=== PATIENT | male | born 1955 | race Caucasian/White ===

== ENCOUNTER 2019-10-09 07:37 | Outpatient (CLI) | payer OTHER, SELFPAY ==
--- NOTE | ~2019-10-09 | US_ITS ---
EXAMINATION: US retroperitoneal duplex ltd DATE: 10/09/2019 08:12 INDICATION: hypertension TECHNIQUE: Multiple grayscale, color Doppler, and pulsed Doppler images of the kidneys and renal анна nani were obtained. COMPARISON: None. FINDINGS: The aorta peak systolic velocity is 121 cm/s. The right renal artery peak systolic velocity is 116 cm /s in the proximal segment, 125 cm/s in the mid segment, and 150 cm/s in the distal segment. The left renal artery peak systolic velocity is 103 cm/s in the proximal segment, 94 cm/s in the mid segment, and 96 cm/s in the distal segment. Bilateral kidneys demonstrate normal contour and echogenicity wit h no hydronephrosis. IMPRESSION: 1. No Doppler evidence of renal artery stenosis. Reviewed, dictated and finalized at location B.
== END 2019-10-09 07:38 | disposition home or self-care (01) ==
PROVIDERS: PCP Nurse Practitioner Adult Health; Visit Provider Nurse Practitioner Adult Health
DX: I10 Essential (primary) hypertension (principal)
CPT/HCPCS: 93976

== ENCOUNTER 2021-09-24 16:18 | Outpatient (CLI) | payer OTHER, SELFPAY ==
--- NOTE | ~2021-09-24 | CT_ITS ---
EXAMINATION: CT abdomen pelvis wo/w con DATE: 09/24/2021 17:04 INDICATION: Gross hematuria. TECHNIQUE: Computed tomography (CT) of the abdomen and pelvis was performed without and with intraven ous contrast using a total of 130 mL Omnipaque-350 intravenous contrast with a double-bolus technique for simultaneous opacification of the renal parenchyma and renal collecting system. Automated exposu re control and iterative reconstruction technique were employed. The dose-length product was 808.61 m Gy-cm. COMPARISON: None FINDINGS: The visualized portions of the lung bases demonstrate mild atelectasis. No pleural effusion. The hear t size is normal. No pericardial effusion. The liver, gallbladder, spleen, pancreas, and adrenal glan ds are normal. There is an 11 mm hemorrhagic cyst in right kidney. There are cysts in the kidneys rosalia suring up to 7 mm on the left. There is a 2.0 cm enhancing mass in left kidney lower pole. There is a 2 mm stone in right kidney. Right ureter is well opacified and is normal. Left ureter is not well op acified distally, but is normal. The bladder is not well opacified, but is normal. There is a left in guinal hernia containing fat. There is diverticulosis of the colon without evidence of diverticulitis . The appendix is normal. There is a total left hip arthroplasty. There is severe lumbar spondylosis. There are bridging endplate osteophytes at multiple levels in the spine, consistent with diffuse idi opathic skeletal hyperostosis (DISH). IMPRESSION: 1. 2.0 cm enhancing mass in left kidney lower pole, consistent with renal cell carcinoma. 2. 2 mm nonobstructing right kidney stone. Reviewed, dictated and finalized at location A.
--- NOTE | ~2021-09-24 | XR_ITS ---
EXAMINATION: XR abdomen/kub 1V DATE: 09/24/2021 16:40 INDICATION: Gross hematuria. TECHNIQUE: A supine view of the abdomen on 2 radiographs was obtained. COMPARISON: CT abdomen and pelvis 09/24/2021 FINDINGS: There are no dilated loops of bowel. There is no visible urolithiasis. There is a total lef t hip arthroplasty. IMPRESSION: 1. No visible urolithiasis. Reviewed, dictated and finalized at location A. IMPRESSION: 1. No visible urolithiasis.
[2021-09-24 16:46] LABS: Estimated Glomerular Filt Rate > 60
== END 2021-09-24 16:19 | disposition home or self-care (01) ==
PROVIDERS: PCP Nurse Practitioner Adult Health; Visit Provider Nurse Practitioner Adult Health
DX: R31.0 Gross hematuria (principal); N28.89 Other specified disorders of kidney and ureter; N20.0 Calculus of kidney
CPT/HCPCS: 74018; 74178; Q9967

== ENCOUNTER → 2021-11-04 10:45 | Outpatient (CLI) | payer OTHER, SELFPAY ==
--- NOTE | ~2021-11-04 | US_ITS ---
US retroperitoneal comp 11/04/2021 11:06 Procedure: Realtime transabdominal ultrasound of the kidneys and bladder. Indication: Left renal mass seen on recent CT Comparison: Ultrasound dated 10/09/2019 Findings: Right renal echotexture within normal limits without mass, hydronephrosis or stone. Right k idney measures 10.3 cm. At the lower pole of the left kidney there is a solid hypoechoic mass measuri ng 2.7 x 2.4 x 2.5 cm with subtle posterior shadowing and no significant internal vascularity. Left k idney measures 10.7 cm. Bladder within normal limits. Impression: 1: Solid left renal mass anteriorly measuring 2.7 cm, compatible with renal cell carcinoma. Reviewed, dictated and finalized at location B. Impression: 1: Solid left renal mass anteriorly measuring 2.7 cm, compatible with renal olga l carcinoma.
== END ==
PROVIDERS: PCP Nurse Practitioner Adult Health; Visit Provider Urology
DX: R10.9 Unspecified abdominal pain (principal); N28.89 Other specified disorders of kidney and ureter
CPT/HCPCS: 76770

== ENCOUNTER 2021-11-05 08:21 | Outpatient (CLI) | payer OTHER, SELFPAY ==
--- NOTE | ~2021-11-05 | CT_ITS ---
EXAMINATION: CT diagnostic chest wo con DATE: 11/05/2021 08:39 INDICATION: Left kidney mass TECHNIQUE: Computed tomography (CT) of the chest was performed without intravenous contrast. The dose -length product (DLP) was 158.25 mGy-cm. Automated exposure control and iterative reconstruction tech nique were employed. COMPARISON: None FINDINGS: There is mild dependent atelectasis. The lungs are free of focal airspace opacities. No ple ural effusion or pneumothorax. No pathologically enlarged thoracic lymph nodes are identified. The he art size is normal. There are bridging osteophytes at multiple levels in the spine, consistent with d iffuse idiopathic skeletal hyperostosis (DISH). IMPRESSION: 1. No CT correlate for the patient's symptoms. No evidence of thoracic metastatic disease. Reviewed, dictated and finalized at location A. IMPRESSION: 1. No CT correlate for the patient's symptoms. No evidence of thoracic metastat ic disease.
== END 2021-11-05 08:22 | disposition home or self-care (01) ==
PROVIDERS: PCP Nurse Practitioner Adult Health; Visit Provider Urology
DX: N28.89 Other specified disorders of kidney and ureter (principal)
CPT/HCPCS: 71250

== ENCOUNTER 2022-07-15 08:12 | Outpatient (CLI) | payer OTHER, SELFPAY ==
--- NOTE | ~2022-07-15 | XR_ITS ---
EXAMINATION: XR chest 2V DATE: 07/15/2022 08:32 INDICATION: Papillary renal cell carcinoma. TECHNIQUE: Frontal and lateral views of the chest were obtained. COMPARISON: Chest single view 12/07/2004, CT abdomen 07/15/2022 FINDINGS: The chest demonstrates clear lungs without pneumonia, pleural effusion, or pneumothorax. Th e heart size is normal. There is an embolization coil in left kidney. IMPRESSION: 1. No evidence of metastatic disease. Reviewed, dictated and finalized at location A.
--- NOTE | ~2022-07-15 | CT_ITS ---
CT of the Abdomen: Indication: Papillary renal cell carcinoma Technique: 2.5 mm axial scans were obtained through the abdomen prior to and following intravenous a dministration of 100 cc of Omnipaque 350. Dose reduction technique was used on this scan by utilizing automated exposure control and iterative reconstruction technique. The dose-length product (DLP) was 461.17 mGy-cm. COMPARISON: 09/24/2021 Findings: Scans through the lung bases are unremarkable. The liver, spleen, pancreas, gallbladder, and adrenal glands are within normal limits. Is postsurgica l and/or post ablative change at the inferior aspect of the left kidney. No residual/recurrent pathol ogic mass clearly identified. Small right renal cysts are unchanged. No evidence of aortic aneurysm. No lymphadenopathy. Visualized bowel loops are unremarkable. No ascites. Impression: Postsurgical and/or postablative change at the inferior aspect of the left kidney. No residual/recurr ent pathologic mass evident. Reviewed, dictated and finalized at location . Impression: Postsurgical and/or postablative change at the inferior aspect of the left kidn ey. No residual/recurrent pathologic mass evident.
== END 2022-07-15 08:13 | disposition home or self-care (01) ==
PROVIDERS: PCP Family Medicine; Visit Provider Urology
DX: C64.9 Malignant neoplasm of unspecified kidney, except renal pelvis (principal)
CPT/HCPCS: 71046; 74170; Q9967

== ENCOUNTER → 2023-01-10 11:25 | Outpatient (CLI) | payer OTHER, SELFPAY ==
--- NOTE | ~2023-01-10 | XR_ITS ---
Left ankle Technique: AP, oblique, and lateral views were obtained. Clinical History: Pain Findings: No acute fracture or dislocation is seen. Osseous alignment is anatomic. Anatomic location intact. There is a prominent dorsal beak at the talar head, with poor delineation of the anterior sub talar facet. Soft tissues are otherwise unremarkable. 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 Consi sammy cross-sectional imaging to further evaluate, as indicated. Reviewed, dictated and finalized at location M. R GIFTS DIRECTOR Impression: Osseous findings as above which are suspicious for possible underlying talocalc aneal coalition. Consider cross-sectional imaging to further evaluate, as indic ated.
--- NOTE | ~2023-01-10 | XR_ITS ---
AP view of the pelvis and AP and lateral views of the right hip Clinical history: Pain Findings: No acute fracture or dislocation is seen. Osseous alignment is anatomic. Left hip arthropla sty is in place. No hardware complication seen. Right hip joint space is preserved. Soft tissues are unremarkable. Impression: No acute abnormality. Left hip arthroplasty in place. Reviewed, dictated and finalized at location . L SPAR OPERATOR Impression: No acute abnormality. Left hip arthroplasty in place.
== END ==
PROVIDERS: PCP Family Medicine; Visit Provider Nurse Practitioner
DX: M25.551 Pain in right hip (principal); M25.572 Pain in left ankle and joints of left foot
CPT/HCPCS: 73502; 73600

== ENCOUNTER 2023-06-08 08:35 | Outpatient (CLI) | payer MEDICARE, OTHER, SELFPAY ==
--- NOTE | ~2023-06-08 | CT_ITS ---
EXAMINATION: CT abdomen wo/w con DATE: 06/08/2023 09:27 INDICATION: Papillary renal cell carcinoma. TECHNIQUE: Computed tomography (CT) of the abdomen was performed without and with 100 mL Omnipaque 35 0 intravenous contrast. Automated exposure control and iterative reconstruction technique were employ ed. The dose-length product was 486.28 mGy-cm. COMPARISON: CT abdomen 07/15/2022 FINDINGS: The visualized portions of the lung bases demonstrate mild atelectasis. No pleural effusion . The heart size is normal. No pericardial effusion. The liver, gallbladder, spleen, pancreas, and ad renal glands are normal. There is a 9 mm hemorrhagic cyst in right kidney. There is a 2 mm stone in r ight kidney. There are cysts in the kidneys measuring up to 10 mm on the left. There are changes of p artial left nephrectomy. There are embolization coils in left kidney. There is diverticulosis of the colon without evidence of diverticulitis. There are no dilated loops of bowel. There are no pathologi frank enlarged lymph nodes. There is no free intraperitoneal fluid. There is a supraumbilical ventral hernia containing fat. There are bridging endplate osteophytes at multiple levels in the spine, cons istent with diffuse idiopathic skeletal hyperostosis (DISH). There is severe lumbar spondylosis. IMPRESSION: 1. Partial left nephrectomy. No evidence of malignancy. Reviewed, dictated and finalized at location A.
--- NOTE | ~2023-06-08 | XR_ITS ---
Clinical Indication: Renal cell carcinoma PA and lateral views of the chest: Comparison: 07/15/2022 Findings: The lungs are clear, without evidence of focal consolidation or pleural effusion. Cardiome diastinal silhouette is within normal limits. Bones and soft tissues are unremarkable. Impression: Normal chest. Reviewed, dictated and finalized at location . Impression: Normal chest.
[2023-06-08 09:21] LABS: Estimated Glomerular Filt Rate 55
== END 2023-06-08 08:36 | disposition home or self-care (01) ==
PROVIDERS: PCP Family Medicine; Visit Provider Urology
DX: C64.9 Malignant neoplasm of unspecified kidney, except renal pelvis (principal); Z90.5 Acquired absence of kidney
CPT/HCPCS: 71046; 74170; Q9967

== ENCOUNTER 2023-10-18 12:45 | Outpatient (CLI) | payer MEDICARE, OTHER, SELFPAY ==
--- NOTE | 2023-10-18 13:03 | ECG_ITS ---
Test Date: 2023-10-18 13:25:35 Measurements Intervals Parks Rate: 58 P: 50 WV: 160 QRS: 1 QRSD: 113 T: 51 QT: 427 QTc: 421 Interpretive Statements SINUS BRADYCARDIA INTRAVENTRICULAR CONDUCTION DELAY DELAYED PRECORDIAL R/S TRANSITION BASELINE ARTIFACT- I, II, III, AVR, AVL, AVF, V1-V6 BORDERLINE ECG No previous ECG available for comparison Electronically Signed On 10-18-2023 13:34:50 CDT by Nick Tom D.O.
[2023-10-18 14:01] LABS: Anion Gap 10 mmol/L (4-12); Blood Urea Nitrogen 17 mg/dL (9-20); Calcium 9.7 mg/dL (8.4-10.2); Carbon Dioxide 27 mmol/L (22-30); Chloride 101 mmol/L (98-107); Estimated Glomerular Filt Rate 60; Glucose 125 mg/dL (65-110); Potassium 4.4 mmol/L (3.4-5.0); Sodium 138 mmol/L (137-145)
== END 2023-10-18 12:46 | disposition home or self-care (01) ==
PROVIDERS: Anesthesiology; PCP Family Medicine; Visit Provider Orthopaedic Surgery
DX: Z01.818 Encounter for other preprocedural examination (principal); I10 Essential (primary) hypertension; R00.1 Bradycardia, unspecified; I45.89 Other specified conduction disorders
CPT/HCPCS: 36415; 80048; 93005

== ENCOUNTER 2023-10-24 00:48 | Day surgery (SDC) | payer MEDICARE, OTHER, SELFPAY ==
--- NOTE | 2023-10-17 13:10 | PC.NURSE ---
Report to the Outpatient Waiting Room, entrance under the green pavilion located off [facility], at time _12;30 PM on date 10/24/23 . Planned Procedure Time: _2:30 PM .? Time changes happen often and if your time is changed the preop area will call you the afternoon before. - You and your visitor will be asked to self-screen and do not enter if you have any COVID symptoms. Please call surgeon if you need to reschedule. - A mask is optional within the hospital at this time. Patients may have clear liquids (water, carbonated beverages, clear teas, apple juice) until 3 hours prior to surgery( 11:30 AM) with a maximum of 20 ounces. - No food from midnight until time of surgery and no smoking - Infants may have breast milk until 4 hours before surgery, infant formula 6 hours prior to surgery. - Children will be allowed to drink immediately following surgery.? If applicable, please bring a bottle or sippy cup to assist with drinking. Juice, water, soda, and popsicles are readily available.? For infants on formula, please bring formula the day of surgery.? Pacifiers are allowed. Take only the following medications with a SIP of water on the morning of surgery:DILTIAZEM ,FLECAINIDE DO NOT STOP ANY OF YOUR OTHER PRESCRIPTION MEDICATIONS PRIOR TO SURGERY EXCEPT THE FOLLOWING Medications to discontinue per physician _PT STATES HOLD XARELTO 3 DAYS PRE OP PER DR RAMIREZ.LAST DOSE 10/20/23 HOLD ALL VITAMINS AND SUPPLEMENTS 3 DAYS PRE OP .LAST DOSE 10/20/23 Please no make-up, nail syriac, hairspray, perfume, deodorant, or body powder the day of surgery.? No jewelry (including any body piercings) or valuables the day of surgery, leave them at home.? Please take a shower or bath the night before, or the morning of, surgery with an antibacterial soap.? Wear comfortable, loose fitting clothing.? Children are encouraged to wear pajamas. - Jewelry must be removed prior to entering the operating room.? Rings and piercings that are not removed may be cut off. - The hospital will not accept responsibility for valuables.? - Please leave all valuables, including medications, at home the day of surgery. If you are going home after surgery, a licensed route delivery driver must drive you home.? - NO public transportation without another adult if you receive anesthesia. - We recommend that an adult stay with you for 24 hours following discharge. - We also recommend that you do not drive, make important decision, drink alcoholic beverages, or take any drugs that were not prescribed by your health care provider for at least 24 hours after your discharge time. For Pediatric surgeries, we recommend two adults accompany the child home. Follow any additional instructions given to you from your surgeon. Telephone instructions given to _PATIENT and asked if any additional questions and then verbalized understanding. Patient advised to call surgeon office or pre surgery nurse liaison [phone] if any additional questions.
[2023-10-17 13:20] VITALS: BMI 26.6
[2023-10-24] VITALS (10 sets, daily range): BP systolic 113–142; BP diastolic 46–74; PULSE 55–82; RESP 15–18; TEMP 36.7–36.9; O2SAT 97–100
[2023-10-24] MEDS: ACETAMINOPHEN 500 MG TABLET 1000 MG PO (13:11)
[2023-10-24] MEDS: LACTATED RINGERS 1,000 ML 30 ML IV CONT ×2 (13:17→15:47)
--- NOTE | 2023-10-24 13:17 | WPDANESEPPF ---
Anes - Initial Pre Proc Eval Procedure: Operation Date: 10/24/23 14:30 Proposed Procedures p Left Elbow Olecranon Spur Excision with Bursectomy - Franko Mejia MD Date/Time: 10/24/23 13:17 Surgeon: Franko Mejia MD Pre Op Diagnosis: olecranon bursitis left elbow Patient Data Age: 68 Gender: M Height: 1.7 m Weight: 77.15 kg Allergies Allergy/AdvReac Type Severity Reaction Status Date / Time No Known Allergies Allergy Verified 10/24/23 12:55 Home Medications Medication Instructions Recorded Confirmed Type cholecalciferol (vitamin D3) 250 250 mcg PO DAILY 02/23/22 10/17/23 History mcg (10,000 unit) capsule diltiazem HCl 60 mg 60 mg PO BID 02/23/22 10/17/23 History capsule,extended release 12 hr lutein 20 mg capsule 20 mg PO DAILY 02/23/22 10/17/23 History magnesium oxide 400 mg PO DAILY 02/23/22 10/17/23 History rivaroxaban 20 mg tablet (Xarelto) 20 mg PO DAILY 02/23/22 10/17/23 History lisinopril 20 1 tablet PO DAILY #90 tabs 03/07/23 10/17/23 Rx mg-hydrochlorothiazide 12.5 mg tablet flecainide 50 mg tablet 50 mg PO Q12H 10/05/23 10/17/23 History omega-3 fatty acids 1,000 mg PO DAILY 10/17/23 10/17/23 History Patient hx anesthesia problems: none Family hx anesthesia problems: none Results Review: All pre-operative results and documents have been reviewed as part of the pre-operative evaluation. [facility] Past Medical History Medical History Afib HTN (hypertension) Renal cancer Surgical History Surgical History History of partial nephrectomy History of total left hip arthroplasty (~05/24/17) Family History Family History Mother Family history of congenital heart disease Family history of lung cancer Cerebrovascular accident Hypertension Father Family history of malignant neoplasm Family history of chronic obstructive pulmonary disease Malignant neoplasm of prostate Hypertension Social History Social History Smoking status: Never smoker Second hand tobacco smoke exposure: Yes Alcohol intake: current Drinks per week: 2 Alcohol use details: rarely Substance use: never Substance use type: does not use Do You Feel Safe in your Home?: Yes Lack of Transportation: No Lack of Food: Never True Current Housing: I Have Housing Concerned About Future Housing: No Difficulty Paying Gas/Electric Bills: No Difficulty Paying for Meds: No Currently Unemployed: No Education: Associate Degree Difficulty w/ Childcare or Family Care: No Living arrangements: alone Occupation/Education: occupation Gender identity (if verbalized by the patient): Male Spiritual care concerns: No Agree to blood products: Yes Anes - Eval Final PreProcedure Day of Procedure 10/24/23 13:17 Patient weight: overweight Heart: regular rate and rhythm Lungs: clear to auscultation Airway: Mallampati scale class II Neurological: alert and oriented Last oral intake: >/= 8 hours ASA classification: III Emergent: no Anesthetic plan: proceed Anesthesia type and monitoring: general LMA and standard monitoring Results Review: All pre-operative results and documents have been reviewed as part of the pre-operative evaluation. Informed Consent: The patient's anesthetic plan and its attendant risks and benefits were discussed with the patient/family/POA. Questions were solicited and answers provided to the satisfaction of the patient/family/POA.
[2023-10-24] MEDS: KETOROLAC 15 MG/ML VIAL (*BKC) IV PUSH (14:03)
--- NOTE | 2023-10-24 14:38 | WPDHPUPDATE1 ---
History and Physical Update Update Date/Time: 10/24/23 14:38 History and Physical has been reviewed, including an updated exam of the patient. There are NO changes in the patient's condition. Risks, benefits, and alternatives have been discussed and questions answered. Patient agrees to proceed with procedure.
[2023-10-24] MEDS: ceFAZolin 2 GM/D5W 50 ML 2 GM/50 ML BAG IVPB (14:53)
[2023-10-24] MEDS: BUPivacaine HCL 0.5% 10 ML AMP 20 ML INFILTRATE (15:04)
--- NOTE | 2023-10-24 17:01 | W.PM.PROC2 ---
Procedure Note - Detailed Date of Procedure 10/24/23 Pre-op Diagnosis Olecranon bursitis left elbow with olecranon spur. Post-op Diagnosis Other (Insertional triceps tendinitis with olecranon spur and bursitis.) Procedure Performed Olecranon spur excision with insertional triceps tendon debridement, and olecranon bursectomy, left elbow. Surgeon Franko Mejia MD Anesthesia General Indications Persistent severe focal pain with activity, and tenderness at the tip of the olecranon triceps insertion. Findings Significant degenerative tendon changes noted at the insertion of the triceps at the at the spur. This area was debrided and the spur excised. Description of Procedure Preop antibiotics were given. A general anesthetic was administered. The left arm was prepped and draped in usual sterile fashion with a well-padded tourniquet on the arm. The limb was exsanguinated and tourniquet inflated to 225 mmHg. A longitudinal incision was created just radial to the tip of the olecranon. The overlying bursa was excised. The triceps spur was exposed sharply. A modest split in the central tendon was required. The triceps tendon in this area was degenerative and debrided. The remaining tendon was very healthy. The bone spur was excised with the rongeur, and smoothed with a rasp. The triceps tendon was then sewn back together over the defect with#1 Vicryl. The wound was carefully irrigated during the procedure. The subcutaneous tissues were closed with interrupted 3-0 Monocryl followed by running 4-0 Monocryl and Steri-Strips. A bulky sterile padded dressing was applied. The patient was placed in a sling, extubated, and brought to the recovery room in stable condition. There were no complications. Estimated Blood Loss 1 Drains No Packing No Pathology None sent Complications No immediate complications Condition Stable Disposition PACU [facility] Billing Surgery - Charge Forward: Surgery Billing
== END 2023-10-24 17:58 | disposition home or self-care (01) ==
PROVIDERS: PCP Family Medicine; Visit Provider Orthopaedic Surgery
PROC: (CPT 24110; principal; 2023-10-24 14:30)
DX: M70.22 Olecranon bursitis, left elbow (principal); M25.722 Osteophyte, left elbow; I10 Essential (primary) hypertension; Z79.01 Long term (current) use of anticoagulants; Z98.890 Other specified postprocedural states; Z85.528 Personal history of other malignant neoplasm of kidney; Z86.79 Personal history of other diseases of the circulatory system; Z80.1 Family history of malignant neoplasm of trachea, bronchus and lung; Z80.42 Family history of malignant neoplasm of prostate; Z82.49 Family history of ischemic heart disease and other diseases of the circulatory system
CPT/HCPCS: 24147; A9270; J0690; J1100; J1885; J2250; J2405; J2704; J3010; J7120

== ENCOUNTER 2023-12-05 08:39 | Outpatient (CLI) | payer MEDICARE, OTHER, SELFPAY ==
--- NOTE | ~2023-12-05 | MR_ITS ---
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 Sequences included coronal T2-weighted SS-FSE, coronal and axial FS 2D-F IESTA, axial STIR FSE, axial T2-weighted SS-FSE, axial T2-weighted FS SS-FSE, axial diffusion-weighte d SE, axial dual-echo T1-weighted FSPGR, and axial and coronal T1-weighted LAVA. Postcontrast axial T 1-weighted LAVA images were obtained in a time course. Postcontrast coronal T1-weighted LAVA images w ere obtained. COMPARISON: CT dated 06/08/2023 FINDINGS: Heart size is normal. No pericardial or pleural effusion. Liver, gallbladder, spleen, pancreas and bi lateral adrenal glands are normal. Postoperative changes of prior partial nephrectomy at the lower po le of the left kidney with magnetic field artifact associated with what appear to be embolization coi ls on the prior CT. There are bilateral T2 hyperintense nonenhancing renal cysts, 2 on the right john uring up to 4 mm and 4 on the left measuring up to 11 mm. There is also a 10 mm exophytic T1 hyperint ense, T2 hypointense cyst at the lower pole of the right kidney. No enhancing renal lesions to sugges t residual or recurrent malignancy. There are few diverticula along the descending and sigmoid colon without adjacent from trace stranding to suggest diverticulitis. Visualized bowels including the appe ndix are otherwise normal. Visualized bladder is normal. No pathologically enlarged abdominal or uppe r pelvic lymphadenopathy. Moderate lumbar spondylosis. No abnormally enhancing bone lesions. IMPRESSION: 1. Status post partial left nephrectomy with no evident residual, locally recurrent or metastatic dis ease. Reviewed, dictated and finalized at location A. IMPRESSION: 1. Status post partial left nephrectomy with no evident residual, locally recur rent or metastatic disease.
== END 2023-12-05 08:40 | disposition home or self-care (01) ==
LOC: ANHIMG 08:42
PROVIDERS: PCP Family Medicine; Visit Provider Urology
DX: C64.9 Malignant neoplasm of unspecified kidney, except renal pelvis (principal); Z90.5 Acquired absence of kidney
CPT/HCPCS: 74183; A9577

== ENCOUNTER 2024-03-22 07:30 | Outpatient (CLI) | payer MEDICARE, OTHER, SELFPAY ==
--- NOTE | ~2024-03-22 | CT_ITS ---
EXAMINATION: CT abdomen pelvis wo/w con DATE: 03/22/2024 08:11 INDICATION: Hematuria TECHNIQUE: Computed tomography (CT) of the abdomen and pelvis was performed without and with 130 cc O mnipaque 350 intravenous contrast. The dose-length product was 980.77 mGy-cm. Automated exposure cont rol and iterative reconstruction technique were employed. COMPARISON: MRI dated 12/05/[address] dated 06/08/2023. FINDINGS: Lung bases are unremarkable. Heart size normal. No pleural or pericardial effusion. There i s a small hyperdense cyst of the right kidney posteriorly and laterally. There are changes of partial left nephrectomy. There is nonobstructing 3 mm right renal stone. No hydronephrosis. Enlarged prosta te gland with central coarse calcifications. The liver, spleen, pancreas, adrenal glands are unremarkable. There are small low-density lesions in both kidneys, compatible with cysts. Nonobstructive bowel gas pattern. No significant vascular abnorm ality. No lymphadenopathy. No free air or free fluid. IMPRESSION: 1. Nonobstructing right nephrolithiasis. 2: Status post partial left nephrectomy. Reviewed, dictated and finalized at location B. DATION ANALYST
--- OUTSIDE RECORDS SUMMARY | 2024-03-22 07:35 | XMS_ITS | Clinical Summary ---
Author Organization [facility] Address [address] [place] [address] Care Team Providers Care Bioassayist Name Role Phone Milagros Mills Primary Care Provider [phone] Medications lisinopril-hydr oCHLOROthiazide (ZESTORETIC) 20-12.5 MG tablet Take 1 tablet by mouth daily. 05/10/2023 Active XARELTO 20 MG Tab tablet Take 1 tablet (20 mg total) by mouth daily. 05/10/2023 Active Cholecalciferol 10 MCG (400 UNIT) Cap Take 400 Units by mouth daily. Active alfuzosin ER (UROXATRAL) 10 MG 24 hr tablet Take 1 tablet (10 mg total) by mouth daily. 07/06/2023 Active dilTIAZem (CARDIZEM) 60 MG tablet Take 2 tablets (120 mg total) by mouth 2 (two) times a day. Active Magnesium 400 MG Cap Take 400 mg by mouth 2 (two) times a day. Active multiple vitamins-minera ls (OCUVITE-LUTEIN ) Cap Take 1 capsule by mouth 2 (two) times a day. Active fish oil (OMEGA-3 FATTY ACID) 1000 MG Cap capsule Take 1 capsule (1,000 mg total) by mouth 2 (two) times daily. 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/2014 Mass of breast 04/17/2013 Resolved Problems Problem Noted Date Diagnosed Date Resolved Date Afebrile 02/26/2023 07/25/2023 Immunizations Name Administration Dates Next Due Shingrix 11/27/2019,09/07/2019 Tdap (Generic) 06/25/2022 Family History Medical History Relation Comments Bone cancer Father Diabetes Father Hypertension Father Lung Cancer Mother Relation Status Comments Father Mother Social History Tobacco Use Types Packs/Day Years Used Date Smoking Tobacco: Never Smokeless Tobacco: Never Tobacco Cessation:Counseling Given: No Alcohol Use Standard Drinks/Week Comments Yes 0 (1 standard drink = 0.6 oz pur e alcohol) 1 beer a week [facility] [employer] Answer Date Recorded In the past 12 months has e [employer], [employer], oil, or water [employer] threatened to shut off services in your home? No 07/21/2023 Humiliation, Afraid, Rape, and Kick questionnair e Answer Date Recorded Within the last year, have y ou been afraid of your partner or ex-partner? No 07/21/2023 Within the last year, have y ou been humiliated or emotionally abused in other ways by your partner or ex-partner? No Within the last year, have y ou been kicked, hit, slapped, or otherwise physically hurt by your partner or ex-partner? No 07/21/2023 Within the last year, have y ou been raped or forced to have any kind of sexual activity by your partner or ex-partner? No 07/21/2023 Overall Financial Resource Strain (CARDIA) Answe r Date Recorded How hard is it for you to pa y for the very basics like food, housing, medical care, and heating? Not hard at all 07/21/2023 PHQ-2 Answer Date Recorded Patient Health Questionnaire-2 Score 0 07/21/2023 Hunger Vital Sign Answer Date Recorded Within the past 12 months, y ou worried that your food would run out before you got the money to buy more. Never true 07/21/19 24 Within the past 12 months, t he food you bought just didn't last and you didn't have money to get more. Never true 07/21/2023 PRAPARE - Transportation Answer Date Re corded In the past 12 months, has l ack of transportation kept you from medical appointments or from getting medications? No 07/08 In the past 12 months, has l ack of transportation kept you from meetings, work, or from getting things needed for daily living? No 07/21/2023 Housing Stability Vital Sign Answer Costa e Recorded In the last 12 months, was t here a time when you were not able to pay the mortgage or rent on time? No 07/21/2023 In the past 12 months, how m any times have you moved where you were living? 1 07/21/2023 At any time in the past 12 m [facility], were you homeless or living in a retirement (including now)? No 07/21/2023 Sex and Gender Information Value Date Recorded Sex Assigned at Not on file Legal Sex Male 7:51 PM CDT Gender Identity Not on file Sexual Orientation Not on file Last Filed Vital Signs Vital Sign Reading Time Taken Comments Blood Pressure 135/70 07/26/2023 11:06 AM CDT Pulse 61 07/26/2023 11:06 AM CDT Temperature 36.3 C (97.4 F) 07/26/2023 11:06 AM CDT Respiratory Rate 16 07/26/2023 11:06 AM CDT Oxygen Saturation 97% 07/26/2023 11:06 AM CDT Inhaled Oxygen Concentration - - Weight 79 kg (174 lb 2.6 oz) 07/26/2023 4:59 AM CDT Height 172.7 cm (5' 8 ) 07/21/2023 5:29 PM CDT Body Mass Index 26.48 07/21/2023 5:29 PM CDT Plan of Treatment Health Maintenance Due Date Last Done Comments Colorectal Cancer Screening Colonoscopy (10 Years) 1955 Pneumococcal Vaccine: 65+ Years (1 of 2 - PCV) 1962 RSV Immunization or 60+ Years (1 - Risk 60-74 years 1-dose series) 2016 Annual Medicare Wellness Visit 2021 COVID-19 Vaccine (1 - 2023-2 5 season) 2023 Influenza Adult (#1) 2023 PHQ-2 (Physician [place]) 02/08/2024 07/21/2023 PHQ-2 (Physician [place]) 07/20/2024 07/21/2023 DTaP, Tdap and Td Vaccines ( 2 - Td or Tdap) 06/25/2032 06/25/2022 Zoster Vaccines Completed 11/27/2019, 09/07/2019 Hepatitis C Completed 07/25/2023, 07/24/2023 Meningococcal B Vaccine Aged Out No l onger eligible based on patient's age to complete this topic Meningococcal Vaccine Aged Out No sharmila petra eligible based on patient's age to complete this topic RSV Immunizations Under 20 Months Aged Out No longer eligible b ased on patient's age to complete this topic Procedures Procedure Name Priority Date/Time Associated Diagnosis Comments HEPATITIS C RNA W/ REFLX GENOTYPE Routine 07/25/2023 5:53 AM CDT from Last 3 Months or Most Recently Relevant to Health Maintenance Results * HEPATITIS C RNA W/ REFLX GENOTYPE (07/25/2023 5:53 AM CDT) HEPATITIS C RNA PCR QNT <15 IU/mL 07/28/2023 8:37 AM CDT [facility] NAIDA CALHOUN Comment: HCV RNA Not Detected HEP C RNA PCR QNT LOG <1.18 log IU/mL 07/28/2023 8:37 AM CDT [facility] NAIDA CALHOUN Comment: HCV RNA Not Detected Reference Range: Not Detected IU/mL Not Detected Log IU/mL For additional information please refer to http://education.[place]/faq/TUX00v3 (This link is being provided for informational/ educational purposes only.) Test Performed by Ebenezer Bor[facility] [email or web address] [facility], [address] [place] [address] Benedict Richardson M.D., Ph.D., Director of Laboratories , [place] [id number] 07/25/2023 5:53 AM CDT us Julian Agarwal MD LABORATORY Final Result [facility] [address] [place] [address], [place] [phone] from Last 3 Months or Most Recently Relevant to Health Maintenance Insurance MEDICARE [employer] Advance Directives * Full Code (Latest Code Status on File) Date Activated Date Inactivated Comments 07/21/2023 5:19 PM 07/26/2023 2:51 PM Care Teams Bioassayist Relationship Specialty Start Date End Date Milagros Mills DO [address] [place] [address] PCP - General FAMILY PRACTICE 07/21/23
[2024-03-22 07:57] LABS: Estimated Glomerular Filt Rate 51
== END 2024-03-22 07:31 | disposition home or self-care (01) ==
PROVIDERS: PCP Family Medicine; Visit Provider Urology
DX: R31.9 Hematuria, unspecified (principal)
CPT/HCPCS: 74178; Q9967

== ENCOUNTER 2024-08-09 08:16 | Outpatient (CLI) | payer MEDICARE, OTHER, SELFPAY ==
--- NOTE | ~2024-08-09 | XR_ITS ---
XR elbow RT min 3V Ordering provider: Casandra Goins, FAMILY CENTERED SPECIALIST-C History: . M25.521 - Pain in right elbow . Comparison: None. FINDINGS: BONES: No acute fracture or dislocation. JOINT SPACES: Normal. SOFT TISSUES: Unremarkable. No definite joint effusion. IMPRESSION: No acute osseous abnormality of the right elbow. Reviewed, dictated and finalized at location A.
== END 2024-08-09 08:17 | disposition home or self-care (01) ==
LOC: GOSHIMG 08:17
PROVIDERS: PCP Orthopaedic Surgery; Visit Provider Nurse Practitioner
DX: M25.521 Pain in right elbow (principal)
CPT/HCPCS: 73080

== ENCOUNTER 2024-08-09 09:06 | Outpatient (CLI) | payer MEDICARE, OTHER, SELFPAY ==
--- OUTSIDE RECORDS SUMMARY | 2024-08-09 09:11 | XMS_ITS | Clinical Summary ---
Author Organization [facility] [place] [address] Address [address] [place] [address] Care Team Providers Care Medical Device Assembler Name Role Phone Reilly Waters MD Unavailable [phone] Milagros Mills DO Primary Care Provider [phone] Jorge Alberto Silva MD Unavailable [phone] Yolanda Walker MD Unavailable [phone] Allergies Active Allergy Reactions Criticality Noted Date Comments Adhesive Itching,Rash Medium 06/22/2024 Medications magnesium oxide (MAG-OX) 400 mg (241.3 mg elemental magnesium) tablet Take 1 tablet (400 mg total) by mouth 2 (two) times a day 1 Active lutein 20 mg tablet Take 20 mg by mouth every morning 9 Active cholecalciferol (VITAMIN D-3) 25 mcg (1,000 unit) tablet Take 1 tablet (1,000 Units total) by mouth 2 (two) times a day Active acetaminophen 500 mg capsuleIndicati ons:Fever,Pain, Over the counter Take 2 capsules (1,000 mg total) by mouth every 6 (six) hours as needed for pain 5 Active psyllium, aspartame, SF (METAMUCIL SF) 3.4 gram packet Take 2 packets by mouth daily 5 07/15/19 26 Active dilTIAZem (CARDIZEM) 30 mg tablet Take 1 tablet (30 mg total) by mouth 2 (two) times a day 60 tablet 1 5 07/15/19 26 Active amiodarone (PACERONE) 400 mg tablet Take 1 tablet (400 mg total) by mouth 3 (three) times a day 90 tablet 5 07/15/19 26 Active dilTIAZem (CARDIZEM) 60 mg tablet Take 1 tablet (60 mg total) by mouth 3 (three) times a day 2 07/15/19 25 Discontinu ed(Stop Taking at Discharge) lisinopril-hydr oCHLOROthiazide (ZESTORETIC) 20-12.5 mg per tablet Take 1 tablet by mouth every morning 2 07/15/19 25 Discontinu ed(Stop Taking at Discharge) rivaroxaban (XARELTO) 20 mg tablet Take 1 tablet (20 mg total) by mouth daily with breakfast 07/15/19 25 Discontinu ed(Stop Taking at Discharge) ibuprofen (ADVIL,MOTRIN) 600 mg tablet Take 1 tablet (600 mg total) by mouth 3 (three) times a day for 5 days 15 tablet 5 07/15/19 25 Discontinu ed(Stop Taking at Discharge) Active Problems Problem Noted Date Diagnosed Date 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 Pericardial effusion 07/06/2024 Atrial fibrillation 06/25/2024 Persistent atrial fibrillation 06/19/2024 Fatigue 04/11/2024 Beta thalassemia minor 08/22/2023 Microcytic anemia 08/22/2023 Atrial fibrillation by electrocardiogram 024 Sepsis 07/21/2023 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 Hematuria 02/16/2022 Renal mass 01/27/2022 Renal mass, right 01/27/2022 Left renal mass 12/03/2021 Overview (12/03/2021): Added automatically from request for surgery [id number] Ventricular tachycardia 04/06/2020 Raynauds disease 03/07/2020 Cardiomyopathy 04/06/2019 Hypertension 02/23/2019 Osteoarthritis 02/23/2019 Palpitations 11/17/2018 Hemochromatosis 08/01/2014 Mass of breast 04/17/2013 Encounters Date Type Department Care Team Description 07/19/2024 [facility] Post Discharge Follow up phone call [address] [id number] Jeimy Winn 07/09/2024 Orders Only [facility] Cardiac Catheterization Lab [address] [place] [id number] Sharon Salinas MD Pericardial effusion (Primary Dx) 07/06/2024 4:00 PM CDT - 07/06/2024 5:30 PM CDT Surgery [facility] Cardiac Catheterization Lab [address] [place] [id number] Sharon Salinas MD LEFT HEART CATHETERIZATION WITH CORONARY ANGIOGRAPHY AND WITH OR WITHOUT LEFT VENTRICULOGRAM [id number] 07/06/2024 3:11 PM CDT - 07/14/2024 2:00 PM CDT Hospital Encounter [address] [address] Rosa Welch MD Boland, Matthew E., MD Ogunremi, Olumide Omolulu, MD Chang, Ping, MD Qayyum, Usman, MD Pericardial tamponade (Primary Dx); Syncope, unspecified syncope type; Acute blood loss anemia; Hemoperitoneum; Pericardial effusion; Pleural effusion; Atrial fibrillation with rapid ventricular response (HCC) Discharge Disposition: Discharge to home or self care 07/04/2024 Orders Only [facility] Cardiac Catheterization Lab [address] [place] [id number] Yolanda Walker MD Atrial fibrillation (HCC) (Primary Dx) 06/25/2024 2:30 PM CDT - 06/25/2024 7:00 PM CDT Surgery [facility] Operating Room [address] [place] [address] Gurvinder Burciaga MD ENDOSCOPY SURGICAL ABLATION 06/25/2024 2:03 PM CDT Anesthesia Event [facility] Operating Room [address] [place] [phone] Marion Grayson DO Marcinczyk, Mario Joseph, MD 06/25/2024 1:50 PM CDT Ancillary Procedure [facility] Operating Room [address] [place] [address] [phone] 06/25/2024 9:45 AM CDT - 06/27/2024 5:28 PM CDT Hospital Encounter [address] [address] Gurvinder Burciaga MD Persistent atrial fibrillation (HCC) (Primary Dx) Discharge Disposition: Discharge to home or self care 06/22/2024 8:45 AM CDT Pre-Admission Testing [facility] Pre Anesthesia Testing [address] [place] [phone] Persistent atrial fibrillation (HCC) 06/22/2024 8:40 AM CDT - 06/22/2024 11:59 PM CDT Hospital Encounter [facility] Diagnostic Imaging [address] [place] [address] Discharge Disposition: Discharge to home or self care 06/19/2024 10:00 AM CDT Office Visit [facility] Surgery [address] [place] [phone] Gurvinder Burciaga MD Longstanding persistent atrial fibrillation (HCC) (Primary Dx) 06/19/2024 7:15 AM CDT - 06/19/2024 11:59 PM CDT Hospital Encounter [facility] Imaging and Radiology [address] [place] [address] Ventricular tachycardia (HCC) Discharge Disposition: Discharge to home or self care 06/07/2024 9:45 AM CDT - 06/07/2024 11:59 PM CDT Hospital Encounter [facility] Cardiac Catheterization Lab [address] [place] [phone] Discharge Disposition: Discharge to home or self care 06/07/2024 Documentation Cardiology Yolanda Walker MD 06/06/2024 12:25 PM CDT Lab [address] [phone] 06/06/2024 Telephone [facility] Pre Anesthesia Testing [address] [place] [phone] Mara Toussaint, RN 06/06/2024 Telephone [facility] Pre Anesthesia Testing [address] [place] [phone] Mara Toussaint, RN 06/06/2024 Orders Only [facility] Cardiac Catheterization Lab [address] [place] [address] Yolanda Walker MD A-fib (HCC) (Primary Dx) from Last 3 Months Surgical History Surgery Date Site/Laterality Comments HIP ARTHROPLASTY Left PARTIAL NEPHRECTOMY 01/26/2022 Left COLONOSCOPY OTHER SURGICAL HISTORY 11/21/2023 Biomonitor director orange OTHER SURGICAL HISTORY 06/06/2024 GIL THORACENTESIS W IMAGING LEFT 07/09/2024 Left CARDIAC CATHETERIZATION 07/06/2024 N/A Procedure: LEFT HEART CATHETERIZATION WITH CORONARY ANGIOGRAPHY AND WITH OR WITHOUT LEFT VENTRICULOGRAM [id number]; Surgeon: Sharon Salinas MD; Location: [facility]; Service: Cardiovascular; Laterality: N/A; Medical History Medical History Date Comments HTN (hypertension) Atrial fibrillation (HCC) Left renal mass Ventricular tachycardia (HCC) Delayed emergence from general anesthesia Family History Medical History Relation Name Comments Leukemia Father Family history of leukemia - (Added by TW Conv) Leukemia Mother Family history of leukemia - (Added by TW Conv) Lung cancer Mother Family history of lung cancer - (Added by TW Conv) Relation Name Status Comments Father Mother Social History Tobacco Use Types Packs/Day Years Used Date Smoking Tobacco: Never Smokeless Tobacco: Former Chew Tobacco Cessation:Counseling Given: Not Answered Comments:Quit chewing at age 36 [facility] Utilities Answer Date Recorded In the past 12 months has e St[employer], gas, oil, or water Xention threatened to shut off services in your home? No 07/09/2024 Social Connection and Isolation Panel [NHANES] A nswer Date Recorded In a typical week, how many times do you talk on the phone with family, friends, or neighbors? Once a week 07/10/19 How often do you get togethe r with friends or relatives? Three times a week 07/09/2024 How often do you attend chur or taoism services? 1 to 4 times per year 07/09/2024 Do you belong to any clubs o r organizations such as confucianism groups, unions, fraternal or athletic groups, or school groups? No 07/09/2024 How often do you attend meet ings of the clubs or organizations you belong to? Never 07/09/2024 Are you , , di vorced, , never , or living with a partner? 07/09/2024 AUDIT-C Answer Date Recorded Q1: How often do you have a drink containing alc ohol? Monthly or less 06/26/2024 Q2: How many drinks containi ng alcohol do you have on a typical day when you are drinking? 1 or 2 06/26/2024 Q3: How often do you have si x or more drinks on one occasion? Never 06/26/2024 Overall Financial Resource Strain (CARDIA) Answe r Date Recorded How hard is it for you to pa y for the very basics like food, housing, medical care, and heating? Not hard at all 07/09/2024 Hunger Vital Sign Answer Date Recorded Within the past 12 months, y ou worried that your food would run out before you got the money to buy more. Never true 07/10/19 25 Within the past 12 months, t he food you bought just didn't last and you didn't have money to get more. Never true 07/09/2024 PRAPARE - Transportation Answer Date Re corded In the past 12 months, has l ack of transportation kept you from medical appointments or from getting medications? No 03/2024 In the past 12 months, has l ack of transportation kept you from meetings, work, or from getting things needed for daily living? No 07/09/2024 Housing Stability Vital Sign Answer Costa e Recorded In the last 12 months, was t here a time when you were not able to pay the mortgage or rent on time? No 01/27/2022 In the last 12 months, how many places have you lived? 1 01/27/2022 In the last 12 months, was t here a time when you did not have a steady place to sleep or slept in a intermediate (including now)? No 01/27/2022 Housing Stability Vital Sign Answer Costa e Recorded In the last 12 months, was t here a time when you were not able to pay the mortgage or rent on time? No 07/09/2024 In the past 12 months, how m any times have you moved where you were living? 0 07/09/2024 At any time in the past 12 m [facility], were you homeless or living in a intermediate (including now)? No 07/09/2024 Personal Safety Answer Date Recorded Have you ever been in or are you currently in a harmful physical or emotional relationship or is someone making you feel afraid or unsafe? 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 Gender Identity Not on file Sexual Orientation Not on file Obstetrics History Last Filed Vital Signs Vital Sign Reading Time Taken Comments Blood Pressure 124/60 07/14/2024 11:58 AM CDT Pulse 66 07/14/2024 11:58 AM CDT Temperature 36.9 C (98.4 F) 07/14/2024 11:58 AM CDT Respiratory Rate 18 07/14/2024 11:58 AM CDT Oxygen Saturation 99% 07/14/2024 11:58 AM CDT Inhaled Oxygen Concentration - - Weight 72.2 kg (159 lb 2.8 oz) 07/11/2024 6:20 A M CDT Height 172.7 cm (5' 7.99) 07/13/2024 2:28 PM CD T Body Mass Index 24.21 07/11/2024 6:20 AM CDT Plan of Treatment Upcoming Encounters Date Type Department Care Team (Latest Contact Info) Description 10/09/2024 12:30 PM CDT Hospital Encounter [facility] Electrophysiology Lab [address] [place] [id number] Yolanda Walker MD [address] [place] [address] Atrial fibrillation (HCC) 10/09/2024 12:30 PM CDT - 10/09/2024 4:40 PM CDT Surgery [facility] Electrophysiology Lab [address] [place] [phone] Yolanda Walker MD [address] [place] [address] ABLATION ATRIAL FIBRILLATION (A-FIB) VIA PULMONARY VEIN ISOLATION [address] Health Maintenance Due Date Last Done Comments Colon Cancer Screening-Colonoscopy 1955 Depression Screening 1956 Hepatitis C Screening 1956 Prostate Cancer Screening-PSA 1956 Meningococcal B Vaccine (1 o f 5 - Increased Risk) 1966 Hepatitis B Screening 1974 Pneumococcal vaccine 65+ (1 of 2 - PCV) 09/27/1975 Well Visit 65+ 2021 Influenza Vaccine (Season Ended) 2024 Fall Risk Assessment 07/14/2025 07/14/2024 DTaP/Tdap/Td Vaccine (2 - Td or Tdap) 06/25/2032 Zoster Vaccine Completed 11/27/2019, 09/07/2019 Medical Devices Implanted Type Area Multicultural Services Librarian Device Identifier Shelf Expiration Date Model / Serial / Lot Other - See Comments Other - see comments Left: Chest [employer] Description:excelsior picker [employer] Device 6fr Closure Celt Acd Vascular Sterile Latex Free Disposable Quynh Kclt-06 - [id number] Implanted:Qty: 1 on 02/17/2022 at [facility] [employer] 08/16/2024 KCLT-06 / [id number] [employer] Coil Emolization Coated Detachable Embold 8xzh1ob [place] Tungsten [id number] - [id number] Implanted:Qty: 1 on 02/17/2022 at [facility] [employer] [id number] 08/11/2024 [id number] / / [id number] [employer] Coil Emolization Coated Detachable Embold 5vyp4ry [place] Tungsten [id number] 80 - [id number] Implanted:Qty: 1 on 02/17/2022 at [facility] [employer] [id number] 08/11/2024 [id number] / / [id number] [employer] Coil Emolization Coated Detachable Embold [id number] [place] Tungsten [id number] 60 - [id number] Implanted:Qty: 1 on 02/17/2022 at [facility] [employer] [id number] 10/19/2024 [id number] / / [id number] [employer] Coil Emolization Coated Detachable [place] Tungsten Embold [id number] 40 - [id number] Implanted:Qty: 1 on 02/17/2022 at [facility] [employer] [id number] 11/08/2024 [id number] / / [id number] [employer] Coil Emolization Coated Detachable [place] [employer]ung[employer] Embold [id number] 40 - [id number] Implanted:Qty: 1 on 02/17/2022 at [facility] [employer] [id number] 11/08/2024 [id number] / / [id number] Explanted Type Area Multicultural Services Librarian Device Identifier Shelf Expiration Date Model / Serial / Lot [employer] Coil Emolization Coated Detachable Embold [id number] [place] Tungsten [id number] - [id number] Explanted:Qty: 1 on 02/17/2022 at [facility] [employer] [id number] 04/01/2024 [id number] / / [id number] Procedures Procedure Name Priority Date/Time Associated Diagnosis Comments EGFR Routine 07/14/2024 4:34 AM CDT BASIC METABOLIC PANEL Routine 07/14/2024 4:34 AM CDT CBC WITHOUT DIFFERENTIAL Routine 07/14/2024 4:34 AM CDT TRANSTHORACIC ECHO (TTE) LIMITED/FOLLOW UP WO DOPPLER/CF WO CONTRAST Routine 07/13/2024 12:45 PM CDT ECG 12-LEAD Routine 07/13/2024 6:51 AM CDT HEPATIC FUNCTION PANEL Add-On 3:41 AM CDT EGFR Routine 07/13/2024 3:41 AM CDT BASIC METABOLIC PANEL Routine 07/13/2024 3:41 AM CDT CBC WITHOUT DIFFERENTIAL Routine 07/13/2024 3:41 AM CDT CRITICAL CARE Routine 07/12/2024 10:13 AM CDT Pericardial tamponade Acute blood loss anemia Hemoperitoneum Pericardial effusion Pleural effusion Atrial fibrillation with rapid ventricular response (HCC) EGFR Routine 07/12/2024 5:21 AM CDT HEPATIC FUNCTION PANEL Routine 5:21 AM CDT MAGNESIUM Routine 07/12/2024 5:21 AM CDT BASIC METABOLIC PANEL Routine 07/12/2024 5:21 AM CDT CBC WITHOUT DIFFERENTIAL Routine 07/12/2024 5:21 AM CDT CRITICAL CARE Routine 07/11/2024 8:17 PM CDT Pericardial tamponade CRITICAL CARE Routine 07/11/2024 12:14 PM CDT Pericardial tamponade Acute blood loss anemia Hemoperitoneum Pericardial effusion Pleural effusion Atrial fibrillation with rapid ventricular response (HCC) ECG 12-LEAD STAT 07/11/2024 8:15 AM CDT EGFR Routine 07/11/2024 5:47 AM CDT BASIC METABOLIC PANEL Routine 07/11/2024 5:47 AM CDT CBC WITHOUT DIFFERENTIAL Routine 07/11/2024 5:47 AM CDT CRITICAL CARE Routine 07/10/2024 7:52 PM CDT Pericardial tamponade CBC WITHOUT DIFFERENTIAL Timed 07/10/2024 1:45 PM CDT CRITICAL CARE Routine 07/10/2024 1:31 PM CDT Pericardial tamponade Acute blood loss anemia Hemoperitoneum Pericardial effusion Pleural effusion TRANSFUSE RED BLOOD CELLS Timed 07/10/2024 10:19 AM CDT PROTIME-INR Routine 07/10/2024 10:01 AM CDT APTT Routine 07/10/2024 10:01 AM CDT PREPARE RBC STAT 07/10/2024 8:18 AM CDT EGFR Routine 07/10/2024 5:59 AM CDT BASIC METABOLIC PANEL Routine 07/10/2024 5:59 AM CDT CBC WITHOUT DIFFERENTIAL Routine 07/10/2024 5:58 AM CDT ECG 12-LEAD Routine 07/09/2024 11:07 PM CDT XR CHEST 1 VIEW ED Urgent/IP Urgent 07/09/2024 9:34 PM CDT CRITICAL CARE Routine 07/09/2024 7:09 PM CDT Pericardial tamponade ECG 12-LEAD STAT 07/09/2024 4:14 PM CDT XR CHEST 1 VIEW ED Urgent/IP Urgent 07/09/2024 4:06 PM CDT TRANSTHORACIC ECHO (TTE) LIMITED/FOLLOW UP W LTD DOPPLER/CF WO CONTRAST Routine 07/09/2024 2:29 PM CDT THORACENTESIS W IMAGING LEFT ED Urgent/IP Urgent 07/09/2024 1:35 PM CDT CRITICAL CARE Routine 07/09/2024 1:23 PM CDT Pericardial tamponade Acute blood loss anemia Hemoperitoneum Pericardial effusion Pleural effusion EGFR Routine 07/09/2024 6:44 AM CDT BASIC METABOLIC PANEL Routine 07/09/2024 6:44 AM CDT CBC WITHOUT DIFFERENTIAL Routine 07/09/2024 6:44 AM CDT XR CHEST 1 VIEW IP Routine 07/09/2024 3:56 AM CDT CBC WITHOUT DIFFERENTIAL Timed 07/09/2024 2:13 AM CDT CBC WITHOUT DIFFERENTIAL Timed 07/08/2024 9:38 PM CDT CRITICAL CARE Routine 07/08/2024 10:43 AM CDT Pericardial tamponade Syncope, unspecified syncope type Acute blood loss anemia Hemoperitoneum TRANSFUSE RED BLOOD CELLS Timed 07/08/2024 8:00 AM CDT XR CHEST 1 VIEW IP Routine 07/08/2024 6:16 AM CDT EGFR Routine 07/08/2024 5:31 AM CDT CBC WITHOUT DIFFERENTIAL Timed 07/08/2024 5:31 AM CDT APTT Routine 07/08/2024 5:31 AM CDT PROTIME-INR Routine 07/08/2024 5:31 AM CDT BASIC METABOLIC PANEL Routine 07/08/2024 5:31 AM CDT CBC WITHOUT DIFFERENTIAL Routine 07/08/2024 5:31 AM CDT CBC WITHOUT DIFFERENTIAL Timed 07/07/2024 11:57 PM CDT LACTATE STAT 07/07/2024 8:59 PM CDT TYPE AND SCREEN Timed 07/07/2024 6:01 PM CDT CBC WITHOUT DIFFERENTIAL Timed 07/07/2024 6:01 PM CDT PREPARE RBC STAT 07/07/2024 5:14 PM CDT PREPARE RBC STAT 07/07/2024 4:54 PM CDT CBC WITHOUT DIFFERENTIAL STAT 07/07/2024 4:45 PM CDT POC BLOOD GAS AND CHEMISTRIES, VENOUS Routine 07/07/2024 4:[address] CHEST ABDOMEN PELVIS W CONTRAST ED Urgent/IP Urgent 07/07/2024 3:30 PM CDT CRITICAL CARE Routine 07/07/2024 2:23 PM CDT Pericardial tamponade Syncope, unspecified syncope type XR ABDOMEN AP 1 VIEW IP Routine 07/07/2024 10:53 AM CDT TRANSTHORACIC ECHO (TTE) LIMITED/FOLLOW UP W LTD DOPPLER/CF WO CONTRAST Routine 07/07/2024 9:35 AM CDT XR CHEST 1 VIEW IP Routine 07/07/2024 8:01 AM CDT LIPASE Routine 07/07/2024 4:40 AM CDT HEPATIC FUNCTION PANEL Add-On 4:40 AM CDT EGFR Routine 07/07/2024 4:40 AM CDT BASIC METABOLIC PANEL Routine 07/07/2024 4:40 AM CDT CBC WITHOUT DIFFERENTIAL Routine 07/07/2024 4:40 AM CDT TROPONIN T HIGH-SENSITIVITY 6-HOUR Timed 07/06/2024 9:14 PM CDT POCT GLUCOSE DEVICE Routine 07/06/2024 9:11 PM CDT CRITICAL CARE Routine 07/06/2024 8:46 PM CDT Pericardial tamponade TROPONIN T HIGH-SENSITIVITY 4-HR Timed 07/06/2024 6:55 PM CDT XR CHEST 1 VIEW IP Routine 07/06/2024 6:19 PM CDT LEFT HEART CATHETERIZATION WITH CORONARY ANGIOGRAPHY AND WITH AND WITHOUT LEFT VENTRICULOGRAM Routine 07/06/2024 5:12 PM CDT Procedure Note - Wayne Huang MD - 07/06/2024 5:12 PM CDTThis note is in progress. PROCEDURE Pericardiocentesis INDICATION Large pericardial effusion and tamponade physiology OPERATORS Wayne Huang, Sharon Drew, PROCEDURE DETAILS Confirming consent was obtained Time-out was done identifying the right patient and access site Moderate sedation was done using versed and fentanyl. Sedation start time30 min. Sedation was administered under my supervision and RN in the roomwith continuous monitoring of patient's vital signs, airway andhemodynamic. Sedation was tolerated very well by the patient and at theend of the procedure patient was conscious. Access site was subxiphoid space draped and prepped in a sterile fashion.Pericardial access was obtained using a micro puncture needle underfluoroscopy. Location was confirmed with TTE bubble study. Access wasserially dilated and the pigtail catheter was inserted into thepericardium. 600 ml of hemorrhagic was drained from pericardium TTE was done and confirmed successful drainage Blood pressure at the beginning of the procedure was 110/70 and end ofprocedure was 161/[address] CONCLUSION Successful drainage of pericardial effusion and drainage left in place RECOMMENDATION Send samples for lab including cell counts, glucose level, pH, Culture andgrain stain Record output from drain TTE when drain < 50 ml per day CRITICAL CARE Routine 07/06/2024 4:33 PM CDT CELL DIFFERENTIAL, BODY FLUID Routine 07/06/2024 4:30 PM CDT PROTEIN, BODY FLUID Routine 07/06/2024 4:30 PM CDT GLUCOSE, BODY FLUID Routine 07/06/2024 4:30 PM CDT HEMATOCRIT, BODY FLUID Routine 4:30 PM CDT CELL COUNT W/REFLEX DIFFERENTIAL, BODY FLUID Routine 07/06/2024 4:30 PM CDT MYCOBACTERIOLOGY AFB CULTURE AND ACID-FAST STAIN Routine 07/06/2024 4:30 PM CDT MYCOLOGY (FUNGAL) CULTURE AND STAIN Routine 07/06/2024 4:30 PM CDT AEROBIC AND ANAEROBIC CULTURE AND GRAM STAIN Routine 07/06/2024 4:30 PM CDT XR CHEST 1 VIEW ED 07/06/2024 3:16 PM CDT EGFR STAT 07/06/2024 3:02 PM CDT DIFFERENTIAL AUTO STAT 07/06/2024 3:02 PM CDT APTT STAT 07/06/2024 3:02 PM CDT PROTIME-INR STAT 07/06/2024 3:02 PM CDT PRO B-TYPE NATRIURETIC PEPTIDE STAT 07/06/2024 3:02 PM CDT CBC WITH AUTO DIFFERENTIAL STAT 07/06/2024 3:02 PM CDT COMPREHENSIVE METABOLIC PANEL STAT 07/06/2024 3:02 PM CDT TROPONIN T HIGH-SENSITIVITY SERIES (BASELINE, 2HR, 4HR, 6HR) STAT 07/06/2024 3:02 PM CDT GA CRITICAL CARE ILL/INJURED PATIENT INIT 30-74 MIN Routine 07/06/2024 3:01 PM CDT ECG 12-LEAD STAT 07/06/2024 2:46 PM CDT CYTOLOGY Routine 07/06/2024 12:00 AM CDT XR CHEST 1 VIEW IP Routine 06/27/2024 8:39 AM CDT BLOOD SMEAR REVIEW Routine 06/27/2024 7:24 AM CDT EGFR Routine 06/27/2024 7:24 AM CDT BASIC METABOLIC PANEL Routine 06/27/2024 7:24 AM CDT CBC WITHOUT DIFFERENTIAL Routine 06/27/2024 7:24 AM CDT ECG 12-LEAD Routine 06/27/2024 7:17 AM CDT ECG 12-LEAD Routine 06/27/2024 6:05 AM CDT TYPE AND SCREEN STAT 06/26/2024 3:47 PM CDT XR CHEST 1 VIEW ED Urgent/IP Urgent 06/26/2024 8:13 AM CDT CRITICAL CARE Routine 06/26/2024 7:22 AM CDT Persistent atrial fibrillation (HCC) ECG 12-LEAD STAT 06/26/2024 12:46 AM CDT PHOSPHORUS Add-On 06/25/2024 9:30 PM CDT MAGNESIUM Add-On 06/25/2024 9:30 PM CDT EGFR Timed 06/25/2024 9:30 PM CDT BASIC METABOLIC PANEL Timed 06/25/2024 9:30 PM CDT CBC WITHOUT DIFFERENTIAL Timed 06/25/2024 9:30 PM CDT CRITICAL CARE Routine 06/25/2024 7:13 PM CDT XR CHEST 1 VIEW ED Urgent/IP Urgent 06/25/2024 4:46 PM CDT ANESTHESIA GIL Routine 06/25/2024 3:53 PM CDT XR CHEST 1 VIEW IP Routine 06/25/2024 2:45 PM CDT PERIPHERAL LINE Routine 06/25/2024 2:23 PM CDT GA AN ELECTIVE ENDOTRACHEAL AIRWAY Routine 06/25/2024 2:22 PM CDT ANESTHESIA ARTERIAL LINE PLACEMENT Routine 06/25/2024 2:12 PM CDT MAZE PROCEDURE OPEN HEART 06/25/2024 2:05 PM CDT Persistent atrial fibrillation (HCC) GIL ADD-ON FOR OR Routine 06/25/2024 1:48 PM CDT B CHECK SAMPLE STAT 06/25/2024 11:25 AM CDT PREPARE RBC STAT 06/25/2024 10:47 AM CDT EGFR Routine 06/22/2024 9:39 AM CDT Persistent atrial fibrillation (HCC) BASIC METABOLIC PANEL Routine 06/22/2024 9:39 AM CDT Persistent atrial fibrillation (HCC) PROTIME-INR Routine 06/22/2024 9:39 AM CDT Persistent atrial fibrillation (HCC) APTT Routine 06/22/2024 9:39 AM CDT Persistent atrial fibrillation (HCC) CBC WITHOUT DIFFERENTIAL Routine 06/22/2024 9:39 AM CDT Persistent atrial fibrillation (HCC) ECG 12-LEAD Routine 06/22/2024 9:15 AM CDT Persistent atrial fibrillation (HCC) XR CHEST PA LATERAL 2 VIEWS Schedule Routine, Read Routine (OP Routine) 06/22/2024 8:59 AM CDT Persistent atrial fibrillation (HCC) TYPE AND SCREEN Routine 06/22/2024 8:41 AM CDT Persistent atrial fibrillation (HCC) URINALYSIS AND REFLEX TO MICROSCOPIC AND CULTURE Routine 06/22/2024 8:41 AM CDT Persistent atrial fibrillation (HCC) CT CHEST W CONTRAST Schedule Routine, Read Routine (OP Routine) 06/19/2024 7:30 AM CDT Ventricular tachycardia (HCC) TRANSESOPHAGEAL ECHO (GIL) W DOPPLER/CF WO CONTRAST Routine 06/07/2024 10:21 AM CDT A-fib (HCC) EGFR Routine 06/06/2024 12:44 PM CDT MAGNESIUM Routine 06/06/2024 12:44 PM CDT BASIC METABOLIC PANEL Routine 06/06/2024 12:44 PM CDT from Last 3 Months Results * eGFR (07/14/2024 4:34 AM CDT) eGFR 72 >=60 mL/min/1. 73 m2 Comment: Interpretive Data Reference Interval Normal >/= 90 mL/min/1.73m2 Mildly decreased* 60 - 89 mL/min/1.73m2 Mildly to moderately decreased 45 - 59 mL/min/1.73m2 Moderately to severely decreased 30 - 44 mL/min/1.73m2 Severely decreased 15 - 29 mL/min/1.73m2 Kidney Failure < 15 mL/min/1.73m2 *Relative to young adult level Estimated glomerular filtration rate is determined by the 2020 CKD-EPI equation recommended by the National Kidney Foundation (A Unifying Approach to GFR Estimation: Recommendations of the NKF-ASK Task Force on Reassessing the Inclusion of Race in Diagnosing Kidney Disease, JASN 2020). The CKD-EPI equation should not be used for patients with unstable renal function and has not been validated in children and those over 70. Current interpretive data was last reviewed 2020. Blood 07/14/2024 4:34 AM CDT 07/14/2024 5:28 AM CDT Eduin Lincoln MD LAB BLOOD ORDERABLES Fin al Result Performing Organization Address [facility] Co de Phone Number JASON SAEED [address] Department [employer] [place], [place] [id number] * (ABNORMAL) CBC without differential (07/14/2024 4:34 AM CDT) WBC 8.70 3.80 - 9.90 K/cumm Hgb 9.4(L) 13.0 - 17.5 g/dL [facility] Hct 30.6(L) 38.9 - 50.3 % [facility] Plt 606(H) 150 - 400 K/cumm [facility] MPV 9.9 9.1 - 12.3 fL [facility] RBC 4.50 4.30 - 5.80 M/cumm [facility] MCV 68.0(L) 81.3 - 96.4 fL [facility] MCH 20.9(L) 27.1 - 33.3 pg [facility] MCHC 30.7(L) 32.3 - 35.7 g/dL [facility] RDW CV 21.7(H) 11.1 - 14.9 % [facility] RDW SD 49.8(H) 35.7 - 48.1 fL [facility] NRBC abs 0.00 0.00 - 0.01 K/cumm [facility] Blood 07/14/2024 4:34 AM CDT 07/14/2024 5:30 AM CDT Eduin Lincoln MD LAB BLOOD ORDERABLES Fin al Result Performing Organization Address [facility]/ZIP Co de Phone Number JASON SAEED [phone] [place] [place] [address] * Basic metabolic panel (07/14/2024 4:34 AM CDT) Sodium 141 135 - 145 mmol/L Potassium, pl 4.2 3.3 - 4.9 mmol/L [facility] Chloride 105 97 - 110 mmol/L [facility] CO2 22 22 - 32 mmol/L [facility] Anion gap 14 2 - 15 mmol/L [facility] BUN 17 6 - 25 mg/dL [facility] Creatinine 1.12 0.80 - 1.30 mg/dL [facility] Glucose 86 70 - 199 mg/dL [facility] Comment: Interpretive Data Fasting glucose >/= 126 mg/dl is diagnostic for diabetes. Fasting is defined as no caloric intake for at least 8 hours. Fasting glucose between 100 mg/dl to 125 mg/dl is diagnostic of prediabetes. In a patient with classic symptoms of hyperglycemia or hyperglycemic crisis, a random glucose >/= 200 mg/dl is diagnostic for diabetes. In the absence of unequivocal hyperglycemia, results should be confirmed by repeat testing. The classification and Diagnosis of Diabetes Diabetes Care 2021; 46: S19-S40. Current interpretive data was last revised 2022. Calcium 9.0 8.5 - 10.3 mg/dL [facility] Blood 07/14/2024 4:34 AM CDT 07/14/2024 5:28 AM CDT Eduin Lincoln MD LAB BLOOD ORDERABLES Fin al Result Performing Organization Address City/State/[facility] Co de Phone Number JASON [address] Department [place] [address] * TRANSTHORACIC ECHO (TTE) LIMITED/FOLLOW UP WO DOPPLER/CF WO CONTRAST (07/13/2024 12:45 PM CDT) EF Mod BP 81 % CONS SCIMAGE Anatomical Region Laterality Modality Ultrasound 07/13/2024 12:1 8 PM CDT Narrative 07/13/2024 1:24 [place] [address] Limited Echocardiogram Report Patient Name: CAMILA DONOHUE W : 1955 Study Date: 07/13/2024 12:18:33 PM Gender: M Tech: BE Location: [place] [address] Ref Provider: ESSIE YOUNG Height(Cm): 172 BSA: 1.85 Weight(Kg): 72 Heart Rate: 66 BP: 121 / 66 Quality: Good Order Provider: ESSIE YOUNG PROCEDURES: Echocardiographic Report: Limited transthoracic echocardiogram with 2D imaging. INDICATIONS: MEASUREMENTS: 2D/MM Value Range EF Mod BP 81 % [ 52 - 72 ] 2D/MM Value Range - FINDINGS: Left Ventricle: The left ventricle is normal in size and systolic function. Right Ventricle: Normal right ventricular size. Normal right ventricular systolic function. Aortic Valve: Normal structure of the aortic valve. Mitral Valve: Normal structure of the mitral valve. Pulmonic Valve: Normal structure of the pulmonic valve. Tricuspid Valve: Normal structure of the tricuspid valve. Pericardium: There is left-sided pleural effusion. CONCLUSIONS: The left ventricle is normal in size and systolic function. Electronically Signed By: Dr. Elvin Palacios 07/13/2024 1:24:25 PM CDT Procedure Note Elvin Palacios MD - 07/13/2024 [place] [address] Limited Echocardiogram Report Patient Name: CAMILA DONOHUE W : 1955 Study Date: 07/13/2024 12:18:33 PM Gender: M Tech: BE Location: [place] [address] Ref Provider: ESSIE YOUNG Height(Cm): 172 BSA: 1.85 Weight(Kg): 72 Heart Rate: 66 BP: 121 / 66 Quality: Good Order Provider: ESSIE YOUNG PROCEDURES: Echocardiographic Report: Limited transthoracic echocardiogram with 2D imaging. INDICATIONS: MEASUREMENTS: 2D/MM Value Range EF Mod BP 81 % [ 52 - 72 ] 2D/MM Value Range - FINDINGS: Left Ventricle: The left ventricle is normal in size and systolic function. Right Ventricle: Normal right ventricular size. Normal right ventricular systolicfunction. Aortic Valve: Normal structure of the aortic valve. Mitral Valve: Normal structure of the mitral valve. Pulmonic Valve: Normal structure of the pulmonic valve. Tricuspid Valve: Normal structure of the tricuspid valve. Pericardium: There is left-sided pleural effusion. CONCLUSIONS: The left ventricle is normal in size and systolic function. Electronically Signed By: Dr. Elvin Palacios 07/13/2024 1:24:25 PM CDT us Essie Young MD CV ECHO PROCEDURES Final Result * ECG 12 lead (07/13/2024 6:51 AM CDT) 07/13/2024 6:51 AM CDT Narrative [facility] - 07/14/2024 8:26 AM CDT Vent Rate: 84 bpm RR Interval: 708 msec GA Interval: 155 msec QRS Duration: 105 msec QT Interval: 396 msec QTC Interval: 437 msec P-R-T [place]: 47 - -20 - 81 degrees IMPRESSION: SINUS RHYTHM LEFT ATRIAL ENLARGEMENT NONSPECIFIC T-WAVE ABNORMALITY Electronically Signed By: Sam Pope MD, [facility] us Ragini Ramirez [employer] EXTENSION EDUCATOR ECG ORDERABLES Sotero elza Result - Final [facility] * eGFR (07/13/2024 3:41 AM CDT) eGFR 72 >=60 mL/min/1. 73 m2 Comment: Interpretive Data Reference Interval Normal >/= 90 mL/min/1.73m2 Mildly decreased* 60 - 89 mL/min/1.73m2 Mildly to moderately decreased 45 - 59 mL/min/1.73m2 Moderately to severely decreased 30 - 44 mL/min/1.73m2 Severely decreased 15 - 29 mL/min/1.73m2 Kidney Failure < 15 mL/min/1.73m2 *Relative to young adult level Estimated glomerular filtration rate is determined by the 2020 CKD-EPI equation recommended by the National Kidney Foundation (A Unifying Approach to GFR Estimation: Recommendations of the NKF-ASK Task Force on Reassessing the Inclusion of Race in Diagnosing Kidney Disease, JASN 2020). The CKD-EPI equation should not be used for patients with unstable renal function and has not been validated in children and those over 70. Current interpretive data was last reviewed 2020. Blood 07/13/2024 3:41 AM CDT 07/13/2024 5:15 AM CDT us Eduin Lincoln MD LAB BLOOD ORDERABLES Fin al Result JASON [id number] [place] [address] * (ABNORMAL) CBC without differential (07/13/2024 3:41 AM CDT) Pathologist [facility] WBC 9.53 3.80 - 9.90 K/cumm Hgb 9.2(L) 13.0 - 17.5 g/dL [facility] Hct 28.9(L) 38.9 - 50.3 % [facility] Plt 575(H) 150 - 400 K/cumm [facility] MPV 10.1 9.1 - 12.3 fL [facility] RBC 4.33 4.30 - 5.80 M/cumm [facility] MCV 66.7(L) 81.3 - 96.4 fL [facility] MCH 21.2(L) 27.1 - 33.3 pg [facility] MCHC 31.8(L) 32.3 - 35.7 g/dL [facility] RDW CV 21.6(H) 11.1 - 14.9 % [facility] RDW SD 48.5(H) 35.7 - 48.1 fL [facility] NRBC abs 0.00 0.00 - 0.01 K/cumm [facility] Blood 07/13/2024 3:41 AM CDT 07/13/2024 5:11 AM CDT Eduin Lincoln MD LAB BLOOD ORDERABLES Fin al Result JASON SAEED [phone] [place] [address] * (ABNORMAL) Hepatic function panel (07/13/2024 3:41 AM CDT) Bilirubin, total 0.4 0.1 - 1.2 mg/dL Bilirubin, direct 0.2 0.1 - 0.3 mg/dL [facility] Protein, pl 6.1(L) 6.5 - 8.5 g/dL [facility] Albumin 3.0(L) 3.5 - 5.0 g/dL [facility] Alk phos 198(H) 40 - 130 Units/L [facility] ALT 52 7 - 55 Units/L [facility] AST 37 10 - 50 Units/L [facility] Blood 07/13/2024 3:41 AM CDT 07/13/2024 1:27 PM CDT Geno Good MD LAB BLOOD ORDERABLES Final Resul t JASON SAEED [id number] [facility] [place] [address] * (ABNORMAL) Basic metabolic panel (07/13/2024 3:41 AM CDT) Sodium 140 135 - 145 mmol/L Potassium, pl 4.2 3.3 - 4.9 mmol/L [facility] Chloride 104 97 - 110 mmol/L [facility] CO2 21(L) 22 - 32 mmol/L [facility] Anion gap 15 2 - 15 mmol/L [facility] BUN 18 6 - 25 mg/dL [facility] Creatinine 1.12 0.80 - 1.30 mg/dL [facility] Glucose 85 70 - 199 mg/dL [facility] Comment: Interpretive Data Fasting glucose >/= 126 mg/dl is diagnostic for diabetes. Fasting is defined as no caloric intake for at least 8 hours. Fasting glucose between 100 mg/dl to 125 mg/dl is diagnostic of prediabetes. In a patient with classic symptoms of hyperglycemia or hyperglycemic crisis, a random glucose >/= 200 mg/dl is diagnostic for diabetes. In the absence of unequivocal hyperglycemia, results should be confirmed by repeat testing. The classification and Diagnosis of Diabetes Diabetes Care 2021; 46: S19-S40. Current interpretive data was last revised 2022. Calcium 9.2 8.5 - 10.3 mg/dL [facility] Blood 07/13/2024 3:41 AM CDT 07/13/2024 5:15 AM CDT us Eduin Lincoln MD LAB BLOOD ORDERABLES Fin al Result [facility] [id number] [facility] [place] [address] * Critical Care (07/12/2024 10:13 AM CDT) Narrative Eduin Lincoln MD - 07/12/2024 10:13 AM CDT Eduin Lincoln MD 07/12/2024 10:15 AM Critical Care Performed by: Eduin Lincoln MD Authorized by: Eduin Lincoln MD CRITICAL CARE: Team: BLOSSOM Shift: AM Level of Billing: Critical Care My time spent with this patient was 30 minutes: Critical Provider Statement: I have seen and examined the patient on this day of service. I have reviewed and confirmed the history, physical exam, laboratory and radiologic data as documented in the signed ICU note. I have reviewed and discussed my treatment plan with the ICU team and other medical/library sales consultant staff, making frequent assessments and decisions regarding this patient's complex medical care. Critical Care time was exclusive of time spent performing separately billed procedures, treating other patients, and teaching. This time was in addition to and separate from critical care provided by other practitioners in my group on this day of service. Critical Care was necessary to treat or prevent imminent or life-threatening deterioration of the following conditions: Atrial fibrillation with rapid ventricular rate and Cardiac tamponade Pleural effusion Severe undifferentiated anemia Acute solid organ injury This time was spent by me doing the following: Serial bedside patient exams Initiation/active titration of anti-arrhythmic or rate controlling agent Active and frequent reassessment of respiratory status and oxygen requirements Active and frequent monitoring of intake/output and volumen status Review of prior or current culture/gram stain results I spent time reviewing and interpreting data from bedside monitors, laboratory results, and imaging, I spent time discussing the management of this critically ill patient with consultants and the medical staff and I spent time documenting in the medical record Eduin Lincoln MD IN CLINIC/BEDSIDE ORDERA BLES Final Result * eGFR (07/12/2024 5:21 AM CDT) eGFR 79 >=60 mL/min/1. 73 m2 Comment: Interpretive Data Reference Interval Normal >/= 90 mL/min/1.73m2 Mildly decreased* 60 - 89 mL/min/1.73m2 Mildly to moderately decreased 45 - 59 mL/min/1.73m2 Moderately to severely decreased 30 - 44 mL/min/1.73m2 Severely decreased 15 - 29 mL/min/1.73m2 Kidney Failure < 15 mL/min/1.73m2 *Relative to young adult level Estimated glomerular filtration rate is determined by the 2020 CKD-EPI equation recommended by the National Kidney Foundation (A Unifying Approach to GFR Estimation: Recommendations of the NKF-ASK Task Force on Reassessing the Inclusion of Race in Diagnosing Kidney Disease, JASN 202). The CKD-EPI equation should not be used for patients with unstable renal function and has not been validated in children and those over 70. Current interpretive data was last reviewed 2020. Blood 07/12/2024 5:21 AM CDT 07/12/2024 5:29 AM CDT Eduin Lincoln MD LAB BLOOD ORDERABLES Fin al Result Performing Organization Address City/State/[facility] de Phone Number JASON [id number] [place] [place] [address] * (ABNORMAL) CBC without differential (07/12/2024 5:21 AM CDT) WBC 11.20(H) 3.80 - 9.90 K/cumm Hgb 8.6(L) 13.0 - 17.5 g/dL [facility] Hct 26.7(L) 38.9 - 50.3 % [facility] Plt 498(H) 150 - 400 K/cumm [facility] MPV 10.2 9.1 - 12.3 fL [facility] RBC 4.07(L) 4.30 - 5.80 M/cumm [facility] MCV 65.6(L) 81.3 - 96.4 fL [facility] MCH 21.1(L) 27.1 - 33.3 pg [facility] MCHC 32.2(L) 32.3 - 35.7 g/dL [facility] RDW CV 21.6(H) 11.1 - 14.9 % [facility] RDW SD 48.9(H) 35.7 - 48.1 fL [facility] NRBC abs 0.00 0.00 - 0.01 K/cumm [facility] Blood 07/12/2024 5:21 AM CDT 07/12/2024 5:30 AM CDT Eduin Lincoln MD LAB BLOOD ORDERABLES Fin al Result Performing Organization Address [facility] Co de Phone Number JASON SAEED [address] [place] [place] [address] * Magnesium (07/12/2024 5:21 AM CDT) Magnesium 2.1 1.4 - 2.5 mg/dL Blood 07/12/2024 5:21 AM CDT 07/12/2024 5:29 AM CDT Yolanda Walker MD LAB BLOOD ORDERABLES Final Result Performing Organization Address [facility] de Phone Number JASON SAEED [address] [place] [address] * (ABNORMAL) Hepatic function panel (07/12/2024 5:21 AM CDT) Bilirubin, total 0.4 0.1 - 1.2 mg/dL Bilirubin, direct 0.1 0.1 - 0.3 mg/dL [facility] Protein, pl 6.1(L) 6.5 - 8.5 g/dL [facility] Albumin 3.0(L) 3.5 - 5.0 g/dL [facility] Alk phos 196(H) 40 - 130 Units/L [facility] ALT 51 7 - 55 Units/L [facility] AST 32 10 - 50 Units/L [facility] Blood 07/12/2024 5:21 AM CDT 07/12/2024 5:29 AM CDT Yolanda Walker MD LAB BLOOD ORDERABLES Final Result Performing Organization Address [facility] de Phone Number JASON SAEED [phone] [place] [address] * Basic metabolic panel (07/12/2024 5:21 AM CDT) Pathologist [facility] Sodium 138 135 - 145 mmol/L Potassium, pl 4.0 3.3 - 4.9 mmol/L [facility] Chloride 104 97 - 110 mmol/L [facility] CO2 23 22 - 32 mmol/L [facility] Anion gap 11 2 - 15 mmol/L [facility] BUN 15 6 - 25 mg/dL [facility] Creatinine 1.04 0.80 - 1.30 mg/dL [facility] Glucose 95 70 - 199 mg/dL [facility] Comment: Interpretive Data Fasting glucose >/= 126 mg/dl is diagnostic for diabetes. Fasting is defined as no caloric intake for at least 8 hours. Fasting glucose between 100 mg/dl to 125 mg/dl is diagnostic of prediabetes. In a patient with classic symptoms of hyperglycemia or hyperglycemic crisis, a random glucose >/= 200 mg/dl is diagnostic for diabetes. In the absence of unequivocal hyperglycemia, results should be confirmed by repeat testing. The classification and Diagnosis of Diabetes Diabetes Care 2021; 46: S19-S40. Current interpretive data was last revised 2022. Calcium 8.9 8.5 - 10.3 mg/dL JASON SAEED Blood 07/12/2024 5:21 AM CDT 07/12/2024 5:29 AM CDT us Eduin Lincoln MD LAB BLOOD ORDERABLES Fin al Result JASON SAEED [address] [place] [address] * Critical Care (07/11/2024 8:17 PM CDT) Narrative Oniel Hendrickson MD - 07/11/2024 8:17 PM CDT Oniel Hendrickson MD 07/12/2024 1:59 AM Critical Care Performed by: Oniel Hendrickson MD Authorized by: Oniel Hendrickson MD CRITICAL CARE: Team: BLOSSOM Shift: PM Level of Billing: Critical Care My time spent with this patient was 75 minutes: Critical Provider Statement: I have seen and examined the patient on this day of service. I have reviewed and confirmed the history, physical exam, laboratory and radiologic data as documented in the signed ICU note. I have reviewed and discussed my treatment plan with the ICU team and other medical/library sales consultant staff, making frequent assessments and decisions regarding this patient's complex medical care. Critical Care time was exclusive of time spent performing separately billed procedures, treating other patients, and teaching. This time was in addition to and separate from critical care provided by other practitioners in my group on this day of service. Critical Care was necessary to treat or prevent imminent or life-threatening deterioration of the following conditions: Acute pain/acute postoperative pain Atrial fibrillation with rapid ventricular rate and Tachy/mell arrhythmic event Atelectasis and Pleural effusion Leukocytosis This time was spent by me doing the following: Serial bedside patient exams Acute pain control Initiation/active titration of anti-arrhythmic or rate controlling agent Active and frequent reassessment of respiratory status and oxygen requirements and Incentive spirometry, pulmonary toilet Active and frequent monitoring of intake/output and volumen status I spent time documenting in the medical record, I spent time discussing the management of this critically ill patient with consultants and the medical staff and I spent time reviewing and interpreting data from bedside monitors, laboratory results, and imaging us Oniel Hendrickson MD IN CLINIC/BEDSIDE ORDERAB LES Final Result * Critical Care (07/11/2024 12:14 PM CDT) Narrative Eduin Lincoln MD - 07/11/2024 12:14 PM CDT Eduin Lincoln MD 07/11/2024 12:17 PM Critical Care Performed by: Eduin Lincoln MD Authorized by: Eduin Lincoln MD CRITICAL CARE: Team: GREER Shift: AM Level of Billing: Critical Care My time spent with this patient was 45 minutes: Critical Provider Statement: I have seen and examined the patient on this day of service. I have reviewed and confirmed the history, physical exam, laboratory and radiologic data as documented in the signed ICU note. I have reviewed and discussed my treatment plan with the ICU team and other medical/library sales consultant staff, making frequent assessments and decisions regarding this patient's complex medical care. Critical Care time was exclusive of time spent performing separately billed procedures, treating other patients, and teaching. This time was in addition to and separate from critical care provided by other practitioners in my group on this day of service. Critical Care was necessary to treat or prevent imminent or life-threatening deterioration of the following conditions: Atrial fibrillation with rapid ventricular rate and Cardiac tamponade Acute respiratory insufficiency Severe undifferentiated anemia Acute solid organ injury This time was spent by me doing the following: Serial bedside patient exams Acute pain control Initiation/active titration of anti-arrhythmic or rate controlling agent Active and frequent reassessment of respiratory status and oxygen requirements Active and frequent monitoring of intake/output and volumen status and Serial abdominal exams Review of prior or current culture/gram stain results I spent time reviewing and interpreting data from bedside monitors, laboratory results, and imaging, I spent time discussing the management of this critically ill patient with consultants and the medical staff and I spent time documenting in the medical record us Eduin Lincoln MD IN CLINIC/BEDSIDE ORDERA BLES Final Result * ECG 12 lead (07/11/2024 8:15 AM CDT) 07/11/2024 8:15 AM CDT Narrative [facility] - 07/12/2024 7:57 AM CDT Vent Rate: 119 bpm RR Interval: 501 msec GA Interval: 0 msec QRS Duration: 103 msec QT Interval: 326 msec QTC Interval: 397 msec P-R-T [place]: 0 - -24 - 129 degrees IMPRESSION: ATRIAL FIBRILLATION WITH RAPID VENTRICULAR RESPONSE BORDERLINE LEFT AXIS DEVIATION [QRS AXIS < -20] ST DEVIATION AND MODERATE T-WAVE ABNORMALITY, CONSIDER LATERAL ISCHEMIA [-0.1+ mV T-WAVE IN I/aVL/V5/V6] ABNORMAL ECG Electronically Signed By: Dr. Blanca Mcdonald [facility] us Eduin Lincoln MD ECG ORDERABLES Final Re sult Performing Organization Address City/[facility] Co de Phone Number [facility] * eGFR (07/11/2024 5:47 AM CDT) eGFR 74 >=60 mL/min/1. 73 m2 Comment: Interpretive Data Reference Interval Normal >/= 90 mL/min/1.73m2 Mildly decreased* 60 - 89 mL/min/1.73m2 Mildly to moderately decreased 45 - 59 mL/min/1.73m2 Moderately to severely decreased 30 - 44 mL/min/1.73m2 Severely decreased 15 - 29 mL/min/1.73m2 Kidney Failure < 15 mL/min/1.73m2 *Relative to young adult level Estimated glomerular filtration rate is determined by the 2020 CKD-EPI equation recommended by the National Kidney Foundation (A Unifying Approach to GFR Estimation: Recommendations of the NKF-ASK Task Force on Reassessing the Inclusion of Race in Diagnosing Kidney Disease, JASN 2020). The CKD-EPI equation should not be used for patients with unstable renal function and has not been validated in children and those over 70. Current interpretive data was last reviewed 2020. Blood 07/11/2024 5:47 AM CDT 07/11/2024 5:47 AM CDT us Eduin Lincoln MD LAB BLOOD ORDERABLES Fin al Result JASON SAEED [address] [place] [address] * (ABNORMAL) CBC without differential (07/11/2024 5:47 AM CDT) WBC 13.30(H) 3.80 - 9.90 K/cumm Hgb 8.0(L) 13.0 - 17.5 g/dL [facility] Hct 24.6(L) 38.9 - 50.3 % [facility] Plt 405(H) 150 - 400 K/cumm [facility] MPV 10.0 9.1 - 12.3 fL [facility] RBC 3.73(L) 4.30 - 5.80 M/cumm [facility] MCV 66.0(L) 81.3 - 96.4 fL [facility] MCH 21.4(L) 27.1 - 33.3 pg [facility] MCHC 32.5 32.3 - 35.7 g/dL [facility] RDW CV 21.2(H) 11.1 - 14.9 % [facility] RDW SD 47.8 35.7 - 48.1 fL [facility] NRBC abs 0.02(H) 0.00 - 0.01 K/cumm [facility] Blood 07/11/2024 5:47 AM CDT 07/11/2024 5:47 AM CDT Eduin Lincoln MD LAB BLOOD ORDERABLES Fin al Result Performing Organization Address City/[facility] Co de Phone Number JASON SAEED [phone] [place] [address] * (ABNORMAL) Basic metabolic panel (07/11/2024 5:47 AM CDT) Pathologist [facility] Sodium 135 135 - 145 mmol/L Potassium, pl 4.2 3.3 - 4.9 mmol/L [facility] Chloride 103 97 - 110 mmol/L [facility] CO2 20(L) 22 - 32 mmol/L [facility] Anion gap 12 2 - 15 mmol/L [facility] BUN 19 6 - 25 mg/dL [facility] Creatinine 1.10 0.80 - 1.30 mg/dL [facility] Glucose 95 70 - 199 mg/dL [facility] [facility] Comment: Interpretive Data Fasting glucose >/= 126 mg/dl is diagnostic for diabetes. Fasting is defined as no caloric intake for at least 8 hours. Fasting glucose between 100 mg/dl to 125 mg/dl is diagnostic of prediabetes. In a patient with classic symptoms of hyperglycemia or hyperglycemic crisis, a random glucose >/= 200 mg/dl is diagnostic for diabetes. In the absence of unequivocal hyperglycemia, results should be confirmed by repeat testing. The classification and Diagnosis of Diabetes Diabetes Care 2021; 46: S19-S40. Current interpretive data was last revised 2022. Calcium 8.4(L) 8.5 - 10.3 mg/dL [facility] Blood 07/11/2024 5:47 AM CDT 07/11/2024 5:47 AM CDT Eduin Lincoln MD LAB BLOOD ORDERABLES Fin al Result [facility] [id number] [facility] [place] [address] * Critical Care (07/10/2024 7:52 PM CDT) Narrative Oniel Hendrickson MD - 07/10/2024 7:52 PM CDT Oniel Hendrickson MD 07/11/2024 3:43 AM Critical Care Performed by: Oniel Hendrickson MD Authorized by: Oniel Hendrickson MD CRITICAL CARE: Team: [facility] Shift: PM Level of Billing: Critical Care My time spent with this patient was 31 minutes: Critical Provider Statement: I have seen and examined the patient on this day of service. I have reviewed and confirmed the history, physical exam, laboratory and radiologic data as documented in the signed ICU note. I have reviewed and discussed my treatment plan with the ICU team and other medical/library sales consultant staff, making frequent assessments and decisions regarding this patient's complex medical care. Critical Care time was exclusive of time spent performing separately billed procedures, treating other patients, and teaching. This time was in addition to and separate from critical care provided by other practitioners in my group on this day of service. Critical Care was necessary to treat or prevent imminent or life-threatening deterioration of the following conditions: Acute pain/acute postoperative pain Atalectasis and Pleural effusion Acute blood loss anemia Acute solid organ injury This time was spent by me doing the following: Serial bedside patient exams Acute pain control Active and frequent reassessment of respiratory status and oxygen requirements Active and frequent monitoring of intake/output and volumen status, Glycemic control Review of prior cultures I spent time discussing the management of this critically ill patient with consultants and the medical staff, I spent time documenting in the medical record and I spent time reviewing and interpreting data from bedside monitors, laboratory results, and imaging us Oniel Hendrickson MD IN CLINIC/BEDSIDE ORDERAB LES Final Result * (ABNORMAL) CBC without differential (07/10/2024 1:45 PM CDT) WBC 16.26(H) 3.80 - 9.90 K/cumm Hgb 7.5(L) 13.0 - 17.5 g/dL [facility] Hct 23.5(L) 38.9 - 50.3 % [facility] Plt 359 150 - 400 K/cumm [facility] MPV 10.1 9.1 - 12.3 fL [facility] RBC 3.50(L) 4.30 - 5.80 M/cumm [facility] MCV 67.1(L) 81.3 - 96.4 fL [facility] MCH 21.4(L) 27.1 - 33.3 pg [facility] MCHC 31.9(L) 32.3 - 35.7 g/dL [facility] RDW CV 21.5(H) 11.1 - 14.9 % [facility] RDW SD 50.2(H) 35.7 - 48.1 fL [facility] NRBC abs 0.02(H) 0.00 - 0.01 K/cumm [facility] Blood 07/10/2024 1:45 PM CDT 07/10/2024 1:47 PM CDT us Eduin Lincoln MD LAB BLOOD ORDERABLES Fin al Result [facility] [address] [place] [address] * Critical Care (07/10/2024 1:31 PM CDT) Narrative Eduin Lincoln MD - 07/10/2024 1:31 PM CDT Eduin Lincoln MD 07/10/2024 1:32 PM Critical Care Performed by: Eduin Lincoln MD Authorized by: Eduin Lincoln MD CRITICAL CARE: Team: [facility] Shift: AM Level of Billing: Critical Care My time spent with this patient was 60 minutes: Critical Provider Statement: I have seen and examined the patient on this day of service. I have reviewed and confirmed the history, physical exam, laboratory and radiologic data as documented in the signed ICU note. I have reviewed and discussed my treatment plan with the ICU team and other medical/library sales consultant staff, making frequent assessments and decisions regarding this patient's complex medical care. Critical Care time was exclusive of time spent performing separately billed procedures, treating other patients, and teaching. This time was in addition to and separate from critical care provided by other practitioners in my group on this day of service. Critical Care was necessary to treat or prevent imminent or life-threatening deterioration of the following conditions: Acute pain/acute postoperative pain Cardiac tamponade Acute respiratory insufficiency and Pleural effusion Acute blood loss anemia Acute solid organ injury This time was spent by me doing the following: Serial bedside patient exams Acute pain control Active and frequent reassessment of respiratory status and oxygen requirements Active and frequent monitoring of intake/output and volumen status, Glycemic control and Serial abdominal exams Transfusion of blood products Review of prior or current culture/gram stain results I spent time reviewing and interpreting data from bedside monitors, laboratory results, and imaging, I spent time discussing the management of this critically ill patient with consultants and the medical staff and I spent time documenting in the medical record us Eduin Lincoln MD IN CLINIC/BEDSIDE ORDERA BLES Final Result * Transfuse RBC (07/10/2024 12:07 PM CDT) Blood Eduin Lincoln MD BLOOD TRANSFUSION [place] [address] [address] [place] [address] * aPTT (07/10/2024 10:01 AM CDT) Pathologist [facility] aPTT 31 28 - 38 sec Comment: Interpretive Data Heparin therapeutic range: 66.0 - 100.0 seconds. Range based on correlation with therapeutic heparin activity range of 0.3 - 0.7 Units/mL. Current interpretive data was last revised on 2022. Blood 07/10/2024 10:0 1 AM CDT 07/10/2024 10:04 AM CDT Eduin Lincoln MD LAB BLOOD ORDERABLES Fin al Result Performing Organization Address [facility] Co de Phone Number [place] [id number] [address] [facility] [place] [address] * (ABNORMAL) Protime-INR (07/10/2024 10:01 AM CDT) Pathologist [facility] PT 14.9(H) 9.7 - 13.0 sec INR 1.37(H) 0.90 - 1.20 [facility] Comment: Interpretive data Oral anticoagulant therapeutic ranges: Venous thromboembolism prophylaxis or treatment: 2.0-3.0 CARDIOLOGY Standard range: 2.0-3.0 High-intensity range: 2.5-3.5 Refer to indication-specific guidelines for appropriate target ranges for prosthetic heart valve replacement. Current interpretive data was last revised on 2019. Blood 07/10/2024 10:0 1 AM CDT 07/10/2024 10:04 AM CDT Eduin Lincoln MD LAB BLOOD ORDERABLES Fin al Result [place] [address] [address] [facility] [place] [address] * Prepare RBC: 1 Units (07/10/2024 8:18 AM CDT) Pathologist [facility] Product code [id number] Unit Number [id number] 8-S [facility] Product Blood Type [facility] Dispense Status [facility] Blood 07/10/2024 8:18 AM CDT Narrative [facility] - 07/11/2024 12:14 AM CDT Are special requirements needed? (All products are leukoreduced and CMV- safe)- >No Date required:-[id number] LRRBC # of [id number] Reasons:-Cardiovascular disease, Hgb <8 g/dL} Eduin Lincoln MD BLOOD BANK PRODUCT ORDER PADMINI Final Result Performing Organization Address City/[facility] Co de Phone Number [place] [address] [place] [address] * eGFR (07/10/2024 5:59 AM CDT) eGFR 69 >=60 mL/min/1. 73 m2 Comment: Interpretive Data Reference Interval Normal >/= 90 mL/min/1.73m2 Mildly decreased* 60 - 89 mL/min/1.73m2 Mildly to moderately decreased 45 - 59 mL/min/1.73m2 Moderately to severely decreased 30 - 44 mL/min/1.73m2 Severely decreased 15 - 29 mL/min/1.73m2 Kidney Failure < 15 mL/min/1.73m2 *Relative to young adult level Estimated glomerular filtration rate is determined by the 2020 CKD-EPI equation recommended by the National Kidney Foundation (A Unifying Approach to GFR Estimation: Recommendations of the NKF-ASK Task Force on Reassessing the Inclusion of Race in Diagnosing Kidney Disease, JASN 2020). The CKD-EPI equation should not be used for patients with unstable renal function and has not been validated in children and those over 70. Current interpretive data was last reviewed 2020. Blood 07/10/2024 5:59 AM CDT 07/10/2024 5:59 AM CDT Eduin Lincoln MD LAB BLOOD ORDERABLES Fin al Result Performing Organization Address City/[facility]/ZIP Co de Phone Number [place] [address] [place] [place] [address] * (ABNORMAL) Basic metabolic panel (07/10/2024 5:59 AM CDT) Sodium 134(L) 135 - 145 mmol/L Potassium, pl 4.2 3.3 - 4.9 mmol/L [facility] Chloride 101 97 - 110 mmol/L [facility] CO2 21(L) 22 - 32 mmol/L [facility] Anion gap 12 2 - 15 mmol/L [facility] BUN 19 6 - 25 mg/dL [facility] Creatinine 1.16 0.80 - 1.30 mg/dL [facility] Glucose 102 70 - 199 mg/dL [facility] Comment: Interpretive Data Fasting glucose >/= 126 mg/dl is diagnostic for diabetes. Fasting is defined as no caloric intake for at least 8 hours. Fasting glucose between 100 mg/dl to 125 mg/dl is diagnostic of prediabetes. In a patient with classic symptoms of hyperglycemia or hyperglycemic crisis, a random glucose >/= 200 mg/dl is diagnostic for diabetes. In the absence of unequivocal hyperglycemia, results should be confirmed by repeat testing. The classification and Diagnosis of Diabetes Diabetes Care 2021; 46: S19-S40. Current interpretive data was last revised 2022. Calcium 8.3(L) 8.5 - 10.3 mg/dL [facility] Blood 07/10/2024 5:59 AM CDT 07/10/2024 5:59 AM CDT us Eduin Lincoln MD LAB BLOOD ORDERABLES [facility] al Result [facility] [address] [address] [place] [address] * (ABNORMAL) CBC without differential (07/10/2024 5:58 AM CDT) WBC 21.22(H) 3.80 - 9.90 K/cumm Hgb 7.0(L) 13.0 - 17.5 g/dL [facility] Hct 22.4(L) 38.9 - 50.3 % [facility] Plt 397 150 - 400 K/cumm [facility] MPV 10.5 9.1 - 12.3 fL [facility] RBC 3.41(L) 4.30 - 5.80 M/cumm [facility] MCV 65.7(L) 81.3 - 96.4 fL [facility] MCH 20.5(L) 27.1 - 33.3 pg [facility] MCHC 31.3(L) 32.3 - 35.7 g/dL [facility] RDW CV 19.5(H) 11.1 - 14.9 % [facility] RDW SD 42.9 35.7 - 48.1 fL [facility] NRBC abs 0.00 0.00 - 0.01 K/cumm [facility] Blood 07/10/2024 5:58 AM CDT 07/10/2024 5:58 AM CDT us Eduin Lincoln MD LAB BLOOD ORDERABLES Fin al Result Performing Organization Address City/[facility]/ZIP Co de Phone Number [facility] [address] [address] Department of Laboratories [place] [phone] * ECG 12 lead (07/09/2024 11:07 PM CDT) 07/09/2024 11:0 7 PM CDT Narrative [facility] - 07/10/2024 9:43 AM CDT Vent Rate: 96 bpm RR Interval: 624 msec GA Interval: 149 msec QRS Duration: 101 msec QT Interval: 363 msec QTC Interval: 416 msec P-R-T [place]: 40 - -13 - 88 degrees IMPRESSION: SINUS RHYTHM POSSIBLE LEFT ATRIAL ENLARGEMENT [-0.1mV P-WAVE IN V1/V2] NONSPECIFIC ST \T\ T-WAVE ABNORMALITY BORDERLINE ECG NO CHANGE FROM PREVIOUS TRACING NOTED Electronically Signed By: Polo Davenport MD Oniel Hendrickson MD ECG ORDERABLES Final Res ult Performing Organization Address City/[facility]/ZIP Co de Phone Number [facility] * XR Chest 1 View (07/09/2024 9:34 PM CDT) Anatomical Region Laterality Modality Body, Chest N/A Computed Radiogr aphy 07/10/2024 7:53 AM CDT Impressions 07/10/2024 7:53 AM CDT No failure. Electronically signed by: Ady Silva M.D. Narrative 07/10/2024 7:53 AM CDT EXAMINATION: XR CHEST 1 VIEW HISTORY: The patient is a 68-year-old male who presents with chest pain. Comparison made with the previous study dated 07/09/2024. TECHNIQUE: AP portable view of the chest. FINDINGS: Pericardial drain in place. Cardiomegaly with aortic atherosclerosis. No failure. Left lower lobe infiltrate with the remainder of the lungs being clear. Procedure Note Ady Silva MD - 07/10/2024 EXAMINATION: XR CHEST 1 VIEW HISTORY: The patient is a 68-year-old male who presents with chest pain. Comparison made with the previous study dated 07/09/2024. TECHNIQUE: AP portable view of the chest. FINDINGS: Pericardial drain in place. Cardiomegaly with aortic atherosclerosis. No failure. Left lower lobe infiltrate with the remainder of the lungs being clear. IMPRESSION: No failure. Electronically signed by: Ady Silva M.D. us Oniel Hendrickson MD IMG XR PROCEDURES Final R esult * Critical Care (07/09/2024 7:09 PM CDT) Narrative Oniel Hendrickson MD - 07/09/2024 7:09 PM CDT Oniel Hendrickson MD 07/10/2024 6:18 AM Critical Care Performed by: Oniel Hendrickson MD Authorized by: Onile Hendrickson MD CRITICAL CARE: Team: [facility] Shift: PM Level of Billing: Critical Care My time spent with this patient was 45 minutes: Critical Provider Statement: I have seen and examined the patient on this day of service. I have reviewed and confirmed the history, physical exam, laboratory and radiologic data as documented in the signed ICU note. I have reviewed and discussed my treatment plan with the ICU team and other medical/library sales consultant staff, making frequent assessments and decisions regarding this patient's complex medical care. Critical Care time was exclusive of time spent performing separately billed procedures, treating other patients, and teaching. This time was in addition to and separate from critical care provided by other practitioners in my group on this day of service. Critical Care was necessary to treat or prevent imminent or life-threatening deterioration of the following conditions: Acute pain/acute postoperative pain Cardiac tamponade Acute respiratory insufficiency and Pleural effusion Acute blood loss anemia Acute solid organ injury This time was spent by me doing the following: Serial bedside patient exams Acute pain control Serial evaluation and management of pericardial effusion Active and frequent reassessment of respiratory status and oxygen requirements Active and frequent monitoring of intake/output and volumen status, Glycemic control and Serial abdominal exams Obtaining appropriate cultures and Review of prior or current culture/gram stain results I spent time documenting in the medical record, I spent time discussing the management of this critically ill patient with consultants and the medical staff and I spent time reviewing and interpreting data from bedside monitors, laboratory results, and imaging us Oniel Hendrickson MD IN CLINIC/BEDSIDE ORDERAB LES Final Result * ECG 12 lead (07/09/2024 4:14 PM CDT) 07/09/2024 4:14 PM CDT Narrative [facility] - 07/09/2024 11:45 PM CDT Vent Rate: 90 bpm RR Interval: 666 msec GA Interval: 150 msec QRS Duration: 103 msec QT Interval: 391 msec QTC Interval: 438 msec P-R-T [place]: 44 - -11 - 91 degrees IMPRESSION: SINUS RHYTHM POSSIBLE LEFT ATRIAL ENLARGEMENT [-0.1mV P-WAVE IN V1/V2] ST ELEVATION, non specific NO CHANGE FROM PREVIOUS TRACING NOTED Electronically Signed By: Polo Davenport MD us Eduin Lincoln MD ECG ORDERABLES Final Re sult [facility] * XR Chest 1 View (07/09/2024 4:06 PM CDT) Anatomical Region Laterality Modality Body, Chest N/A Computed Radiogr aphy 07/09/2024 4:47 PM CDT Impressions 07/09/2024 4:47 PM CDT Pericardial drain unchanged in position. There is a small left pleural effusion. Mild cardiomegaly. Leadless pacer device noted. No acute osseous abnormality. Electronically signed by: Jeremias Block II, D.O. Narrative 07/09/2024 4:47 PM CDT EXAMINATION: XR CHEST 1 VIEW DATE: 07/09/2024 4:00 PM INDICATION: Left shoulder pain. COMPARISON: 07/09/2024. Procedure Note Jeremias Block II, DO - 07/09/2024 EXAMINATION: XR CHEST 1 VIEW DATE: 07/09/2024 4:00 PM INDICATION: Left shoulder pain. COMPARISON: 07/09/2024. IMPRESSION: Pericardial drain unchanged in position. There is a small left pleural effusion. Mild cardiomegaly. Leadless pacer device noted. No acute osseous abnormality. Electronically signed by: Jeremias Block II, D.O. us Eduin Lincoln MD IMG XR PROCEDURES Final Result * TRANSTHORACIC ECHO (TTE) LIMITED/FOLLOW UP W LTD DOPPLER/CF WO CONTRAST (07/09/2024 2:29 PM CDT) Anatomical Region Laterality Modality Ultrasound 07/09/2024 1:53 PM CDT Narrative 07/09/2024 2:43 [place] [address] Limited Echocardiogram Report ADDENDUM Patient Name: CAMILA DONOHUE W : 1955 Study Date: 07/09/2024 1:53:48 PM Gender: M Tech: Location: [id number] Ref Provider: EDUIN LINCOLN Height(Cm): 172 BSA: 1.89 Weight(Kg): 75 Heart Rate: 90 BP: 110 / 56 Quality: Good Order Provider: EDUIN LINCOLN PROCEDURES: Echocardiographic Report: Limited transthoracic echocardiogram with 2D and contrast. Limited transthoracic echocardiogram with 2D and color Doppler. INDICATIONS: f/u Pericardial effusion. MEASUREMENTS: 2D/MM Value Range LVIDd 2D 4.43 cm [ 4.20 - 5.80 ] LVIDs 2D 3.05 cm [ 2.50 - 4.00 ] IVSd 2D 1.08 cm [ 0.60 - 1.00 ] 2D/MM Value Range - FINDINGS: Left Ventricle: Normal left ventricular systolic function with no focal wall motion abnormalities. Normal left ventricular size. Mild concentric left ventricular hypertrophy. Aortic Valve: Aortic cusps appear mildly sclerotic. Trileaflet aortic valve. Mitral Valve: Mitral valve leaflets appear mildly thickened. Pericardium: Normal pericardium with no significant pericardial effusion. Thickened pericardium. There is an anterior echo free space consistent with epicardial fat pad. CONCLUSIONS: Normal left ventricular systolic function with no focal wall motion abnormalities. Normal left ventricular size. Mild concentric left ventricular hypertrophy. Ejection fraction is visually estimated between 60-70%. Normal pericardium with no significant pericardial effusion. Thickened pericardium. There is an anterior echo free space consistent with epicardial fat pad. Electronically Signed By: Tali Crane MD 2024-07-09 14:42:42 CDT Electronically Amended By: Tali Crane MD 07/09/2024 2:44:19 PM CDT [ADDENDUM] Procedure Note Tali Crane MD - 07/09/2024 [place] [address] Limited Echocardiogram Report ADDENDUM Patient Name: CAMILA DONOHUE W : 1955 Study Date: 07/09/2024 1:53:48 PM Gender: M Tech: Location: [id number] Ref Provider: EDUIN LINCOLN Height(Cm): 172 BSA: 1.89 Weight(Kg): 75 Heart Rate: 90 BP: 110 / 56 Quality: Good Order Provider: EDUIN LINCOLN PROCEDURES: Echocardiographic Report: Limited transthoracic echocardiogram with 2D and contrast. Limitedtransthoracic echocardiogram with 2D and color Doppler. INDICATIONS: f/u Pericardial effusion. MEASUREMENTS: 2D/MM Value Range LVIDd 2D 4.43 cm [ 4.20 - 5.80 ] LVIDs 2D 3.05 cm [ 2.50 - 4.00 ] IVSd 2D 1.08 cm [ 0.60 - 1.00 ] 2D/MM Value Range - FINDINGS: Left Ventricle: Normal left ventricular systolic function with no focal wall motionabnormalities. Normal left ventricular size. Mild concentric left ventricular hypertrophy. Aortic Valve: Aortic cusps appear mildly sclerotic. Trileaflet aortic valve. Mitral Valve: Mitral valve leaflets appear mildly thickened. Pericardium: Normal pericardium with no significant pericardial effusion. Thickenedpericardium. There is an anterior echo free space consistent with epicardial fat pad. CONCLUSIONS: Normal left ventricular systolic function with no focal wall motionabnormalities. Normal left ventricular size. Mild concentric left ventricular hypertrophy.Ejection fraction is visually estimated between 60-70%. Normal pericardium with no significant pericardial effusion. Thickenedpericardium. There is an anterior echo free space consistent with epicardial fat pad. Electronically Signed By: Tali Crane MD 2024-07-09 14:42:42 CDT Electronically Amended By: Tali Crane MD 07/09/2024 2:44:19 PM CDT [ADDENDUM] us Eduin Lincoln MD CV ECHO PROCEDURES Edite d Result - Final * IR Thoracentesis With Imaging Left (07/09/2024 1:35 PM CDT) Anatomical Region Laterality Modality Chest Left X-Ray Angiograph y 07/09/2024 2:25 PM CDT Impressions 07/09/2024 2:25 PM CDT Ultrasound-guided left thoracentesis. Electronically signed by: Gisela Rausch 07/09/2024 2:25 PM CDT EXAMINATION: IR THORACENTESIS W IMAGING LEFT DATE: 07/09/2024 1:05 PM HISTORY: Pleural effusion TECHNIQUE: The risks, benefits, and alternatives were discussed and informed consent was obtained. Prior to beginning the procedure, universal protocol was performed to confirm the patient's identity and the planned procedure. Maximum sterile barriers including cap, mask, hand hygiene, sterile gloves, sterile drape, and 2% chlorhexidine for cutaneous antisepsis were used. Limited ultrasound images demonstrate a pleural effusion. The skin overlying the effusion was marked. The patient's left posterior chest wall was prepped and draped. Lidocaine was used to anesthetize the skin and subcutaneous tissues. Under ultrasound guidance, a one-step needle was advanced into the pleural effusion. 900 ml of bloody fluid was aspirated. At the end of the procedure, the catheter was removed, manual pressure was held to achieve hemostasis, and a sterile dressing was applied. The patient tolerated the procedure well and without complications. Procedure Note Dillon Thompson MD - 07/09/2024 EXAMINATION: IR THORACENTESIS W IMAGING LEFT DATE: 07/09/2024 1:05 PM HISTORY: Pleural effusion TECHNIQUE: The risks, benefits, and alternatives were discussed and informed consent was obtained. Prior to beginning the procedure, universal protocol was performed to confirm the patient's identity and the planned procedure. Maximum sterile barriers including cap, mask, hand hygiene, sterile gloves, sterile drape, and 2% chlorhexidine for cutaneous antisepsis were used. Limited ultrasound images demonstrate a pleural effusion. The skin overlying the effusion was marked. The patient's left posterior chest wall was prepped and draped. Lidocaine was used to anesthetize the skin and subcutaneous tissues. Under ultrasound guidance, a one-step needle was advanced into the pleural effusion. 900 ml of bloody fluid was aspirated. At the end of the procedure, the catheter was removed, manual pressure was held to achieve hemostasis, and a sterile dressing was applied. The patient tolerated the procedure well and without complications. IMPRESSION: Ultrasound-guided left thoracentesis. Electronically signed by: Dillon Thompson M.D. us Eduin Lincoln MD IMG IR PROCEDURES Final Result * Critical Care (07/09/2024 1:23 PM CDT) Narrative Eduin Lincoln MD - 07/09/2024 1:23 PM CDT Eduin Lincoln MD 07/09/2024 1:25 PM Critical Care Performed by: Eduin Lincoln MD Authorized by: Eduin Lincoln MD CRITICAL CARE: Team: [facility] Shift: AM Level of Billing: Critical Care My time spent with this patient was 60 minutes: Critical Provider Statement: I have seen and examined the patient on this day of service. I have reviewed and confirmed the history, physical exam, laboratory and radiologic data as documented in the signed ICU note. I have reviewed and discussed my treatment plan with the ICU team and other medical/library sales consultant staff, making frequent assessments and decisions regarding this patient's complex medical care. Critical Care time was exclusive of time spent performing separately billed procedures, treating other patients, and teaching. This time was in addition to and separate from critical care provided by other practitioners in my group on this day of service. Critical Care was necessary to treat or prevent imminent or life-threatening deterioration of the following conditions: Acute pain/acute postoperative pain Cardiac tamponade Acute respiratory insufficiency and Pleural effusion Acute blood loss anemia Acute solid organ injury This time was spent by me doing the following: Serial bedside patient exams Acute pain control Serial evaluation and management of pericardial effusion Active and frequent reassessment of respiratory status and oxygen requirements Active and frequent monitoring of intake/output and volumen status, Glycemic control and Serial abdominal exams Obtaining appropriate cultures and Review of prior or current culture/gram stain results I spent time reviewing and interpreting data from bedside monitors, laboratory results, and imaging, I spent time discussing the management of this critically ill patient with consultants and the medical staff and I spent time documenting in the medical record us Eduin Lincoln MD IN CLINIC/BEDSIDE ORDERA BLES Final Result * eGFR (07/09/2024 6:44 AM CDT) eGFR 66 >=60 mL/min/1. 73 m2 Comment: Interpretive Data Reference Interval Normal >/= 90 mL/min/1.73m2 Mildly decreased* 60 - 89 mL/min/1.73m2 Mildly to moderately decreased 45 - 59 mL/min/1.73m2 Moderately to severely decreased 30 - 44 mL/min/1.73m2 Severely decreased 15 - 29 mL/min/1.73m2 Kidney Failure < 15 mL/min/1.73m2 *Relative to young adult level Estimated glomerular filtration rate is determined by the 2020 CKD-EPI equation recommended by the National Kidney Foundation (A Unifying Approach to GFR Estimation: Recommendations of the NKF-ASK Task Force on Reassessing the Inclusion of Race in Diagnosing Kidney Disease, JASN 2020). The CKD-EPI equation should not be used for patients with unstable renal function and has not been validated in children and those over 70. Current interpretive data was last reviewed 2020. Blood 07/09/2024 6:44 AM CDT 07/09/2024 6:46 AM CDT us Eduin Lincoln MD LAB BLOOD ORDERABLES Fin al Result JASON [address] [place] [address] * (ABNORMAL) CBC without differential (07/09/2024 6:44 AM CDT) WBC 22.68(H) 3.80 - 9.90 K/cumm Hgb 7.5(L) 13.0 - 17.5 g/dL [facility] Hct 23.8(L) 38.9 - 50.3 % [facility] Plt 351 150 - 400 K/cumm [facility] MPV 9.9 9.1 - 12.3 fL [facility] RBC 3.63(L) 4.30 - 5.80 M/cumm [facility] MCV 65.6(L) 81.3 - 96.4 fL [facility] MCH 20.7(L) 27.1 - 33.3 pg [facility] MCHC 31.5(L) 32.3 - 35.7 g/dL [facility] RDW CV 19.6(H) 11.1 - 14.9 % [facility] RDW SD 43.8 35.7 - 48.1 fL [facility] NRBC abs 0.02(H) 0.00 - 0.01 K/cumm [facility] Blood 07/09/2024 6:44 AM CDT 07/09/2024 6:45 AM CDT Eduin Lincoln MD LAB BLOOD ORDERABLES Fin al Result [facility] [address] [place] [address] * (ABNORMAL) Basic metabolic panel (07/09/2024 6:44 AM CDT) Sodium 138 135 - 145 mmol/L Potassium, pl 4.1 3.3 - 4.9 mmol/L [facility] Chloride 102 97 - 110 mmol/L [facility] CO2 22 22 - 32 mmol/L [facility] Anion gap 14 2 - 15 mmol/L [facility] BUN 16 6 - 25 mg/dL [facility] Creatinine 1.20 0.80 - 1.30 mg/dL [facility] Glucose 97 70 - 199 mg/dL [facility] Comment: Interpretive Data Fasting glucose >/= 126 mg/dl is diagnostic for diabetes. Fasting is defined as no caloric intake for at least 8 hours. Fasting glucose between 100 mg/dl to 125 mg/dl is diagnostic of prediabetes. In a patient with classic symptoms of hyperglycemia or hyperglycemic crisis, a random glucose >/= 200 mg/dl is diagnostic for diabetes. In the absence of unequivocal hyperglycemia, results should be confirmed by repeat testing. The classification and Diagnosis of Diabetes Diabetes Care 202; 46: S19-S40. Current interpretive data was last revised 2022. Calcium 8.3(L) 8.5 - 10.3 mg/dL [facility] Blood 07/09/2024 6:44 AM CDT 07/09/2024 6:46 AM CDT us Eduin Lincoln MD LAB BLOOD ORDERABLES Fin al Result J[facility]ON [address] [place] [address] * XR Chest 1 Vw Portable (07/09/2024 3:56 AM CDT) Anatomical Region Laterality Modality Body, Chest N/A Computed Radiogr aphy 07/09/2024 9:47 AM CDT Impressions 07/09/2024 9:47 AM CDT Findings as described above. Electronically signed by: Ady Silva M.D. Narrative 07/09/2024 9:47 AM CDT EXAMINATION: XR CHEST 1 VIEW HISTORY: The patient is a 68-year-old male who has had pericardiocentesis. Comparison made with the previous study dated 07/08/2024. TECHNIQUE: AP portable view of the chest. FINDINGS: Pericardial drain in place. Cardiomegaly with aortic atherosclerosis. Haziness of the left lung raising the possibility of a left effusion layering out in the dependent portion of the right pleural space. The right lung is clear. Procedure Note Ady Silva MD - 07/09/2024 EXAMINATION: XR CHEST 1 VIEW HISTORY: The patient is a 68-year-old male who has had pericardiocentesis. Comparison made with the previous study dated 07/08/2024. TECHNIQUE: AP portable view of the chest. FINDINGS: Pericardial drain in place. Cardiomegaly with aortic atherosclerosis. Haziness of the left lung raising the possibility of a left effusion layering out in the dependent portion of the right pleural space. The right lung is clear. IMPRESSION: Findings as described above. Electronically signed by: Ady Silva M.D. us Gurvinder Burciaga MD IMG XR PROCEDURES Final Resu lt * (ABNORMAL) CBC without differential (07/09/2024 2:13 AM CDT) WBC 20.68(H) 3.80 - 9.90 K/cumm Hgb 7.7(L) 13.0 - 17.5 g/dL [facility] Hct 24.1(L) 38.9 - 50.3 % [facility] Plt 353 150 - 400 K/cumm [facility] MPV 10.2 9.1 - 12.3 fL [facility] RBC 3.66(L) 4.30 - 5.80 M/cumm [facility] MCV 65.8(L) 81.3 - 96.4 fL [facility] MCH 21.0(L) 27.1 - 33.3 pg [facility] MCHC 32.0(L) 32.3 - 35.7 g/dL [facility] RDW CV 19.5(H) 11.1 - 14.9 % [facility] RDW SD 43.8 35.7 - 48.1 fL [facility] NRBC abs 0.02(H) 0.00 - 0.01 K/cumm [facility] Blood 07/09/2024 2:13 AM CDT 07/09/2024 2:17 AM CDT us Eduin Lincoln MD LAB BLOOD ORDERABLES Fin al Result J[facility]ON [address] [place] [address] * (ABNORMAL) CBC without differential (07/08/2024 9:38 PM CDT) WBC 21.32(H) 3.80 - 9.90 K/cumm Hgb 7.6(L) 13.0 - 17.5 g/dL [facility] Hct 24.4(L) 38.9 - 50.3 % [facility] Plt 381 150 - 400 K/cumm [facility] MPV 10.2 9.1 - 12.3 fL [facility] RBC 3.70(L) 4.30 - 5.80 M/cumm [facility] MCV 65.9(L) 81.3 - 96.4 fL [facility] MCH 20.5(L) 27.1 - 33.3 pg [facility] MCHC 31.1(L) 32.3 - 35.7 g/dL [facility] RDW CV 19.6(H) 11.1 - 14.9 % [facility] RDW SD 43.6 35.7 - 48.1 fL [facility] NRBC abs 0.03(H) 0.00 - 0.01 K/cumm [facility] Blood 07/08/2024 9:38 PM CDT 07/08/2024 9:47 PM CDT us Eduin Lincoln MD LAB BLOOD ORDERABLES Fin al Result J[facility]ON [address] [place] [address] * Critical Care (07/08/2024 10:43 AM CDT) Narrative Eduin Lincoln MD - 07/08/2024 10:43 AM CDT Eduin Lincoln MD 07/08/2024 10:44 AM Critical Care Performed by: Eduin Lincoln MD Authorized by: Eduin Lincoln MD CRITICAL CARE: Team: BLOSSOM Shift: AM Level of Billing: Critical Care My time spent with this patient was 75 minutes: Critical Provider Statement: I have seen and examined the patient on this day of service. I have reviewed and confirmed the history, physical exam, laboratory and radiologic data as documented in the signed ICU note. I have reviewed and discussed my treatment plan with the ICU team and other medical/library sales consultant staff, making frequent assessments and decisions regarding this patient's complex medical care. Critical Care time was exclusive of time spent performing separately billed procedures, treating other patients, and teaching. This time was in addition to and separate from critical care provided by other practitioners in my group on this day of service. Critical Care was necessary to treat or prevent imminent or life-threatening deterioration of the following conditions: Acute pain/acute postoperative pain Cardiac tamponade Acute respiratory insufficiency Acute blood loss anemia Acute solid organ injury This time was spent by me doing the following: Serial bedside patient exams Acute pain control Active and frequent reassessment of respiratory status and oxygen requirements Active and frequent monitoring of intake/output and volumen status and Serial abdominal exams Transfusion of blood products Review of prior or current culture/gram stain results I spent time reviewing and interpreting data from bedside monitors, laboratory results, and imaging, I spent time discussing the management of this critically ill patient with consultants and the medical staff and I spent time documenting in the medical record us Eduin Lincoln MD IN CLINIC/BEDSIDE ORDERA BLES Final Result * Transfuse RBC (07/08/2024 9:37 AM CDT) Blood Anika PARISI BLOOD TRANSFUSION [place] [address] [place] [address] * XR Chest 1 Vw Portable (07/08/2024 6:16 AM CDT) Anatomical Region Laterality Modality Body, Chest N/A Computed Radiogr aphy 07/08/2024 8:43 AM CDT Impressions 07/08/2024 8:43 AM CDT Persistent left effusion and lower lobe atelectasis. Electronically signed by: Vida Puri M.D. Narrative 07/08/2024 8:43 AM CDT Examination: XR CHEST 1 VIEW Date: 07/08/2024 5:40 AM History: s/p pericardiocentesis Comparison: 07/07/2024. Findings: Cardiomegaly with overlying pericardial drain and loop recorder is seen. Small to moderate left effusion and lower lobe atelectasis is again seen. The right hemithorax is essentially clear. No pneumothorax is noted. Procedure Note Vida Puri MD - 07/08/2024 Examination: XR CHEST 1 VIEW Date: 07/08/2024 5:40 AM History: s/p pericardiocentesis Comparison: 07/07/2024. Findings: Cardiomegaly with overlying pericardial drain and loop recorder is seen. Small to moderate left effusion and lower lobe atelectasis is again seen. The right hemithorax is essentially clear. No pneumothorax is noted. IMPRESSION: Persistent left effusion and lower lobe atelectasis. Electronically signed by: Vida Khushi, M.D. us Gurvinder Burciaga MD IMG XR PROCEDURES Final Resu lt * eGFR (07/08/2024 5:31 AM CDT) eGFR 60 >=60 mL/min/1. 73 m2 Comment: Interpretive Data Reference Interval Normal >/= 90 mL/min/1.73m2 Mildly decreased* 60 - 89 mL/min/1.73m2 Mildly to moderately decreased 45 - 59 mL/min/1.73m2 Moderately to severely decreased 30 - 44 mL/min/1.73m2 Severely decreased 15 - 29 mL/min/1.73m2 Kidney Failure < 15 mL/min/1.73m2 *Relative to young adult level Estimated glomerular filtration rate is determined by the 2020 CKD-EPI equation recommended by the National Kidney Foundation (A Unifying Approach to GFR Estimation: Recommendations of the NKF-ASK Task Force on Reassessing the Inclusion of Race in Diagnosing Kidney Disease, JASN 2020). The CKD-EPI equation should not be used for patients with unstable renal function and has not been validated in children and those over 70. Current interpretive data was last reviewed 2020. Blood 07/08/2024 5:31 AM CDT 07/08/2024 5:35 AM CDT Eduin Lincoln MD LAB BLOOD ORDERABLES Fin al Result [facility] [address] [facility] [place] [address] * aPTT (07/08/2024 5:31 AM CDT) aPTT 30 28 - 38 sec Comment: Interpretive Data Heparin therapeutic range: 66.0 - 100.0 seconds. Range based on correlation with therapeutic heparin activity range of 0.3 - 0.7 Units/mL. Current interpretive data was last revised on 2022. Blood 07/08/2024 5:31 AM CDT 07/08/2024 5:35 AM CDT Eduin Lincoln MD LAB BLOOD ORDERABLES Fin al Result Performing Organization Address [facility] de Phone Number JASON SAEED [address] Department of Laboratories [place], [place] [id number] * (ABNORMAL) Protime-INR (07/08/2024 5:31 AM CDT) PT 13.5(H) 9.7 - 13.0 sec INR 1.24(H) 0.90 - 1.20 [facility] Comment: Interpretive data Oral anticoagulant therapeutic ranges: Venous thromboembolism prophylaxis or treatment: 2.0-3.0 CARDIOLOGY Standard range: 2.0-3.0 High-intensity range: 2.5-3.5 Refer to indication-specific guidelines for appropriate target ranges for prosthetic heart valve replacement. Current interpretive data was last revised on 2019. Blood 07/08/2024 5:31 AM CDT 07/08/2024 5:35 AM CDT Eduin Lincoln MD LAB BLOOD ORDERABLES Fin al Result Performing Organization Address [facility] de Phone Number JASON SAEED [address] [place] [address] * (ABNORMAL) CBC without differential (07/08/2024 5:31 AM CDT) Pathologist [facility] WBC 18.93(H) 3.80 - 9.90 K/cumm Hgb 8.0(L) 13.0 - 17.5 g/dL [facility] Hct 25.4(L) 38.9 - 50.3 % [facility] Plt 343 150 - 400 K/cumm [facility] MPV 10.0 9.1 - 12.3 fL [facility] RBC 3.84(L) 4.30 - 5.80 M/cumm [facility] MCV 66.1(L) 81.3 - 96.4 fL [facility] MCH 20.8(L) 27.1 - 33.3 pg [facility] MCHC 31.5(L) 32.3 - 35.7 g/dL [facility] RDW CV 19.8(H) 11.1 - 14.9 % [facility] RDW SD 43.7 35.7 - 48.1 fL [facility] NRBC abs 0.00 0.00 - 0.01 K/cumm [facility] Blood 07/08/2024 5:31 AM CDT 07/08/2024 1:58 PM CDT Eduin Lincoln MD LAB BLOOD ORDERABLES Fin al Result Performing Organization Address City/[facility]/ZIP Co de Phone Number JASON SAEED [address] [place] [address] * (ABNORMAL) CBC without differential (07/08/2024 5:31 AM CDT) WBC 17.63(H) 3.80 - 9.90 K/cumm Hgb 6.7(L) 13.0 - 17.5 g/dL [facility] Hct 21.7(L) 38.9 - 50.3 % [facility] Plt 333 150 - 400 K/cumm [facility] MPV 10.4 9.1 - 12.3 fL [facility] RBC 3.41(L) 4.30 - 5.80 M/cumm [facility] MCV 63.6(L) 81.3 - 96.4 fL [facility] MCH 19.6(L) 27.1 - 33.3 pg [facility] MCHC 30.9(L) 32.3 - 35.7 g/dL [facility] RDW CV 17.2(H) 11.1 - 14.9 % [facility] RDW SD 38.4 35.7 - 48.1 fL [facility] NRBC abs 0.00 0.00 - 0.01 K/cumm [facility] Morphologic Screen Results confirmed by manual morphology review. [facility] Blood 07/08/2024 5:31 AM CDT 07/08/2024 5:35 AM CDT Eduin Lincoln MD LAB BLOOD ORDERABLES Fin al Result Performing Organization Address City/[facility]/ZIP Co de Phone Number JASON SAEED [address] [facility] [place] [address] * (ABNORMAL) Basic metabolic panel (07/08/2024 5:31 AM CDT) Sodium 136 135 - 145 mmol/L Potassium, pl 4.1 3.3 - 4.9 mmol/L [facility] Chloride 105 97 - 110 mmol/L [facility] CO2 22 22 - 32 mmol/L [facility] Anion gap 9 2 - 15 mmol/L [facility] BUN 22 6 - 25 mg/dL [facility] Creatinine 1.30 0.80 - 1.30 mg/dL [facility] Glucose 94 70 - 199 mg/dL [facility] Comment: Interpretive Data Fasting glucose >/= 126 mg/dl is diagnostic for diabetes. Fasting is defined as no caloric intake for at least 8 hours. Fasting glucose between 100 mg/dl to 125 mg/dl is diagnostic of prediabetes. In a patient with classic symptoms of hyperglycemia or hyperglycemic crisis, a random glucose >/= 200 mg/dl is diagnostic for diabetes. In the absence of unequivocal hyperglycemia, results should be confirmed by repeat testing. The classification and Diagnosis of Diabetes Diabetes Care 2021; 46: S19-S40. Current interpretive data was last revised 2022. Calcium 8.2(L) 8.5 - 10.3 mg/dL [facility] Blood 07/08/2024 5:31 AM CDT 07/08/2024 5:35 AM CDT Eduin Lincoln MD LAB BLOOD ORDERABLES Fin al Result [facility] [address] [place] [address] * (ABNORMAL) CBC without differential (07/07/2024 11:57 PM CDT) WBC 19.71(H) 3.80 - 9.90 K/cumm Hgb 7.2(L) 13.0 - 17.5 g/dL [facility] Hct 22.8(L) 38.9 - 50.3 % [facility] Plt 338 150 - 400 K/cumm [facility] MPV 10.5 9.1 - 12.3 fL [facility] RBC 3.58(L) 4.30 - 5.80 M/cumm [facility] MCV 63.7(L) 81.3 - 96.4 fL [facility] MCH 20.1(L) 27.1 - 33.3 pg [facility] MCHC 31.6(L) 32.3 - 35.7 g/dL [facility] RDW CV 16.9(H) 11.1 - 14.9 % [facility] RDW SD 38.1 35.7 - 48.1 fL [facility] NRBC abs 0.00 0.00 - 0.01 K/cumm [facility] Morphologic Screen Results confirmed by manual morphology review. [facility] Blood 07/07/2024 11:5 7 PM CDT 07/08/2024 12:06 AM CDT Eduin Lincoln MD LAB BLOOD ORDERABLES Fin al Result Performing Organization Address [facility] Co de Phone Number [facility] [address] [place], [place] [id number] * Lactate (07/07/2024 8:59 PM CDT) Lactate 1.0 0.7 - 2.0 mmol/L Blood 07/07/2024 8:59 PM CDT 07/07/2024 9:01 PM CDT Anika PARISI LAB BLOOD ORDERABLES Fin al Result Performing Organization Address [facility] Co de Phone Number [facility] [address] [place] [address] * (ABNORMAL) CBC without differential (07/07/2024 6:01 PM CDT) WBC 22.30(H) 3.80 - 9.90 K/cumm Hgb 7.7(L) 13.0 - 17.5 g/dL [facility] Hct 24.6(L) 38.9 - 50.3 % [facility] Plt 381 150 - 400 K/cumm [facility] MPV 10.2 9.1 - 12.3 fL [facility] RBC 3.87(L) 4.30 - 5.80 M/cumm [facility] MCV 63.6(L) 81.3 - 96.4 fL [facility] MCH 19.9(L) 27.1 - 33.3 pg [facility] MCHC 31.3(L) 32.3 - 35.7 g/dL [facility] RDW CV 17.2(H) 11.1 - 14.9 % [facility] RDW SD 38.3 35.7 - 48.1 fL [facility] NRBC abs 0.00 0.00 - 0.01 K/cumm [facility] Morphologic Screen Results confirmed by manual morphology review. [facility] Blood 07/07/2024 6:01 PM CDT 07/07/2024 6:09 PM CDT Eduin Lincoln MD LAB BLOOD ORDERABLES Fin al Result Performing Organization Address City/[facility] Co de Phone Number [facility] [address] [place] [address] * Type and screen (07/07/2024 6:01 PM CDT) Yuliya, indirect Negative ABO Rh O Negative [facility] Blood 07/07/2024 6:01 PM CDT 07/07/2024 6:22 PM CDT Narrative [facility] - 07/07/2024 7:00 PM CDT Has the patient had Daratumumab or Isatuximab in the past 6 months?->Unknown Eduin Lincoln MD LAB BLOOD BANK TEST ORDE RABLES Final Result Performing Organization Address City/[facility]/ZIP Co de Phone Number JASON [address] [facility] [place] [address] * Prepare RBC: 2 Units (07/07/2024 5:14 PM CDT) Product code [id number] Unit Number [id number] [facility] Product Blood Type ONEG [facility] Dispense Status PRESUMED TRANSFUSED [facility] Blood 07/07/2024 5:14 PM CDT Narrative [facility] - 07/09/2024 10:15 AM CDT Are special requirements needed? (All products are leukoreduced and CMV- safe)- >No Donor Source->[employer] Date required:-[id number] LRRBC # of [id number] Reasons:-Hemorrhagic shock/Life-threatening bleeding} Eduin Lincoln MD BLOOD BANK PRODUCT ORDER PADMINI Final Result Performing Organization Address [facility] de Phone Number JASON SAEED [address] [place] [place] [address] * Prepare RBC: 1 Units (07/07/2024 4:54 PM CDT) [facility] Product code [id number] Unit Number [id number] [facility] Product Blood Type ONEG [facility] Dispense Status PRESUMED TRANSFUSED [facility] Blood 07/07/2024 4:54 PM CDT Narrative [facility] - 07/10/2024 10:15 PM CDT Are special requirements needed? (All products are leukoreduced and CMV- safe)- >No Donor Source->[employer] Date required:-[id number] LRRBC # of [id number] Reasons:-Hemorrhagic shock/Life-threatening bleeding} Eduin Lincoln MD BLOOD BANK PRODUCT ORDER PADMINI Final Result Performing Organization Address [facility] de Phone Number JASON SAEED [address] [employer] [place], [place] [id number] * (ABNORMAL) CBC without differential (07/07/2024 4:45 PM CDT) Pathologist [facility] WBC 23.12(H) 3.80 - 9.90 K/cumm Hgb 7.7(L) 13.0 - 17.5 g/dL [facility] Hct 24.6(L) 38.9 - 50.3 % [facility] Plt 321 150 - 400 K/cumm [facility] MPV 10.6 9.1 - 12.3 fL [facility] RBC 3.87(L) 4.30 - 5.80 M/cumm [facility] MCV 63.6(L) 81.3 - 96.4 fL [facility] MCH 19.9(L) 27.1 - 33.3 pg [facility] MCHC 31.3(L) 32.3 - 35.7 g/dL [facility] RDW CV 17.2(H) 11.1 - 14.9 % [facility] RDW SD 38.5 35.7 - 48.1 fL [facility] NRBC abs 0.00 0.00 - 0.01 K/cumm [facility] Morphologic Screen Results confirmed by manual morphology review. [facility] Blood 07/07/2024 4:45 PM CDT 07/07/2024 4:48 PM CDT us Eduin Lincoln MD LAB BLOOD ORDERABLES Fin al Result [facility] [address] [place] [address] * (ABNORMAL) POC Blood Gas and Chemistries, Venous - (07/07/2024 4:44 PM CDT) pH, Rio POC 7.45(H) 7.32 - 7.43 pCO2, rio POC 39(L) 40 - 50 mmHg [facility] pO2, rio POC 20(C) mmHg [facility] Na, POC 132(L) 135 - 145 mmol/L [facility] K POC 5.0(H) 3.3 - 4.9 mmol/L [facility] Comment: Interpretive Data This method is not able to assess for hemolysis, which may falsely increase potassium concentrations. If further testing is needed to evaluate this result, consider in-laboratory plasma potassium. Current Interpretive Data was last revised on 2021. Ionized Ca, POC 4.61 4.50 - 5.10 mg/dL [facility] Glucose, POC 95 70 - 199 mg/dL [facility] Lactate POC 0.9 0.7 - 2.0 mmol/L [facility] O2Hb, Rio POC 28.5(L) 90.0 - 95.0 % [facility] O2 Sat, Rio POC (Kendra) 28 % [facility] Total CO2, rio POC 28 21 - 30 mmol/L [facility] Base excess, rio POC 3 mmol/L [facility] HCO3, Rio POC 26 20 - 30 mmol/L [facility] Hct, POC 25.0(L) 38.9 - 50.3 % [facility] Total Hb, POC 8.2(L) 13.0 - 17.5 g/dL [facility] Blood 07/07/2024 4:44 PM CDT 07/07/2024 4:44 PM CDT us Rudi Lovett MD LAB POCT ORDERABLES - DEVIC E Final Result JASON SAEED [address] [place] [address] * CT Chest Abdomen Pelvis W Contrast (07/07/2024 3:30 PM CDT) Anatomical Region Laterality Modality Body N/A Computed Tomogra phy 07/07/2024 3:23 PM CDT Impressions 07/08/2024 2:12 PM CDT 1. New moderate volume hemoperitoneum throughout the abdomen and pelvis of unclear etiology though hematoma in the region of the eileen hepatis and high density along the liver surface is noted. New hypoattenuating regions in the anterior left hemiliver could represent laceration if there is history of recent trauma. 2. Interval placement of a pericardial drain with persistent small volume pericardial fluid and pericardial thickening/enhancement compatible with pericarditis. 3. New moderate left small right pleural effusions. 4. Gallbladder wall edema likely reactive, no gallbladder distention or stones/sludge. Initial results provided by on-call teleradiologist. Electronically signed by: Ben Rubio M.D. Narrative 07/08/2024 2:12 PM CDT EXAMINATION: Computed tomography of the chest abdomen and pelvis with intravenous contrast HISTORY: Recent pericardial drain placement, pain TECHNIQUE: Transaxial computed tomographic images of the chest abdomen and pelvis were obtained with intravenous contrast according to the standard protocol after the uneventful administration of 68 mL Opti-Ray 350 intravenous contrast. COMPARISON: CT 06/19/2024 FINDINGS: Normal thyroid. No axillary supraclavicular or cervical lymphadenopathy. Normal heart size. There is small volume pericardial effusion with pericardial thickening and enhancement. Subxiphoid approach pericardial drain is in place terminating along the inferior border of the heart. Thoracic aorta main pulmonary artery normal caliber New moderate left and small right pleural effusions with associated atelectasis. No consolidation or pulmonary edema. There are several hypoattenuating lesions within segment 2 which are new from prior, for example a 1.6 cm lesion on series 2 image 82. The gallbladder is nondistended but there is gallbladder wall edema. No stones or sludge. No biliary dilatation. Spleen, adrenal glands and pancreas are normal. Hyperdense partially exophytic nodule along the right inferior pole measures 8 mm, decreased in size from 2022 though increased density likely hemorrhagic or proteinaceous cyst. There are several cysts in the left kidney along with postsurgical changes along the anterior inferior pole. No hydronephrosis. A few punctate nonobstructing stones are seen in the right superior pole. Abdominal aorta is normal caliber with mild atherosclerotic change. There is no suspicious abdominal or pelvic lymphadenopathy. New moderate volume ascites, which is higher attenuation than simple fluid, for example along the liver margin near segment 3. Additional likely hematoma seen in the region of the eileen hepatis/gallbladder fossa measuring at least 6 x 3.1 cm. The rectum and colon are normal with scattered diverticulosis. Small bowel is nondilated with no evidence of obstruction. There is some fluid tracking along the greater curvature of the stomach, otherwise the stomach and duodenum are normal. Urinary bladder is thin walled. Prostate is present with calcifications. Left total hip arthroplasty is noted. Bone window show no suspicious lytic or blastic osseous lesions. Multilevel [id number] degenerative disc disease throughout the thoracic and lumbar spine. Procedure Note Ben Rubio MD - 07/08/2024 EXAMINATION: Computed tomography of the chest abdomen and pelvis with intravenous contrast HISTORY: Recent pericardial drain placement, pain TECHNIQUE: Transaxial computed tomographic images of the chest abdomen and pelvis were obtained with intravenous contrast according to the standard protocol after the uneventful administration of 68 mL Opti-Ray 350 intravenous contrast. COMPARISON: CT 06/19/2024 FINDINGS: Normal thyroid. No axillary supraclavicular or cervical lymphadenopathy. Normal heart size. There is small volume pericardial effusion with pericardial thickening and enhancement. Subxiphoid approach pericardial drain is in place terminating along the inferior border of the heart. Thoracic aorta main pulmonary artery normal caliber New moderate left and small right pleural effusions with associated atelectasis. No consolidation or pulmonary edema. There are several hypoattenuating lesions within segment 2 which are new from prior, for example a 1.6 cm lesion on series 2 image 82. The gallbladder is nondistended but there is gallbladder wall edema. No stones or sludge. No biliary dilatation. Spleen, adrenal glands and pancreas are normal. Hyperdense partially exophytic nodule along the right inferior pole measures 8 mm, decreased in size from 2022 though increased density likely hemorrhagic or proteinaceous cyst. There are several cysts in the left kidney along with postsurgical changes along the anterior inferior pole. No hydronephrosis. A few punctate nonobstructing stones are seen in the right superior pole. Abdominal aorta is normal caliber with mild atherosclerotic change. There is no suspicious abdominal or pelvic lymphadenopathy. New moderate volume ascites, which is higher attenuation than simple fluid, for example along the liver margin near segment 3. Additional likely hematoma seen in the region of the eileen hepatis/gallbladder fossa measuring at least 6 x 3.1 cm. The rectum and colon are normal with scattered diverticulosis. Small bowel is nondilated with no evidence of obstruction. There is some fluid tracking along the greater curvature of the stomach, otherwise the stomach and duodenum are normal. Urinary bladder is thin walled. Prostate is present with calcifications. Left total hip arthroplasty is noted. Bone window show no suspicious lytic or blastic osseous lesions. Multilevel [id number] degenerative disc disease throughout the thoracic and lumbar spine. IMPRESSION: 1. New moderate volume hemoperitoneum throughout the abdomen and pelvis of unclear etiology though hematoma in the region of the eileen hepatis and high density along the liver surface is noted. New hypoattenuating regions in the anterior left hemiliver could represent laceration if there is history of recent trauma. 2. Interval placement of a pericardial drain with persistent small volume pericardial fluid and pericardial thickening/enhancement compatible with pericarditis. 3. New moderate left small right pleural effusions. 4. Gallbladder wall edema likely reactive, no gallbladder distention or stones/sludge. Initial results provided by on-call teleradiologist. Electronically signed by: Ben Rubio M.D. us Eduin Lincoln MD IMG CT PROCEDURES Final Result * Critical Care (07/07/2024 2:23 PM CDT) Narrative Eduin Lincoln MD - 07/07/2024 2:23 PM CDT Eduin Lincoln MD 07/07/2024 5:19 PM Critical Care Performed by: Eduin Lincoln MD Authorized by: Eduin Lincoln MD CRITICAL CARE: Team: BLOSSOM Shift: AM Level of Billing: Critical Care My time spent with this patient was 105 minutes: Critical Provider Statement: I have seen and examined the patient on this day of service. I have reviewed and confirmed the history, physical exam, laboratory and radiologic data as documented in the signed ICU note. I have reviewed and discussed my treatment plan with the ICU team and other medical/library sales consultant staff, making frequent assessments and decisions regarding this patient's complex medical care. Critical Care time was exclusive of time spent performing separately billed procedures, treating other patients, and teaching. This time was in addition to and separate from critical care provided by other practitioners in my group on this day of service. Critical Care was necessary to treat or prevent imminent or life-threatening deterioration of the following conditions: Acute pain/acute postoperative pain Cardiac tamponade Acute respiratory insufficiency This time was spent by me doing the following: Serial bedside patient exams Active and frequent reassessment of respiratory status and oxygen requirements Active and frequent monitoring of intake/output and volumen status Review of prior or current culture/gram stain results I spent time reviewing and interpreting data from bedside monitors, laboratory results, and imaging, I spent time discussing the management of this critically ill patient with consultants and the medical staff, I spent time documenting in the medical record and I spent time talking to this patient's relatives to obtain additional medical history due to patient's inabililty to provide history us Eduin Lincoln MD IN CLINIC/BEDSIDE ORDERA BLES Edited Result - Final * XR Abdomen 1 View AP (07/07/2024 10:53 AM CDT) Anatomical Region Laterality Modality Body, Abdomen N/A Computed Radiogr aphy 07/07/2024 1:27 PM CDT Impressions 07/07/2024 1:27 PM CDT Gas-filled mildly distended stomach and transverse colon suggesting ileus. Electronically signed by: Vida Puri M.D. Narrative 07/07/2024 1:27 PM CDT Examination: XR ABDOMEN AP 1 VIEW History: abd distention and pain Comparison: None Findings: Gas in nondistended stomach and gas-filled transverse colon is seen with scattered small bowel gas. Coils are seen in the left upper quadrant. A pericardial drain catheter overlies the left upper quadrant. Partial imaged left hip arthroplasty is noted. A loop recorder is partially seen. Procedure Note Vida Puri MD - 07/07/2024 Examination: XR ABDOMEN AP 1 VIEW History: abd distention and pain Comparison: None Findings: Gas in nondistended stomach and gas-filled transverse colon is seen with scattered small bowel gas. Coils are seen in the left upper quadrant. A pericardial drain catheter overlies the left upper quadrant. Partial imaged left hip arthroplasty is noted. A loop recorder is partially seen. IMPRESSION: Gas-filled mildly distended stomach and transverse colon suggesting ileus. Electronically signed by: Vida Puri M.D. us Gurvinder Burciaga MD IMG XR PROCEDURES Final Resu lt * TRANSTHORACIC ECHO (TTE) LIMITED/FOLLOW UP W LTD DOPPLER/CF WO CONTRAST (07/07/2024 9:35 AM CDT) EF Mod BP 55 % CONS SCIMAGE Anatomical Region Laterality Modality Ultrasound 07/07/2024 8:03 AM CDT Narrative 07/07/2024 11:30 AM CDT [address], [place] [address] Limited Echocardiogram Report Patient Name: CAMILA DONOHUE W : 1955 Study Date: 07/07/2024 8:03:40 AM Gender: M Tech: AK Location: [id number] Ref Provider: SHARON SALINAS Height(Cm): 173 BSA: 1.91 Weight(Kg): 76 Heart Rate: 88 BP: 139 / 62 Quality: Good Order Provider: SHARON SALINAS PROCEDURES: Echocardiographic Report: Limited transthoracic echocardiogram with 2D and M-Mode. INDICATIONS: Pericardial Effusion. MEASUREMENTS: 2D/MM Value Range EF Mod BP 55 % [ 52 - 72 ] 2D/MM Value Range - FINDINGS: Atrial Septum: Normal atrial septum. Aorta: Sinus of Valsalva is normal. Left Ventricle: Normal left ventricular systolic function with no focal wall motion abnormalities. Normal left ventricular size. Mild concentric left ventricular hypertrophy. Ejection fraction is measured at 55 %. Left Atrium: The left atrium is normal in size. Right Ventricle: Normal right ventricular size. Normal right ventricular systolic function. Right Atrium: The right atrium is normal in size. Aortic Valve: Aortic valve not well visualized. Mitral Valve: Normal structure of the mitral valve. Pulmonic Valve: Pulmonic valve not well visualized. Tricuspid Valve: Normal structure of the tricuspid valve. Pericardium: Small pericardial effusion. CONCLUSIONS: Normal left ventricular systolic function with no focal wall motion abnormalities. Normal left ventricular size. Mild concentric left ventricular hypertrophy. Ejection fraction is measured at 55 %. Small pericardial effusion. Pleural effusion. Electronically Signed By: Dr. Blanca Mcdonald [facility] 07/07/2024 11:30:08 AM CDT Procedure Note Blanca Mcdonald MD - 07/07/2024 [place] [address] Limited Echocardiogram Report Patient Name: CAMILA DONOHUE W : 1955 Study Date: 07/07/2024 8:03:40 AM Gender: M Tech: [place] Location: [id number] Ref Provider: US ZENYMAN Height(Cm): 173 BSA: 1.91 Weight(Kg): 76 Heart Rate: 88 BP: 139 / 62 Quality: Good Order Provider: SHARON SALINAS PROCEDURES: Echocardiographic Report: Limited transthoracic echocardiogram with 2D and M-Mode. INDICATIONS: Pericardial Effusion. MEASUREMENTS: 2D/MM Value Range EF Mod BP 55 % [ 52 - 72 ] 2D/MM Value Range - FINDINGS: Atrial Septum: Normal atrial septum. Aorta: Sinus of Valsalva is normal. Left Ventricle: Normal left ventricular systolic function with no focal wall motionabnormalities. Normal left ventricular size. Mild concentric left ventricular hypertrophy.Ejection fraction is measured at 55 %. Left Atrium: The left atrium is normal in size. Right Ventricle: Normal right ventricular size. Normal right ventricular systolicfunction. Right Atrium: The right atrium is normal in size. Aortic Valve: Aortic valve not well visualized. Mitral Valve: Normal structure of the mitral valve. Pulmonic Valve: Pulmonic valve not well visualized. Tricuspid Valve: Normal structure of the tricuspid valve. Pericardium: Small pericardial effusion. CONCLUSIONS: Normal left ventricular systolic function with no focal wall motionabnormalities. Normal left ventricular size. Mild concentric left ventricular hypertrophy.Ejection fraction is measured at 55 %. Small pericardial effusion. Pleural effusion. Electronically Signed By: Dr. Blanca Mcdonald [facility] 07/07/2024 11:30:08 AM CDT us Chauhan Zeny CAT CV ECHO PROCEDURES Final Result * XR Chest 1 Vw Portable (07/07/2024 8:01 AM CDT) Anatomical Region Laterality Modality Body, Chest N/A Computed Radiogr aphy 07/07/2024 8:24 AM CDT Impressions 07/07/2024 8:24 AM CDT No change since the last study. Electronically signed by: Ady Silva M.D. Narrative 07/07/2024 8:24 AM CDT EXAMINATION: XR CHEST 1 VIEW HISTORY: The patient is a 68-year-old male who has had pericardiocentesis. Comparison is made with the previous study dated 07/06/2024. TECHNIQUE: AP portable view of the chest. FINDINGS: Pericardial drain visualized. Cardiomegaly with aortic atherosclerosis. No failure. Left lower lobe volume loss with the remainder of the lungs being clear. Procedure Note Ady Silva MD - 07/07/2024 EXAMINATION: XR CHEST 1 VIEW HISTORY: The patient is a 68-year-old male who has had pericardiocentesis. Comparison is made with the previous study dated 07/06/2024. TECHNIQUE: AP portable view of the chest. FINDINGS: Pericardial drain visualized. Cardiomegaly with aortic atherosclerosis. No failure. Left lower lobe volume loss with the remainder of the lungs being clear. IMPRESSION: No change since the last study. Electronically signed by: Ady Silva M.D. Gurvinder Burciaga MD IMG XR PROCEDURES Final Resu lt * eGFR (07/07/2024 4:40 AM CDT) eGFR 66 >=60 mL/min/1. 73 m2 Comment: Interpretive Data Reference Interval Normal >/= 90 mL/min/1.73m2 Mildly decreased* 60 - 89 mL/min/1.73m2 Mildly to moderately decreased 45 - 59 mL/min/1.73m2 Moderately to severely decreased 30 - 44 mL/min/1.73m2 Severely decreased 15 - 29 mL/min/1.73m2 Kidney Failure < 15 mL/min/1.73m2 *Relative to young adult level Estimated glomerular filtration rate is determined by the 2020 CKD-EPI equation recommended by the National Kid[employer] (A Unifying Approach to GFR Estimation: Recommendations of the NKF-ASK Task Force on Reassessing the Inclusion of Race in Diagnosing Kidney Disease, JASN 202). The CKD-EPI equation should not be used for patients with unstable renal function and has not been validated in children and those over 70. Current interpretive data was last reviewed 2020. Blood 07/07/2024 4:40 AM CDT 07/07/2024 4:49 AM CDT us Rudi Lovett MD LAB BLOOD ORDERABLES Final Result Performing Organization Address City/[facility]/ZIP Co de Phone Number [facility] [phone] [place] [address] * (ABNORMAL) CBC without differential (07/07/2024 4:40 AM CDT) WBC 16.99(H) 3.80 - 9.90 K/cumm Hgb 8.8(L) 13.0 - 17.5 g/dL [facility] Hct 27.9(L) 38.9 - 50.3 % [facility] Plt 350 150 - 400 K/cumm [facility] MPV 10.1 9.1 - 12.3 fL [facility] RBC 4.44 4.30 - 5.80 M/cumm [facility] MCV 62.8(L) 81.3 - 96.4 fL [facility] MCH 19.8(L) 27.1 - 33.3 pg [facility] MCHC 31.5(L) 32.3 - 35.7 g/dL [facility] RDW CV 17.0(H) 11.1 - 14.9 % [facility] RDW SD 37.2 35.7 - 48.1 fL [facility] NRBC abs 0.00 0.00 - 0.01 K/cumm [facility] Morphologic Screen Results confirmed by manual morphology review. [facility] Blood 07/07/2024 4:40 AM CDT 07/07/2024 4:49 AM CDT us Rudi Lovett MD LAB BLOOD ORDERABLES Final Result [facility] [phone] [place] [address] * Lipase (07/07/2024 4:40 AM CDT) Lipase 22 10 - 99 Units/L Blood 07/07/2024 4:40 AM CDT 07/07/2024 12:28 PM CDT Eduin Lincoln MD LAB BLOOD ORDERABLES Fin al Result Performing Organization Address [facility]/ZIP Co de Phone Number [place] [phone] [place] [address] * (ABNORMAL) Hepatic function panel (07/07/2024 4:40 AM CDT) Bilirubin, total 0.6 0.1 - 1.2 mg/dL Bilirubin, direct 0.2 0.1 - 0.3 mg/dL [facility] Protein, pl 5.2(L) 6.5 - 8.5 g/dL [facility] Albumin 2.9(L) 3.5 - 5.0 g/dL [facility] Alk phos 127 40 - 130 Units/L [facility] ALT 111(H) 7 - 55 Units/L [facility] AST 44 10 - 50 Units/L [facility] Blood 07/07/2024 4:40 AM CDT 07/07/2024 12:28 PM CDT Gurvinder Burciaga MD LAB BLOOD ORDERABLES Final R esult [place] [address] [place] [address] * (ABNORMAL) Basic metabolic panel (07/07/2024 4:40 AM CDT) Sodium 136 135 - 145 mmol/L Potassium, pl 4.4 3.3 - 4.9 mmol/L [facility] Chloride 106 97 - 110 mmol/L [facility] CO2 20(L) 22 - 32 mmol/L [facility] Anion gap 10 2 - 15 mmol/L [facility] BUN 21 6 - 25 mg/dL [facility] Creatinine 1.21 0.80 - 1.30 mg/dL [facility] Glucose 94 70 - 199 mg/dL [facility] Comment: Interpretive Data Fasting glucose >/= 126 mg/dl is diagnostic for diabetes. Fasting is defined as no caloric intake for at least 8 hours. Fasting glucose between 100 mg/dl to 125 mg/dl is diagnostic of prediabetes. In a patient with classic symptoms of hyperglycemia or hyperglycemic crisis, a random glucose >/= 200 mg/dl is diagnostic for diabetes. In the absence of unequivocal hyperglycemia, results should be confirmed by repeat testing. The classification and Diagnosis of Diabetes Diabetes Care 2021; 46: S19-S40. Current interpretive data was last revised 2022. Calcium 7.8(L) 8.5 - 10.3 mg/dL [facility] Blood 07/07/2024 4:40 AM CDT 07/07/2024 4:49 AM CDT Rudi Lovett MD LAB BLOOD ORDERABLES Final Result [facility] [address] [place] [address] * (ABNORMAL) Troponin T high-sensitivity 6-hour (07/06/2024 9:14 PM CDT) Trop T hs 52(H) <=22 ng/L Comment: Interpretive Data For further hscTnT resources including the diagnostic algorithm and an aid in interpretation, copy and paste this link: https://nrl.testcatalog.org/show/hsTrop Current Interpretive Data last revised 2019. Trop T hs delta 12(C) ng/L JASON Comment:Critical Result call ed to and read back by ayden murillo, DATE: 2024-07-06 21:53:26 BY: sinan smith Trop T hs interp Significa nt(C) JASON Comment:Critical Result call ed to and read back by ayden murillo, DATE: 2024-07-06 21:53:26 BY: sinan smith Blood 07/06/2024 9:14 PM CDT 07/06/2024 9:17 PM CDT us Danny PARISI LAB BLOOD ORDERABLES Final Result Performing Organization Address [facility] Co de Phone Number JASON SAEED [phone] [place] [address] * POCT glucose (07/06/2024 9:11 PM CDT) Glucose, POC 105 70 - 199 mg/dL POC Performer [id number] [facility] Blood 07/06/2024 9:11 PM CDT 07/06/2024 9:11 PM CDT Rudi Lovett MD LAB POCT ORDERABLES - DEVIC E Final Result Performing Organization Address City/[facility] Co de Phone Number JASON SAEED [address] [place] [address] * Critical Care (07/06/2024 8:46 PM CDT) Narrative Oniel Hendrickson MD - 07/06/2024 8:46 PM CDT Oniel Hendrickson MD 07/07/2024 3:19 AM Critical Care Performed by: Oniel Hendrickson MD Authorized by: Oniel Hendrickson MD CRITICAL CARE: Team: [facility] Shift: PM Level of Billing: Subsequent Hospital Visit Level 3 My time spent with this patient was 35 minutes: Critical Provider Statement: I have seen and examined the patient on this day of service. I have reviewed and confirmed the history, physical exam, laboratory, and radiographic data as documented in the ICU note. I have reviewed and discussed my treatment plan with the patient's team and other medical/library sales consultant staff. This time was in addition to and separate from care provided by other practitioners on this day of service. Cardiac tamponade Hyperkalemia and Acute electrolyte derangement Leukocytosis This time was spent by me doing the following: Management of pericardial drain Active and frequent reassessment of respiratory status and oxygen requirements Active and frequent monitoring of intake/output and volumen status I spent time reviewing and interpreting data from bedside monitors, laboratory results, and imaging, I spent time documenting in the medical record and I spent time discussing the management of this critically ill patient with consultants and the medical staff us Oniel Hendrickson MD IN CLINIC/BEDSIDE ORDERAB LES Final Result * (ABNORMAL) Troponin T high-sensitivity 4-hour (07/06/2024 6:55 PM CDT) Trop T hs 35(H) <=22 ng/L Comment: Interpretive Data For further hscTnT resources including the diagnostic algorithm and an aid in interpretation, copy and paste this link: https://nrl.testcatalog.org/show/hsTrop Current Interpretive Data last revised 2019. Trop T hs delta -5 ng/L [facility] Trop T hs interp Equivocal [facility] Blood 07/06/2024 6:55 PM CDT 07/06/2024 6:59 PM CDT us Danny PARISI LAB BLOOD ORDERABLES Final Result [facility] [address] [place] [address] * XR Chest 1 View (07/06/2024 6:19 PM CDT) Anatomical Region Laterality Modality Body, Chest N/A Computed Radiogr aphy 07/06/2024 6:26 PM CDT Impressions 07/06/2024 6:26 PM CDT Cardiomegaly with congestion. No pneumothorax. Electronically signed by: Dillon Thompson M.D. Narrative 07/06/2024 6:26 PM CDT EXAMINATION: XR CHEST 1 VIEW DATE: 07/06/2024 6:05 PM HISTORY: pericardial effusion to rule out a pneumothorax FINDINGS: Cardiac loop recorder is present. A pericardial drain is present. Heart is enlarged. There is pulmonary vascular congestion. Left pleural effusion is suspected. There is no pneumothorax. Procedure Note Dillon Thompson MD - 07/06/2024 EXAMINATION: XR CHEST 1 VIEW DATE: 07/06/2024 6:05 PM HISTORY: pericardial effusion to rule out a pneumothorax FINDINGS: Cardiac loop recorder is present. A pericardial drain is present. Heart is enlarged. There is pulmonary vascular congestion. Left pleural effusion is suspected. There is no pneumothorax. IMPRESSION: Cardiomegaly with congestion. No pneumothorax. Electronically signed by: Dillon Thompson M.D. Sharon Salinas MD IMG XR PROCEDURES Final Result * Critical Care (07/06/2024 4:33 PM CDT) Narrative Rudi Lovett MD - 07/06/2024 4:33 PM CDT Rudi Lovett MD 07/06/2024 6:09 PM Critical Care Performed by: Rudi Lovett MD Authorized by: Rudi Lovett MD CRITICAL CARE: Team: [facility] Shift: AM Level of Billing: Initial Hospital Visit Level 3 My time spent with this patient was 50 minutes: Critical Provider Statement: I have seen and examined the patient on this day of service. I have reviewed and confirmed the history, physical exam, laboratory, and radiographic data as documented in the ICU note. I have reviewed and discussed my treatment plan with the patient's team and other medical/library sales consultant staff. This time was in addition to and separate from care provided by other practitioners on this day of service. Rudi Lovett MD IN CLINIC/BEDSIDE ORDERABLE S Final Result * Hematocrit, Body Fluid (07/06/2024 4:30 PM CDT) Specimen type, fld Pericardial Comment:Testing performed by : [facility], [address] [facility] [place] [address] Hct, fld 27 % OTISNER Comment: Interpretive Data Unless otherwise specified, the reference range and other method performance specifications have not been established for CSF/Body Fluid tests. The test results should be integrated into the clinical context for interpretation. Current interpretive data was last revised on 2018. Testing performed by: [facility], [address] [place]., [address] Fluid 07/06/2024 4:30 PM CDT 07/06/2024 7:55 PM CDT Sharon Salinas MD LAB BODY FLUIDS AND STOOLS ORDER PADMINI Final Result Performing Organization Address [facility] de Phone Number JASON [id number] [facility] [place] [address] * Cell Differential, Body Fluid (07/06/2024 4:30 PM CDT) Total cells diffed 100 % Comment: Interpretive Data Unless otherwise specified, the reference range and other method performance specifications have not been established for CSF/Body Fluid tests. The test results should be integrated into the clinical context for interpretation. Current interpretive data was last revised on 2018. Neutrophils, fld 77 % [facility] Lymphs, fld 17 % [facility] Monocyte, fld 4 % [facility] Eosinophils, fld 2 % [facility] Fluid 07/06/2024 4:30 PM CDT 07/06/2024 5:35 PM CDT Sharon Salinas MD LAB BODY FLUIDS AND STOOLS ORDER PADMINI Final Result Performing Organization Address [facility] de Phone Number OTISFAUSTO SAEED [address] [place] [address] * Cell count w/rflx diff, body fluid (07/06/2024 4:30 PM CDT) Specimen type, fld Pericardial Color, fld Red CERNER CH Clarity, fld Turbid CERNER CH Nucleated cells, fld 9,419 /cumm CERNER CH Comment: Interpretive Data Unless otherwise specified, the reference range and other method performance specifications have not been established for CSF/Body Fluid tests. The test results should be integrated into the clinical context for interpretation. Current interpretive data was last revised on 2018. RBC, fld 3,583,000 /cumm CERNER CH Fluid 07/06/2024 4:30 PM CDT 07/06/2024 5:35 PM CDT Sharon Salinas MD LAB BODY FLUIDS AND STOOLS ORDER PADMINI Final Result Performing Organization Address [facility] Co de Phone Number JASON SAEED [address] [place] [address] * Mycology (fungal) culture and stain Pericardial fluid Pericardium (07/06/2024 4:30 PM CDT) Direct Specimen Exam Stain: No Fungal elements seen. Comment:Testing performed by : [facility], [address] [place] [address]., [id number] Report Final Report: No growth of fungus JASON SAEED Comment:Testing performed by : [facility], [address] [place] [address]., [id number] Pericardial fluid (Pericardium) 07/06/2024 4:30 PM CDT 07/06/2024 8:21 PM CDT Narrative JASON - 08/03/2024 7:32 AM CDT Fluid specimen received. Testing performed by [facility] Microbiology Laboratory ([phone]). Sharon Salinas MD LAB MICROBIOLOGY - GENERAL ORDER PADMINI Final Result Performing Organization Address City/[facility] Co de Phone Number JASON SAEED [address] [place] [address] * Aerobic and anaerobic culture and gram stain Pericardial fluid Pericardium (07/06/2024 4:30 PM CDT) Direct Specimen Exam Stain: Cytospin Gram stain shows: Abundant polymorphonuclear leukocytes seen. Red blood cells present. No organisms seen. Comment:Testing performed by : [facility], [address] [place]., [address] Report Final Report: No growth JASON SAEED Comment:Testing performed by : [facility], [address] [place]., [address] Pericardial fluid (Pericardium) 07/06/2024 4:30 PM CDT 07/06/2024 8:21 PM CDT Jennifer GOMEZ CH - 07/10/2024 11:16 AM CDT Fluid specimen received. Testing performed by [facility] Laboratory ([phone]) Specimens submitted from normally sterile body sites will have all bacterial morphotypes identified. Specimens that contain grossly mixed orion and/or are from body sites that are not normally sterile will be examined for Staphylococcus aureus, Pseudomonas aeruginosa, beta-hemolytic strep, vancomycin-resistant Enterococcus, Bacteroides, Parabacteroides, Clostridium perfringens and fungus. If any of these are isolated, the organism will be reported. Current interpretive data was last revised on 2019. Sharon Salinas MD LAB MICROBIOLOGY - GENERAL ORDER PADMINI Final Result JASON [address] [place] [address] * Protein, body fluid (07/06/2024 4:30 PM CDT) Specimen type, fld Pericardial Comment:Testing performed by : [facility], [address] [place] [address]., [id number] Protein, fld 5.6 g/dL JASON Comment: The above specimen type is not cleared for use in this method by the FDA. Analytical characteristics have been validated by the performing laboratory. No reference range established - see interpretive comments. Interpretive Data Pleural and Pericardial Fluids - Ratio of fluid to serum protein > or = 0.5 is indicative of exudate and < 0.5 of transudate. Peritoneal - Protein > or = 3.0 g/dL is indicative of exudates and < 3.0 g/dL of transudates. Reference: Horace Textbook of Clinical Chemistry and Molecular Diagnostics, Sixth Edition. Elsevier Press. 2018. Chapter 43, Body Fluids, p. 700 Current Interpretive Data was last revised 2018. Testing performed by: [facility], [address] [place] [address]., [id number] Fluid 07/06/2024 4:30 PM CDT 07/06/2024 7:55 PM CDT Sharon Salinas MD LAB BODY FLUIDS AND STOOLS ORDER PADMINI Final Result [facility] [address] [facility] [place] [address] * Glucose, body fluid (07/06/2024 4:30 PM CDT) Specimen type, fld Pericardial Comment:Testing performed by : [facility], [address] [place]., [address] Glucose, fld 37 mg/dL JASON SAEED Comment: The above specimen type is not cleared for use in this method by the FDA. Analytical characteristics have been validated by the performing laboratory. No reference range established - see interpretive comments. Interpretive Data Pleural - Glucose < 60 mg/dL is indicative of complicated parapneumonic effusions. Peritoneal - normally equivalent to plasma glucose. Will be less than concurrent plasma value in peritoneal bacterial infections. Pericardial - Fluid to serum glucose ratio < 0.3 is indicative of bacterial infection. Pancreatic cyst fluid - glucose concentrations have been shown to be a useful aid for distinguishing mucinous from non-mucinous cysts. Low glucose concentrations in a pancreatic cyst fluid (< 40-50 mg/dL) is suggestive of a mucinous cyst. However, body fluid glucose concentrations may be decreased due to increased cellular metabolism and should be interpreted in the context of blood glucose concentrations and in conjunction with other laboratory and clinical findings. References: Horace Textbook of Clinical Chemistry and Molecular Diagnostics, Sixth Edition. Elsevier Press. 2018. Chapter 43, Body Fluids, p. 925 Pleural effusions: Evaluation and Management. Tevin Clin J Med 2005;72:854-72. [employer] Test directory, Body Fluid Reference Intervals and/or Interpretative Information. [email or web address] Anusha ALTMAN et al. Pancreatic cyst fluid glucose: rapid, inexpensive, and accurate diagnosis of mucinous pancreatic cysts. Surgery 2018;163:600-5. Marsha AGUILAR et al. Differential diagnosis of pancreatic cysts: A prospective study on the role of intra-cystic glucose concentration. Digestive Liver Dis 2020;52:1026-32. Current Interpretive Data was last revised 2021. Testing performed by: [facility], [address] [place]., [address] Fluid 07/06/2024 4:30 PM CDT 07/06/2024 7:55 PM CDT Narrative JASON SAEED - 07/06/2024 8:17 PM CDT Body Fluid Type->Pericardial Sharon Salinas MD LAB BODY FLUIDS AND STOOLS ORDER PADMINI Final Result JASON [address] [place] [address] * XR Chest 1 Vw Portable (07/06/2024 3:16 PM CDT) Anatomical Region Laterality Modality Body, Chest N/A Computed Radiogr aphy 07/06/2024 3:21 PM CDT Impressions 07/06/2024 3:21 PM CDT Cardiomegaly. Electronically signed by: Ady Silva M.D. Narrative 07/06/2024 3:21 PM CDT EXAMINATION: XR CHEST 1 VIEW HISTORY: The patient is a 68-year-old male who presents with chest pain. Comparison made with the previous study dated 06/27/2024. TECHNIQUE: AP portable view of the chest. FINDINGS: Cardiomegaly with aortic atherosclerosis. No failure. No active infiltrate. Procedure Note Ady Silva MD - 07/06/2024 EXAMINATION: XR CHEST 1 VIEW HISTORY: The patient is a 68-year-old male who presents with chest pain. Comparison made with the previous study dated 06/27/2024. TECHNIQUE: AP portable view of the chest. FINDINGS: Cardiomegaly with aortic atherosclerosis. No failure. No active infiltrate. IMPRESSION: Cardiomegaly. Electronically signed by: Ady Silva M.D. Danny PARISI IMG XR PROCEDURES Fin al Result * (ABNORMAL) Troponin T high-sensitivity series (baseline, 2hr, 4hr, 6hr) (07/06/2024 3:02 PM CDT) Trop T hs 40(H) <=22 ng/L Comment: Interpretive Data For further hscTnT resources including the diagnostic algorithm and an aid in interpretation, copy and paste this link: [email or web address].testcatalog.org/show/hsTrop Current Interpretive Data last revised 2019. Blood 07/06/2024 3:02 PM CDT 07/06/2024 3:08 PM CDT Danny PARISI LAB BLOOD ORDERABLES Final Result [facility] [address] [place] [address] * (ABNORMAL) eGFR (07/06/2024 3:02 PM CDT) eGFR 58(L) >=60 mL/min/1. 73 m2 Comment: Interpretive Data Reference Interval Normal >/= 90 mL/min/1.73m2 Mildly decreased* 60 - 89 mL/min/1.73m2 Mildly to moderately decreased 45 - 59 mL/min/1.73m2 Moderately to severely decreased 30 - 44 mL/min/1.73m2 Severely decreased 15 - 29 mL/min/1.73m2 Kidney Failure < 15 mL/min/1.73m2 *Relative to young adult level Estimated glomerular filtration rate is determined by the 2020 CKD-EPI equation recommended by the National Kidney Foundation (A Unifying Approach to GFR Estimation: Recommendations of the NKF-ASK Task Force on Reassessing the Inclusion of Race in Diagnosing Kidney Disease, JASN 202). The CKD-EPI equation should not be used for patients with unstable renal function and has not been validated in children and those over 70. Current interpretive data was last reviewed 2020. Blood 07/06/2024 3:02 PM CDT 07/06/2024 3:08 PM CDT us Danny PARISI LAB BLOOD ORDERABLES Final Result [facility] [address] [place] [address] * (ABNORMAL) Differential, auto (07/06/2024 3:02 PM CDT) Neutrophil abs 11.91(H) 1.50 - 6.50 K/cumm Imm gran abs 0.25(H) 0.00 - 0.10 K/cumm [facility] Lymphocyte abs 1.62 0.80 - 3.30 K/cumm [facility] Monocyte abs 1.07(H) 0.20 - 0.80 K/cumm [facility] Eosinophil abs 0.01 0.00 - 0.50 K/cumm [facility] Basophil abs 0.04 0.00 - 0.10 K/cumm [facility] Neutrophil pct 79.8 % [facility] Comment: Interpretive Data Percent cell count reference ranges are not reported, since discordance with absolute values may lead to misinterpretation of CBC data. Current Interpretive Data was last revised on 2017. Imm gran pct 1.7 % [facility] Comment: Interpretive Data Percent cell count reference ranges are not reported, since discordance with absolute values may lead to misinterpretation of CBC data. Current Interpretive Data was last revised on 2017. Lymphocyte pct 10.9 % [facility] Comment: Interpretive Data Percent cell count reference ranges are not reported, since discordance with absolute values may lead to misinterpretation of CBC data. Current Interpretive Data was last revised on 2017. Monocyte pct 7.2 % [facility] Comment: Interpretive Data Percent cell count reference ranges are not reported, since discordance with absolute values may lead to misinterpretation of CBC data. Current Interpretive Data was last revised on 2017. Eosinophil pct 0.1 % [facility] Comment: Interpretive Data Percent cell count reference ranges are not reported, since discordance with absolute values may lead to misinterpretation of CBC data. Current Interpretive Data was last revised on 2017. Basophil pct 0.3 % [facility] Comment: Interpretive Data Percent cell count reference ranges are not reported, since discordance with absolute values may lead to misinterpretation of CBC data. Current Interpretive Data was last revised on 2017. Blood 07/06/2024 3:02 PM CDT 07/06/2024 3:08 PM CDT Danny PARISI LAB BLOOD ORDERABLES Final Result Performing Organization Address City/State/ZIP Co nd Phone Number JASON [id number] [place] [address] * Pro B-type natriuretic peptide (07/06/2024 3:02 PM CDT) NT-proBNP 257 <=300 pg/mL Comment: Interpretive Comments: A. Dyspnea in Acute Care Setting All Ages: < 300 pg/ml, acute heart failure unlikely. < 50 yrs: 300 - 450 pg/ml, further investigation warranted. > 450 pg/ml, acute heart failure likely. 50 - 74 yrs: 300 - 900 pg/ml, further investigation warranted. > 900 pg/ml, acute heart failure likely . > or = 75 yrs: 450 - 1800 pg/ml, further investigation warranted. > 1800 pg/ml, acute heart failure likely. B. Non-acute Setting < 75 yrs < 125 pg/ml, rules out heart failure. > or = 125 pg/ml, further investigation warranted. > or = 75 yrs < 450 pg/ml, rules out heart failure. > or = 450 pg/ml, further investigation warranted. - Knowledge of each individual patient's NT-proBNP range may be more useful than using similar cut-points for every patient. Please note that marked elevations in NT-proBNP levels may be observed in state other than Left Ventricular Congestive Failure, including: acute coronary syndromes, right heart strain/failure (including pulmonary embolism and cor pulmonale), critical illness, renal failure, as well as advanced age. - References: 1. Yady PINTO et.al. Eur Heart J. 2006:27:330-337. 2. Alex RW, Pura REES. J. AM Summer Cardiol: Cardiovasc Imag. 2009;2: 216- 225. Interpretive Data Last Revised Date: 2017. Blood 07/06/2024 3:02 PM CDT 07/06/2024 3:08 PM CDT Danny PARISI LAB BLOOD ORDERABLES Final Result Performing Organization Address [facility] Co de Phone Number JASON [address] [facility] [place] [address] * (ABNORMAL) CBC with auto differential (07/06/2024 3:02 PM CDT) WBC 14.90(H) 3.80 - 9.90 K/cumm Hgb 10.0(L) 13.0 - 17.5 g/dL [facility] Hct 31.4(L) 38.9 - 50.3 % [facility] Plt 395 150 - 400 K/cumm [facility] MPV 10.1 9.1 - 12.3 fL [facility] RBC 4.96 4.30 - 5.80 M/cumm [facility] MCV 63.3(L) 81.3 - 96.4 fL [facility] MCH 20.2(L) 27.1 - 33.3 pg [facility] MCHC 31.8(L) 32.3 - 35.7 g/dL [facility] CH RDW CV 17.4(H) 11.1 - 14.9 % [facility] RDW SD 37.9 35.7 - 48.1 fL [facility] NRBC abs 0.02(H) 0.00 - 0.01 K/cumm [facility] Morphologic Screen Results confirmed by manual morphology review. [facility] Blood 07/06/2024 3:02 PM CDT 07/06/2024 3:08 PM CDT Danny PARISI LAB BLOOD ORDERABLES Final Result Performing Organization Address [facility]/ZIP Co de Phone Number JASON SAEED [phone] [address] [facility] [employer] [place], [place] [id number] * (ABNORMAL) aPTT (07/06/2024 3:02 PM CDT) aPTT 45(H) 28 - 38 sec Comment: Interpretive Data Heparin therapeutic range: 66.0 - 100.0 seconds. Range based on correlation with therapeutic heparin activity range of 0.3 - 0.7 Units/mL. Current interpretive data was last revised on 2022. Blood 07/06/2024 3:02 PM CDT 07/06/2024 3:08 PM CDT Rosa Welch MD LAB BLOOD ORDERABLES Final Resu lt JASON SAEED [address] [place] [address] * (ABNORMAL) Protime-INR (07/06/2024 3:02 PM CDT) PT 32.3(H) 9.7 - 13.0 sec INR 2.93(H) 0.90 - 1.20 JASON SAEED Comment: Interpretive data Oral anticoagulant therapeutic ranges: Venous thromboembolism prophylaxis or treatment: 2.0-3.0 CARDIOLOGY Standard range: 2.0-3.0 High-intensity range: 2.5-3.5 Refer to indication-specific guidelines for appropriate target ranges for prosthetic heart valve replacement. Current interpretive data was last revised on 2019. Blood 07/06/2024 3:02 PM CDT 07/06/2024 3:08 PM CDT Rosa Welch MD LAB BLOOD ORDERABLES Final Resu lt JASON SAEED [address] of [employer] [place], [place] [id number] * (ABNORMAL) Comprehensive metabolic panel (07/06/2024 3:02 PM CDT) Sodium 128(L) 135 - 145 mmol/L Potassium, pl 5.5(H) 3.3 - 4.9 mmol/L CERNER Chloride 94(L) 97 - 110 mmol/L CERNER CO2 23 22 - 32 mmol/L [facility] Anion gap 11 2 - 15 mmol/L CERNER CH BUN 29(H) 6 - 25 mg/dL CERNER CH Creatinine 1.35(H) 0.80 - 1.30 mg/dL CERNER CH Glucose 118 70 - 199 mg/dL CERNER CH Comment: Interpretive Data Fasting glucose >/= 126 mg/dl is diagnostic for diabetes. Fasting is defined as no caloric intake for at least 8 hours. Fasting glucose between 100 mg/dl to 125 mg/dl is diagnostic of prediabetes. In a patient with classic symptoms of hyperglycemia or hyperglycemic crisis, a random glucose >/= 200 mg/dl is diagnostic for diabetes. In the absence of unequivocal hyperglycemia, results should be confirmed by repeat testing. The classification and Diagnosis of Diabetes Diabetes Care 2021; 46: S19-S40. Current interpretive data was last revised 2022. Calcium 9.3 8.5 - 10.3 mg/dL CERNER CH Bilirubin, total 1.0 0.1 - 1.2 mg/dL CERNER CH Protein, pl 6.6 6.5 - 8.5 g/dL CERNER CH Albumin 3.8 3.5 - 5.0 g/dL CERNER CH Alk phos 178(H) 40 - 130 Units/L CERNER CH ALT 155(H) 7 - 55 Units/L CERNER CH AST 72(H) 10 - 50 Units/L CERNER CH Blood 07/06/2024 3:02 PM CDT 07/06/2024 3:08 PM CDT us Danny PARISI LAB BLOOD ORDERABLES Final Result Performing Organization Address City/State/[facility] Co de Phone Number JASON [address] [place] [address] * [place] CRITICAL CARE ILL/INJURED PATIENT INIT 30-74 MIN (07/06/2024 3:01 PM CDT) Narrative Rosa Welch MD - 07/06/2024 3:01 PM CDT Rosa Welch MD 07/06/2024 5:30 PM Critical Care Performed by: Rosa Welch MD Authorized by: Rosa Welch MD Critical care provider statement: As reflected in the history, physical exam, orders, notes, and/or MDM, I was personally present while the patient was critically ill and provided critical care services for 35 minutes, excluding time involved in separately billable procedures. Critical care was necessary to treat or prevent imminent or life-threatening deterioration of the following condition(s): cardiac tamponade Critical care was time spent by me providing the following: continuous telemetry, continuous pulse oximetry and resuscitation with fluids I provided emergent necessary critical care medicine services to this patient. I ordered and reviewed test results and/or imaging studies. I spent time discussing the management of this critically ill patient with consultants and the medical staff. I spent time discussing the management and therapeutic options for this critically ill patient with the patient themselves or with the appropriate designated surrogate decision-maker. I spent time documenting in the medical record. I admitted this patient to an Intensive Care unit (ICU) and discussed management with the admitting team. Rosa Welch MD IN CLINIC/BEDSIDE ORDERABLES Fi nal Result * ECG 12 lead (07/06/2024 2:46 PM CDT) 07/06/2024 2:46 PM CDT Narrative [facility] - 07/06/2024 2:57 PM CDT Vent Rate: 75 bpm RR Interval: 795 msec GA Interval: 166 msec QRS Duration: 109 msec QT Interval: 414 msec QTC Interval: 443 msec P-R-T [place]: 58 - -31 - 83 degrees IMPRESSION: SINUS RHYTHM LEFT AXIS DEVIATION [QRS AXIS < -30] POSSIBLE ANTERIOR MYOCARDIAL INFARCTION , OF INDETERMINATE AGE [30 ms Q WAVE IN V3/V4, OR R < 0.2 mV IN V4] ABNORMAL ECG Compared to prior EKG, heart rate has decreased Sinus rhythm replaced atrial fibrillation Electronically Signed By: Polo Davenport MD Rosa Welch MD ECG ORDERABLES Final Result [facility] * Cytology (07/06/2024 12:00 AM CDT) Fluid (Pericardial) 07/06/2024 07/06/2024 9:14 AM CDT Narrative PATHOLOGY CH - 07/11/2024 6:24 PM CDT EPIC results best viewed via link to PDF [facility] Department of Pathology [address] [place] [id number] Note to Patients: This report may contain a detailed description of human tissue sent by a health care provider to the laboratory for pathologic evaluation. The content of this report is essential for diagnosis and may provide important critical findings. This information may be unfamiliar to patients to review without a medical professional present. It is advised that the patient review this report in the presence of a health care provider who can answer questions and explain the details. Final Report Patient Name: CAMILA DONOHUE Address: [address] [place] [address] Gender: M : 1955 (Age: 68) Service: Cardiology Location: [facility] # [id number] Patient Type: [facility] Taken: 07/06/2024 Received: 07/06/2024 Accessioned: 07/09/2024 Reported: 07/11/2024 Physician(s): Gisela Waters DO Diagnosis: Pericardial fluid, cytology: - Negative for malignancy (mostly blood). Jess Quijano M.D. Report Electronically Reviewed and Signed Out By Jess Quijano M.D. 07/11/2024 18:24:30Specimen(s) Received: A: Pericardial Fluid Clinical History: The patient is a 68 year old male with STEMI. Gross Description: 1 container received with 500 cc unfixed bloody fluid. 1 ThinPrep, 1 air-dried cytospin for [place] stain and 1 cell block made. Microscopic Description: Microscopic examination of the pericardial fluid (one ThinPrep slide, one air dried [place] stained cytospin and cell block sections) reveals a specimen that is adequate for evaluation. The specimen consists of blood and fibrin. Immunohistochemical stains are performed (with appropriate controls). No malignant epithelial cells are seen. This is confirmed on review of the negative MOC-31 epithelial marker. A calretinin mesothelial marker is also negative. The performance characteristics of some immunohistochemical stains, fluorescence in-situ hybridization tests and immunophenotyping by flow cytometry cited in this report (if any) were determined by the Surgical Pathology Department at [facility] as part of an ongoing quality controller program and in compliance with federally mandated regulations drawn from the Clinical Laboratory Improvement Act of 1988 (CLIA '88). Some of these tests rely on the use of analyte specific reagents and are subject to specific labeling requirements by the US Food and Drug Administration. Such diagnostic tests may only be performed in a facility that is certified by the Department of Health and Human Services as a high complexity laboratory under CLIA '88. The FDA has determined that such clearance or approval is not necessary. This test is used for clinical purposes. It should not be regarded as investigational or for research. Nevertheless, federal rules concerning the medical use of analyte specific reagents require that the following disclaimer be attached to the report: This test was developed and its performance characteristics determined by the Surgical Pathology Department [facility]. It has not been cleared or approved by the U. S. Food and Drug Administration. Unless otherwise noted all cytology processing, staining and screening is performed at [facility] ([address] [place] [address]). REPORT IMAGES AND SCANNED DOCUMENTS, IF INCLUDED, ONLY VIEWABLE IN PDF VERSION OF REPORT Sharon Salinas MD LAB CYTOLOGY ORDERABLES [place] [address] * XR Chest 1 Vw Portable (06/27/2024 8:39 AM CDT) Anatomical Region Laterality Modality Body, Chest N/A Computed Radiogr aphy 06/27/2024 8:42 AM CDT Impressions 06/27/2024 8:42 AM CDT Stable appearance without acute findings. Mild cardiomegaly. Electronically signed by: Curry Vallejo M.D. Narrative 06/27/2024 8:42 AM CDT EXAMINATION: XR CHEST 1 VIEW DATE: 06/27/2024 8:30 AM HISTORY: Cardiac ablation FINDINGS:Compared with study of the previous day, cardiomegaly is seen without failure fluid infiltrates or pneumothorax. Loop recorder in place. Procedure Note Curry Vallejo MD - 06/27/2024 EXAMINATION: XR CHEST 1 VIEW DATE: 06/27/2024 8:30 AM HISTORY: Cardiac ablation FINDINGS:Compared with study of the previous day, cardiomegaly is seen without failure fluid infiltrates or pneumothorax. Loop recorder in place. IMPRESSION: Stable appearance without acute findings. Mild cardiomegaly. Electronically signed by: Curry Vallejo M.D. Asher Melendez [employer]URAL RESOURCES EXTENSION EDUCATOR IMG XR PROCEDURES Final Res ult * (ABNORMAL) Blood smear review (06/27/2024 7:24 AM CDT) RBC morphology Present(A) Anisocytosis Moderate(A) [facility] CH Elliptocytes 3-7/HPF(A) [facility] Platelet estimate Adequate [facility] Blood 06/27/2024 7:24 AM CDT 06/27/2024 7:39 AM CDT Guadalupe Lewis NATURAL RESOURCES EXTENSION EDUCATOR LAB BLOOD ORDERABLES Fin al Result [facility] [address] [place] [address] * eGFR (06/27/2024 7:24 AM CDT) eGFR 63 >=60 mL/min/1. 73 m2 Comment: Interpretive Data Reference Interval Normal >/= 90 mL/min/1.73m2 Mildly decreased* 60 - 89 mL/min/1.73m2 Mildly to moderately decreased 45 - 59 mL/min/1.73m2 Moderately to severely decreased 30 - 44 mL/min/1.73m2 Severely decreased 15 - 29 mL/min/1.73m2 Kidney Failure < 15 mL/min/1.73m2 *Relative to young adult level Estimated glomerular filtration rate is determined by the 2020 CKD-EPI equation recommended by the National Kidney Foundation (A Unifying Approach to GFR Estimation: Recommendations of the NKF-ASK Task Force on Reassessing the Inclusion of Race in Diagnosing Kidney Disease, JASN 2020). The CKD-EPI equation should not be used for patients with unstable renal function and has not been validated in children and those over 70. Current interpretive data was last reviewed 2020. Blood 06/27/2024 7:24 AM CDT 06/27/2024 7:38 AM CDT Guadalupe Lewis NATURAL RESOURCES EXTENSION EDUCATOR LAB BLOOD ORDERABLES Fin al Result Performing Organization Address City/[facility]/ZIP Co de Phone Number JASON SAEED [id number] [place] [address] * (ABNORMAL) CBC without differential (06/27/2024 7:24 AM CDT) WBC 16.81(H) 3.80 - 9.90 K/cumm Hgb 11.1(L) 13.0 - 17.5 g/dL [facility] Hct 36.1(L) 38.9 - 50.3 % [facility] Plt 239 150 - 400 K/cumm [facility] MPV 10.7 9.1 - 12.3 fL [facility] RBC 5.66 4.30 - 5.80 M/cumm [facility] MCV 63.8(L) 81.3 - 96.4 fL [facility] MCH 19.6(L) 27.1 - 33.3 pg [facility] MCHC 30.7(L) 32.3 - 35.7 g/dL [facility] RDW CV 18.2(H) 11.1 - 14.9 % [facility] RDW SD 38.6 35.7 - 48.1 fL [facility] NRBC abs 0.00 0.00 - 0.01 K/cumm [facility] Blood 06/27/2024 7:24 AM CDT 06/27/2024 7:39 AM CDT Guadalupe Lewis NATURAL RESOURCES EXTENSION EDUCATOR LAB BLOOD ORDERABLES Sotero elza Result - Final Performing Organization Address City/[facility]/ZIP Co de Phone Number JASON SAEED [address] [place] [address] * Basic metabolic panel (06/27/2024 7:24 AM CDT) Sodium 136 135 - 145 mmol/L Potassium, pl 3.8 3.3 - 4.9 mmol/L C[facility] Chloride 102 97 - 110 mmol/L [facility] CO2 23 22 - 32 mmol/L [facility] Anion gap 11 2 - 15 mmol/L [facility] BUN 24 6 - 25 mg/dL [facility] Creatinine 1.26 0.80 - 1.30 mg/dL [facility] Glucose 123 70 - 199 mg/dL [facility] Comment: Interpretive Data Fasting glucose >/= 126 mg/dl is diagnostic for diabetes. Fasting is defined as no caloric intake for at least 8 hours. Fasting glucose between 100 mg/dl to 125 mg/dl is diagnostic of prediabetes. In a patient with classic symptoms of hyperglycemia or hyperglycemic crisis, a random glucose >/= 200 mg/dl is diagnostic for diabetes. In the absence of unequivocal hyperglycemia, results should be confirmed by repeat testing. The classification and Diagnosis of Diabetes Diabetes Care 2021; 46: S19-S40. Current interpretive data was last revised 2022. Calcium 8.8 8.5 - 10.3 mg/dL [facility] Blood 06/27/2024 7:24 AM CDT 06/27/2024 7:38 AM CDT us Guadalupe Lewis NP LAB BLOOD ORDERABLES Fin al Result [facility] [id number] [place] [address] * ECG 12 lead (06/27/2024 7:17 AM CDT) 06/27/2024 7:17 AM CDT Narrative [facility] - 06/27/2024 9:58 AM CDT Vent Rate: 116 bpm RR Interval: 514 msec GA Interval: 0 msec QRS Duration: 102 msec QT Interval: 337 msec QTC Interval: 406 msec P-R-T Ren[place]: 0 - -15 - 58 degrees IMPRESSION: ATRIAL FIBRILLATION WITH RAPID VENTRICULAR RESPONSE ST ELEVATION CONSISTENT WITH INJURY, PERICARDITIS, OR EARLY REPOLARIZATION [ST ELEVATION W/O NORMALLY INFLECTED T-WAVE] NONSPECIFIC ST \T\ T-WAVE ABNORMALITY ABNORMAL ECG Electronically Signed By: Dr. Blanca Mcdonald [facility] Jesus Goldman MD ECG ORDERABLES Final Result Performing Organization Address [facility] de Phone Number [facility] * ECG 12 lead (06/27/2024 6:05 AM CDT) 06/27/2024 6:05 AM CDT Narrative [facility] - 06/27/2024 9:58 AM CDT Vent Rate: 105 bpm RR Interval: 569 msec GA Interval: 0 msec QRS Duration: 99 msec QT Interval: 345 msec QTC Interval: 406 msec P-R-T Ren[place]: 0 - -8 - 35 degrees IMPRESSION: ATRIAL FIBRILLATION WITH RAPID VENTRICULAR RESPONSE ST ELEVATION, CONSIDER lateral injury ACUTE HI Electronically Signed By: Dr. Blanca Mcdonald [facility] Gurvinder Burciaga MD ECG ORDERABLES Final Result Performing Organization Address [facility] Phone Number [facility] * Type and screen (06/26/2024 3:47 PM CDT) Yuliya, indirect Negative ABO Rh O Negative JASON SAEED Blood 06/26/2024 3:47 PM CDT 06/26/2024 4:08 PM CDT Narrative JASON - 06/26/2024 4:50 PM CDT Has the patient had Daratumumab or Isatuximab in the past 6 months?->Unknown Diana Olmos NATURAL RESOURCES EXTENSION EDUCATOR LAB BLOOD BANK TEST ORDERA BLES Final Result Performing Organization Address [facility] de Phone Number JASON [id number] [place] [address] * XR Chest 1 Vw Portable (06/26/2024 8:13 AM CDT) Anatomical Region Laterality Modality Body, Chest N/A Computed Radiogr aphy 06/26/2024 8:18 AM CDT Impressions 06/26/2024 8:18 AM CDT No active disease. Electronically signed by: Ady Silva M.D. Narrative 06/26/2024 8:18 AM CDT EXAMINATION: XR CHEST 1 VIEW HISTORY: The patient is a 68-year-old male who presents with shortness of breath. Comparison is made with the previous study dated 06/25/2024. TECHNIQUE: AP portable view of the chest. FINDINGS: Lungs clear. Borderline cardiomegaly with aortic atherosclerosis. No failure. No active infiltrate. Procedure Note Ady Silva MD - 06/26/2024 EXAMINATION: XR CHEST 1 VIEW HISTORY: The patient is a 68-year-old male who presents with shortness of breath. Comparison is made with the previous study dated 06/25/2024. TECHNIQUE: AP portable view of the chest. FINDINGS: Lungs clear. Borderline cardiomegaly with aortic atherosclerosis. No failure. No active infiltrate. IMPRESSION: No active disease. Electronically signed by: Ady Silva M.D. Rajani Morales NATURAL RESOURCES EXTENSION EDUCATOR IMG XR PROCEDURES Final R esult * Critical Care (06/26/2024 7:22 AM CDT) Narrative Martha Vasquez MD - 06/26/2024 7:22 AM CDT Martha Vasquez MD 06/26/2024 3:37 PM Critical Care Performed by: Rajani Morales NP Authorized by: Rajani Morales NP CRITICAL CARE: Team: BLOSSOM Shift: AM Level of Billing: Subsequent Hospital Visit Level 3 My time spent with this patient was 65 minutes: Critical Provider Statement: I have seen and examined the patient on this day of service. I have reviewed and confirmed the history, physical exam, laboratory, and radiographic data as documented in the ICU note. I have reviewed and discussed my treatment plan with the patient's team and other medical/library sales consultant staff. This time was in addition to and separate from care provided by other practitioners on this day of service. us Rajani Morales NATURAL RESOURCES EXTENSION EDUCATOR IN CLINIC/BEDSIDE ORDERAB LES Final Result * ECG 12 lead (06/26/2024 12:46 AM CDT) 06/26/2024 12:4 6 AM CDT Narrative [facility] - 06/26/2024 7:40 AM CDT Vent Rate: 99 bpm RR Interval: 606 msec GA Interval: 179 msec QRS Duration: 106 msec QT Interval: 382 msec QTC Interval: 438 msec P-R-T Ren[place]: 29 - -57 - 54 degrees IMPRESSION: SINUS RHYTHM POSSIBLE LEFT ATRIAL ENLARGEMENT [-0.1mV P-WAVE IN V1/V2] LEFT AXIS DEVIATION [QRS AXIS < -30] Compared to prior EKG heart rate increased Electronically Signed By: Wayne Huang MD [facility] Gurvinder Burciaga MD ECG ORDERABLES Final Result [facility] * eGFR (06/25/2024 9:30 PM CDT) eGFR 70 >=60 mL/min/1. 73 m2 Comment: Interpretive Data Reference Interval Normal >/= 90 mL/min/1.73m2 Mildly decreased* 60 - 89 mL/min/1.73m2 Mildly to moderately decreased 45 - 59 mL/min/1.73m2 Moderately to severely decreased 30 - 44 mL/min/1.73m2 Severely decreased 15 - 29 mL/min/1.73m2 Kidney Failure < 15 mL/min/1.73m2 *Relative to young adult level Estimated glomerular filtration rate is determined by the 2020 CKD-EPI equation recommended by the National Kidney Foundation (A Unifying Approach to GFR Estimation: Recommendations of the NKF-ASK Task Force on Reassessing the Inclusion of Race in Diagnosing Kidney Disease, JASN 202). The CKD-EPI equation should not be used for patients with unstable renal function and has not been validated in children and those over 70. Current interpretive data was last reviewed 2020. Blood 06/25/2024 9:30 PM CDT 06/25/2024 9:54 PM CDT us Gurvinder Burciaga MD LAB BLOOD ORDERABLES Final R esult Performing Organization Address City/[facility] Co de Phone Number JASON [address] [place] [address] * (ABNORMAL) CBC without differential (06/25/2024 9:30 PM CDT) WBC 16.52(H) 3.80 - 9.90 K/cumm Hgb 12.2(L) 13.0 - 17.5 g/dL [facility] Hct 39.3 38.9 - 50.3 % [facility] Plt 251 150 - 400 K/cumm [facility] MPV 10.2 9.1 - 12.3 fL [facility] RBC 6.20(H) 4.30 - 5.80 M/cumm [facility] CH MCV 63.4(L) 81.3 - 96.4 fL [facility] MCH 19.7(L) 27.1 - 33.3 pg [facility] MCHC 31.0(L) 32.3 - 35.7 g/dL [facility] CH RDW CV 18.7(H) 11.1 - 14.9 % [facility] CH RDW SD 38.5 35.7 - 48.1 fL [facility] NRBC abs 0.00 0.00 - 0.01 K/cumm [facility] CH Morphologic Screen Results confirmed by manual morphology review. [facility] Blood 06/25/2024 9:30 PM CDT 06/25/2024 9:54 PM CDT Gurvinder Burciaga MD LAB BLOOD ORDERABLES Final R esult JASON SAEED [address] [facility] [place] [address] * Phosphorus (06/25/2024 9:30 PM CDT) Phosphorus, pl 2.7 2.3 - 4.5 mg/dL Blood 06/25/2024 9:30 PM CDT 06/26/2024 8:17 AM CDT Guadalupe Lewis NATURAL RESOURCES EXTENSION EDUCATOR LAB BLOOD ORDERABLES Fin al Result Performing Organization Address City/[facility]/ZIP Co de Phone Number JASON SAEED [address] [facility] [place] [address] * Magnesium (06/25/2024 9:30 PM CDT) Magnesium 2.0 1.4 - 2.5 mg/dL Blood 06/25/2024 9:30 PM CDT 06/26/2024 8:17 AM CDT Guadalupe Lewis NATURAL RESOURCES EXTENSION EDUCATOR LAB BLOOD ORDERABLES Fin al Result Performing Organization Address [facility] de Phone Number JASON SAEED [address] [facility] [place] [address] * Basic metabolic panel (06/25/2024 9:30 PM CDT) Pathologist [facility] Sodium 137 135 - 145 mmol/L Potassium, pl 4.1 3.3 - 4.9 mmol/L [facility] Chloride 103 97 - 110 mmol/L [facility] CO2 23 22 - 32 mmol/L [facility] Anion gap 11 2 - 15 mmol/L [facility] BUN 18 6 - 25 mg/dL [facility] Creatinine 1.14 0.80 - 1.30 mg/dL [facility] Glucose 101 70 - 199 mg/dL [facility] Comment: Interpretive Data Fasting glucose >/= 126 mg/dl is diagnostic for diabetes. Fasting is defined as no caloric intake for at least 8 hours. Fasting glucose between 100 mg/dl to 125 mg/dl is diagnostic of prediabetes. In a patient with classic symptoms of hyperglycemia or hyperglycemic crisis, a random glucose >/= 200 mg/dl is diagnostic for diabetes. In the absence of unequivocal hyperglycemia, results should be confirmed by repeat testing. The classification and Diagnosis of Diabetes Diabetes Care 2021; 46: S19-S40. Current interpretive data was last revised 2022. Calcium 8.7 8.5 - 10.3 mg/dL [facility] Blood 06/25/2024 9:30 PM CDT 06/25/2024 9:54 PM CDT us Gurvinder Burciaga MD LAB BLOOD ORDERABLES Final R esult JASON SAEED [address] [place] [address] * Critical Care (06/25/2024 7:13 PM CDT) Narrative Rudi Lovett MD - 06/25/2024 7:13 PM CDT Rudi Lovett MD 06/26/2024 7:19 PM Critical Care Performed by: Jaz De La Torre NP Authorized by: Jaz De La Torre NP CRITICAL CARE: Team: BLOSSOM Shift: PM Level of Billing: Critical Care My time spent with this patient was 110 minutes: Critical Provider Statement: I have seen and examined the patient on this day of service. I have reviewed and confirmed the history, physical exam, laboratory and radiologic data as documented in the signed ICU note. I have reviewed and discussed my treatment plan with the ICU team and other medical/library sales consultant staff, making frequent assessments and decisions regarding this patient's complex medical care. Critical Care time was exclusive of time spent performing separately billed procedures, treating other patients, and teaching. This time was in addition to and separate from critical care provided by other practitioners in my group on this day of service. Critical Care was necessary to treat or prevent imminent or life-threatening deterioration of the following conditions: I spent time reviewing and interpreting data from bedside monitors, laboratory results, and imaging, I spent time discussing the management of this critically ill patient with consultants and the medical staff and I spent time documenting in the medical record us Jaz De La Torre NATURAL RESOURCES EXTENSION EDUCATOR IN CLINIC/BEDSIDE O RDERABLES Final Result * XR Chest 1 View - in ICU (06/25/2024 4:46 PM CDT) Anatomical Region Laterality Modality Body, Chest N/A Computed Radiogr aphy 06/25/2024 5:02 PM CDT Impressions 06/25/2024 5:02 PM CDT FINDINGS/IMPRESSION: Heart size upper limits. Recording device overlying left upper quadrant. Mediastinum unremarkable. Bilateral hypoventilation without active infiltrate. Electronically signed by: Yolanda Cain M.D. Narrative 06/25/2024 5:02 PM CDT CHEST 1 VIEW DATE: 06/25/2024 4:30 PM INDICATION: postop TECHNIQUE: AP portable COMPARISON: None Procedure Note Yolanda Cain MD - 06/25/2024 CHEST 1 VIEW DATE: 06/25/2024 4:30 PM INDICATION: postop TECHNIQUE: AP portable COMPARISON: None IMPRESSION: FINDINGS/IMPRESSION: Heart size upper limits. Recording device overlying left upper quadrant. Mediastinum unremarkable. Bilateral hypoventilation without active infiltrate. Electronically signed by: Yolanda Cain M.D. us Gurvinder Burciaga MD IMG XR PROCEDURES Final Resu lt * GIL (06/25/2024 3:53 PM CDT) Anatomical Region Laterality Modality Other Narrative 06/25/2024 3:53 PM CDT Marion Grayson DO 06/25/2024 3:54 PM GIL Date/time: Staff: Performed by: Anesthesiologist: Marion Grayson DO Preprocedure checklist: patient identified, procedure consent, risks, benefits and alternatives discussed and GIL probe inserted into esophagus using lubricating jelly General procedure Information: Reason for procedure/indications: assessment of surgical repair and hemodynamic monitoring Performed: personally Procedure performed at surgeon's request: yes Results discussed with surgeon: yes Images submitted to archive: yes Patient location: OR Intubated: yes Bite blocked placed: yes Probe Insertion: easy Complications: no Probe type: adult Modalities: 2D imaging Echocardiographic and doppler measurements: Ventricles: Left ventricle: Cavity size: normal Hypertrophy: No Thrombus: No LVEF%: 50-60 Right ventricle: Cavity size: normal Hypertrophy: no Thrombus: No Interventricular septum: normal Regional function: 1- Basal anteroseptal: normal 2- Basal anterior: normal 3- Basal anterolateral: normal 4- Basal inferolateral: normal 5- Basal inferior: normal 6- Basal inferoseptal: normal 7- Mid anteroseptal: normal 8- Mid anterior: normal 9- Mid anterolateral: normal 10- Mid inferolateral: normal 11- Mid inferior: normal 12- Mid inferoseptal: normal 13- Apical anterior: normal 14- Apical lateral: normal 15- Apical inferior: normal 16- Apical septal: normal 17- [place]: normal Atria: Left atrium: Spontaneous echo contrast: No Thrombus: no Mass: No Left atrial appendage: normal Diastolic function and other findings: Pre-procedure GIL exam summary: Brief study: no thrombus MER. Normal LV, RV function. Postprocedure (follow-up) GIL exam: LV: unchanged RV: unchanged Interventricular septum: unchanged Aortic valve: unchanged Mitral valve: unchanged Pulmonic valve: unchanged Tricuspid valve: unchanged Atria: unchanged Aorta: unchanged Pericardium: unchanged Left pleural: unchanged Right pleural: unchanged Attestation Statement: By signing this report the attending anesthesiologist certifies that he or she has personally reviewed and interpreted the echocardiogram and has reviewed and or edited and agrees with the written comments contained within the report. us Marion James Renuka DO ANESTHESIA ORDERABLES Final Result * XR Chest 1 View (06/25/2024 2:45 PM CDT) Anatomical Region Laterality Modality Body, Chest N/A Computed Radiogr aphy 06/25/2024 3:49 PM CDT Impressions 06/25/2024 3:49 PM CDT As above. Electronically signed by: Ady Silva M.D. Narrative 06/25/2024 3:49 PM CDT EXAMINATION: XR CHEST 1 VIEW HISTORY: The patient is a 68-year-old male who has had endoscopic surgical ablation. TECHNIQUE: Single portable film was obtained in the OR. No radiologist supervision was performed. Total fluoroscopy time is 10.4 seconds. FINDINGS: An endoscope is noted in the upper esophagus. Procedure Note Ady Silva MD - 06/25/2024 EXAMINATION: XR CHEST 1 VIEW HISTORY: The patient is a 68-year-old male who has had endoscopic surgical ablation. TECHNIQUE: Single portable film was obtained in the OR. No radiologist supervision was performed. Total fluoroscopy time is 10.4 seconds. FINDINGS: An endoscope is noted in the upper esophagus. IMPRESSION: As above. Electronically signed by: Ady Silva M.D. Gurvinder Burciaga MD IMG XR PROCEDURES Final Resu lt * Peripheral IV Catheter (06/25/2024 2:23 PM CDT) Narrative Mauro Martino AA - 06/25/2024 2:23 PM CDT Mauro Martino AA 06/25/2024 2:23 PM Peripheral IV Catheter Patient location: OR Staff: Placed by: AA: Mauro Martino AA Preprocedure prep: Prep solution: alcohol PPE: gloves PIV line: Laterality: right Site: hand Catheter size: 18 g Technique: anatomical landmarks Procedure details: good blood return Number of attempts: 1 Assessment: Events: patient tolerated procedure well with no complications Marion Grayson DO ANESTHESIA ORDERABLES Final Result * GA AN ELECTIVE ENDOTRACHEAL AIRWAY (06/25/2024 2:22 PM CDT) Narrative Mauro Martino AA - 06/25/2024 2:22 PM CDT Mauro Martino AA 06/25/2024 2:23 PM Airway Patient location: OR Urgency: elective Indications for airway management: anesthesia Difficult airway: no Staff: Supervising provider: Marion Grayson DO Placed by: AA: Mauro Martino AA Emergent airway documentation: Risks and benefits discussed: yes Consent obtained: yes Consent given by: patient Airway prep: Preoxygenated: yes Patient position: sniffing Mask difficulty assessment: 1 - vent by mask Spontaneous ventilation during airway: absent Sedation level during airway: GA Final airway details: Final airway type: endotracheal airway Tube type: ETT ETT size: 7.5 mm Cuffed: yes Technique used for successful ETT placement: direct laryngoscopy Insertion site: oral Blade type: Douglas Blade size: 2 Cormack-Lehane (direct): grade I - full view of glottis Cuff inflated with: air Placement verified by: auscultation and CO2 detection Airway secured with: silk tape Number of attempts: 1 Planned trial extubation: yes Marion Grayson DO ANESTHESIA ORDERABLES Final Result * Arterial Line (06/25/2024 2:12 PM CDT) Narrative de Mauro Spann, AA - 06/25/2024 2:12 PM CDT de Mauro Spanns, AA 06/25/2024 2:12 PM Arterial Line Patient location: OR Indication: continuous blood pressure monitoring and blood sampling needed Staff: Supervising provider: Marion Grayson, Procedure prep: Prep solution: chlorhexadine/alcohol Prep: provider hat/mask Skin infiltrated with lidocaine 1%: yes Arterial line: Catheter size: 20 gauge Catheter length: 1 inch Catheter type: wire-guided catheter Seldinger technique: yes Laterality: right Site: radial artery Line secured: Tegaderm and tape Results: good waveform Number of attempts: 1 Assessment: Events: patient tolerated procedure well with no complications us Marion Grayson DO ANESTHESIA ORDERABLES Final Result * GIL Add-On For OR (06/25/2024 1:48 PM CDT) BSA 1.89 m2 CONS SCIMAGE Narrative CONS SCIMAGE - 06/25/2024 1:48 PM CDT Procedure Auto Finalized by Rule: BW CV GIL DURING CASE OR Please see the Anesthesiologist's Procedure Note for the results. us Marion Grayson DO CV ECHO PROCEDURES Final Re sult CONS SCIMAGE * Check Sample (06/25/2024 11:25 AM CDT) ABO Rh O Negative [facility] OTHER 06/25/2024 11:2 5 AM CDT 06/25/2024 11:36 AM CDT us Gurvinder Burciaga MD LAB BLOOD ORDERABLES Final R esult JASON SAEED [address] [place] [address] CH * Prepare RBC: 1 Units (06/25/2024 10:47 AM CDT) Product code [id number] Unit Number [id number] 3-O JASON SAEED Product Blood Type ONEG JASON SAEED Dispense Status RETURNED JASON SAEED Blood 06/25/2024 10:4 7 AM CDT Narrative JASON - 06/26/2024 12:56 AM CDT Specify Procedure:->endoscopic surgical ablation Are special requirements needed? (All products are leukoreduced and CMV- safe)- >No Date required:-[id number] LRRBC # of [id number] Reasons:-Hold for procedure (specify procedure)} us Diana Olmos NP BLOOD BANK PRODUCT ORDERAB LES Final Result JASON [address] Department [place] [address] * eGFR (06/22/2024 9:39 AM CDT) eGFR 65 >=60 mL/min/1. 73 m2 Comment: Interpretive Data Reference Interval Normal >/= 90 mL/min/1.73m2 Mildly decreased* 60 - 89 mL/min/1.73m2 Mildly to moderately decreased 45 - 59 mL/min/1.73m2 Moderately to severely decreased 30 - 44 mL/min/1.73m2 Severely decreased 15 - 29 mL/min/1.73m2 Kidney Failure < 15 mL/min/1.73m2 *Relative to young adult level Estimated glomerular filtration rate is determined by the 2020 CKD-EPI equation recommended by the National Kidney Foundation (A Unifying Approach to GFR Estimation: Recommendations of the NKF-ASK Task Force on Reassessing the Inclusion of Race in Diagnosing Kidney Disease, JASN 2020). The CKD-EPI equation should not be used for patients with unstable renal function and has not been validated in children and those over 70. Current interpretive data was last reviewed 2020. Blood 06/22/2024 9:39 AM CDT 06/22/2024 9:39 AM CDT us Gurvinder Burciaga MD LAB BLOOD ORDERABLES Final R esult Performing Organization Address [facility] Co de Phone Number JASON SAEED [address] [facility] [place] [place] [address] * aPTT (06/22/2024 9:39 AM CDT) aPTT 35 28 - 38 sec Comment: Interpretive Data Heparin therapeutic range: 66.0 - 100.0 seconds. Range based on correlation with therapeutic heparin activity range of 0.3 - 0.7 Units/mL. Current interpretive data was last revised on 2022. Blood 06/22/2024 9:39 AM CDT 06/22/2024 9:39 AM CDT Gurvinder Burciaga MD LAB BLOOD ORDERABLES Final R [facility] Performing Organization Address [facility] Co de Phone Number JASON SAEED [address] [facility] [place] [address] * Protime-INR (06/22/2024 9:39 AM CDT) PT 10.8 9.7 - 13.0 sec INR 1.00 0.90 - 1.20 JASON Comment: Interpretive data Oral anticoagulant therapeutic ranges: Venous thromboembolism prophylaxis or treatment: 2.0-3.0 CARDIOLOGY Standard range: 2.0-3.0 High-intensity range: 2.5-3.5 Refer to indication-specific guidelines for appropriate target ranges for prosthetic heart valve replacement. Current interpretive data was last revised on 2019. Blood 06/22/2024 9:39 AM CDT 06/22/2024 9:39 AM CDT Gurvinder Burciaga MD LAB BLOOD ORDERABLES Final R esult Performing Organization Address [facility] Co de Phone Number JASON SAEED [address] [facility] [place] [address] * (ABNORMAL) CBC without differential (06/22/2024 9:39 AM CDT) WBC 6.58 3.80 - 9.90 K/cumm Hgb 12.7(L) 13.0 - 17.5 g/dL [facility] Hct 41.8 38.9 - 50.3 % [facility] Plt 273 150 - 400 K/cumm [facility] MPV 10.1 9.1 - 12.3 fL [facility] RBC 6.44(H) 4.30 - 5.80 M/cumm [facility] MCV 64.9(L) 81.3 - 96.4 fL [facility] MCH 19.7(L) 27.1 - 33.3 pg [facility] MCHC 30.4(L) 32.3 - 35.7 g/dL [facility] RDW CV 18.7(H) 11.1 - 14.9 % [facility] RDW SD 39.3 35.7 - 48.1 fL [facility] NRBC abs 0.00 0.00 - 0.01 K/cumm [facility] Morphologic Screen Results confirmed by manual morphology review. [facility] Blood 06/22/2024 9:39 AM CDT 06/22/2024 9:39 AM CDT Gurvinder Burciaga MD LAB BLOOD ORDERABLES Final R esult [facility] [address] Department of Laboratories [place] [phone] * Basic metabolic panel (06/22/2024 9:39 AM CDT) Pathologist [facility] Sodium 142 135 - 145 mmol/L Potassium, pl 4.0 3.3 - 4.9 mmol/L [facility] Chloride 105 97 - 110 mmol/L [facility] CO2 28 22 - 32 mmol/L [facility] Anion gap 9 2 - 15 mmol/L [facility] BUN 22 6 - 25 mg/dL [facility] Creatinine 1.22 0.80 - 1.30 mg/dL [facility] Glucose 106 70 - 199 mg/dL [facility] Comment: Interpretive Data Fasting glucose >/= 126 mg/dl is diagnostic for diabetes. Fasting is defined as no caloric intake for at least 8 hours. Fasting glucose between 100 mg/dl to 125 mg/dl is diagnostic of prediabetes. In a patient with classic symptoms of hyperglycemia or hyperglycemic crisis, a random glucose >/= 200 mg/dl is diagnostic for diabetes. In the absence of unequivocal hyperglycemia, results should be confirmed by repeat testing. The classification and Diagnosis of Diabetes Diabetes Care 2021; 46: S19-S40. Current interpretive data was last revised 2022. Calcium 9.6 8.5 - 10.3 mg/dL JASON Blood 06/22/2024 9:39 AM CDT 06/22/2024 9:39 AM CDT Gurvinder Burciaga MD LAB BLOOD ORDERABLES Final R esult Performing Organization Address [facility] Co de Phone Number JASON [address] [facility] Department [place] [address] * ECG 12 lead (06/22/2024 9:15 AM CDT) 06/22/2024 9:15 AM CDT Narrative [facility] - 06/22/2024 11:45 AM CDT Vent Rate: 53 bpm RR Interval: 1120 msec GA Interval: 179 msec QRS Duration: 117 msec QT Interval: 450 msec QTC Interval: 433 msec P-R-T [place]: 49 - 33 - 74 degrees IMPRESSION: SINUS BRADYCARDIA MODERATE INTRAVENTRICULAR CONDUCTION DELAY BORDERLINE ECG Electronically Signed By: Polo Davenport MD Gurvinder Burciaga MD ECG ORDERABLES Final Result Performing Organization Address [facility] Co de Phone Number [facility] * XR Chest PA Lateral 2 View (06/22/2024 8:59 AM CDT) Anatomical Region Laterality Modality Body, Chest N/A Computed Radiogr aphy 06/22/2024 9:22 AM CDT Impressions 06/22/2024 9:22 AM CDT No active disease. Electronically signed by: Ady Silva M.D. Narrative 06/22/2024 9:22 AM CDT EXAMINATION: XR CHEST PA LATERAL 2 VIEWS HISTORY: The patient is a 68-year-old male who presents with atrial fibrillation. TECHNIQUE: PA and lateral view of the chest. FINDINGS: Lungs clear. Cardiovascular structures unremarkable. Procedure Note Ady Silva MD - 06/22/2024 EXAMINATION: XR CHEST PA LATERAL 2 VIEWS HISTORY: The patient is a 68-year-old male who presents with atrial fibrillation. TECHNIQUE: PA and lateral view of the chest. FINDINGS: Lungs clear. Cardiovascular structures unremarkable. IMPRESSION: No active disease. Electronically signed by: Ady Sliva M.D. us Gurvinder Burciaga MD IMG XR PROCEDURES Final Resu lt * Urinalysis reflex to microscopic and culture Urine, clean voided (06/22/2024 8:41 AM CDT) Color, ur Yellow Yellow Clarity, ur Clear Clear [facility] Specific gravity, ur 1.014 1.003 - 1.030 [facility] pH, urine 6.5 [facility] Comment: Interpretive Data U rine pH is affected by diet, medications, systemic acid-base disturbances, and renal tubular function. pH may affect urinary stone formation. For example, urine pH below 6.0 may help reduce the tendency for calcium phosphate stones and pH greater than 6.0 may reduce the tendency for uric acid stone formation. Source: [facility] Current Interpretive Data was last revised on 2017 Protein, ur ql Negative Negative [facility] Glucose, ur ql Negative Negative [facility] Ketones, ur Negative Negative [facility] Bilirubin, ur Negative Negative [facility] Blood, ur Negative Negative [facility] Urobilinogen, ur <2.0 <2.0 mg/dL [facility] Nitrite, ur Negative Negative [facility] Leukocyte esterase, ur Negative Negative [facility] UA reflex comment Reflex conditions for microscopic UA and culture not met. [facility] Urine, clean voided 06/22/2024 8:41 AM CDT 06/22/2024 9:52 AM CDT us Gurvinder Burciaga MD LAB MICROBIOLOGY - GENERAL O RDERABLES Final Result Performing Organization Address [facility] Co de Phone Number [facility] [address] [place] [address] * Type and screen (06/22/2024 8:41 AM CDT) Yuliya, indirect Negative ABO Rh O Negative [facility] Blood 06/22/2024 8:41 AM CDT 06/22/2024 9:51 AM CDT Narrative [facility] - 06/22/2024 10:40 AM CDT Has the patient had Daratumumab or Isatuximab in the past 6 months?->Unknown us Gurvinder Burciaga MD LAB BLOOD BANK TEST ORDERABL ES Final Result Performing Organization Address [facility] Co de Phone Number [facility] [address] [place] [address] * CT Chest W Contrast (06/19/2024 7:30 AM CDT) Anatomical Region Laterality Modality Body N/A Computed Tomogra phy 06/19/2024 9:22 AM CDT Impressions 06/19/2024 9:22 AM CDT Examination mildly limited for cardiac findings due to non-gated technique. Pulmonary vein morphology described above. No acute findings in the chest. Electronically signed by: Delroy Mendosa MD, PHD Narrative 06/19/2024 9:22 AM CDT EXAMINATION: Computed tomography of the chest with intravenous contrast HISTORY: 68-year-old with ventricular tachycardia undergoing evaluation prior to ablation TECHNIQUE: Transaxial computed tomographic images of the chest were obtained with intravenous contrast according to the standard protocol after the uneventful administration of 66 mL Opti-Ray 350 intravenous contrast. COMPARISON: 11/05/2021 FINDINGS: The atria are at the upper limits of normal. No pericardial effusion. The thoracic aorta is mildly atherosclerotic but normal in caliber. The main pulmonary artery is normal in caliber. There are 2 left and 2 right pulmonary veins. The right middle lobe vein branches at approximately 10 mm from the insertion of the right inferior pulmonary vein. No anomalous pulmonary venous return. No filling defect identified within the left atrial appendage on non gated exam. The esophagus is nondistended and courses at midline, coming closest in proximity to the right lower pulmonary vein. No supraclavicular or axillary lymphadenopathy. There is a left anterior chest wall cardiac monitoring device in place. No mediastinal or hilar lymphadenopathy. There is no pleural effusion or pneumothorax. Minimal atelectasis in the lung bases. The lungs are otherwise clear. Limited images of the upper abdomen demonstrate no acute abnormality. No suspicious lytic or blastic lesion. Procedure Note Delroy Mendosa MD PhD - 06/19/2024 EXAMINATION: Computed tomography of the chest with intravenous contrast HISTORY: 68-year-old with ventricular tachycardia undergoing evaluation prior to ablation TECHNIQUE: Transaxial computed tomographic images of the chest were obtained with intravenous contrast according to the standard protocol after the uneventful administration of 66 mL Opti-Ray 350 intravenous contrast. COMPARISON: 11/05/2021 FINDINGS: The atria are at the upper limits of normal. No pericardial effusion. The thoracic aorta is mildly atherosclerotic but normal in caliber. The main pulmonary artery is normal in caliber. There are 2 left and 2 right pulmonary veins. The right middle lobe vein branches at approximately 10 mm from the insertion of the right inferior pulmonary vein. No anomalous pulmonary venous return. No filling defect identified within the left atrial appendage on non gated exam. The esophagus is nondistended and courses at midline, coming closest in proximity to the right lower pulmonary vein. No supraclavicular or axillary lymphadenopathy. There is a left anterior chest wall cardiac monitoring device in place. No mediastinal or hilar lymphadenopathy. There is no pleural effusion or pneumothorax. Minimal atelectasis in the lung bases. The lungs are otherwise clear. Limited images of the upper abdomen demonstrate no acute abnormality. No suspicious lytic or blastic lesion. IMPRESSION: Examination mildly limited for cardiac findings due to non-gated technique. Pulmonary vein morphology described above. No acute findings in the chest. Electronically signed by: Delroy Mendosa MD, PHD Yolanda Walker MD IM CT PROCEDURES Final Res ult * TRANSESOPHAGEAL ECHO (GIL) W DOPPLER/CF WO CONTRAST (06/07/2024 10:21 AM CDT) BSA 1.88 m2 CONS SCIMAGE Anatomical Region Laterality Modality Ultrasound Narrative 06/07/2024 3:48 PM CDT TRANSESOPHAGEAL ECHO NOTE Surgical Team: Cardiac labor contractor staff CV Documenter: Sharri Glass RN Break Up Worker: Yolanda Walker MD DATE OF SURGERY : 06/07/2024 Preoperative Diagnosis: ATRIAL FIBRILLATION PERSISTENT SYMPTOMATIC ATYPICAL ATRIAL FLUTTER PALPITATIONS DUE TO ATRIAL ARRHYTHMIA Postoperative Diagnosis: ATRIAL FIBRILLATION PERSISTENT SYMPTOMATIC ATYPICAL ATRIAL FLUTTER PALPITATIONS DUE TO ATRIAL ARRHYTHMIA Procedure(s): TRANSESOPHAGEAL ECHO WITH 2D SPECTRAL DOPPLER COLOR-FLOW DOPPLER BUBBLE STUDY AND THREE-DIMENSIONAL RENDERING CONSCIOUS SEDATION ADMINISTERED BY NURSING STAFF UNDER DIRECTION OF DR. WALKER No synchronized cardioversion was done during this procedure because patient was in sinus PERTINENT HISTORY 68-year-old male with persistent atrial fibrillation failed treatment with antiarrhythmic medications. When in atrial fibrillation patient has inability to perform activities of daily living as he would expect. Any time he is in sinus is feels back to normal Yesterday when in office I discussed the options of treatment Transesophageal ECHO and synchronized cardioversion was scheduled because patient was not atrial fibrillation yesterday and ended office had significant symptoms. I discussed short term transesophageal echo with possible synchronized cardioversion when referring to cardiothoracic surgeon Dr. Burciaga for posterior wall ablation using AtriCure device. After that patient can undergo and because of ablation of pulmonary veins and atrial flutter as needed. Patient agreed to proceed with planned procedure and gave him consent signed informed consent DETAILS OF PROCEDURE Patient underwent transesophageal ECHO under conscious sedation Dr. Walker guidance using total 4 mg of Versed and 50 fentanyl administered by nursing staff started at 10 0 2 and 10:11 a.m. - TOTAL 9 MINUTES After informed consent was obtained transesophageal probe was placed into esophagus then sequentially to the stomach 2D spectral 3D rendering Doppler color-flow Doppler images were obtained and recorded DETAIL FINDINGS Heart chambers Normal left ventricular size and function ejection fraction 65%. No segmental wall motion abnormalities was seen. Normal diastolic function is documented of the left ventricular by mitral inflow pattern Mildly to moderately enlarged left atrium. Normal right ventricular size and function. Right atrium upper limit of normal. Valves and major vessels Pulmonic valve structure normal but there is mild pulmonic regurgitation. Proximal part of pulmonary arteries normal size. Tricuspid valve appears structurally unremarkable there is trace tricuspid regurgitation. Aortic valve trileaflet no significant aortic stenosis or insufficiency. Aortic root is normal size at the coronary sinuses and about 5 cm up Mitral valve structurally unremarkable with no more than trace mitral regurgitation when patient is sinus rhythm. Left atrial appendage is free from thrombus in normal size on 2D imaging and three-dimensional rendering When in sinus left atrial appendage contractility appears to be well preserved on spectral Doppler. Pericardial appears to be unremarkable Atrial atrial septum intact by color-flow Doppler bubble study Summary finding No left atrial appendage or left atrial clot was seen LVEF is normal ejection fraction of 65% Left atrium mildly to moderately enlarged Right atrium upper limit of normal There is trace mitral regurgitation Mild pulmonary Trace tricuspid insufficiency. No aortic stenosis or insufficiency No pericardial effusion Bubble study is negative for interatrial septum No synchronized cardioversion was done because patient has sinus rhythm Plan discharge patient home after complete recovery Operative Findings: Total 4 mg of Versed and 50 mg of fentanyl was administered. Estimated Blood Loss: No blood loss documented. Intraoperative Fluids: See anesthesia Specimens: No specimen collected in procedure Implants: Nothing was implanted during the procedure Blood/Blood Products Transfused: none Complications: None Condition on Discharge from the operating room was stable Yolanda Walker MD Date: 06/07/2024 Time: 10:13 AM No Resident involved on case Patient underwent transesophageal ECHO under conscious sedation Dr. Walker guidance using total 4 mg of Versed and 50 fentanyl administered by nursing staff started at 10 0 2 and 10:11 a.m. After informed consent was obtained transesophageal probe was placed into esophagus then sequentially to the stomach 2D spectral 3D rendering Doppler color-flow Doppler images were obtained and recorded Summary finding No left atrial appendage or left atrial clot was seen LVEF is normal ejection fraction of 65% Left atrium mildly to moderately enlarged Right atrium upper limit of normal There is trace mitral regurgitation Mild pulmonary Trace tricuspid insufficiency. No aortic stenosis or insufficiency No pericardial effusion Bubble study is negative for interatrial septum Plan discharge patient home after complete recovery us Yolanda Walker MD CV ECHO PROCEDURES Final Re sult * eGFR (06/06/2024 12:44 PM CDT) eGFR 68 >=60 mL/min/1. 73 m2 Comment: Interpretive Data Reference Interval Normal >/= 90 mL/min/1.73m2 Mildly decreased* 60 - 89 mL/min/1.73m2 Mildly to moderately decreased 45 - 59 mL/min/1.73m2 Moderately to severely decreased 30 - 44 mL/min/1.73m2 Severely decreased 15 - 29 mL/min/1.73m2 Kidney Failure < 15 mL/min/1.73m2 *Relative to young adult level Estimated glomerular filtration rate is determined by the 2020 CKD-EPI equation recommended by the National Kidney Foundation (A Unifying Approach to GFR Estimation: Recommendations of the NKF-ASK Task Force on Reassessing the Inclusion of Race in Diagnosing Kidney Disease, JASN 2020). The CKD-EPI equation should not be used for patients with unstable renal function and has not been validated in children and those over 70. Current interpretive data was last reviewed 2020. Blood 06/06/2024 12:4 4 PM CDT 06/06/2024 5:53 PM CDT Yolanda Walker MD LAB BLOOD ORDERABLES Final Result Performing Organization Address [facility] Co de Phone Number JASON [address] [place], [place] [phone] * Magnesium (06/06/2024 12:44 PM CDT) Magnesium 2.4 1.4 - 2.5 mg/dL Blood 06/06/2024 12:4 4 PM CDT 06/06/2024 12:44 PM CDT Yolanda Walker MD LAB BLOOD ORDERABLES Final Result Performing Organization Address [facility] Co de Phone Number JASON [address] [place] [address] * Basic metabolic panel (06/06/2024 12:44 PM CDT) Sodium 142 135 - 145 mmol/L Potassium, pl 4.7 3.3 - 4.9 mmol/L [facility] Chloride 102 97 - 110 mmol/L [facility] CO2 30 22 - 32 mmol/L [facility] Anion gap 10 2 - 15 mmol/L [facility] 20 6 - 25 mg/dL [facility] Creatinine 1.17 0.80 - 1.30 mg/dL [facility] Glucose 87 70 - 199 mg/dL [facility] Comment: Interpretive Data Fasting glucose >/= 126 mg/dl is diagnostic for diabetes. Fasting is defined as no caloric intake for at least 8 hours. Fasting glucose between 100 mg/dl to 125 mg/dl is diagnostic of prediabetes. In a patient with classic symptoms of hyperglycemia or hyperglycemic crisis, a random glucose >/= 200 mg/dl is diagnostic for diabetes. In the absence of unequivocal hyperglycemia, results should be confirmed by repeat testing. The classification and Diagnosis of Diabetes Diabetes Care 202; 46: S19-S40. Current interpretive data was last revised 2022. Calcium 10.0 8.5 - 10.3 mg/dL [facility] Blood 06/06/2024 12:4 4 PM CDT 06/06/2024 12:44 PM CDT us Yolanda Walker MD LAB BLOOD ORDERABLES Final Result [facility] [address] [place] [address] from Last 3 Months Insurance [facility] CHOICE PLUS MEDICARE [employer] MEDICARE [employer] Advance Directives For more information, please contact: [phone] * Full Code (Latest Code Status on File) Date Activated Date Inactivated Comments 07/06/2024 6:06 PM 07/14/2024 6:12 PM * Full Code Date Activated Date Inactivated Comments 06/25/2024 5:31 PM 06/27/2024 9:28 PM * Full Code Date Activated Date Inactivated Comments 02/16/2022 9:52 PM 02/18/2022 4:21 PM * Full Code Date Activated Date Inactivated Comments 02/16/2022 9:33 PM 02/16/2022 9:52 PM * Full Code Date Activated Date Inactivated Comments 01/26/2022 9:04 PM 01/28/2022 1:54 PM Care Teams Medical Device Assembler Relationship Specialty Start Date End Date Milagros Mills DO PCP - General Family Medicine 06/17/22 Reilly Waters MD Consulting Physician Urology 01/28/22 Jorge Alberto Silva MD [address] [facility], [address] [address] Medical Oncologist/Hydraulic Operator Hematology and Oncology 08/31/23 Yolanda Walker MD [address] [place] [address] Consulting Physician Cardiology 06/27/24
--- OUTSIDE RECORDS SUMMARY | 2024-08-09 09:11 | XMS_ITS | Continuity of Care Document ---
Author Organization [facility] Address [address] [place] [phone] Phone Care Team Providers Care [place]mer Bottom Maker Name Role Phone Denise CAT, Yolanda Unavailable Unavailabl e Medications Medication Instructions Dosage Effective Dates (start - stop) Status Comments amiodarone 200 mg tablet take 1 tablet by oral route 2 times every day 200 MG - Active diltiazem 60 mg tablet take 1 tablet by oral route 2 times every day 60 MG - Active lisinopril 20 mg-hydrochlorothiaz mercy 12.5 mg tablet take 1 tablet by oral route every day 1.00 tablet - Active magnesium 400 mg (as magnesium oxide) tablet take 1 tablet by oral route 2 times every day for 1 day 1 tablet - Active colchicine 0.6 mg tablet take 1 tablet by oral route every day 0.6 MG - Active flecainide 100 mg tablet take 1 tablet by oral route every 12 hours 100 MG - Active Procedures Procedure Date Complex e/m visit add on OFFICE/OUTPATIENT VISIT, EST ELECTROCARDIOGRAM, COMPLETE Advance Directives Directive Yes / No Effective Date File Name No Information Encounters Encounter Description Practice Location Reason(s) For Visit Diagnoses Date Provider Providers Copied on Encounter OFFICE/OUTPA TIENT VISIT, EST [facility], [address] [place] [address], [id number] , [place] tel:[phone] [facility] follow up (chief complaint) Paroxysmal atrial fibrillationHyperli pidemia, unspecifiedCardiomy opathyHTNCardiac tamponadeVentricula r tachycardia, unspecified Denise Guerrero. [address], [place], [place], [id number], . tel:[phone] Referring Provider: Yolanda Walker, [address], [place], [address] . tel:[phone] Family History Family Member Type Diagnosis Age At Onset No Information Payers Payer name Insurance type Covered republican ID Authordavid malin(s) [place] MEDICARE PART B CI [id number] [employer] CI [id number] Social History Type Description Quantity Date Captured Comments Alcohol Use Details Unknown Caffeine Use Details Unknown Tobacco Use Status Ex-user of moist powdered tobacco Smoking Status Unknown if ever smoked Non-Smoking Tobacco Use Details Chewing: Age Stopped: 36 Chewing: No Details Available Sex Male Vital Signs Date / Time: Height Weight BMI Pulse Rate Blood Pressure Temperature Respiratory Rate Body Surface Area Head Circumference Head Circ. Percentile Wt./Remi. Percentile BMI percentile Pulse Ox Inhaled Ox 10:28 AM 68.00 in 73.482 kg (162.00 lbs) 24.6 3 kg/m eter (2) 58 /min 153/75 mm[Hg] 1.88 meter(2) 99 % Chief Complaint And Reason For Visit From encounter dated '08/01/2024 10:15'. follow up (chief complaint) Reason For Referral Reason For Referral No Information Plan Of Treatment Date Type Action Status Appointment Keagan Toure History Of Present Illness Encounter Date Complaint History Of Prese nt Illness follow up Functional Status Date Functional Assessmen t No Information Instructions Date Instruction Additional Infor mation No Information Assessments Type Assessment Date assessment Paroxysmal atrial fibrillation J assessment Hyperlipidemia, unspecified assessment Cardiomyopathy assessment HTN assessment Cardiac tamponade assessment Ventricular tachycardia, unspeci fied Patient Care Teams Name Effective Dates (start - stop) Status Members No Information
--- OUTSIDE RECORDS SUMMARY | 2024-08-09 09:12 | XMS_ITS | Referral Summary ---
Author Organization [facility] [address] Address [address] [place] [address] Care Team Providers Care Breaker Layer Name Role Phone Reilly Waters MD Unavailable [phone] Milagros Mills DO Primary Care Provider [phone] Jorge Alberto Silva MD Unavailable [phone] Yolanda Walker MD Unavailable Encounters Date Type Department Care Team Description 07/19/2024 [facility] Post Discharge Follow up phone call [address] [address] Tatum Jeimy Nascimento 07/06/2024 3:11 PM CDT - 07/14/2024 2:00 PM CDT Hospital Encounter [address] [id number] Rosa Welch MD Boland, Matthew E., MD Ogunremi, Olumide Omolulu, MD Chang, Ping, MD Qayyum, Usman, MD Pericardial tamponade (Primary Dx); Syncope, unspecified syncope type; Acute blood loss anemia; Hemoperitoneum; Pericardial effusion; Pleural effusion; Atrial fibrillation with rapid ventricular response (HCC) Discharge Disposition: Discharge to home or self care 07/09/2024 Orders Only [facility] [address] [place] [address] Sharon Salinas MD Pericardial effusion (Primary Dx) 07/06/2024 4:00 PM CDT - 07/06/2024 5:30 PM CDT Surgery [facility] [address] [place] [address] Sharon Salinas MD LEFT HEART CATHETERIZATION WITH CORONARY ANGIOGRAPHY AND WITH OR WITHOUT LEFT VENTRICULOGRAM [id number] 07/04/2024 Orders Only [facility] [address] [place] [address] Yolanda Walker MD Atrial fibrillation (HCC) (Primary Dx) 06/25/2024 9:45 AM CDT - 06/27/2024 5:28 PM CDT Hospital Encounter [address] [address] Gurvinder Burciaga MD Persistent atrial fibrillation (HCC) (Primary Dx) Discharge Disposition: Discharge to home or self care 06/25/2024 1:50 PM CDT Ancillary Procedure [facility] [address] [place] [address] 06/25/2024 2:30 PM CDT - 06/25/2024 7:00 PM CDT Surgery [facility] [address] [place] [address] Gurvinder Bruciaga MD ENDOSCOPY SURGICAL ABLATION 06/25/2024 2:03 PM CDT Anesthesia Event [facility] [address] [place] [address] Marion Grayson DO Marcinczyk, Mario Joseph, MD 06/22/2024 8:40 AM CDT - 06/22/2024 11:59 PM CDT Hospital Encounter [facility] [address] [place] [address] Discharge Disposition: Discharge to home or self care 06/22/2024 8:45 AM CDT Pre-Admission Testing [facility] [address] [place] [address] Persistent atrial fibrillation (HCC) 06/19/2024 10:00 AM CDT Office Visit [facility] Surgery [address] [place] [address] [place] [phone] Gurvinder Burciaga MD Longstanding persistent atrial fibrillation (HCC) (Primary Dx) 06/19/2024 7:15 AM CDT - 06/19/2024 11:59 PM CDT Hospital Encounter [facility] [address] [place] [address] Ventricular tachycardia (HCC) Discharge Disposition: Discharge to home or self care 06/07/2024 Documentation Cardiology Yolanda Walker MD 06/07/2024 9:45 AM CDT - 06/07/2024 11:59 PM CDT Hospital Encounter [facility] [address] [place] [address] Discharge Disposition: Discharge to home or self care 06/06/2024 Telephone [facility] [address] [place] [address] Mara Toussaint, RN 06/06/2024 Telephone [facility] [address] [place] [address] Mara Toussaint, AUSTYN 06/06/2024 12:25 PM CDT Lab [address] [phone] 06/06/2024 Orders Only [facility] [address] [place] [address] Yolanda Walker MD A-fib (HCC) (Primary Dx) from Last 3 Months Allergies Active Allergy Reactions Criticality Noted Date [...] (12/03/2021): Added automatically from request for surgery [id number] Ventricular tachycardia 04/06/2020 Raynauds disease 03/07/2020 Cardiomyopathy 04/06/2019 Hypertension 02/23/2019 Osteoarthritis 02/23/2019 Palpitations 11/17/2018 Hemochromatosis 08/01/2014 Mass of breast 04/17/2013 Social History Tobacco Use Types Packs/Day Years Used Date Smoking Tobacco: Never Smokeless Tobacco: Former Chew Tobacco Cessation:Counseling Given: Not Answered Comments:Quit chewing at age 36 [facility] Utilities Answer Date Recorded In the past 12 months has th [employer], gas, oil, or water Hive guard [employer] threatened to shut off services in your [...] 07/09/2024 How often do you attend chur ch or episcopalian services? 1 to 4 times per year 07/09/2024 Do you belong to any clubs o r organizations such as alevism groups, unions, fraternal or athletic groups, or [...] place to sleep or slept in a mcc (including now)? No 01/27/2022 Housing Stability Vital Sign Answer Costa e Recorded In the last 12 months, was t here a time when you were not able to pay the mortgage or rent on time? No 07/09/2024 In the past 12 months, how m any times have you moved where you were living? 0 07/09/2024 At any time in the past [facility], were you homeless or living in a mcc (including now)? No 07/09/2024 Personal Safety Answer Date Recorded Have you ever been in or are you currently in a harmful physical or emotional relationship or is someone making you feel afraid or unsafe? 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 Gender Identity Not on file Sexual Orientation [...] Description 10/09/2024 12:30 PM CDT Hospital Encounter [facility] [address] [place] [address] Yolanda Walker MD [address] [place] [address] Atrial fibrillation (HCC) 10/09/2024 12:30 PM CDT - 10/09/2024 4:40 PM CDT Surgery [facility] [address] [place] [address] Yolanda Walker MD [address] [place] [address] ABLATION ATRIAL FIBRILLATION (A-FIB) VIA PULMONARY VEIN ISOLATION [id number] Medical Devices Implanted Type Area Good Humor Vendor Device Identifier Shelf Expiration Date Model / Serial / Lot Other - See Comments Other - see comments Left: Chest [employer] Description:hospital monitor [employer] Device 6fr Closure Celt Acd Vascular Sterile Latex Free Disposable Quynh Kclt-06 - [id number] Implanted:Qty: 1 on 02/17/2022 at [facility] [employer] 08/16/2024 KCLT-06 / / [id number] [employer] Denita Coil Emolization Coated Detachable Embold [id number] [place] [employer] [id number] - [id number] Implanted:Qty: 1 on 02/17/2022 at [facility] [employer] [id number] 08/11/2024 [id number] / / [id number] [employer] Coil Emolization Coated Detachable Embold [id number] [place] [employer] [id number] 80 - [id number] Implanted:Qty: 1 on 02/17/2022 at [facility] [employer] [id number] 08/11/2024 [id number] / / [id number] [employer] Coil Emolization Coated Detachable Embold [id number] [place] [employer] [id number] 60 - [id number] Implanted:Qty: 1 on 02/17/2022 at [facility] [employer] [id number] 10/19/2024 [id number] / / [id number] [employer] Coil Emolization Coated Detachable [place] [employer] Embold [id number] 40 - [id number] Implanted:Qty: 1 on 02/17/2022 at [facility] [employer] [id number] 11/08/2024 [id number] / / [id number] [employer] Coil Emolization Coated Detachable [place] [employer] Embold [id number] 40 - [id number] Implanted:Qty: 1 on 02/17/2022 at [facility] [employer] [id number] 11/08/2024 [id number] / / [id number] Explanted Type Area Good Humor Vendor Device Identifier Shelf Expiration Date Model / Serial / Lot [employer] Denita Coil Emolization Coated Detachable Embold [id number] [place] [employer] [id number] - [id number] Explanted:Qty: 1 on 02/17/2022 at [facility] [employer] [id number] 04/01/2024 [id number] / / [id number] Procedures Procedure Name Priority Date/Time Associated Diagnosis [...] 4HR, 6HR) STAT 07/06/2024 3:02 PM CDT WI CRITICAL CARE ILL/INJURED PATIENT INIT 30-74 MIN [...] PERIPHERAL LINE Routine 06/25/2024 2:23 PM CDT WI AN ELECTIVE ENDOTRACHEAL AIRWAY Routine 06/25/2024 2:22 [...] 4:34 AM CDT 07/14/2024 5:28 AM CDT us Eduin Lincoln MD LAB BLOOD ORDERABLES Fin al Result [facility] [address] Department [place] [address] * (ABNORMAL) CBC without differential (07/14/2024 4:34 AM CDT) WBC 8.70 3.80 - 9.90 K/cumm Hgb 9.4(L) 13.0 - 17.5 g/dL [facility] Hct 30.6(L) 38.9 - 50.3 % C[facility]ER Plt 606(H) 150 - 400 K/cumm [facility] MPV 9.9 9.1 - 12.3 fL CERNER RBC 4.50 4.30 - 5.80 M/cumm [facility] CH MCV 68.0(L) 81.3 - 96.4 fL [facility] MCH 20.9(L) 27.1 - 33.3 pg CERNER MCHC 30.7(L) 32.3 - 35.7 g/dL [facility] CH RDW CV 21.7(H) 11.1 - 14.9 % [facility] CH RDW SD 49.8(H) 35.7 - 48.1 fL [facility] NRBC abs 0.00 0.00 - 0.01 K/cumm [facility] CH Blood 07/14/2024 4:3 4 AM CDT 07/14/2024 5:30 AM CDT Eduin Lincoln MD LAB BLOOD ORDERABLES Fin al Result Performing Organization Address [facility] Co de Phone Number [facility] [address] [address] Department [place] [address] * Basic metabolic panel (07/14/2024 4:34 AM CDT) Sodium 141 135 - 145 mmol/L Potassium, pl 4.2 3.3 - 4.9 mmol/L [facility] Chloride 105 97 - 110 mmol/L [facility] CO2 22 22 - 32 mmol/L [facility] Anion gap 14 2 - 15 mmol/L [facility] BUN 17 6 - 25 mg/dL [facility] Creatinine 1.12 0.80 - 1.30 mg/dL [facility] Glucose 86 70 - 199 mg/dL [facility] Comment: Interpretive Data Fasting glucose >/= 126 [...] 2022. Calcium 9.0 8.5 - 10.3 mg/dL [facility] Blood 07/14/2024 4:34 AM CDT 07/14/2024 5:28 AM CDT Eduin Lincoln MD LAB BLOOD ORDERABLES Fin al Result Performing Organization Address City/[facility]/ZIP Co de Phone Number JASON SAEED [address] [address] Department [place] [address] * TRANSTHORACIC ECHO (TTE) LIMITED/FOLLOW UP WO DOPPLER/CF WO CONTRAST (07/13/2024 12:45 PM CDT) EF Mod BP 81 % CONS SCIMAGE Anatomical Region Laterality Modality Ultrasound 07/13/2024 12:1 8 PM CDT Narrative 07/13/2024 1:24 [place] [address] Limited Echocardiogram Report Patient Name: CAMILA DONOHUE W : 1955 Study Date: 07/13/2024 12:18:33 PM Gender: M Tech: BE Location: [id number] Ref Provider: ESSIE YOUNG Height(Cm): 172 BSA: [...] CDT Procedure Note Elvin Palacios MD - 06/06/2025 [place] [address] Limited Echocardiogram Report Patient Name: CAMILA DONOHUE W : 1955 Study Date: 07/13/2024 12:18:33 PM Gender: M Tech: Location: [place] [address] Ref Provider: ESSIE YOUNG Height(Cm): 172 BSA: [...] AM CDT) 07/13/2024 6:51 AM CDT Narrative [facility] - 07/14/2024 8:26 AM CDT Vent Rate: 84 bpm RR Interval: 708 msec WI Interval: 155 msec QRS Duration: 105 msec QT Interval: 396 msec QTC Interval: 437 msec P-R-T [place]: 47 - -20 - 81 degrees IMPRESSION: SINUS RHYTHM LEFT ATRIAL ENLARGEMENT NONSPECIFIC T-WAVE ABNORMALITY Electronically Signed By: Sam Pope MD, [facility] us Ragini Ramirez CAR [facility] ECG ORDERABLES Sotero elza Result - Final [facility] * eGFR (07/13/2024 3:41 AM CDT) [...] LAB BLOOD ORDERABLES Fin al Result JASON [address] [address] Department [place] [address] * (ABNORMAL) CBC without differential (07/13/2024 3:41 AM CDT) WBC 9.53 3.80 - 9.90 K/cumm Hgb 9.2(L) 13.0 - 17.5 g/dL [facility] CH Hct 28.9(L) 38.9 - 50.3 % [facility] CH Plt 575(H) 150 - 400 K/cumm [facility] CH MPV 10.1 9.1 - 12.3 fL [facility] CH RBC 4.33 4.30 - 5.80 M/cumm [facility] CH MCV 66.7(L) 81.3 - 96.4 fL [facility] CH MCH 21.2(L) 27.1 - 33.3 pg [facility] CH MCHC 31.8(L) 32.3 - 35.7 g/dL [facility] CH RDW CV 21.6(H) 11.1 - 14.9 % [facility] CH RDW SD 48.5(H) 35.7 - 48.1 fL [facility] CH NRBC abs 0.00 0.00 - 0.01 K/cumm [facility] CH Blood 07/13/2024 3:41 AM CDT 07/13/2024 5:11 AM CDT us Eduin Lincoln MD LAB BLOOD ORDERABLES Fin al Result [facility] [address] [address] [place] [address] * (ABNORMAL) Hepatic function panel [...] 3:41 AM CDT 07/13/2024 1:27 PM CDT us Geno Good MD LAB BLOOD ORDERABLES Final Resul t J[facility]ON SAEED [address] [address] Department [place] [address] * (ABNORMAL) Basic metabolic panel (07/13/2024 3:41 AM CDT) Sodium 140 135 - 145 mmol/L Potassium, pl 4.2 3.3 - 4.9 mmol/L [facility] Chloride 104 97 - 110 mmol/L [facility] CO2 21(L) 22 - 32 mmol/L [facility] Anion gap 15 2 - 15 mmol/L [facility] BUN 18 6 - 25 mg/dL [facility] Creatinine 1.12 0.80 - 1.30 mg/dL [facility] Glucose 85 70 - 199 mg/dL [facility] Comment: Interpretive Data Fasting glucose >/= 126 [...] 2022. Calcium 9.2 8.5 - 10.3 mg/dL [facility] Blood 07/13/2024 3:41 AM CDT 07/13/2024 5:15 AM CDT us Eduin Lincoln MD LAB BLOOD ORDERABLES Fin al Result [facility] [address] [address] Department [place] [address] * Critical Care (07/12/2024 10:13 AM CDT) [...] plan with the ICU team and other medical/retail consultant staff, making frequent assessments and decisions [...] ORDERABLES Fin al Result Performing Organization Address City/[facility]/ZIP Co de Phone Number [facility] [address] [address] Department [place] [address] * (ABNORMAL) CBC without differential (07/12/2024 5:21 AM CDT) WBC 11.20(H) 3.80 - 9.90 K/cumm Hgb 8.6(L) 13.0 - 17.5 g/dL [facility] Hct 26.7(L) 38.9 - 50.3 % [facility] Plt 498(H) 150 - 400 K/cumm [facility] MPV 10.2 9.1 - 12.3 fL [facility] RBC 4.07(L) 4.30 - 5.80 M/cumm [facility] CH MCV 65.6(L) 81.3 - 96.4 fL C[facility] MCH 21.1(L) 27.1 - 33.3 pg [facility] MCHC 32.2(L) 32.3 - 35.7 g/dL [facility] CH RDW CV 21.6(H) 11.1 - 14.9 % [facility] CH RDW SD 48.9(H) 35.7 - 48.1 fL [facility] NRBC abs 0.00 0.00 - 0.01 K/cumm [facility] CH Blood 07/12/2024 5:21 AM CDT 07/12/2024 5:30 AM CDT Eduin Lincoln MD LAB BLOOD ORDERABLES Fin al Result [facility] [address] [address] [place] [address] * Magnesium (07/12/2024 5:21 AM CDT) Magnesium 2.1 1.4 - 2.5 mg/dL Blood 07/12/2024 5:21 AM CDT 07/12/2024 5:29 AM CDT Yolanda Walker MD LAB BLOOD ORDERABLES Final Result [facility] [address] [address] [place] [address] * (ABNORMAL) Hepatic function panel (07/12/2024 5:21 AM CDT) Bilirubin, total 0.4 0.1 - 1.2 mg/dL Bilirubin, direct 0.1 0.1 - 0.3 mg/dL [facility] CH Protein, pl 6.1(L) 6.5 - 8.5 g/dL [facility] CH Albumin 3.0(L) 3.5 - 5.0 g/dL [facility] CH Alk phos 196(H) 40 - 130 Units/L [facility] CH ALT 51 7 - 55 Units/L [facility] CH AST 32 10 - 50 Units/L [facility] CH Blood 07/12/2024 5:21 AM CDT 07/12/2024 5:29 AM CDT Yolanda Walker MD LAB BLOOD ORDERABLES Final Result [facility] SAEED [address] [address] Department [place] [employer] [address] * Basic metabolic panel (07/12/2024 5:21 AM CDT) Sodium 138 135 - 145 mmol/L Potassium, pl 4.0 3.3 - 4.9 mmol/L [facility] CH Chloride 104 97 - 110 mmol/L [facility] CH CO2 23 22 - 32 mmol/L [facility] CH Anion gap 11 2 - 15 mmol/L [facility] CH BUN 15 6 - 25 mg/dL [facility] Creatinine 1.04 0.80 - 1.30 mg/dL [facility] Glucose 95 70 - 199 mg/dL [facility] Comment: Interpretive Data Fasting glucose >/= 126 [...] 2022. Calcium 8.9 8.5 - 10.3 mg/dL [facility] Blood 07/12/2024 5:21 AM CDT 07/12/2024 5:29 AM CDT Eduin Lincoln MD LAB BLOOD ORDERABLES [facility] al Result [facility] [address] Department [place] [address] * Critical Care (07/11/2024 8:17 PM CDT) [...] plan with the ICU team and other medical/retail consultant staff, making frequent assessments and decisions [...] by: Eduin Lincoln MD CRITICAL CARE: Team: [employer] Shift: AM Level of Billing: Critical Care [...] plan with the ICU team and other medical/retail consultant staff, making frequent assessments and decisions [...] AM CDT) 07/11/2024 8:15 AM CDT Narrative [facility] - 07/12/2024 7:57 AM CDT Vent Rate: 119 bpm RR Interval: 501 msec WI Interval: 0 msec QRS Duration: 103 msec QT Interval: 326 msec QTC Interval: 397 msec P-R-T [place]: 0 - -24 - 129 degrees IMPRESSION: ATRIAL FIBRILLATION WITH RAPID VENTRICULAR RESPONSE BORDERLINE LEFT AXIS DEVIATION [QRS AXIS < -20] ST DEVIATION AND MODERATE T-WAVE ABNORMALITY, CONSIDER LATERAL ISCHEMIA [-0.1+ mV T-WAVE IN I/aVL/V5/V6] ABNORMAL ECG Electronically Signed By: Dr. Blanca Mcdonald [facility] us Eduin Lincoln MD ECG ORDERABLES Final Re sult [facility] * eGFR (07/11/2024 5:47 AM CDT) eGFR [...] MD LAB BLOOD ORDERABLES Fin al Result JASNO SAEED [address] [address] [place] [address] * (ABNORMAL) CBC without differential (07/11/2024 5:47 AM CDT) WBC 13.30(H) 3.80 - 9.90 K/cumm Hgb 8.0(L) 13.0 - 17.5 g/dL [facility] CH Hct 24.6(L) 38.9 - 50.3 % [facility] CH Plt 405(H) 150 - 400 K/cumm [facility] MPV 10.0 9.1 - 12.3 fL [facility] CH RBC 3.73(L) 4.30 - 5.80 M/cumm [facility] CH MCV 66.0(L) 81.3 - 96.4 fL [facility] CH MCH 21.4(L) 27.1 - 33.3 pg [facility] MCHC 32.5 32.3 - 35.7 g/dL [facility] CH RDW CV 21.2(H) 11.1 - 14.9 % [facility] CH RDW SD 47.8 35.7 - 48.1 fL [facility] NRBC abs 0.02(H) 0.00 - 0.01 K/cumm [facility] CH Blood 07/11/2024 5:47 AM CDT 07/11/2024 5:47 AM CDT Eduin Lincoln MD LAB BLOOD ORDERABLES Fin al Result Performing Organization Address City/[facility]/ZIP Co de Phone Number JASON SAEED [address] [address] Department [place] [address] * (ABNORMAL) Basic metabolic panel (07/11/2024 5:47 AM CDT) Sodium 135 135 - 145 mmol/L Potassium, pl 4.2 3.3 - 4.9 mmol/L [facility] Chloride 103 97 - 110 mmol/L [facility] CO2 20(L) 22 - 32 mmol/L [facility] CH Anion gap 12 2 - 15 mmol/L [facility] CH BUN 19 6 - 25 mg/dL [facility] CH Creatinine 1.10 0.80 - 1.30 mg/dL [facility] CH Glucose 95 70 - 199 mg/dL [facility] Comment: Interpretive Data Fasting glucose >/= 126 [...] 2022. Calcium 8.4(L) 8.5 - 10.3 mg/dL [facility] Blood 07/11/2024 5:47 AM CDT 07/11/2024 5:47 AM CDT Eduin Lincoln MD LAB BLOOD ORDERABLES [facility] al Result [facility] [address] [address] Department [place] [address] * Critical Care (07/10/2024 7:52 PM CDT) Narrative Oniel Hendrickson MD - 07/10/2024 7:52 PM CDT Oniel Hendrickson MD 07/11/2024 3:43 AM Critical Care Performed by: Oniel Hendrickson MD Authorized by: Oniel Hendrickson MD CRITICAL CARE: Team: CHRISTOPHENE Shift: PM Level of Billing: Critical Care [...] plan with the ICU team and other medical/retail consultant staff, making frequent assessments and decisions [...] K/cumm Hgb 7.5(L) 13.0 - 17.5 g/dL [facility] CH Hct 23.5(L) 38.9 - 50.3 % [facility] CH Plt 359 150 - 400 K/cumm [facility] CH MPV 10.1 9.1 - 12.3 fL [facility] CH RBC 3.50(L) 4.30 - 5.80 M/cumm [facility] CH MCV 67.1(L) 81.3 - 96.4 fL [facility] CH MCH 21.4(L) 27.1 - 33.3 pg [facility] MCHC 31.9(L) 32.3 - 35.7 g/dL [facility] RDW CV 21.5(H) 11.1 - 14.9 % [facility] CH RDW SD 50.2(H) 35.7 - 48.1 fL [facility] NRBC abs 0.02(H) 0.00 - 0.01 K/cumm [facility] Blood 07/10/2024 1:45 PM CDT 07/10/2024 1:47 PM CDT Eduin Lincoln MD LAB BLOOD ORDERABLES Fin al Result [facility] [address] [address] Department [place] [address] * Critical Care (07/10/2024 1:31 PM CDT) [...] plan with the ICU team and other medical/retail consultant staff, making frequent assessments and decisions [...] MD BLOOD TRANSFUSION ORDERA BLES Final Result Performing Organization Address [facility] Co de Phone Number [facility] [address] [address] [facility] [place] [address] * aPTT (07/10/2024 10:01 AM CDT) aPTT 31 28 - 38 sec Comment: Interpretive Data Heparin therapeutic range: 66.0 - 100.0 seconds. Range based on correlation with therapeutic heparin activity range of 0.3 - 0.7 Units/mL. Current interpretive data was last revised on 2022. Blood 07/10/2024 10:0 1 AM CDT 07/10/2024 10:04 AM CDT Eduin Lincoln MD LAB BLOOD ORDERABLES Fin al Result Performing Organization Address [facility] Co de Phone Number [facility] [address] [address] [facility] [place] [address] * (ABNORMAL) Protime-INR (07/10/2024 10:01 AM CDT) PT 14.9(H) 9.7 - 13.0 sec INR 1.37(H) 0.90 - 1.20 [facility] Comment: Interpretive data Oral anticoagulant therapeutic ranges: Venous thromboembolism prophylaxis or treatment: 2.0-3.0 CARDIOLOGY Standard range: 2.0-3.0 High-intensity range: 2.5-3.5 Refer to indication-specific guidelines for appropriate target ranges for prosthetic heart valve replacement. Current interpretive data was last revised on 2019. Blood 07/10/2024 10:0 1 AM CDT 07/10/2024 10:04 AM CDT Eduin Lincoln MD LAB BLOOD ORDERABLES Fin al Result Performing Organization Address City/[facility]/ZIP Co de Phone Number JASON SAEED [address] [address] [facility] [place] [address] * Prepare RBC: 1 Units (07/10/2024 8:18 AM CDT) Pathologist [facility] Product code [id number] Unit Number [id number] 8-S C[facility] Product Blood Type ONEG [facility] Dispense Status RETURNED [facility] Blood 07/10/2024 8:18 AM CDT Narrative [facility] - 07/11/2024 12:14 AM CDT Are special requirements needed? (All products are leukoreduced and CMV- safe)- >No Date required:-[id number] LRRBC # of [id number] Reasons:-Cardiovascular disease, Hgb <8 g/dL} Eduin Lincoln MD BLOOD BANK PRODUCT ORDER PADMINI Final Result Performing Organization Address [facility] de Phone Number JASON SAEED [address] [address] [place] [address] * eGFR (07/10/2024 5:59 AM CDT) [facility] eGFR 69 >=60 mL/min/1. 73 m2 Comment: [...] MD LAB BLOOD ORDERABLES Fin al Result [facility] [address] [address] [place] [address] * (ABNORMAL) Basic metabolic panel (07/10/2024 5:59 AM CDT) Sodium 134(L) 135 - 145 mmol/L Potassium, pl 4.2 3.3 - 4.9 mmol/L [facility] Chloride 101 97 - 110 mmol/L [facility] CO2 21(L) 22 - 32 mmol/L [facility] Anion gap 12 2 - 15 mmol/L [facility] BUN 19 6 - 25 mg/dL [facility] Creatinine 1.16 0.80 - 1.30 mg/dL [facility] Glucose 102 70 - 199 mg/dL [facility] Comment: Interpretive Data Fasting glucose >/= 126 [...] 2022. Calcium 8.3(L) 8.5 - 10.3 mg/dL [facility] Blood 07/10/2024 5:59 AM CDT 07/10/2024 5:59 AM CDT Eduin Lincoln MD LAB BLOOD ORDERABLES Fin al Result [place] [address] [address] Department [place] [address] * (ABNORMAL) CBC without differential (07/10/2024 5:58 AM CDT) WBC 21.22(H) 3.80 - 9.90 K/cumm Hgb 7.0(L) 13.0 - 17.5 g/dL [facility] Hct 22.4(L) 38.9 - 50.3 % [facility] Plt 397 150 - 400 K/cumm [facility] MPV 10.5 9.1 - 12.3 fL [facility] RBC 3.41(L) 4.30 - 5.80 M/cumm [facility] CH MCV 65.7(L) 81.3 - 96.4 fL [facility] CH MCH 20.5(L) 27.1 - 33.3 pg [facility] CH MCHC 31.3(L) 32.3 - 35.7 g/dL [facility] CH RDW CV 19.5(H) 11.1 - 14.9 % [facility] RDW SD 42.9 35.7 - 48.1 fL [facility] NRBC abs 0.00 0.00 - 0.01 K/cumm [facility] Blood 07/10/2024 5:58 AM CDT 07/10/2024 5:58 AM CDT us Eduin Lincoln MD LAB BLOOD ORDERABLES Fin al Result [facility] [address] [facility] [place] [address] * ECG 12 lead (07/09/2024 11:07 PM CDT) 07/09/2024 11:0 7 PM CDT Narrative [facility] - 07/10/2024 9:43 AM CDT Vent Rate: 96 bpm RR Interval: 624 msec WI Interval: 149 msec QRS Duration: 101 msec QT Interval: 363 msec QTC Interval: 416 msec P-R-T [place]: 40 - -13 - 88 degrees IMPRESSION: SINUS RHYTHM POSSIBLE LEFT ATRIAL ENLARGEMENT [-0.1mV P-WAVE IN V1/V2] NONSPECIFIC ST \T\ T-WAVE ABNORMALITY BORDERLINE ECG NO CHANGE FROM PREVIOUS TRACING NOTED Electronically Signed By: Polo Davenport MD us Oniel Hendrickson MD ECG ORDERABLES Final Res ult [facility] * XR Chest 1 View (07/09/2024 9:34 [...] plan with the ICU team and other medical/retail consultant staff, making frequent assessments and decisions [...] PM CDT) 07/09/2024 4:14 PM CDT Narrative [facility] - 07/09/2024 11:45 PM CDT Vent Rate: 90 bpm RR Interval: 666 msec WI Interval: 150 msec QRS Duration: 103 msec QT Interval: 391 msec QTC Interval: 438 msec P-R-T [place]: 44 - -11 - 91 degrees IMPRESSION: SINUS RHYTHM POSSIBLE LEFT ATRIAL ENLARGEMENT [-0.1mV P-WAVE IN V1/V2] ST ELEVATION, non specific NO CHANGE FROM PREVIOUS TRACING NOTED Electronically Signed By: Polo Davenport MD Eduin Lincoln MD ECG ORDERABLES Final Re sult [facility] * XR Chest 1 View (07/09/2024 [...] No acute osseous abnormality. Electronically signed by: Lucia Lopez IIOMal us Eduin Lincoln MD IMG XR PROCEDURES Final Result * TRANSTHORACIC ECHO (TTE) LIMITED/FOLLOW UP W LTD DOPPLER/CF WO CONTRAST (07/09/2024 2:29 PM CDT) Anatomical Region Laterality Modality Ultrasound 07/09/2024 1:53 PM CDT Narrative 07/09/2024 2:43 [place] [address] Limited Echocardiogram Report ADDENDUM Patient Name: CAMILA DONOHUE W : 1955 Study Date: 07/09/2024 1:53:48 PM Gender: M Tech: Location: [id number] Ref Provider: EDUIN LINCOLN Height(Cm): 172 BSA: [...] Procedure Note Tali Crane MD - 07/09/2024 [place] [address] Limited Echocardiogram Report ADDENDUM Patient Name: CAMILA DONOHUE W : 1955 Study Date: 07/09/2024 1:53:48 PM Gender: M Tech: Location: [id number] Ref Provider: EDUIN LINCOLN Height(Cm): 172 BSA: [...] CDT Ultrasound-guided left thoracentesis. Electronically signed by: Dillon Thompson M.D. Narrative 07/09/2024 2:25 PM CDT EXAMINATION: IR THORACENTESIS [...] thoracentesis. Electronically signed by: Dillon Thompson M.D. Eduin Lincoln MD IMG IR PROCEDURES Final [...] plan with the ICU team and other medical/retail consultant staff, making frequent assessments and decisions [...] LAB BLOOD ORDERABLES Fin al Result JASON [address] [address] Department [place] [address] * (ABNORMAL) CBC without differential (07/09/2024 6:44 AM CDT) WBC 22.68(H) 3.80 - 9.90 K/cumm Hgb 7.5(L) 13.0 - 17.5 g/dL [facility] CH Hct 23.8(L) 38.9 - 50.3 % [facility] CH Plt 351 150 - 400 K/cumm [facility] CH MPV 9.9 9.1 - 12.3 fL [facility] RBC 3.63(L) 4.30 - 5.80 M/cumm [facility] CH MCV 65.6(L) 81.3 - 96.4 fL [facility] CH MCH 20.7(L) 27.1 - 33.3 pg [facility] CH MCHC 31.5(L) 32.3 - 35.7 g/dL [facility] CH RDW CV 19.6(H) 11.1 - 14.9 % [facility] CH RDW SD 43.8 35.7 - 48.1 fL [facility] NRBC abs 0.02(H) 0.00 - 0.01 K/cumm [facility] Blood 07/09/2024 6:44 AM CDT 07/09/2024 6:45 AM CDT us Eduin Lincoln MD LAB BLOOD ORDERABLES Fin al Result [facility] [address] [address] Department [place] [address] * (ABNORMAL) Basic metabolic panel (07/09/2024 6:44 AM CDT) Sodium 138 135 - 145 mmol/L Potassium, pl 4.1 3.3 - 4.9 mmol/L [facility] Chloride 102 97 - 110 mmol/L [facility] CO2 22 22 - 32 mmol/L [facility] Anion gap 14 2 - 15 mmol/L [facility] BUN 16 6 - 25 mg/dL [facility] Creatinine 1.20 0.80 - 1.30 mg/dL [facility] Glucose 97 70 - 199 mg/dL [facility] Comment: Interpretive Data Fasting glucose >/= 126 [...] 2022. Calcium 8.3(L) 8.5 - 10.3 mg/dL [facility] Blood 07/09/2024 6:44 AM CDT 07/09/2024 6:46 AM CDT us Eduin Lincoln MD LAB BLOOD ORDERABLES Fin al Result [facility] [address] [address] [place] [address] * XR Chest 1 Vw Portable (07/09/2024 [...] MD LAB BLOOD ORDERABLES Fin al Result [facility] [address] [address] [place] [address] * (ABNORMAL) CBC without differential (07/08/2024 9:38 PM CDT) WBC 21.32(H) 3.80 - 9.90 K/cumm Hgb 7.6(L) 13.0 - 17.5 g/dL [facility] CH Hct 24.4(L) 38.9 - 50.3 % [facility] Plt 381 150 - 400 K/cumm [facility] MPV 10.2 9.1 - 12.3 fL [facility] RBC 3.70(L) 4.30 - 5.80 M/cumm [facility] MCV 65.9(L) 81.3 - 96.4 fL [facility] MCH 20.5(L) 27.1 - 33.3 pg [facility] MCHC 31.1(L) 32.3 - 35.7 g/dL [facility] RDW CV 19.6(H) 11.1 - 14.9 % [facility] RDW SD 43.6 35.7 - 48.1 fL [facility] NRBC abs 0.03(H) 0.00 - 0.01 K/cumm [facility] Blood 07/08/2024 9:38 PM CDT 07/08/2024 9:47 PM CDT Eduin Lincoln MD LAB BLOOD ORDERABLES [facility] al Result [facility] [address] Department [place] [address] * Critical Care (07/08/2024 10:43 AM CDT) Narrative Eduin Lincoln MD - 07/08/2024 10:43 AM CDT Eduin Lincoln MD 07/08/2024 10:44 AM Critical Care Performed by: Eduin Lincoln MD Authorized by: Eduin Lincoln MD CRITICAL CARE: Team: [employer] Shift: AM Level of Billing: Critical Care [...] plan with the ICU team and other medical/retail consultant staff, making frequent assessments and decisions [...] PARISI BLOOD TRANSFUSION ORDERA BLES Final Result Performing Organization Address City/State/[facility] Co de Phone Number JASON [address] [address] [place] [address] * XR Chest 1 Vw Portable (07/08/2024 [...] atelectasis. Electronically signed by: Vida Puri M.D. us [...] 5:31 AM CDT 07/08/2024 5:35 AM CDT us Eduin Lincoln MD LAB BLOOD ORDERABLES Fin al Result J[facility]ON [address] [address] [place] [address] * aPTT (07/08/2024 5:31 AM CDT) aPTT [...] ORDERABLES Fin al Result Performing Organization Address [facility] de Phone Number [facility] [address] [place] [address] * (ABNORMAL) Protime-INR (07/08/2024 5:31 AM CDT) PT 13.5(H) 9.7 - 13.0 sec INR 1.24(H) 0.90 - 1.20 [facility] Comment: Interpretive data Oral anticoagulant therapeutic ranges: Venous thromboembolism prophylaxis or treatment: 2.0-3.0 CARDIOLOGY Standard range: 2.0-3.0 High-intensity range: 2.5-3.5 Refer to indication-specific guidelines for appropriate target ranges for prosthetic heart valve replacement. Current interpretive data was last revised on 2019. Blood 07/08/2024 5:31 AM CDT 07/08/2024 5:35 AM CDT Eduin Lincoln MD LAB BLOOD ORDERABLES Fin al Result Performing Organization Address [facility] Co de Phone Number [facility] [address] [place] [address] * (ABNORMAL) CBC without differential (07/08/2024 5:31 AM CDT) WBC 18.93(H) 3.80 - 9.90 K/cumm Hgb 8.0(L) 13.0 - 17.5 g/dL [facility] Hct 25.4(L) 38.9 - 50.3 % [facility] CH Plt 343 150 - 400 K/cumm [facility] CH MPV 10.0 9.1 - 12.3 fL [facility] CH RBC 3.84(L) 4.30 - 5.80 M/cumm [facility] CH MCV 66.1(L) 81.3 - 96.4 fL [facility] CH MCH 20.8(L) 27.1 - 33.3 pg [facility] CH MCHC 31.5(L) 32.3 - 35.7 g/dL [facility] CH RDW CV 19.8(H) 11.1 - 14.9 % [facility] CH RDW SD 43.7 35.7 - 48.1 fL [facility] CH NRBC abs 0.00 0.00 - 0.01 K/cumm [facility] CH Blood 07/08/2024 5:31 AM CDT 07/08/2024 1:58 PM CDT us Eduin Lincoln MD LAB BLOOD ORDERABLES Fin al Result [facility] [address] [address] Department [place] [address] * (ABNORMAL) CBC without differential (07/08/2024 5:31 [...] abs 0.00 0.00 - 0.01 K/cumm [facility] Morphologic Screen Results confirmed by manual morphology review. [facility] Blood 07/08/2024 5:31 AM CDT 07/08/2024 5:35 AM CDT Eduin Lincoln MD LAB BLOOD ORDERABLES Fin al Result Performing Organization Address City/[facility] Co de Phone Number [facility] [address] [address] Department [place] [address] * (ABNORMAL) Basic metabolic panel (07/08/2024 5:31 AM CDT) Sodium 136 135 - 145 mmol/L Potassium, pl 4.1 3.3 - 4.9 mmol/L [facility] Chloride 105 97 - 110 mmol/L [facility] CO2 22 22 - 32 mmol/L [facility] Anion gap 9 2 - 15 mmol/L [facility] BUN 22 6 - 25 mg/dL [facility] Creatinine 1.30 0.80 - 1.30 mg/dL [facility] Glucose 94 70 - 199 mg/dL [facility] Comment: Interpretive Data Fasting glucose >/= 126 [...] 2022. Calcium 8.2(L) 8.5 - 10.3 mg/dL [facility] Blood 07/08/2024 5:31 AM CDT 07/08/2024 5:35 AM CDT Eduin Lincoln MD LAB BLOOD ORDERABLES Fin al Result Performing Organization Address City/[facility]/ZIP Co de Phone Number [facility] [address] [address] Department [place] [address] * (ABNORMAL) CBC without differential (07/07/2024 11:57 PM CDT) WBC 19.71(H) 3.80 - 9.90 K/cumm Hgb 7.2(L) 13.0 - 17.5 g/dL [facility] CH Hct 22.8(L) 38.9 - 50.3 % [facility] CH Plt 338 150 - 400 K/cumm [facility] CH MPV 10.5 9.1 - 12.3 fL [facility] CH RBC 3.58(L) 4.30 - 5.80 M/cumm [facility] CH MCV 63.7(L) 81.3 - 96.4 fL [facility] CH MCH 20.1(L) 27.1 - 33.3 pg [facility] CH MCHC 31.6(L) 32.3 - 35.7 g/dL [facility] CH RDW CV 16.9(H) 11.1 - 14.9 % [facility] CH RDW SD 38.1 35.7 - 48.1 fL [facility] NRBC abs 0.00 0.00 - 0.01 K/cumm [facility] CH Morphologic Screen Results confirmed by manual morphology review. [facility] Blood 07/07/2024 11:5 7 PM CDT 07/08/2024 12:06 AM CDT Eduin Lincoln MD LAB BLOOD ORDERABLES Fin al Result [facility] [place] [address] [address] [place] [address] * Lactate (07/07/2024 8:59 PM CDT) Lactate 1.0 0.7 - 2.0 mmol/L Blood 07/07/2024 8:59 PM CDT 07/07/2024 9:01 PM CDT Anika PARISI LAB BLOOD ORDERABLES Fin al Result [facility]ON SAEED [address] [address] [place] [address] * (ABNORMAL) CBC without differential (07/07/2024 6:01 PM CDT) WBC 22.30(H) 3.80 - 9.90 K/cumm Hgb 7.7(L) 13.0 - 17.5 g/dL [facility] Hct 24.6(L) 38.9 - 50.3 % [facility] Plt 381 150 - 400 K/cumm [facility] MPV 10.2 9.1 - 12.3 fL [facility] RBC 3.87(L) 4.30 - 5.80 M/cumm [facility] CH MCV 63.6(L) 81.3 - 96.[address] [facility] CH MCH 19.9(L) 27.1 - 33.3 pg [facility] MCHC 31.3(L) 32.3 - 35.7 g/dL [facility] CH RDW CV 17.2(H) 11.1 - 14.9 % [facility] RDW SD 38.3 35.7 - 48.1 fL [facility] NRBC abs 0.00 0.00 - 0.01 K/cumm [facility] Morphologic Screen Results confirmed by manual morphology review. [facility] Blood 07/07/2024 6:01 PM CDT 07/07/2024 6:09 PM CDT Eduin Lincoln MD LAB BLOOD ORDERABLES Fin al Result [facility] [address] Department [place] [address] * Type and screen (07/07/2024 6:01 PM CDT) Yuliya, indirect Negative ABO Rh O Negative [facility] Blood 07/07/2024 6:01 PM CDT 07/07/2024 6:[address] [facility] - 07/07/2024 7:00 PM CDT Has the patient had Daratumumab or Isatuximab in the past 6 months?->Unknown Eduin Lincoln MD LAB BLOOD BANK TEST ORDE XIAO Final Result Performing Organization Address [facility] Co de Phone Number JASON SAEED [address] [address] [facility] [employer] [address] * Prepare RBC: 2 Units (07/07/2024 5:14 PM CDT) Product code [id number] Unit Number [id number] [facility] Product Blood Type ONEG [facility] Dispense Status PRESUMED TRANSFUSED [facility] Blood 07/07/2024 5:14 PM CDT Narrative [facility] - 07/09/2024 10:15 AM CDT Are special requirements needed? (All products are leukoreduced and CMV- safe)- >No Donor Source->[employer] Date required:-[id number] LRRBC # of [id number] Reasons:-Hemorrhagic shock/Life-threatening bleeding} Eduin Lincoln MD BLOOD BANK PRODUCT ORDER PADMINI Final Result Performing Organization Address [facility] de Phone Number JASON SAEED [address] [address] [facility] [place] [place] [address] * Prepare RBC: 1 Units (07/07/2024 4:54 PM CDT) Product code [id number] Unit Number [id number] [facility] Product Blood Type ONEG [facility] CH Dispense Status PRESUMED TRANSFUSED [facility] Blood 07/07/2024 4:54 PM CDT Narrative [facility] - 07/10/2024 10:15 PM CDT Are special requirements needed? (All products are leukoreduced and CMV- safe)- >No Donor Source->[employer] Date required:-[id number] LRRBC # of Aiyxb-7-[id number] Reasons:-Hemorrhagic shock/Life-threatening bleeding} Eduin Lincoln MD BLOOD BANK PRODUCT ORDER PADMINI Final Result Performing Organization Address [facility] de Phone Number JASON SAEED [address] [address] [facility] [place] [address] * (ABNORMAL) CBC without differential (07/07/2024 4:45 PM CDT) WBC 23.12(H) 3.80 - 9.90 K/cumm Hgb 7.7(L) 13.0 - 17.5 g/dL [facility] Hct 24.6(L) 38.9 - 50.3 % [facility] CH Plt 321 150 - 400 K/cumm [facility] CH MPV 10.6 9.1 - 12.3 fL [facility] [...] by manual morphology review. [facility] Blood 07/07/2024 4:45 PM CDT 07/07/2024 4:48 PM CDT us Eduin Lincoln MD LAB BLOOD ORDERABLES Fin al Result [facility] [address] [address] [place] [address] * (ABNORMAL) POC Blood Gas and Chemistries, [...] - DEVIC E Final Result JASON SAEED [address] [address] [place] [address] * CT Chest Abdomen Pelvis W Contrast [...] suspicious lytic or blastic osseous lesions. Multilevel ftoh-fm-enhnddoa degenerative disc disease throughout the thoracic and [...] measures 8 mm, decreased in size from 202 though increased density likely hemorrhagic or proteinaceous [...] suspicious lytic or blastic osseous lesions. Multilevel sohu-dd-irxhffco degenerative disc disease throughout the thoracic and [...] plan with the ICU team and other medical/retail consultant staff, making frequent assessments and decisions [...] us Eduin Lincoln MD IN CLINIC/BEDSIDE ORDERA CINDY Edited Result - Final * XR Abdomen [...] AM CDT Narrative 07/07/2024 11:30 [place] [address] Limited Echocardiogram Report Patient Name: CAMILA DONOHUE W : 1955 Study Date: 07/07/2024 8:03:40 AM Gender: M Tech: SC Location: [id number] Ref Provider: SHARON SALINAS Height(Cm): 173 BSA: [...] effusion. Electronically Signed By: Dr. Blanca Mcdonald [facility] 07/07/2024 11:30:08 AM CDT Procedure Note Blanca Mcdonald MD - 07/07/2024 [place] [address] Limited Echocardiogram Report Patient Name: CAMILA DONOHUE W : 1955 Study Date: 07/07/2024 8:03:40 AM Gender: M Tech: SC Location: [id number] Ref Provider: SHARON SALINAS Height(Cm): 173 BSA: [...] effusion. Electronically Signed By: Dr. Blanca Mcdonald [facility] 07/07/2024 11:30:08 AM CDT Sharon Salinas MD CV ECHO PROCEDURES Final Result * XR [...] study. Electronically signed by: Ady Silva M.D. Gurvidner Burciaga MD IMG XR PROCEDURES Final Resu [...] Lovett MD LAB BLOOD ORDERABLES Final Result [facility] [address] [address] [place] [address] * (ABNORMAL) CBC without differential (07/07/2024 4:40 AM CDT) WBC 16.99(H) 3.80 - 9.90 K/cumm Hgb 8.8(L) 13.0 - 17.5 g/dL [facility] Hct 27.9(L) 38.9 - 50.3 % [facility] Plt 350 150 - 400 K/cumm [facility] MPV 10.1 9.1 - 12.3 fL [facility] RBC 4.44 4.30 - 5.80 M/cumm [facility] MCV 62.8(L) 81.3 - 96.4 fL [facility] MCH 19.8(L) 27.1 - 33.3 pg [facility] MCHC 31.5(L) 32.3 - 35.7 g/dL [facility] RDW CV 17.0(H) 11.1 - 14.9 % [facility] RDW SD 37.2 35.7 - 48.1 fL [facility] NRBC abs 0.00 0.00 - 0.01 K/cumm [facility] Morphologic Screen Results confirmed by manual morphology review. [facility] Blood 07/07/2024 4:40 AM CDT 07/07/2024 4:49 AM CDT Rudi Lovett MD LAB BLOOD ORDERABLES Final Result Performing Organization Address [facility] Co de Phone Number JASON SAEED [address] [address] [facility] [place] [address] * Lipase (07/07/2024 4:40 AM CDT) Lipase 22 10 - 99 Units/L Blood 07/07/2024 4:40 AM CDT 07/07/2024 12:28 PM CDT Eduin Lincoln MD LAB BLOOD ORDERABLES Fin al Result Performing Organization Address [facility] de Phone Number JASON [address] [address] [facility] [place] [address] * (ABNORMAL) Hepatic function panel (07/07/2024 4:40 [...] ORDERABLES Final R esult Performing Organization Address [facility]/ZIP Co de Phone Number JASON SAEED [address] [place] [address] * (ABNORMAL) Basic metabolic panel (07/07/2024 4:40 AM CDT) Sodium 136 135 - 145 mmol/L Potassium, pl 4.4 3.3 - 4.9 mmol/L [facility] Chloride 106 97 - 110 mmol/L [facility] CO2 20(L) 22 - 32 mmol/L [facility] Anion gap 10 2 - 15 mmol/L [facility] BUN 21 6 - 25 mg/dL [facility] Creatinine 1.21 0.80 - 1.30 mg/dL [facility] Glucose 94 70 - 199 mg/dL [facility] Comment: Interpretive Data Fasting glucose >/= 126 [...] 2022. Calcium 7.8(L) 8.5 - 10.3 mg/dL [facility] Blood 07/07/2024 4:40 AM CDT 07/07/2024 4:49 AM CDT us Rudi Lovett MD LAB BLOOD ORDERABLES Final Result Performing Organization Address [facility] Co de Phone Number JASON SAEED [address] [place] [address] * (ABNORMAL) Troponin T high-sensitivity 6-hour (07/06/2024 9:14 PM CDT) Trop T hs 52(H) <=22 ng/L Comment: Interpretive Data For further hscTnT resources including the diagnostic algorithm and an aid in interpretation, copy and paste this link: https://nrl.testcatalog.org/show/hsTrop Current Interpretive Data last revised 2019. Trop T hs delta 12(C) ng/L J[facility]ON SAEED Comment:Critical Result call ed to and read back by ayden barraganmarywilliams, DATE: 2024-07-06 21:53:26 BY: sinan smith Trop T hs interp Significa nt(C) JASON SAEED Comment:Critical Result call ed to and read back by ayden barraganar, DATE: 2024-07-06 21:53:26 BY: sinan smith Blood 07/06/2024 9:14 PM CDT 07/06/2024 9:17 PM CDT us Danny PARISI LAB BLOOD ORDERABLES Final Result Performing Organization Address [facility]/ZIP Co de Phone Number [facility] CHRISTOPHE [address] [address] Department [place] [employer] [place] [address] * POCT glucose (07/06/2024 9:11 PM CDT) Glucose, POC 105 70 - 199 mg/dL POC Performer [phone] JASON Blood 07/06/2024 9:11 PM CDT 07/06/2024 9:11 PM CDT Rudi Lovett MD LAB POCT ORDERABLES - DEVIC E Final Result Performing Organization Address City/[facility]/ZIP Co de Phone Number [place] SAEED [address] Department [place] [employer] [place] [address] * Critical Care (07/06/2024 8:46 PM CDT) Narrative Oniel Hendrickson MD - 07/06/2024 8:46 PM CDT Oniel Hendrickson MD 07/07/2024 3:19 AM Critical Care Performed by: Oniel Hendrickson MD Authorized by: Oniel Hendrickson MD CRITICAL CARE: Team: BLOSSOM Shift: PM Level of Billing: Subsequent Hospital [...] plan with the patient's team and other medical/retail consultant staff. This time was in addition [...] 2019. Trop T hs delta -5 ng/L JASON Trop T hs interp Equivocal JASON Blood 07/06/2024 6:55 PM CDT 07/06/2024 6:59 PM CDT us Danny PARISI LAB BLOOD ORDERABLES Final Result JASON [address] [address] [place] [address] * XR Chest 1 View [...] by: Rudi Lovett MD CRITICAL CARE: Team: [employer] Shift: AM Level of Billing: Initial Hospital [...] plan with the patient's team and other medical/retail consultant staff. This time was in addition to and separate from care provided by other practitioners on this day of service. Rudi Lovett MD IN CLINIC/BEDSIDE ORDERABLE S Final Result * Hematocrit, Body Fluid (07/06/2024 4:30 PM CDT) Specimen type, fld Pericardial Comment:Testing performed by : [facility], [address] [place] [address] Hct, fld 27 % [facility] Comment: Interpretive Data Unless otherwise specified, the reference range and other method performance specifications have not been established for CSF/Body Fluid tests. The test results should be integrated into the clinical context for interpretation. Current interpretive data was last revised on 2018. Testing performed by: [facility], [address] [place]., [address] Fluid 07/06/2024 4:30 PM CDT 07/06/2024 7:55 PM CDT Sharon Salinas MD LAB BODY FLUIDS AND STOOLS ORDER PADMINI Final Result Performing Organization Address [facility] de Phone Number JASON [address] [address] [facility] [place] [employer] [address] * Cell Differential, Body Fluid (07/06/2024 4:30 [...] 4:30 PM CDT 07/06/2024 5:35 PM CDT us Sharon Salinas MD LAB BODY FLUIDS AND STOOLS ORDER PADMINI Final Result Performing Organization Address [facility] Co de Phone Number JASON [address] [address] [facility] [employer] [place], [place] [id number] * Cell count w/rflx diff, body fluid (07/06/2024 4:30 PM CDT) Specimen type, fld Pericardial Color, fld Red CERNER Clarity, fld Turbid [facility]ER CH Nucleated cells, fld 9,419 /cumm [facility]ER CH Comment: Interpretive Data Unless otherwise specified, the reference range and other method performance specifications have not been established for CSF/Body Fluid tests. The test results should be integrated into the clinical context for interpretation. Current interpretive data was last revised on 2018. RBC, fld 3,583,000 /cumm CERNER Fluid 07/06/2024 4:30 PM CDT 07/06/2024 5:35 PM CDT Sharon Salinas MD LAB BODY FLUIDS AND STOOLS ORDER PADMINI Final Result Performing Organization Address [facility] Co de Phone Number JASON [address] [address] [facility] [place] [address] * Mycology (fungal) culture and stain Pericardial fluid Pericardium (07/06/2024 4:30 PM CDT) Direct Specimen Exam Stain: No Fungal elements seen. Comment:Testing performed by : [facility], [address] [place] [address] Report Final Report: No growth of fungus [facility] Comment:Testing performed by : [facility], [address] [place]., [address] Pericardial fluid (Pericardium) 07/06/2024 4:30 PM CDT 07/06/2024 8:21 PM CDT Narrative JASON - 08/03/2024 7:32 AM CDT Fluid specimen received. Testing performed by [facility] Microbiology Laboratory ([phone]). us Sharon Salinas MD LAB MICROBIOLOGY - GENERAL ORDER PADMINI Final Result Performing Organization Address City/[facility] Co de Phone Number JASON [address] [address] Department [employer] [place] [address] * Aerobic and anaerobic culture and gram stain Pericardial fluid Pericardium (07/06/2024 4:30 PM CDT) Direct Specimen Exam Stain: Cytospin Gram stain shows: Abundant polymorphonuclear leukocytes seen. Red blood cells present. No organisms seen. Comment:Testing performed by : [facility], [address] [place] [address] Report Final Report: No growth JASON SAEED Comment:Testing performed by : [facility], [address] [place] [address] Pericardial fluid (Pericardium) 07/06/2024 4:30 PM CDT 07/06/2024 8:21 PM CDT Narrative JASON SAEED - 07/10/2024 11:16 AM CDT Fluid specimen received. Testing performed by [facility] Microbiology Laboratory ([phone]) Specimens submitted from normally sterile body sites [...] interpretive data was last revised on 2019. us Sharon Salinas MD LAB MICROBIOLOGY - GENERAL ORDER PADMINI Final Result JASON [address] [place] [address] * Protein, body fluid (07/06/2024 4:30 PM CDT) Specimen type, fld Pericardial Comment:Testing performed by : [facility], [address] [place] [address]., [address] Protein, fld 5.6 g/dL JASON SAEED Comment: The above specimen type [...] 2018. Chapter 43, Body Fluids, p. 925 Current Interpretive Data was last revised 2018. Testing performed by: [facility], [address] [place] [address]., [address] Fluid 07/06/2024 4:30 PM CDT 07/06/2024 7:55 PM CDT Sharon Salinas MD LAB BODY FLUIDS AND STOOLS ORDER PADMINI Final Result JASON [address] [place] [address] * Glucose, body fluid (07/06/2024 4:30 PM CDT) Specimen type, fld Pericardial Comment:Testing performed by : [facility], [address] [place] [address] Glucose, fld 37 mg/dL JASON SAEED Comment: [...] and Management. Tevin Clin J Med 2005;72:854-72. [employer] Test directory, Body Fluid Reference Intervals and/or Interpretative Information. [email or web address] Anusha ALTMAN et al. Pancreatic cyst fluid glucose: rapid, inexpensive, and accurate diagnosis of mucinous pancreatic cysts. Surgery 2018;163:600-5. Marsha DG et al. Differential diagnosis of pancreatic cysts: A prospective study on the role of intra-cystic glucose concentration. Digestive Liver Dis 2020;52:1026-32. Current Interpretive Data was last revised 2021. Testing performed by: [facility], [address] [place] [address] Fluid 07/06/2024 4:30 PM CDT 07/06/2024 7:55 PM CDT Narrative JASON SAEED - 07/06/2024 8:17 PM CDT Body Fluid Type->Pericardial Sharon Salinas MD LAB BODY FLUIDS AND STOOLS ORDER PADMINI Final Result JASON [address] [place] [address] * XR Chest 1 Vw Portable (07/06/2024 [...] Danny PARISI LAB BLOOD ORDERABLES Final Result [facility] [address] [address] [place] [address] * (ABNORMAL) eGFR (07/06/2024 3:02 PM CDT) [...] Danny PARISI LAB BLOOD ORDERABLES Final Result JASON [address] [address] [place] [address] * (ABNORMAL) Differential, auto (07/06/2024 3:02 PM CDT) Neutrophil abs 11.91(H) 1.50 - 6.50 K/cumm Imm gran abs 0.25(H) 0.00 - 0.10 K/cumm [facility] Lymphocyte abs 1.62 0.80 - 3.30 K/cumm [facility] Monocyte abs 1.07(H) 0.20 - 0.80 K/cumm [facility] Eosinophil abs 0.01 0.00 - 0.50 K/cumm [facility] Basophil abs 0.04 0.00 - 0.10 K/cumm [facility] Neutrophil pct 79.8 % JASON Comment: Interpretive Data Percent cell count reference ranges are not reported, since discordance with absolute values may lead to misinterpretation of CBC data. Current Interpretive Data was last revised on 2017. Imm gran pct 1.7 % JASON Comment: Interpretive Data Percent cell count reference ranges are not reported, since discordance with absolute values may lead to misinterpretation of CBC data. Current Interpretive Data was last revised on 2017. Lymphocyte pct 10.9 % JASON Comment: Interpretive Data Percent cell count reference ranges are not reported, since discordance with absolute values may lead to misinterpretation of CBC data. Current Interpretive Data was last revised on 2017. Monocyte pct 7.2 % JASON Comment: Interpretive Data Percent cell count reference ranges are not reported, since discordance with absolute values may lead to misinterpretation of CBC data. Current Interpretive Data was last revised on 2017. Eosinophil pct 0.1 % JASON Comment: Interpretive Data Percent cell count reference ranges are not reported, since discordance with absolute values may lead to misinterpretation of CBC data. Current Interpretive Data was last revised on 2017. Basophil pct 0.3 % JASON Comment: Interpretive Data Percent cell count reference ranges are not reported, since discordance with absolute values may lead to misinterpretation of CBC data. Current Interpretive Data was last revised on 2017. Blood 07/06/2024 3:02 PM CDT 07/06/2024 3:08 PM CDT us Danny PARISI LAB BLOOD ORDERABLES Final Result JASON [address] [address] [place] [address] * Pro B-type natriuretic peptide (07/06/2024 3:02 [...] Heart J. 2006:27:330-337. 2. Alex RW, Pura AM. J. AM Summer Cardiol: Cardiovasc Imag. 2009;2: 216- 225. Interpretive Data Last Revised Date: 2017. Blood 07/06/2024 3:02 PM CDT 07/06/2024 3:08 PM CDT Danny PARISI LAB BLOOD ORDERABLES Final Result [facility] [address] [address] [place] [address] * (ABNORMAL) CBC with auto differential (07/06/2024 3:02 PM CDT) WBC 14.90(H) 3.80 - 9.90 K/cumm Hgb 10.0(L) 13.0 - 17.5 g/dL [facility] Hct 31.4(L) 38.9 - 50.3 % [facility] Plt 395 150 - 400 K/cumm [facility] MPV 10.1 9.1 - 12.3 fL [facility] RBC 4.96 4.30 - 5.80 M/cumm [facility] MCV 63.3(L) 81.3 - 96.4 fL [facility] MCH 20.2(L) 27.1 - 33.3 pg [facility] MCHC 31.8(L) 32.3 - 35.7 g/dL [facility] RDW CV 17.4(H) 11.1 - 14.9 % [facility] RDW SD 37.9 35.7 - 48.1 fL [facility] NRBC abs 0.02(H) 0.00 - 0.01 K/cumm [facility] Morphologic Screen Results confirmed by manual morphology review. [facility] Blood 07/06/2024 3:02 PM CDT 07/06/2024 3:08 PM CDT Danny PARISI LAB BLOOD ORDERABLES Final Result Performing Organization Address [facility] Co de Phone Number JASON SAEED [address] [address] [facility] [employer] [place] [address] * (ABNORMAL) aPTT (07/06/2024 3:02 PM CDT) aPTT 45(H) 28 - 38 sec Comment: Interpretive Data Heparin therapeutic range: 66.0 - 100.0 seconds. Range based on correlation with therapeutic heparin activity range of 0.3 - 0.7 Units/mL. Current interpretive data was last revised on 2022. Blood 07/06/2024 3:02 PM CDT 07/06/2024 3:08 PM CDT Rosa Welch MD LAB BLOOD ORDERABLES Final Resu lt Performing Organization Address [facility] de Phone Number JASON SAEED [address] [address] [employer] [place] [address] * (ABNORMAL) Protime-INR (07/06/2024 3:02 PM CDT) [...] MD LAB BLOOD ORDERABLES Final Resu lt Performing Organization Address [facility]/State/ZIP Co de Phone Number JASON SAEED [address] [address] [place] [address] * (ABNORMAL) Comprehensive metabolic panel (07/06/2024 3:02 PM CDT) Sodium 128(L) 135 - 145 mmol/L Potassium, pl 5.5(H) 3.3 - 4.9 mmol/L [facility] CH Chloride 94(L) 97 - 110 mmol/L [facility]ER CH CO2 [...] Danny PARISI LAB BLOOD ORDERABLES Final Result JASON SAEED [address] Department [place] [address] * WI CRITICAL CARE ILL/INJURED PATIENT INIT 30-74 MIN [...] and discussed management with the admitting team. us Rosa Welch MD IN CLINIC/BEDSIDE ORDERABLES Fi nal Result * ECG 12 lead (07/06/2024 2:46 PM CDT) 07/06/2024 2:46 PM CDT Narrative [facility] - 07/06/2024 2:57 PM CDT Vent Rate: 75 bpm RR Interval: 795 msec WI Interval: 166 msec QRS Duration: 109 msec QT Interval: 414 msec QTC Interval: 443 msec P-R-T [place]: 58 - -31 - 83 degrees IMPRESSION: [...] Rosa Welch MD ECG ORDERABLES Final Result [facility] * Cytology (07/06/2024 12:00 AM CDT) Fluid (Pericardial) 07/06/2024 07/06/2024 9:14 AM CDT Narrative PATHOLOGY CH - 07/11/2024 6:24 PM CDT EPIC results best viewed via link to PDF [facility] Department of Pathology [address] [place] [id number] Note to Patients: This report may [...] Final Report Patient Name: CAMILA DONOHUE Address: [address] [place] [address] Gender: M : 1955 (Age: 68) Service: Cardiology Location: [facility] # [id number] Patient Type: IP Taken: 07/06/2024 Received: 07/06/2024 Accessioned: 07/09/2024 Reported: [...] determined by the Surgical Pathology Department at [facility] as part of an ongoing quality assurance test program manager program and in compliance with federally mandated [...] characteristics determined by the Surgical Pathology Department [facility]. It has not been cleared or approved by the U. S. Food and Drug Administration. Unless otherwise noted all cytology processing, staining and screening is performed at [facility] ([address] [place] [address]). REPORT IMAGES AND SCANNED DOCUMENTS, IF INCLUDED, ONLY VIEWABLE IN PDF VERSION OF REPORT Sharon Salinas MD LAB CYTOLOGY ORDERABLES [place] [address] * XR Chest 1 Vw Portable (06/27/2024 [...] signed by: Curry Vallejo M.D. Asher Melendez [facility] IMG XR PROCEDURES Final Res ult * (ABNORMAL) Blood smear review (06/27/2024 7:24 AM CDT) RBC morphology Present(A) Anisocytosis Moderate(A) [facility] CH Elliptocytes 3-7/HPF(A) CERNER CH Platelet estimate Adequate [facility] Blood 06/27/2024 7:24 AM CDT 06/27/2024 7:39 AM CDT Guadalupe Lewis [facility] LAB BLOOD ORDERABLES Fin al Result JASON SAEED [address] [place] [address] * eGFR (06/27/2024 7:24 AM [...] NP LAB BLOOD ORDERABLES Fin al Result [facility] [address] [address] [place] [address] * (ABNORMAL) CBC without differential (06/27/2024 7:24 AM CDT) WBC 16.81(H) 3.80 - 9.90 K/cumm Hgb 11.1(L) 13.0 - 17.5 g/dL [facility] Hct 36.1(L) 38.9 - 50.3 % [facility] Plt 239 150 - 400 K/cumm [facility] MPV 10.7 9.1 - 12.3 fL [facility] RBC 5.66 4.30 - 5.80 M/cumm [facility] MCV 63.8(L) 81.3 - 96.4 fL [facility] MCH 19.6(L) 27.1 - 33.3 pg [facility] MCHC 30.7(L) 32.3 - 35.7 g/dL [facility] RDW CV 18.2(H) 11.1 - 14.9 % [facility] RDW SD 38.6 35.7 - 48.1 fL [facility] NRBC abs 0.00 0.00 - 0.01 K/cumm CERNER Blood 06/27/2024 7:24 AM CDT 06/27/2024 7:39 AM CDT Guadalupe Lewis [facility] LAB BLOOD ORDERABLES Sotero elza Result - Final Performing Organization Address [facility] de Phone Number [facility] [address] [address] Department [place] [employer] [place] [address] * Basic metabolic panel (06/27/2024 7:24 AM CDT) Sodium 136 135 - 145 mmol/L Potassium, pl 3.8 3.3 - 4.9 mmol/L [facility] Chloride 102 97 - 110 mmol/L [facility] CO2 23 22 - 32 mmol/L CERNER Anion gap 11 2 - 15 mmol/L [facility] BUN 24 6 - 25 mg/dL [facility] Creatinine 1.26 0.80 - 1.30 mg/dL [facility] Glucose 123 70 - 199 mg/dL [facility] Comment: Interpretive Data Fasting glucose >/= 126 [...] 2022. Calcium 8.8 8.5 - 10.3 mg/dL [facility] Blood 06/27/2024 7:24 AM CDT 06/27/2024 7:38 AM CDT Guadalupe Lewis [facility] LAB BLOOD ORDERABLES Fin al Result Performing Organization Address [facility] Co de Phone Number [facility] [address] [address] Department [place] [address] * ECG 12 lead (06/27/2024 7:17 AM CDT) 06/27/2024 7:17 AM CDT Narrative [facility] - 06/27/2024 9:58 AM CDT Vent Rate: 116 bpm RR Interval: 514 msec WI Interval: 0 msec QRS Duration: 102 msec QT Interval: 337 msec QTC Interval: 406 msec P-R-T [place]: 0 - -15 - 58 degrees IMPRESSION: ATRIAL FIBRILLATION WITH RAPID VENTRICULAR RESPONSE ST ELEVATION CONSISTENT WITH INJURY, PERICARDITIS, OR EARLY REPOLARIZATION [ST ELEVATION W/O NORMALLY INFLECTED T-WAVE] NONSPECIFIC ST \T\ T-WAVE ABNORMALITY ABNORMAL ECG Electronically Signed By: Dr. Blanca Mcdonald [facility] Jesus Golmdan MD ECG ORDERABLES Final Result Performing Organization Address [facility] Co de Phone Number [facility] [employer] [facility] * ECG 12 lead (06/27/2024 6:05 AM CDT) 06/27/2024 6:05 AM CDT Narrative [facility] - 06/27/2024 9:58 AM CDT Vent Rate: 105 bpm RR Interval: 569 msec WI Interval: 0 msec QRS Duration: 99 msec QT Interval: 345 msec QTC Interval: 406 msec P-R-T [place]: 0 - -8 - 35 degrees IMPRESSION: ATRIAL FIBRILLATION WITH RAPID VENTRICULAR RESPONSE ST ELEVATION, CONSIDER lateral injury ACUTE GA Electronically Signed By: Dr. Blanca Mcdonald [facility] Gurvinder Burciaga MD ECG ORDERABLES Final Result Performing Organization Address [facility] Co de Phone Number [facility] [employer] [facility] * Type and screen (06/26/2024 3:47 PM CDT) Yuliya, indirect Negative ABO Rh O Negative [facility] Blood 06/26/2024 3:47 PM CDT 06/26/2024 4:08 PM CDT Narrative [facility] - 06/26/2024 4:50 PM CDT Has the patient had Daratumumab or Isatuximab in the past 6 months?->Unknown us Diana Olmos [facility] LAB BLOOD BANK TEST ORDERA BLES Final Result JASON SAEED [address] [place] [address] * XR Chest 1 Vw Portable (06/26/2024 [...] disease. Electronically signed by: Ady Silva M.D. us Rajani Morales [facility] IMG XR PROCEDURES Final R esult * Critical Care (06/26/2024 7:22 AM CDT) Narrative Martha Vasquez MD - 06/26/2024 7:22 AM CDT Martha Vasquez MD 06/26/2024 3:37 PM Critical Care Performed by: Rajani Morales NP Authorized by: Rajani Morales NP CRITICAL CARE: Team: CHNE Shift: AM Level of Billing: Subsequent Hospital [...] plan with the patient's team and other medical/retail consultant staff. This time was in addition to and separate from care provided by other practitioners on this day of service. us Rajani Morales NP IN CLINIC/BEDSIDE ORDERAB LES Final Result * ECG 12 lead (06/26/2024 12:46 AM CDT) 06/26/2024 12:4 6 AM CDT Narrative [facility] - 06/26/2024 7:40 AM CDT Vent Rate: 99 bpm RR Interval: 606 msec WI Interval: 179 msec QRS Duration: 106 msec QT Interval: 382 msec QTC Interval: 438 msec P-R-T [place]: 29 - -57 - 54 degrees IMPRESSION: SINUS RHYTHM POSSIBLE LEFT ATRIAL ENLARGEMENT [-0.1mV P-WAVE IN V1/V2] LEFT AXIS DEVIATION [QRS AXIS < -30] Compared to prior EKG heart rate increased Electronically Signed By: Wayne Huang MD [facility] us Gurvinder Burciaga MD ECG ORDERABLES Final Result [facility] * eGFR (06/25/2024 9:30 PM CDT) [...] MD LAB BLOOD ORDERABLES Final R esult [facility] [address] [place] [address] * (ABNORMAL) CBC without differential (06/25/2024 9:30 PM CDT) WBC 16.52(H) 3.80 - 9.90 K/cumm Hgb 12.2(L) 13.0 - 17.5 g/dL [facility] Hct 39.3 38.9 - 50.3 % [facility] Plt 251 150 - 400 K/cumm [facility] MPV 10.2 9.1 - 12.3 fL [facility] RBC 6.20(H) 4.30 - 5.80 M/cumm [facility] MCV 63.4(L) 81.3 - 96.4 fL [facility] MCH 19.7(L) 27.1 - 33.3 pg [facility] MCHC 31.0(L) 32.3 - 35.7 g/dL [facility] RDW CV 18.7(H) 11.1 - 14.9 % [facility] RDW SD 38.5 35.7 - 48.1 fL [facility] NRBC abs 0.00 0.00 - 0.01 K/cumm [facility] Morphologic Screen Results confirmed by manual morphology review. [facility] Blood 06/25/2024 9:30 PM CDT 06/25/2024 9:54 PM CDT us Gurvinder Burciaga MD LAB BLOOD ORDERABLES Final R esult Performing Organization Address [facility] Co de Phone Number JASON SAEED [address] [place] [place] [address] * Phosphorus (06/25/2024 9:30 PM CDT) Pathologist [facility] Phosphorus, pl 2.7 2.3 - 4.5 mg/dL Blood 06/25/2024 9:30 PM CDT 06/26/2024 8:17 AM CDT Guadalupe Lewis [facility] LAB BLOOD ORDERABLES Fin al Result Performing Organization Address [facility] de Phone Number JASON SAEED [address] [place] [place] [address] * Magnesium (06/25/2024 9:30 PM CDT) Pathologist [facility] Magnesium 2.0 1.4 - 2.5 mg/dL Blood 06/25/2024 9:30 PM CDT 06/26/2024 8:17 AM CDT Guadalupe Lewis [facility] LAB BLOOD ORDERABLES Fin al Result Performing Organization Address [facility] de Phone Number JASON SAEED [address] [place] [place] [address] * Basic metabolic panel (06/25/2024 9:30 PM CDT) Pathologist [facility] Sodium 137 135 - 145 mmol/L Potassium, pl 4.1 3.3 - 4.9 mmol/L [facility] Chloride 103 97 - 110 mmol/L [facility] CO2 23 22 - 32 mmol/L [facility] Anion gap 11 2 - 15 mmol/L [facility] BUN 18 6 - 25 mg/dL [facility] Creatinine 1.14 0.80 - 1.30 mg/dL [facility] Glucose 101 70 - 199 mg/dL [facility] Comment: Interpretive Data Fasting glucose >/= 126 [...] 2022. Calcium 8.7 8.5 - 10.3 mg/dL JASON SAEED Blood 06/25/2024 9:30 PM CDT 06/25/2024 9:54 PM CDT us Gurvinder Burciaga MD LAB BLOOD ORDERABLES Final R esult JASON SAEED [address] [place] [address] * Critical Care (06/25/2024 7:13 PM CDT) [...] plan with the ICU team and other medical/retail consultant staff, making frequent assessments and decisions [...] medical record us Jaz De La Torre [facility] IN CLINIC/BEDSIDE O RDERABLES Final Result * [...] inferior: normal 16- Apical septal: normal 17- Mereta: normal Atria: Left atrium: Spontaneous echo contrast: [...] the written comments contained within the report. [facility] ANESTHESIA ORDERABLES Final Result * XR Chest 1 View (06/25/2024 2:45 PM CDT) Anatomical Region Laterality Modality Body, Chest N/A Computed Radiogr aphy 06/25/2024 3:49 PM CDT Impressions 06/25/2024 3:49 PM CDT As above. Electronically signed by: Gisela Maya 06/25/2024 3:49 PM CDT EXAMINATION: XR CHEST [...] Peripheral IV Catheter (06/25/2024 2:23 PM CDT) Mauro Marcial AA - 06/25/2024 2:23 PM CDT Mauro [...] Grayson DO ANESTHESIA ORDERABLES Final Result * WI AN ELECTIVE ENDOTRACHEAL AIRWAY (06/25/2024 2:22 PM CDT) Mauro Marcial AA - 06/25/2024 2:22 PM CDT Mauro Martino AA 06/25/2024 2:23 PM Airway Patient location: OR Urgency: elective Indications for airway management: anesthesia Difficult airway: no Staff: Supervising provider: Marion Grayson DO Placed by: RENARD: Mauro Martino AA Emergent airway documentation: Risks [...] (06/25/2024 2:12 PM CDT) Narrative de Mauro Spann AA - 06/25/2024 2:12 PM CDT de Mauro Spann AA 06/25/2024 2:12 PM Arterial Line Patient location: OR Indication: continuous blood pressure monitoring and blood sampling needed Staff: Supervising provider: Marion Grayson DO Procedure prep: Prep solution: chlorhexadine/alcohol Prep: provider [...] 1:48 PM CDT) BSA 1.89 m2 CONS SCIMA Narrative CONS SCIMAGE - 06/25/2024 1:48 PM CDT Procedure Auto Finalized by Rule: CORNELIO CV GIL DURING CASE OR Please see the Anesthesiologist's Procedure Note for the results. Marion Grayson DO CV ECHO PROCEDURES Final Re sult CONS SCIMAGE * Check Sample (06/25/2024 11:25 AM CDT) ABO Rh O Negative CH HCLL OTHER 06/25/2024 11:2 5 AM CDT 06/25/2024 11:36 AM CDT Gurvinder Burciaga MD LAB BLOOD ORDERABLES Final R esult Performing Organization Address [facility] de Phone Number JASON [address] [place] [address] CH * Prepare RBC: 1 Units (06/25/2024 10:47 AM CDT) Pathologist [facility] Product code [id number] Unit Number [id number] 3-O [facility] Product Blood Type [facility] Dispense Status RETURNED [facility] Blood 06/25/2024 10:4 7 AM CDT Narrative [facility] - 06/26/2024 12:56 AM CDT Specify Procedure:->endoscopic surgical ablation Are special requirements needed? (All products are leukoreduced and CMV- safe)- >No Date required:-[id number] LRRBC # of [id number] Reasons:-Hold for procedure (specify procedure)} Diana Olmos NP BLOOD BANK PRODUCT ORDERAB LES Final Result Performing Organization Address [facility] de Phone Number JASON [address] [facility] [place] [address] * eGFR (06/22/2024 9:39 AM CDT) Pathologist [facility] eGFR 65 >=60 mL/min/1. 73 m2 Comment: [...] ORDERABLES Final R esult Performing Organization Address [facility] Co de Phone Number JASON [address] [employer] [place], [place] [id number] * aPTT (06/22/2024 9:39 AM CDT) aPTT [...] ORDERABLES Final R esult Performing Organization Address [facility] Co de Phone Number JASON [address] [place] [address] * Protime-INR (06/22/2024 9:39 AM CDT) PT 10.8 9.7 - 13.0 sec INR 1.00 0.90 - 1.20 JASON SAEED Comment: Interpretive [...] ORDERABLES Final R esult Performing Organization Address [facility] Co de Phone Number JASON SAEED [address] [place] [address] * (ABNORMAL) CBC without differential (06/22/2024 9:39 AM CDT) WBC 6.58 3.80 - 9.90 K/cumm Hgb 12.7(L) 13.0 - 17.5 g/dL [facility] Hct 41.8 38.9 - 50.3 % [facility] Plt 273 150 - 400 K/cumm [facility] MPV 10.1 9.1 - 12.3 fL [facility] RBC 6.44(H) 4.30 - 5.80 M/cumm [facility] MCV 64.9(L) 81.3 - 96.4 fL [facility] MCH 19.7(L) 27.1 - 33.3 pg [facility] MCHC 30.4(L) 32.3 - 35.7 g/dL [facility] RDW CV 18.7(H) 11.1 - 14.9 % [facility] CH RDW SD 39.3 35.7 - 48.1 fL [facility] NRBC abs 0.00 0.00 - 0.01 K/cumm [facility] Morphologic Screen Results confirmed by manual morphology review. [facility] Blood 06/22/2024 9:39 AM CDT 06/22/2024 9:39 AM CDT Gurvinder Burciaga MD LAB BLOOD ORDERABLES Final R esult Performing Organization Address City/[facility]/ZIP Co de Phone Number JASON SAEED [address] Department [place] [place] [address] * Basic metabolic panel (06/22/2024 9:39 AM CDT) Sodium 142 135 - 145 mmol/L Potassium, pl 4.0 3.3 - 4.9 mmol/L [facility] Chloride 105 97 - 110 mmol/L [facility] CO2 28 22 - 32 mmol/L [facility] Anion gap 9 2 - 15 mmol/L [facility] BUN 22 6 - 25 mg/dL [facility] Creatinine 1.22 0.80 - 1.30 mg/dL [facility] Glucose 106 70 - 199 mg/dL [facility] Comment: Interpretive Data Fasting glucose >/= 126 [...] 2022. Calcium 9.6 8.5 - 10.3 mg/dL [facility] Blood 06/22/2024 9:39 AM CDT 06/22/2024 9:39 AM CDT us Gurvinder Burciaga MD LAB BLOOD ORDERABLES Final R esult [facility] [address] [facility] [place] [address] * ECG 12 lead (06/22/2024 9:15 AM CDT) 06/22/2024 9:15 AM CDT Narrative [facility] - 06/22/2024 11:45 AM CDT Vent Rate: 53 bpm RR Interval: 1120 msec WI Interval: 179 msec QRS Duration: 117 msec QT Interval: 450 msec QTC Interval: 433 msec P-R-T [place]: 49 - 33 - 74 degrees IMPRESSION: SINUS BRADYCARDIA MODERATE INTRAVENTRICULAR CONDUCTION DELAY BORDERLINE ECG Electronically Signed By: Polo Davenport MD us Gurvinder Burciaga MD ECG ORDERABLES Final Result [facility] * XR Chest PA Lateral 2 View [...] disease. Electronically signed by: Ady Silva M.D. us [...] tendency for uric acid stone formation. Source: [employer] Current Interpretive Data was last revised on [...] 8:41 AM CDT 06/22/2024 9:52 AM CDT Gurvinder Burciaga MD LAB MICROBIOLOGY - GENERAL O RDERABLES Final Result Performing Organization Address [facility] Co de Phone Number [facility] [address] Department of Laboratories [place], [place] [id number] * Type and screen (06/22/2024 8:41 AM CDT) Yuliya, indirect Negative ABO Rh O Negative [facility] Blood 06/22/2024 8:41 AM CDT 06/22/2024 9:51 AM CDT [facility]ative [facility] - 06/22/2024 10:40 AM CDT Has the patient had Daratumumab or Isatuximab in the past 6 months?->Unknown Gurvinder Burciaga MD LAB BLOOD BANK TEST ORDERABL ES Final Result Performing Organization Address [facility] Co de Phone Number [facility] [address] Department [place] [employer] [address] * CT Chest W Contrast (06/19/2024 7:30 [...] Delroy Mendosa MD, PHD Yolanda Walker MD IMG CT PROCEDURES Final Res ult * TRANSESOPHAGEAL ECHO (GIL) W DOPPLER/CF WO CONTRAST (06/07/2024 10:21 AM CDT) BSA 1.88 m2 CONS SCIMAGE Anatomical Region Laterality Modality Ultrasound Narrative 06/07/2024 3:48 PM CDT TRANSESOPHAGEAL ECHO NOTE Surgical Team: Cardiac wastewater analyst lab analyst staff CV Documenter: Sharri Glass RN Manufacturing Engineering Technician: Yolanda Walker MD DATE OF SURGERY : [...] Plan discharge patient home after complete recovery Yolanda Walker MD CV ECHO PROCEDURES Final [...] Walker MD LAB BLOOD ORDERABLES Final Result JASON [address] [place] [address] * Magnesium (06/06/2024 12:44 PM CDT) Magnesium 2.4 1.4 - 2.5 mg/dL Blood 06/06/2024 12:4 4 PM CDT 06/06/2024 12:44 PM CDT Yolanda Walker MD LAB BLOOD ORDERABLES Final Result JASON SAEED [address] [place] [address] * Basic metabolic panel (06/06/2024 12:44 PM CDT) Sodium 142 135 - 145 mmol/L Potassium, pl 4.7 3.3 - 4.9 mmol/L [facility] Chloride 102 97 - 110 mmol/L [facility] CO2 30 22 - 32 mmol/L [facility] Anion gap 10 2 - 15 mmol/L [facility] BUN 20 6 - 25 mg/dL [facility] Creatinine 1.17 0.80 - 1.30 mg/dL [facility] Glucose 87 70 - 199 mg/dL [facility] Comment: Interpretive Data Fasting glucose >/= 126 [...] 2022. Calcium 10.0 8.5 - 10.3 mg/dL [facility] Blood 06/06/2024 12:4 4 PM CDT 06/06/2024 12:44 PM CDT Yolanda Walker MD LAB BLOOD ORDERABLES Final Result JASON SAEED [address] [place] [address] from Last 3 Months Insurance [facility] CHOICE PLUS MEDICARE [facility] MEDICARE [employer] Advance Directives For more information, please contact: [phone] * Full Code (Latest Code Status on [...] 9:04 PM 01/28/2022 1:54 PM Care Teams Breaker Layer Relationship Specialty Start Date End Date Milagros Mills DO PCP - General Family Medicine 06/17/22 Reilly Waters MD Consulting Physician Urology 01/28/22 Jorge Alberto Silva MD [address] [place] [address] MEDICAL ONCOLOGY, [address] [address] Medical Oncologist/Sealer Operator Hematology and Oncology 08/31/23 Yolanda Walker MD [address] [place] [address] Consulting Physician Cardiology 06/27/24
--- OUTSIDE RECORDS SUMMARY | 2024-08-09 09:12 | XMS_ITS | Clinical Summary ---
Author Organization [facility] Address [address] [place] [address] Care Team Providers Care Film Producer Name Role Phone Milagros Mills Primary Care Provider [phone] Medications lisinopril-hydr oCHLOROthiazide (ZESTORETIC) 20-12.5 MG tablet [...] Date Diagnosed Date Atrial fibrillation by electrocardiogram ([facility]) 07/21/2023 Sepsis ([facility]) 07/21/2023 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 Hematuria 02/16/2022 Renal mass 12/03/2021 Overview (07/21/2023): Added automatically from request for surgery [id number] 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 No 07/21/2023 Sex and Gender [...] 4:59 AM CDT Height 172.7 cm (5' 8) 07/21/2023 5:29 PM CDT Body Mass Index 26.48 07/21/2023 5:29 PM CDT Plan of Treatment Health Maintenance Due Date Last Done Comments Colorectal Cancer Screening Colonoscopy (10 Years) 1955 Pneumococcal Vaccine: 50+ Years (1 of 2 - PCV) 09/27/1975 RSV Immunization or 60+ Years (1 - Risk 60-74 years 1-dose series) 2016 Annual Medicare Wellness Visit 2021 COVID-19 Vaccine (1 - 2023-2 5 season) 2023 PHQ-2 (Physician Elnora) 02/08/2024 07/21/2023 DTaP, Tdap and Td Vaccines ( [...] W/ REFLX GENOTYPE (07/25/2023 5:53 AM CDT) Pathologist [facility] HEPATITIS C RNA PCR QNT <15 IU/mL 07/28/2023 8:37 AM CDT [facility] Comment: HCV RNA Not Detected HEP C RNA PCR QNT LOG <1.18 log IU/mL 07/28/2023 8:37 AM CDT [facility] Comment: HCV RNA Not Detected Reference Range: Not Detected IU/mL Not Detected Log IU/mL For additional information please refer to http://education.Kensho/faq/KTX53z4 (This link is being provided for informational/ educational purposes only.) Test Performed by [facility], [facility], [address] [place] [address] Benedict Richardson M.D., Ph.D., Director of Laboratories , [place] [id number] 07/25/2023 5:53 AM CDT Julian Agarwal MD LABORATORY Final Result [facility] [address] [place] [address], [place] [phone] from Last 3 Months or Most Recently Relevant to Health Maintenance Insurance MEDICARE [employer] Advance Directives * Full Code (Latest Code Status on File) Date Activated Date Inactivated Comments 07/21/2023 5:19 PM 07/26/2023 2:51 PM Care Teams Film Producer Relationship Specialty Start Date End Date Milagros Mills DO [address] [place] [address] PCP - General FAMILY PRACTICE 07/21/23
--- OUTSIDE RECORDS SUMMARY | 2024-08-09 09:12 | XMS_ITS | Clinical Summary ---
Author Organization [facility] Address [address] [place] [address] Care Team Providers Care Propulsion Systems Engineer Name Role Phone Unknown, Provider Primary Care Provider Unavaila ble Source Comments [facility],non-owned Affiliates and Associated Physician Practices is amultiple site organization consisting of ambulatory clinics and hospital sitesin [place], [place], [place] and [place]. This disclosure is being madepursuant to the Care Everywhere program and may not contain all information available regarding this patient. 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 Gender Identity Not on file Sexual Orientation Not on file Plan of Treatment Health Maintenance Due Date Last Done Comments COLOGUARD (AGES 45-75) - COL ON CA SCREENING 1955 COLON MONITORING 1956 COLONOSCOPY - COLON CA SCREENING 1956 CT COLONOGRAPHY - COLON CA SCREENING 1955 Colorectal Cancer Screening 1956 FIT - COLON CA SCREENING 1956 FLEX SIG - COLON CA SCREENING 1956 LIPID TESTING 1956 DTAP/TDAP/TD VACCINES (1 - Tdap) 09/27/1975 PNEUMOCOCCAL VACCINE 50+ (1 of 1 - PCV) 2006 ZOSTER VACCINE (1 of 2) 2006 COVID-19 VACCINE (2023-2 5 season) 2023 DEPRESSION SCREENING 02/08/2024 INFLUENZA VACCINE (Season Ended) 2024 Respiratory Syncytial Virus (RSV) Vaccine Pt: or over 60 yrs (1 - 1-dose 75+ series) 09/27/2031 HEPATITIS C SCREENING Completed 07/25/2023 HEPATITIS B VACCINE Aged Out No longe r eligible based on patient's age to complete this topic HIB VACCINE Aged Out No longer eligi ble based on patient's age to complete this topic HPV VACCINE Aged Out No longer eligi ble based on patient's age to complete this topic MENINGOCOCCAL (Group B) VACC INE SHARED DECISION-MAKING Aged Out No longer eligibl e based on patient's age to complete this topic MENINGOCOCCAL GROUPS A/C/Y/W VACCINE Aged Out No longer eligible b ased on patient's age to complete this topic Care Teams Propulsion Systems Engineer Relationship Specialty Start Date End Date Unknown, Provider PCP - General 07/06/24
--- OUTSIDE RECORDS SUMMARY | 2024-08-09 09:12 | XMS_ITS | Encounter Summary ---
Author Organization [facility] Healthcare Address [address] [place] [address] Care Team Providers Care Assembler Insulator Name Role Phone Reilly Waters MD Unavailable [phone] Milagros Mills DO Primary Care Provider [phone] Jorge Alberto Silva MD Unavailable [phone] Yolanda Walker MD Unavailable [phone] Encounter Details Date Type Department Care Team (Late st Contact Info) Description 07/19/2024 [facility] Post Discharge Follow up phone call [facility] [address] [place] [address] Jeimy Winn Social History Tobacco Use Types Packs/Day Years Used Date Smoking Tobacco: Never Smokeless Tobacco: Former Chew Comments:Quit chewing at age 36 [facility] Utilities Answer Date Recorded In the past 12 months has [employer], oil, or water [employer] threatened to shut off services in your home? No 07/09/2024 Social Connection and Isolation Panel [NHANES] A nswer Date Recorded In a typical week, how many times do you talk on the phone with family, friends, or neighbors? Once a week 07/10/19 25 How often do you get togethe r with friends or relatives? Three times a week 07/09/2024 How often do you attend [facility] or christian services? 1 to 4 times per year 07/09/2024 Do you belong to any clubs o r organizations such as protestant groups, unions, fraternal or athletic groups, or [...] place to sleep or slept in a fpc (including now)? No 01/27/2022 Housing Stability Vital [...] time in the past 12 m [facility], were you homeless or living in a fpc (including now)? No 07/09/2024 Personal Safety Answer Date Recorded Have you ever been in or are you currently in a harmful physical or emotional relationship or is someone making you feel afraid or unsafe? 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 Gender Identity Not on file Sexual Orientation Not on file documented as of this encounter Plan of Treatment Upcoming Encounters Date Type Department Care Team (Latest Contact Info) Description 10/09/2024 12:30 PM CDT Hospital Encounter [facility] Electrophysiology Lab [address] [place] [address] Yolanda Walker MD [address] [place] [address] Atrial fibrillation (HCC) 10/09/2024 12:30 PM CDT - 10/09/2024 4:40 PM CDT Surgery [facility] Electrophysiology Lab [address] [place] [address] Yolanda Walker MD [address] [place] [address] ABLATION ATRIAL FIBRILLATION (A-FIB) VIA PULMONARY VEIN ISOLATION [id number] documented as of this encounter Visit Diagnoses Not on filedocumented in this encounter Care Teams Assembler Insulator Relationship Specialty Start Date End Date Milagros Mills DO PCP - General Family Medicine 06/17/22 Reilly Waters MD Consulting Physician Urology 01/28/22 Jorge Alberto Silva MD [address] [place] [address] MEDICAL ONCOLOGY, [place] [address] Medical Oncologist/Award Machine Operator Hematology and Oncology 08/31/23 Yolanda Walker MD [address] [place] [address] Consulting Physician Cardiology 06/27/24 documented as of this encounter
[2024-08-09 09:30] LABS: Uric Acid 5.8 mg/dL (3.5-8.5)
== END 2024-08-09 09:07 | disposition home or self-care (01) ==
LOC: ANHLAB 09:07
PROVIDERS: PCP Family Medicine; Visit Provider Nurse Practitioner
DX: M10.9 Gout, unspecified (principal)
CPT/HCPCS: 36415; 84550

== ENCOUNTER 2024-08-22 13:22 | Outpatient (CLI) | payer MEDICARE, OTHER, SELFPAY ==
--- NOTE | ~2024-08-22 | XR_ITS ---
EXAM: XR shoulder RT min 2V DATE: 08/22/2024 13:44 HISTORY: Pain in right shoulder, injury when lifting weights . COMPARISON: None available. FINDINGS: Normal mineralization. No fracture or dislocation. No lytic or blastic lesion. Mild degene rative change at the AC joint and glenohumeral joint. No erosion or periosteal change. Soft tissues w ithin normal limits. IMPRESSION: Mild polyarticular right shoulder osteoarthritis. Reviewed, dictated and finalized at location K.
--- OUTSIDE RECORDS SUMMARY | 2024-08-22 13:31 | XMS_ITS | Clinical Summary ---
Author Organization [facility] [address] Address [address] [place] [address] Care Team Providers Care Pricing Manager Name Role Phone Reilly Waters MD Unavailable [phone] Milagros Mills DO Primary Care Provider [phone] Jorge Alberto Silva MD Unavailable [phone] Yolanda Walker MD Unavailable [phone] Allergies Active Allergy Reactions Criticality Noted Date Comments Adhesive Itching,Rash Medium 06/22/2024 Medications magnesium oxide (MAG-OX) 400 mg (241.3 mg elemental magnesium) tablet Take 1 tablet (400 mg total) by mouth 2 (two) times a day 04/06/2020 Active lutein 20 mg tablet Take 20 mg by mouth every morning 11/17/2018 Active cholecalciferol (VITAMIN D-3) 25 mcg (1,000 unit) tablet Take 1 tablet (1,000 Units total) by mouth 2 (two) times a day Active acetaminophen 500 mg capsuleIndicati ons:Fever,Pain, Over the counter Take 2 capsules (1,000 mg total) by mouth every 6 (six) hours as needed for pain 06/27/2024 Active psyllium, aspartame, SF (METAMUCIL SF) 3.4 gram packet Take 2 packets by mouth daily 07/14/2024 07/15/19 26 Active dilTIAZem (CARDIZEM) 30 mg tablet Take 1 tablet (30 mg total) by mouth 2 (two) times a day 60 tablet 1 07/14/2024 07/15/19 26 Active amiodarone (PACERONE) 400 mg tablet Take 1 tablet (400 mg total) by mouth 3 (three) times a day 90 tablet 07/14/2024 07/15/19 26 Active Active Problems Problem Noted Date Diagnosed Date 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 Pericardial effusion 07/06/2024 Atrial fibrillation 06/25/2024 Persistent atrial fibrillation 06/19/2024 Fatigue 04/11/2024 Beta thalassemia minor 08/22/2023 Microcytic anemia 08/22/2023 Atrial fibrillation by electrocardiogram 024 Sepsis 07/21/2023 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 Hematuria 02/16/2022 Renal mass 01/27/2022 Renal mass, right 01/27/2022 Left renal mass 12/03/2021 Overview (12/03/2021): Added automatically from request for surgery [id number] Ventricular tachycardia 04/06/2020 Raynauds disease 03/07/2020 Cardiomyopathy 04/06/2019 Hypertension 02/23/2019 Osteoarthritis 02/23/2019 Palpitations 11/17/2018 Hemochromatosis 08/01/2014 Mass of breast 04/17/2013 Encounters Date Type Department Care Team Description 07/19/2024 [facility] Post Discharge Follow up phone call [address] [address] Jeimy Winn 07/09/2024 Orders Only [facility] Cardiac Catheterization Lab [address] [place] [address] Sharon Salinas MD Pericardial effusion (Primary Dx) 07/06/2024 4:00 PM CDT - 07/06/2024 5:30 PM CDT Surgery [facility] Cardiac Catheterization Lab [address] [place] [address] Wayne Huang MD LEFT HEART CATHETERIZATION WITH CORONARY ANGIOGRAPHY AND WITH OR WITHOUT LEFT VENTRICULOGRAM [id number] 07/06/2024 3:11 PM CDT - 07/14/2024 2:00 PM CDT Hospital Encounter [address] [address] Rosa Welch MD Boland, Matthew E., MD Ogunremi, MD Florentino Casillas Ping, MD Qayyum, Usman, MD Pericardial tamponade (Primary Dx); Syncope, unspecified syncope type; Acute blood loss anemia; Hemoperitoneum; Pericardial effusion; Pleural effusion; Atrial fibrillation with rapid ventricular response (HCC) Discharge Disposition: Discharge to home or self care 07/04/2024 Orders Only [facility] Cardiac Catheterization Lab [address] [place] [address] Yolanda Walker MD Atrial fibrillation (HCC) (Primary Dx) 06/25/2024 2:30 PM CDT - 06/25/2024 7:00 PM CDT Surgery [facility] Operating Room [address] [place] [address] Gurvinder Burciaga MD ENDOSCOPY SURGICAL ABLATION 06/25/2024 2:03 PM CDT Anesthesia Event [facility] Operating Room [address] [place] [address] Marion Grayson DO Marcinczyk, Mario Joseph, MD 06/25/2024 1:50 PM CDT Ancillary Procedure [facility] Operating Room [address] [place] [address] 06/25/2024 9:45 AM CDT - 06/27/2024 5:28 PM CDT Hospital Encounter [address] [address] Gurvinder Burciaga MD Persistent atrial fibrillation (HCC) (Primary Dx) Discharge Disposition: Discharge to home or self care 06/22/2024 8:45 AM CDT Pre-Admission Testing [facility] Pre Anesthesia Testing [address] [place] [address] Persistent atrial fibrillation (HCC) 06/22/2024 8:40 AM CDT - 06/22/2024 11:59 PM CDT Hospital Encounter [facility] Diagnostic Imaging [address] [place] [address] Discharge Disposition: Discharge to home or self care 06/19/2024 10:00 AM CDT Office Visit [facility] Surgery [address] [facility] [address] [place] [address] Gurvinder Burciaga MD Longstanding persistent atrial fibrillation (HCC) (Primary Dx) 06/19/2024 7:15 AM CDT - 06/19/2024 11:59 PM CDT Hospital Encounter [facility] Imaging and Radiology [address] [place] [address] Ventricular tachycardia (HCC) Discharge Disposition: Discharge to home or self care 06/07/2024 9:45 AM CDT - 06/07/2024 11:59 PM CDT Hospital Encounter [facility] Cardiac Catheterization Lab [address] [place] [address] Discharge Disposition: Discharge to home or self care 06/07/2024 Documentation Cardiology Yolanda Walker MD 06/06/2024 12:25 PM CDT Lab [address] [phone] 06/06/2024 Telephone [facility] Pre Anesthesia Testing [address] [place] [address] Mara Toussaint, AUSTYN 06/06/2024 Telephone [facility] Pre Anesthesia Testing [address] [place] [address] Mara Toussaint, RN 06/06/2024 Orders Only [facility] Cardiac Catheterization Lab [address] [place] [address] Yolanda Walker MD A-fib (HCC) (Primary Dx) from Last 3 Months Surgical History Surgery Date Site/Laterality Comments HIP ARTHROPLASTY Left PARTIAL NEPHRECTOMY 01/26/2022 Left COLONOSCOPY OTHER SURGICAL HISTORY 11/21/2023 [employer] cardiac tech OTHER SURGICAL HISTORY 06/06/2024 GIL THORACENTESIS W IMAGING LEFT 07/09/2024 Left CARDIAC CATHETERIZATION 07/06/2024 N/A Procedure: LEFT HEART CATHETERIZATION WITH CORONARY ANGIOGRAPHY AND WITH OR WITHOUT LEFT VENTRICULOGRAM [id number]; Surgeon: Wayen Huang MD; 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 1 to 4 times per year 07/09/2024 Do you belong to any clubs o r organizations such as caodaism groups, unions, fraternal or athletic groups, or [...] place to sleep or slept in a residential (including now)? No 01/27/2022 Housing Stability Vital Sign Answer Costa e Recorded In the last 12 months, was t here a time when you were not able to pay the mortgage or rent on time? No 07/09/2024 In the past 12 months, how m any times have you moved where you were living? 0 07/09/2024 At any time in the past [address] [facility], were you homeless or living in a residential (including now)? No 07/09/2024 Personal Safety Answer Date Recorded Have you ever been in or are you currently in a harmful physical or emotional relationship or is someone making you feel afraid or unsafe? 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 Gender Identity Not on file Sexual Orientation [...] Description 10/09/2024 12:30 PM CDT Hospital Encounter [facility] Electrophysiology Lab [id number] [place] [address] Yolanda Walker MD [address] [place] [address] Atrial fibrillation (HCC) 10/09/2024 12:30 PM CDT - 10/09/2024 4:40 PM CDT Surgery [facility] Electrophysiology Lab [address] [place] [address] Yolanda Walker MD [address] [place] [address] ABLATION ATRIAL FIBRILLATION (A-FIB) VIA PULMONARY VEIN ISOLATION [address] Health Maintenance Due Date Last Done Comments Colon Cancer Screening-Colonoscopy 1955 Depression Screening 1955 Hepatitis C Screening 1955 Prostate Cancer Screening-PSA 1955 Meningococcal B Vaccine (1 o f 5 - Increased Risk) 1966 Hepatitis B Screening 1974 Pneumococcal vaccine 65+ (1 of 2 - PCV) 09/27/1975 Well Visit 65+ 2021 Influenza Vaccine (#1) 2024 Fall Risk Assessment 07/14/2025 07/14/2024 DTaP/Tdap/Td Vaccine (2 - Td or Tdap) 06/25/2032 Zoster Vaccine Completed 11/27/2019, 09/07/2019 Medical Devices Implanted Type Area Alteration Worker Device Identifier Shelf Expiration Date Model / Serial / Lot Other - See Comments Other - see comments Left: Chest [employer] Description:laboratory monitor [employer] Device 6fr Closure Celt Acd Vascular Sterile Latex Free Disposable Quynh Kclt-06 - [id number] Implanted:Qty: 1 on 02/17/2022 at [facility] [employer] 08/16/2024 [id number]-[id number] / / [id number] [employer] Coil Emolization Coated Detachable Embold 3prv5rr [employer]ung[employer] [id number] 80 - [id number] Implanted:Qty: 1 on 02/17/2022 at [facility] [employer] [id number] 08/11/2024 [id number] / / [id number] [employer] Coil Emolization Coated Detachable Embold 7vkg9mo [employer]ung[employer] [id number] 80 - [id number] Implanted:Qty: 1 on 02/17/2022 at [facility] [employer] [id number] 08/11/2024 [id number] / / [id number] [employer] Coil Emolization Coated Detachable Embold [id number] [employer] [id number] 60 - [id number] Implanted:Qty: 1 on 02/17/2022 at [facility] [employer] [id number] 10/19/2024 [id number] / / [id number] [employer] Coil Emolization Coated Detachable [employer]ungsten Embold 6ppk9eh [id number] 40 - [id number] Implanted:Qty: 1 on 02/17/2022 at [facility] [employer] [id number] 11/08/2024 [id number] / / [id number] [employer] Coil Emolization Coated Detachable [employer]ung[employer] Embold [id number] 40 - [id number] Implanted:Qty: 1 on 02/17/2022 at [facility] [employer] [id number] 11/08/2024 [id number] / / [id number] Explanted Type Area Alteration Worker Device Identifier Shelf Expiration Date Model / Serial / Lot [employer] Coil Emolization Coated Detachable Embold 4atx56vd [employer]ung[employer] [id number] - [id number] Explanted:Qty: 1 on 02/17/2022 at [facility] [employer] [id number] 04/01/2024 [id number] / / [id number] Procedures Procedure Name Priority Date/Time Associated Diagnosis [...] PM CDT POCT GLUCOSE DEVICE Routine 07/06/2024 9 :11 PM CDT CRITICAL CARE Routine 07/06/2024 8:46 PM CDT Pericardial tamponade TROPONIN T HIGH-SENSITIVITY 4-HR Timed 07/06/2024 6:55 PM CDT XR CHEST 1 VIEW IP Routine 07/06/2024 6:19 PM CDT LEFT HEART CATHETERIZATION WITH CORONARY ANGIOGRAPHY AND WITH AND WITHOUT LEFT VENTRICULOGRAM Routine 07/06/2024 5:12 PM CDT CRITICAL CARE Routine 07/06/2024 4:33 PM CDT CELL DIFFERENTIAL, BODY FLUID Routine 07/06/2024 4:30 PM CDT PROTEIN, BODY FLUID Routine 07/06/2024 4 :30 PM CDT GLUCOSE, BODY FLUID Routine 07/06/2024 4 :30 PM CDT HEMATOCRIT, BODY FLUID Routine 4:30 [...] 3:02 PM CDT DIFFERENTIAL AUTO STAT 07/06/2024 3:0 2 PM CDT APTT STAT 07/06/2024 3:02 PM CDT PROTIME-INR STAT 07/06/2024 3:02 PM CDT PRO B-TYPE NATRIURETIC PEPTIDE STAT 07/06/2024 3:02 PM CDT CBC WITH AUTO DIFFERENTIAL STAT 07/06/2024 3:02 PM CDT COMPREHENSIVE METABOLIC PANEL STAT 07/06/2024 3:02 PM CDT TROPONIN T HIGH-SENSITIVITY SERIES (BASELINE, 2HR, 4HR, 6HR) STAT 07/06/2024 3:02 PM CDT ME CRITICAL CARE ILL/INJURED PATIENT INIT 30-74 MIN Routine 07/06/2024 3:01 PM CDT ECG 12-LEAD STAT 07/06/2024 2:46 PM CDT CYTOLOGY Routine 07/06/2024 12:00 AM CDT XR CHEST 1 VIEW IP Routine 06/27/2024 8:39 AM CDT BLOOD SMEAR REVIEW Routine 06/27/2024 7: 24 AM CDT EGFR Routine 06/27/2024 7:24 AM [...] PERIPHERAL LINE Routine 06/25/2024 2:23 PM CDT ME AN ELECTIVE ENDOTRACHEAL AIRWAY Routine 06/25/2024 2:22 PM CDT ANESTHESIA ARTERIAL LINE PLACEMENT Routine 06/25/2024 2:12 PM CDT MAZE PROCEDURE OPEN HEART 06/25/2024 2:05 PM CDT Persistent atrial fibrillation (HCC) GIL ADD-ON FOR OR Routine 06/25/2024 1:4 8 PM CDT B CHECK SAMPLE STAT 06/25/2024 [...] ORDERABLES Fin al Result Performing Organization Address City/[facility] Co de Phone Number JASON SAEED [address] [place] [address] * (ABNORMAL) CBC without differential (07/14/2024 4:34 [...] ORDERABLES Fin al Result Performing Organization Address City/[facility]/ZIP Co de Phone Number JASON SAEED [address] [employer] [place], [place] [id number] * Basic metabolic panel (07/14/2024 4:34 AM CDT) Sodium 141 135 - 145 mmol/L Potassium, pl 4.2 3.3 - 4.9 mmol/L [facility] Chloride 105 97 - 110 mmol/L [facility] CH CO2 22 22 - 32 mmol/L [facility] Anion gap 14 2 - 15 mmol/L [facility] BUN 17 6 - 25 mg/dL [facility] Creatinine 1.12 0.80 - 1.30 mg/dL [facility] CH Glucose 86 70 - 199 mg/dL [facility] Comment: Interpretive [...] 2022. Calcium 9.0 8.5 - 10.3 mg/dL [facility] Blood 07/14/2024 4:34 AM CDT 07/14/2024 5:28 AM CDT Eduin Lincoln MD LAB BLOOD ORDERABLES Fin al Result Performing Organization Address City/State/[facility] Co de Phone Number [address] Department of Laboratories [place] [phone] * TRANSTHORACIC ECHO (TTE) LIMITED/FOLLOW UP WO DOPPLER/CF WO CONTRAST (07/13/2024 12:45 PM CDT) Pathologist [facility] EF Mod BP 81 % CONS SCIMAGE Anatomical Region Laterality Modality Ultrasound 07/13/2024 12:1 8 PM CDT Narrative 07/13/2024 1:24 [place] [address] Limited Echocardiogram Report Patient Name: CAMILA DONOHUE W : 1955 Study Date: 07/13/2024 12:18:33 PM Gender: M Tech: BE Location: [place] [address] Ref Provider: ESSIE YOUNG Height(Cm): 172 BSA: [...] Procedure Note Elvin Palacios MD - 07/13/2024 [place] [address] Limited Echocardiogram Report Patient Name: CAMILA DONOHUE W : 1955 Study Date: 07/13/2024 12:18:33 PM Gender: M Tech: BE Location: [place] [address] Ref Provider: ESSIE YOUNG Height(Cm): 172 BSA: [...] 6:51 AM CDT) 07/13/2024 6:51 AM CDT [facility] - 07/14/2024 8:26 AM CDT Vent Rate: 84 bpm RR Interval: 708 msec ME Interval: 155 msec QRS Duration: 105 msec QT Interval: 396 msec QTC Interval: 437 msec P-R-T [place]: 47 - -20 - 81 degrees IMPRESSION: SINUS RHYTHM LEFT ATRIAL ENLARGEMENT NONSPECIFIC T-WAVE ABNORMALITY Electronically Signed By: Sam Pope MD, [facility] us Ragini Ramirez INDUSTRIAL HYGIENE TECHNICIAN ECG ORDERABLES Sotero elza Result - Final [facility] * eGFR (07/13/2024 3:41 AM CDT) [...] 3:41 AM CDT 07/13/2024 5:15 AM CDT Eduin Lincoln MD LAB BLOOD ORDERABLES Fin al Result JASON [address] Department [place] [address] * (ABNORMAL) CBC without differential (07/13/2024 3:41 AM CDT) WBC 9.53 3.80 - 9.90 K/cumm Hgb 9.2(L) 13.0 - 17.5 g/dL [facility] Hct 28.9(L) 38.9 - 50.3 % [facility] Plt 575(H) 150 - 400 K/cumm [facility] MPV 10.1 9.1 - 12.3 fL [facility] RBC 4.33 4.30 - 5.80 M/cumm [facility] MCV 66.7(L) 81.3 - 96.4 fL [facility] [...] ORDERABLES Fin al Result Performing Organization Address [facility] de Phone Number JASON SAEED [address] [place] [address] * (ABNORMAL) Hepatic function panel [...] MD LAB BLOOD ORDERABLES Final Resul t Performing Organization Address [facility] Co de Phone Number JASON SAEED [address] [facility] [place] [address] * (ABNORMAL) Basic metabolic panel (07/13/2024 3:41 AM CDT) Sodium 140 135 - 145 mmol/L Potassium, pl 4.2 3.3 - 4.9 mmol/L [facility] CH Chloride 104 97 - 110 mmol/L [facility] CO2 21(L) 22 - 32 mmol/L [facility] Anion gap 15 2 - 15 mmol/L [facility] BUN 18 6 - 25 mg/dL [facility] Creatinine 1.12 0.80 - 1.30 mg/dL [facility] Glucose 85 70 - 199 mg/dL [facility] Comment: Interpretive Data Fasting glucose >/= 126 [...] 2022. Calcium 9.2 8.5 - 10.3 mg/dL [facility] Blood 07/13/2024 3:41 AM CDT 07/13/2024 5:15 AM CDT us Eduin Lincoln MD LAB BLOOD ORDERABLES Fin al Result JASON [address] [facility] Department [place] [address] * Critical Care (07/12/2024 10:13 AM CDT) Narrative Eduin Lincoln MD - 07/12/2024 10:13 AM CDT Eduin Lincoln MD 07/12/2024 10:15 AM Critical Care Performed by: Eduin Lincoln MD Authorized by: Eduin Lincoln MD CRITICAL CARE: Team: NE Shift: AM Level of Billing: Critical Care [...] plan with the ICU team and other medical/building performance consultant staff, making frequent assessments and decisions [...] ORDERABLES Fin al Result Performing Organization Address [facility] Co de Phone Number JASON SAEED [address] [place] [address] * (ABNORMAL) CBC without differential [...] RDW SD 48.9(H) 35.7 - 48.1 fL [facility] NRBC abs 0.00 0.00 - 0.01 K/cumm [facility] Blood 07/12/2024 5:21 AM CDT 07/12/2024 5:30 AM CDT Eduin Lincoln MD LAB BLOOD ORDERABLES Fin al Result JASON SAEED [address] Department [employer] [place], [place] [id number] * Magnesium (07/12/2024 5:21 AM CDT) Magnesium 2.1 1.4 - 2.5 mg/dL Blood 07/12/2024 5:21 AM CDT 07/12/2024 5:29 AM CDT Yolanda Walker MD LAB BLOOD ORDERABLES Final Result JASON SAEED [address] Department [place] [address] * (ABNORMAL) Hepatic function panel (07/12/2024 5:21 [...] BLOOD ORDERABLES Final Result Performing Organization Address City/[facility] Co de Phone Number JASON SAEED [address] Department [place] [address] * Basic metabolic panel (07/12/2024 5:21 AM CDT) Sodium 138 135 - 145 mmol/L Potassium, pl 4.0 3.3 - 4.9 mmol/L [facility] Chloride 104 97 - 110 mmol/L [facility] CH CO2 23 22 - 32 mmol/L [facility] Anion gap 11 2 - 15 mmol/L [facility] CH BUN 15 6 - 25 mg/dL [facility] Creatinine 1.04 0.80 - 1.30 mg/dL [facility] Glucose 95 70 - 199 mg/dL [facility] Comment: [...] CDT 07/12/2024 5:29 AM CDT us Eduin Linconl MD LAB BLOOD ORDERABLES Fin al Result JASON [address] Department [place] [address] * Critical Care (07/11/2024 8:17 PM CDT) [...] plan with the ICU team and other medical/building performance consultant staff, making frequent assessments and decisions [...] plan with the ICU team and other medical/building performance consultant staff, making frequent assessments and decisions [...] AM CDT) 07/11/2024 8:15 AM CDT Narrative [facility] - 07/12/2024 7:57 AM CDT Vent Rate: 119 bpm RR Interval: 501 msec ME Interval: 0 msec QRS Duration: 103 msec QT Interval: 326 msec QTC Interval: 397 msec P-R-T [place]: 0 - -24 - 129 degrees IMPRESSION: ATRIAL FIBRILLATION WITH RAPID VENTRICULAR RESPONSE BORDERLINE LEFT AXIS DEVIATION [QRS AXIS < -20] ST DEVIATION AND MODERATE T-WAVE ABNORMALITY, CONSIDER LATERAL ISCHEMIA [-0.1+ mV T-WAVE IN I/aVL/V5/V6] ABNORMAL ECG Electronically Signed By: Dr. Blanca Mcdonald [facility] Eduin Lincoln MD ECG ORDERABLES Final Re sult [facility] * eGFR (07/11/2024 5:47 AM CDT) [...] ORDERABLES Fin al Result Performing Organization Address [facility] Co de Phone Number JASON SAEED [address] Department [place] [address] * (ABNORMAL) CBC without differential (07/11/2024 5:47 AM CDT) Pathologist [facility] WBC 13.30(H) 3.80 - 9.90 K/cumm Hgb [...] ORDERABLES Fin al Result Performing Organization Address City/[facility]/ZIP Co de Phone Number JASON SAEED [address] Department [place] [address] * (ABNORMAL) Basic metabolic panel (07/11/2024 5:47 AM CDT) Pathologist [facility] Sodium 135 135 - 145 mmol/L Potassium, pl 4.2 3.3 - 4.9 mmol/L [facility] Chloride 103 97 - 110 mmol/L [facility] CO2 20(L) 22 - 32 mmol/L [facility] Anion gap 12 2 - 15 mmol/L [facility] CH BUN 19 6 - 25 mg/dL [facility] Creatinine 1.10 0.80 - 1.30 mg/dL [facility] Glucose 95 70 - 199 mg/dL [facility] Comment: Interpretive Data Fasting glucose >/= 126 [...] 2022. Calcium 8.4(L) 8.5 - 10.3 mg/dL [facility] Blood 07/11/2024 5:47 AM CDT 07/11/2024 5:47 AM CDT Eduin Lincoln MD LAB BLOOD ORDERABLES Fin al Result [facility] [address] Department [place] [address] * Critical Care (07/10/2024 7:52 PM CDT) [...] plan with the ICU team and other medical/building performance consultant staff, making frequent assessments and decisions [...] Hgb 7.5(L) 13.0 - 17.5 g/dL [facility] Hct 23.5(L) 38.9 - 50.3 % [facility] Plt 359 150 - 400 K/cumm [facility] MPV 10.1 9.1 - 12.3 fL [facility] RBC 3.50(L) 4.30 - 5.80 M/cumm [facility] MCV 67.1(L) 81.3 - 96.4 fL [facility] MCH 21.4(L) 27.1 - 33.3 pg [facility] MCHC 31.9(L) 32.3 - 35.7 g/dL [facility] RDW CV 21.5(H) 11.1 - 14.9 % [facility] RDW SD 50.2(H) 35.7 - 48.1 fL [facility] NRBC abs 0.02(H) 0.00 - 0.01 K/cumm [facility] Blood 07/10/2024 1:45 PM CDT 07/10/2024 1:47 PM CDT us Eduin Lincoln MD LAB BLOOD ORDERABLES Fin al Result Performing Organization Address City/State/[facility] [place] [address] [address] Department [place] [address] * Critical Care (07/10/2024 1:31 PM CDT) [...] plan with the ICU team and other medical/building performance consultant staff, making frequent assessments and decisions [...] Transfuse RBC (07/10/2024 12:07 PM CDT) Blood us Eduin Lincoln MD BLOOD TRANSFUSION ORDERA BLES Final Result Performing Organization Address [facility] Co de Phone Number JASON SAEED [address] [address] [facility] [employer] [place] [address] * aPTT (07/10/2024 10:01 AM CDT) aPTT [...] ORDERABLES Fin al Result Performing Organization Address [facility] de Phone Number JASON SAEED [address] [address] [facility] [employer] [place] [address] * (ABNORMAL) Protime-INR (07/10/2024 10:01 AM CDT) Pathologist [facility] PT 14.9(H) 9.7 - 13.0 sec INR [...] ORDERABLES Fin al Result Performing Organization Address [facility] Co de Phone Number JASON SAEED [address] [address] [facility] [employer] [place] [address] * Prepare RBC: 1 Units (07/10/2024 8:18 AM CDT) Product code [id number] Unit Number [id number] 8-S [facility] Product Blood Type ONEG [facility] Dispense Status RETURNED [facility] [facility] Blood 07/10/2024 8:18 AM CDT Narrative [facility] - 07/11/2024 12:14 AM CDT Are special requirements needed? (All products are leukoreduced and CMV- safe)- >No Date required:-[id number] LRRBC # of [id number] Reasons:-Cardiovascular disease, Hgb <8 g/dL} Eduin Lincoln MD BLOOD BANK PRODUCT ORDER PADMINI Final Result Performing Organization Address [facility] Co de Phone Number JASON CHRISTOPHE [address] [place] [address] * eGFR (07/10/2024 5:59 AM [...] ORDERABLES Fin al Result Performing Organization Address City/[facility]/ZIP Co de Phone Number JASON SAEED [address] Department [place] [address] * (ABNORMAL) Basic metabolic panel (07/10/2024 5:59 AM CDT) Sodium 134(L) 135 - 145 mmol/L Potassium, pl 4.2 3.3 - 4.9 mmol/L [facility] Chloride 101 97 - 110 mmol/L [facility] CO2 21(L) 22 - 32 mmol/L [facility] Anion gap 12 2 - 15 mmol/L [facility] BUN 19 6 - 25 mg/dL [facility] CH Creatinine 1.16 0.80 - 1.30 mg/dL [facility] CH Glucose 102 70 - 199 mg/dL [facility] Comment: Interpretive Data Fasting glucose >/= 126 [...] 2022. Calcium 8.3(L) 8.5 - 10.3 mg/dL [facility] Blood 07/10/2024 5:59 AM CDT 07/10/2024 5:59 AM CDT Eduin Lincoln MD LAB BLOOD ORDERABLES Fin al Result JASON [address] Department [place] [address] * (ABNORMAL) CBC without differential (07/10/2024 5:58 AM CDT) Pathologist [facility] WBC 21.22(H) 3.80 - 9.90 K/cumm Hgb 7.0(L) 13.0 - 17.5 g/dL [facility] Hct 22.4(L) 38.9 - 50.3 % [facility] Plt 397 150 - 400 K/cumm [facility] MPV 10.5 9.1 - 12.3 fL [facility] RBC 3.41(L) 4.30 - 5.80 M/cumm [facility] MCV 65.7(L) 81.3 - 96.4 fL [facility] MCH 20.5(L) 27.1 - 33.3 pg [facility] MCHC 31.3(L) 32.3 - 35.7 g/dL [facility] RDW CV 19.5(H) 11.1 - 14.9 % [facility] RDW SD 42.9 35.7 - 48.1 fL [facility] NRBC abs 0.00 0.00 - 0.01 K/cumm [facility] Blood 07/10/2024 5:58 AM CDT 07/10/2024 5:58 AM CDT Eduin Lincoln MD LAB BLOOD ORDERABLES Fin al Result Performing Organization Address City/[facility]/ZIP Co de Phone Number [facility] [address] Department [place] [address] * ECG 12 lead (07/09/2024 11:07 PM CDT) 07/09/2024 11:0 7 PM CDT Narrative [facility] - 07/10/2024 9:43 AM CDT Vent Rate: 96 bpm RR Interval: 624 msec ME Interval: 149 msec QRS Duration: 101 msec QT Interval: 363 msec QTC Interval: 416 msec P-R-T [place]: 40 - -13 - 88 degrees IMPRESSION: SINUS RHYTHM POSSIBLE LEFT ATRIAL ENLARGEMENT [-0.1mV P-WAVE IN V1/V2] NONSPECIFIC ST \T\ T-WAVE ABNORMALITY BORDERLINE ECG NO CHANGE FROM PREVIOUS TRACING NOTED Electronically Signed By: Polo Davenport MD Oniel Hendrickson MD ECG ORDERABLES Final Res ult Performing Organization Address City/[facility]/ZIP Co de Phone Number [facility] [employer] [facility] * XR Chest 1 View (07/09/2024 [...] failure. Electronically signed by: Ady Silva M.D. Oniel Hendrickson MD IMG XR PROCEDURES Final R esult * Critical Care (07/09/2024 7:09 PM CDT) Narrative Oniel Hendrickson MD - 07/09/2024 7:09 PM CDT Oniel Hendrickson MD 07/10/2024 6:18 AM Critical Care Performed by: Oniel Hendrickson MD Authorized by: Oniel Hendrickson MD CRITICAL CARE: Team: GREER Shift: [...] plan with the ICU team and other medical/building performance consultant staff, making frequent assessments and decisions [...] PM CDT) 07/09/2024 4:14 PM CDT Narrative [facility] - 07/09/2024 11:45 PM CDT Vent Rate: 90 bpm RR Interval: 666 msec ME Interval: 150 msec QRS Duration: 103 msec QT Interval: 391 msec QTC Interval: 438 msec P-R-T [place]: 44 - -11 - 91 degrees IMPRESSION: SINUS RHYTHM POSSIBLE LEFT ATRIAL ENLARGEMENT [-0.1mV P-WAVE IN V1/V2] ST ELEVATION, non specific NO CHANGE FROM PREVIOUS TRACING NOTED Electronically Signed By: Polo Davenport MD us Eduin Lincoln MD ECG ORDERABLES Final Re sult [facility] * XR Chest 1 View (07/09/2024 [...] Electronically signed by: Jeremias Block II, D.O. Eduin Lincoln MD IMG XR PROCEDURES Final Result * TRANSTHORACIC ECHO (TTE) LIMITED/FOLLOW UP W LTD DOPPLER/CF WO CONTRAST (07/09/2024 2:29 PM CDT) Anatomical Region Laterality Modality Ultrasound 07/09/2024 1:53 PM CDT Narrative 07/09/2024 2:43 [place] [address] Limited Echocardiogram Report ADDENDUM Patient Name: CAMILA DONOHUE W : 1955 Study Date: 07/09/2024 1:53:48 PM Gender: M Tech: Location: [id number] Ref Provider: EDUIN LINCOLN Height(Cm): 172 BSA: [...] Procedure Note Tali Crane MD - 07/09/2024 [place] [address] Limited Echocardiogram Report ADDENDUM Patient Name: CAMILA DONOHUE W : 1955 Study Date: 07/09/2024 1:53:48 PM Gender: M Tech: RF Location: [id number] Ref Provider: EDUIN ILNCOLN Height(Cm): 172 BSA: 1.89 Weight(Kg): 75 Heart [...] Crane MD 07/09/2024 2:44:19 PM CDT [ADDENDUM] Eduin Lincoln MD CV ECHO PROCEDURES Edite [...] plan with the ICU team and other medical/building performance consultant staff, making frequent assessments and decisions [...] 6:44 AM CDT 07/09/2024 6:46 AM CDT Eduin Lincoln MD LAB BLOOD ORDERABLES Fin al Result [facility] [address] Department [place] [address] * (ABNORMAL) CBC without differential (07/09/2024 6:44 AM CDT) Pathologist [facility] WBC 22.68(H) 3.80 - 9.90 K/cumm Hgb 7.5(L) 13.0 - 17.5 g/dL [facility] Hct 23.8(L) 38.9 - 50.3 % [facility] Plt 351 150 - 400 K/cumm [facility] MPV 9.9 9.1 - 12.3 fL [facility] RBC 3.63(L) 4.30 - 5.80 M/cumm [facility] MCV 65.6(L) 81.3 - 96.4 fL [facility] [...] MD LAB BLOOD ORDERABLES Fin al Result [facility] [address] Department [place] [address] * (ABNORMAL) Basic metabolic panel (07/09/2024 6:44 AM CDT) Sodium 138 135 - 145 mmol/L Potassium, pl 4.1 3.3 - 4.9 mmol/L [facility] Chloride 102 97 - 110 mmol/L [facility] CO2 22 22 - 32 mmol/L [facility] Anion gap 14 2 - 15 mmol/L [facility] BUN 16 6 - 25 mg/dL [facility] Creatinine 1.20 0.80 - 1.30 mg/dL [facility] Glucose 97 70 - 199 mg/dL [facility] Comment: [...] 2022. Calcium 8.3(L) 8.5 - 10.3 mg/dL [facility] Blood 07/09/2024 6:44 AM CDT 07/09/2024 6:46 AM CDT us Eduin Lincoln MD LAB BLOOD ORDERABLES Fin al Result JASON SAEED [address] Department [place] [address] * XR Chest 1 Vw Portable (07/09/2024 [...] BLOOD ORDERABLES Fin al Result JASON SAEED [address] Department [place] [address] * (ABNORMAL) CBC without differential (07/08/2024 9:38 [...] CH MCHC 31.1(L) 32.3 - 35.7 g/dL [facility] RDW CV 19.6(H) 11.1 - 14.9 % [facility] RDW SD 43.6 35.7 - 48.1 fL [facility] NRBC abs 0.03(H) 0.00 - 0.01 K/cumm [facility] Blood 07/08/2024 9:38 PM CDT 07/08/2024 9:47 PM CDT us Eduin Lincoln MD LAB BLOOD ORDERABLES Fin al Result [facility] [address] Department [place] [address] * Critical Care (07/08/2024 10:43 AM CDT) [...] plan with the ICU team and other medical/building performance consultant staff, making frequent assessments and decisions [...] Transfuse RBC (07/08/2024 9:37 AM CDT) Blood us Anika PARISI BLOOD TRANSFUSION [place] [address] [address] Department [place] [address] * XR Chest 1 Vw Portable (07/08/2024 [...] ORDERABLES Fin al Result Performing Organization Address City/State/ZIP Co id Phone Number [facility] [address] Department [place] [address] * aPTT (07/08/2024 5:31 AM [...] ORDERABLES Fin al Result Performing Organization Address [facility] Co de Phone Number JASON SAEED [address] [facility] [employer] [place] [address] * (ABNORMAL) Protime-INR (07/08/2024 5:31 AM CDT) PT 13.5(H) 9.7 - 13.0 sec INR 1.24(H) 0.90 - 1.20 [facility] Comment: Interpretive data Oral anticoagulant therapeutic ranges: Venous thromboembolism prophylaxis or treatment: 2.0-3.0 CARDIOLOGY Standard range: 2.0-3.0 High-intensity range: 2.5-3.5 Refer to indication-specific guidelines for appropriate target ranges for prosthetic heart valve replacement. Current interpretive data was last revised on 2019. Blood 07/08/2024 5:31 AM CDT 07/08/2024 5:35 AM CDT Eduin Lincoln MD LAB BLOOD ORDERABLES Fin al Result Performing Organization Address [facility] Co de Phone Number JASON SAEED [address] Department [employer] [place] [address] * (ABNORMAL) CBC without differential (07/08/2024 5:31 AM CDT) WBC 18.93(H) 3.80 - 9.90 K/cumm Hgb 8.0(L) 13.0 - 17.5 g/dL [facility] Hct 25.4(L) 38.9 - 50.3 % [facility] Plt 343 150 - 400 K/cumm [facility] MPV 10.0 9.1 - 12.3 fL [facility] RBC 3.84(L) 4.30 - 5.80 M/cumm [facility] MCV 66.1(L) 81.3 - 96.4 fL [facility] MCH 20.8(L) 27.1 - 33.3 pg [facility] MCHC 31.5(L) 32.3 - 35.7 g/dL [facility] RDW CV 19.8(H) 11.1 - 14.9 % [facility] RDW SD 43.7 35.7 - 48.1 fL [facility] NRBC abs 0.00 0.00 - 0.01 K/cumm [facility] Blood 07/08/2024 5:31 AM CDT 07/08/2024 1:58 PM CDT Eduin Lincoln MD LAB BLOOD ORDERABLES Fin al Result Performing Organization Address [facility] Co de Phone Number JASON SAEED [address] [place] [address] * (ABNORMAL) CBC without differential (07/08/2024 5:31 AM CDT) WBC 17.63(H) 3.80 - 9.90 K/cumm Hgb 6.7(L) 13.0 - 17.5 g/dL [facility] Hct 21.7(L) 38.9 - 50.3 % [facility] Plt 333 150 - 400 K/cumm [facility] MPV 10.4 9.1 - 12.3 fL [facility] RBC 3.41(L) 4.30 - 5.80 M/cumm [facility] [...] ORDERABLES Fin al Result Performing Organization Address City/[facility] Co de Phone Number JASON SAEED [address] Department [place] [address] * (ABNORMAL) Basic metabolic panel (07/08/2024 5:31 [...] 2022. Calcium 8.2(L) 8.5 - 10.3 mg/dL [facility] Blood 07/08/2024 5:31 AM CDT 07/08/2024 5:35 AM CDT Eduin Lincoln MD LAB BLOOD ORDERABLES Fin al Result [facility] [address] Department [place] [address] * (ABNORMAL) CBC without differential (07/07/2024 11:57 PM CDT) Pathologist [facility] WBC 19.71(H) 3.80 - 9.90 K/cumm Hgb 7.2(L) 13.0 - 17.5 g/dL [facility] Hct 22.8(L) 38.9 - 50.3 % [facility] Plt 338 150 - 400 K/cumm [facility] MPV 10.5 9.1 - 12.3 fL [facility] RBC 3.58(L) 4.30 - 5.80 M/cumm [facility] MCV 63.7(L) 81.3 - 96.4 fL [facility] MCH 20.1(L) 27.1 - 33.3 pg [facility] MCHC 31.6(L) 32.3 - 35.7 g/dL [facility] RDW CV 16.9(H) 11.1 - 14.9 % [facility] RDW SD 38.1 35.7 - 48.1 fL [facility] NRBC abs 0.00 0.00 - 0.01 K/cumm [facility] Morphologic Screen Results confirmed by manual morphology review. [facility] Blood 07/07/2024 11:5 7 PM CDT 07/08/2024 12:06 AM CDT Eduin Lincoln MD LAB BLOOD ORDERABLES Fin al Result Performing Organization Address City/[facility]/ZIP Co de Phone Number [facility] [address] [place], [place] [id number] * Lactate (07/07/2024 8:59 PM CDT) Pathologist [facility] Lactate 1.0 0.7 - 2.0 mmol/L Blood 07/07/2024 8:59 PM CDT 07/07/2024 9:01 PM CDT Anika PARISI LAB BLOOD ORDERABLES Fin al Result Performing Organization Address City/[facility] Co de Phone Number [facility] [address] Department of [employer] [place] [address] * (ABNORMAL) CBC without differential (07/07/2024 6:01 PM CDT) WBC 22.30(H) 3.80 - 9.90 K/cumm Hgb 7.7(L) 13.0 - 17.5 g/dL [facility] Hct 24.6(L) 38.9 - 50.3 % [facility] Plt 381 150 - 400 K/cumm [facility] MPV 10.2 9.1 - 12.3 fL [facility] RBC 3.87(L) 4.30 - 5.80 M/cumm [facility] MCV 63.6(L) 81.3 - 96.4 fL [facility] MCH 19.9(L) 27.1 - 33.3 pg [facility] MCHC 31.3(L) 32.3 - 35.7 g/dL [facility] RDW CV 17.2(H) 11.1 - 14.9 % [facility] RDW SD 38.3 35.7 - 48.1 fL [facility] NRBC abs 0.00 0.00 - 0.01 K/cumm [facility] Morphologic Screen Results confirmed by manual morphology review. [facility] Blood 07/07/2024 6:01 PM CDT 07/07/2024 6:09 PM CDT Eduin Lincoln MD LAB BLOOD ORDERABLES Fin al Result Performing Organization Address [facility] de Phone Number [facility] [address] [place] [address] * Type and screen (07/07/2024 6:01 PM CDT) [facility] Yuliya, indirect Negative ABO Rh O Negative [facility] Blood 07/07/2024 6:01 PM CDT 07/07/2024 6:22 PM CDT Narrative [facility] - 07/07/2024 7:00 PM CDT Has the patient had Daratumumab or Isatuximab in the past 6 months?->Unknown Eduin Lincoln MD LAB BLOOD BANK TEST ORDE RABLES Final Result Performing Organization Address City/[facility] Co de Phone Number [facility] [address] [facility] [employer] [place] [address] * Prepare RBC: 2 Units (07/07/2024 5:14 PM CDT) [facility] Product code [id number] Unit Number [id number] [facility] Product Blood Type ONEG [facility] Dispense Status PRESUMED TRANSFUSED [facility] Blood 07/07/2024 5:14 PM CDT Narrative [facility] - 07/09/2024 10:15 AM CDT Are special requirements needed? (All products are leukoreduced and CMV- safe)- >No Donor Source->Allogeneic Date required:-[id number] LRRBC # of [id number] Reasons:-Hemorrhagic shock/Life-threatening bleeding} Eduin Lincoln MD BLOOD BANK PRODUCT ORDER PADMINI Final Result Performing Organization Address [facility] de Phone Number JASON [address] [address] [facility] [employer] [place] [address] * Prepare RBC: 1 Units (07/07/2024 4:54 PM CDT) Pathologist [facility] Product code [id number] Unit Number [id number] [facility] Product Blood Type ONEG [facility] Dispense Status PRESUMED TRANSFUSED [facility] Blood 07/07/2024 4:54 PM CDT Narrative [facility] - 07/10/2024 10:15 PM CDT Are special requirements needed? (All products are leukoreduced and CMV- safe)- >No Donor Source->[employer] Date required:-[id number] LRRBC # of [id number] Reasons:-Hemorrhagic shock/Life-threatening bleeding} Eduin Lincoln MD BLOOD BANK PRODUCT ORDER PADMINI Final Result Performing Organization Address [facility] de Phone Number JASON SAEED [address] Department [place] [address] * (ABNORMAL) CBC without differential (07/07/2024 4:45 PM CDT) Pathologist [facility] WBC 23.12(H) 3.80 - 9.90 K/cumm Hgb 7.7(L) 13.0 - 17.5 g/dL [facility] Hct 24.6(L) 38.9 - 50.3 % [facility] Plt 321 150 - 400 K/cumm [facility] [...] Screen Results confirmed by manual morphology review. [facility] Blood 07/07/2024 4:45 PM CDT 07/07/2024 4:48 PM CDT us Eduin Lincoln MD LAB BLOOD ORDERABLES Fin al Result [facility] [address] Department [place] [address] * (ABNORMAL) POC Blood Gas and Chemistries, [...] - DEVIC E Final Result JASON SAEED [address] [place] [address] * CT Chest Abdomen Pelvis W Contrast [...] suspicious lytic or blastic osseous lesions. Multilevel dvme-ei-[id number] degenerative disc disease throughout the thoracic and [...] suspicious lytic or blastic osseous lesions. Multilevel njtr-an-cwpiebzn degenerative disc disease throughout the thoracic and [...] plan with the ICU team and other medical/building performance consultant staff, making frequent assessments and decisions [...] AM CDT Narrative 07/07/2024 11:30 AM CDT [address], [place] [address] Limited Echocardiogram Report Patient Name: CAMILA DONOHUE W : 1955 Study Date: 07/07/2024 8:03:40 AM Gender: M [facility]: [place] Location: [id number] Ref Provider: SHARON SALINAS Height(Cm): 173 BSA: [...] effusion. Electronically Signed By: Dr. Blanca Mcdonald [facility] 07/07/2024 11:30:08 AM CDT Procedure Note Blanca Mcdonald MD - 07/07/2024 [place] [id number] Limited Echocardiogram Report Patient Name: CAMILA DONOHUE W : 1955 Study Date: 07/07/2024 8:03:40 AM Gender: M Tech: [place] Location: [id number] Ref Provider: SHARON SALINAS Height(Cm): 173 BSA: [...] effusion. Electronically Signed By: Dr. Blanca Mcdonald [facility] 07/07/2024 11:30:08 AM CDT Sharon Salinas MD [...] Lovett MD LAB BLOOD ORDERABLES Final Result [facility] [address] Department [place] [address] * (ABNORMAL) CBC without differential (07/07/2024 4:40 AM CDT) WBC 16.99(H) 3.80 - 9.90 K/cumm Hgb 8.8(L) 13.0 - 17.5 g/dL [facility] Hct 27.9(L) 38.9 - 50.3 % [facility] Plt 350 150 - 400 K/cumm [facility] MPV 10.1 9.1 - 12.3 fL [facility] RBC 4.44 4.30 - 5.80 M/cumm [facility] MCV 62.8(L) 81.3 - 96.4 fL [facility] MCH 19.8(L) 27.1 - 33.3 pg [facility] MCHC 31.5(L) 32.3 - 35.7 g/dL [facility] RDW CV 17.0(H) 11.1 - 14.9 % [facility] RDW SD 37.2 35.7 - 48.1 fL [facility] NRBC abs 0.00 0.00 - 0.01 K/cumm [facility] Morphologic Screen Results confirmed by manual morphology review. [facility] Blood 07/07/2024 4:40 AM CDT 07/07/2024 4:49 AM CDT us Rudi Lovett MD LAB BLOOD ORDERABLES Final Result JASON SAEED [address] Department [employer] [place], [place] [id number] * Lipase (07/07/2024 4:40 AM CDT) Lipase 22 10 - 99 Units/L Blood 07/07/2024 4:40 AM CDT 07/07/2024 12:28 PM CDT Eduin Lincoln MD LAB BLOOD ORDERABLES Fin al Result Performing Organization Address [facility]/ZIP Co de Phone Number JASON SAEED [address] Department [employer] [place] [address] * (ABNORMAL) Hepatic function panel (07/07/2024 4:40 [...] 4:40 AM CDT 07/07/2024 12:28 PM CDT us Gurvinder Burciaga MD LAB BLOOD ORDERABLES Final R esult Performing Organization Address City/[facility]/ZIP Co de Phone Number JASON SAEED [address] Department [employer] [place] [address] * (ABNORMAL) Basic metabolic panel (07/07/2024 4:40 AM CDT) Sodium 136 135 - 145 mmol/L Potassium, pl 4.4 3.3 - 4.9 mmol/L [facility] Chloride 106 97 - 110 mmol/L [facility] CO2 20(L) 22 - 32 mmol/L [facility] Anion gap 10 2 - 15 mmol/L [facility] BUN 21 6 - 25 mg/dL [facility] Creatinine 1.21 0.80 - 1.30 mg/dL [facility] Glucose 94 70 - 199 mg/dL [facility] Comment: Interpretive Data Fasting glucose >/= 126 [...] 2022. Calcium 7.8(L) 8.5 - 10.3 mg/dL [facility] Blood 07/07/2024 4:40 AM CDT 07/07/2024 4:49 AM CDT us Rudi Lovett MD LAB BLOOD ORDERABLES Final Result [facility] [address] Department [place] [address] * (ABNORMAL) Troponin T high-sensitivity 6-hour (07/06/2024 [...] BLOOD ORDERABLES Final Result Performing Organization Address [facility] Co de Phone Number JASON [address] Department [place] [address] * POCT glucose (07/06/2024 9:11 PM CDT) Glucose, POC 105 70 - 199 mg/dL POC Performer [id number] JASON Blood 07/06/2024 9:11 PM CDT 07/06/2024 9:11 PM CDT Rudi Lovett MD LAB POCT ORDERABLES - DEVIC E Final Result Performing Organization Address City/[facility] Co de Phone Number JASON [address] Department of [employer] [place] [address] * Critical Care (07/06/2024 8:46 PM CDT) Narrative Oniel Hendrickson MD - 07/06/2024 8:46 PM CDT Oniel Hendrickson MD 07/07/2024 3:19 AM Critical Care Performed by: Oniel Hendrickson MD Authorized by: Oniel Hendrickson MD CRITICAL CARE: Team: GREER Shift: PM Level of Billing: Subsequent Hospital [...] plan with the patient's team and other medical/building performance consultant staff. This time was in addition [...] PARISI LAB BLOOD ORDERABLES Final Result JASON [address] Department [place] [address] * XR Chest 1 View (07/06/2024 6:19 [...] MD IMG XR PROCEDURES Final Result * LEFT HEART CATHETERIZATION WITH CORONARY ANGIOGRAPHY AND WITH AND WITHOUT LEFT VENTRICULOGRAM (07/06/2024 5:12 PM CDT) Anatomical Region Laterality Modality X-Ray Angiograph y Narrative 08/21/2024 8:18 AM CDT PROCEDURE Pericardiocentesis INDICATION Large pericardial effusion and tamponade physiology OPERATORS Wayne Huang, Sharon Drew, PROCEDURE DETAILS Confirming consent was obtained Time-out was done identifying the right patient and access site Moderate sedation was done using versed and fentanyl. Sedation start time 30 min. Sedation was administered under my supervision and RN in the room with continuous monitoring of patient's vital signs, airway and hemodynamic. Sedation was tolerated very well by the patient and at the end of the procedure patient was conscious. Access site was subxiphoid space draped and prepped in a sterile fashion. Pericardial access was obtained using a micro puncture needle under fluoroscopy. Location was confirmed with TTE bubble study. Access was serially dilated and the pigtail catheter was inserted into the pericardium. 600 ml of hemorrhagic was drained from pericardium TTE was done and confirmed successful drainage Blood pressure at the beginning of the procedure was 110/70 and end of procedure was 161/[address] CONCLUSION Successful drainage of pericardial effusion and drainage left in place RECOMMENDATION Send samples for lab including cell counts, glucose level, pH, Culture and grain stain Record output from drain TTE when drain < 50 ml per day Wayne Huang MD CV CARDIAC CATH PROCEDURES Final Result * Critical Care (07/06/2024 4:33 PM CDT) Narrative Rudi Lovett MD - 07/06/2024 4:33 PM CDT Rudi Lovett MD 07/06/2024 6:09 PM Critical Care Performed by: Rudi Lovett MD Authorized by: Rudi Lovett MD CRITICAL CARE: Team: [facility]OSS[facility] Shift: AM Level of Billing: Initial Hospital [...] plan with the patient's team and other medical/building performance consultant staff. This time was in addition to and separate from care provided by other practitioners on this day of service. Rudi Lovett MD IN CLINIC/BEDSIDE ORDERABLE S Final Result * Hematocrit, Body Fluid (07/06/2024 4:30 PM CDT) Specimen type, fld Pericardial Comment:Testing performed by : [facility], [address] [place] [place] [address] Hct, fld 27 % JASON SAEED Comment: Interpretive Data Unless otherwise specified, the reference range and other method performance specifications have not been established for CSF/Body Fluid tests. The test results should be integrated into the clinical context for interpretation. Current interpretive data was last revised on 2018. Testing performed by: [facility], [address] [place]., [address] Fluid 07/06/2024 4:30 PM CDT 07/06/2024 7:55 PM CDT Sharon Salinas MD LAB BODY FLUIDS AND STOOLS ORDER PADMINI Final Result JASON [address] Department [place] [address] * Cell Differential, Body Fluid [...] ORDER PADMINI Final Result Performing Organization Address [facility] de Phone Number JASON [address] [address] [facility] [employer] [place] [address] * Cell count w/rflx diff, body fluid (07/06/2024 4:30 PM CDT) Pathologist [facility] Specimen type, fld Pericardial Color, fld Red [...] ORDER PADMINI Final Result Performing Organization Address [facility] Co de Phone Number JASON [address] [address] [facility] [employer] [place] [address] * Mycology (fungal) culture and stain Pericardial fluid Pericardium (07/06/2024 4:30 PM CDT) Direct Specimen Exam Stain: No Fungal elements seen. Comment:Testing performed by : [facility], [address] [place]., [address] Report Final Report: No growth of fungus JASON SAEED Comment:Testing performed by : [facility], [address] [place]., [address] Pericardial fluid (Pericardium) 07/06/2024 4:30 PM CDT 07/06/2024 8:21 PM CDT Narrative JASON SAEED - 08/03/2024 7:32 AM CDT Fluid specimen received. Testing performed by [facility] ([phone]). Sharon Salinas MD LAB MICROBIOLOGY - GENERAL ORDER PADMINI Final Result JASON SAEED [address] Department [place] [address] * Aerobic and anaerobic culture and gram stain Pericardial fluid Pericardium (07/06/2024 4:30 PM CDT) Direct Specimen Exam Stain: Cytospin Gram stain shows: Abundant polymorphonuclear leukocytes seen. Red blood cells present. No organisms seen. Comment:Testing performed by : [facility], [address] [place]., [address] Report Final Report: No growth JASON SAEED Comment:Testing performed by : [facility], [address] [place]., [address] Pericardial fluid (Pericardium) 07/06/2024 4:30 PM CDT 07/06/2024 8:21 PM CDT Narrative JASON - 07/10/2024 11:16 AM CDT Fluid specimen received. Testing performed by [facility] ([phone]) Specimens submitted from normally sterile body sites [...] ORDER PADMINI Final Result Performing Organization Address [facility] Co de Phone Number JASON SAEED [address] [address] [facility] [employer] [place] [address] * Protein, body fluid (07/06/2024 4:30 PM CDT) Specimen type, fld Pericardial Comment:Testing performed by : [facility], [address] [place] [address]., [id number] Protein, fld 5.6 g/dL JASNO SAEED Comment: The above specimen type is [...] was last revised 2018. Testing performed by: [facility], [address] [place] [address]., [address] Fluid 07/06/2024 4:30 PM CDT 07/06/2024 7:55 PM CDT us Sharon Salinas MD LAB BODY FLUIDS AND STOOLS ORDER PADMINI Final Result Performing Organization Address [facility]/ZIP Co de Phone Number OTISFAUSTO SAEED [address] Department [place] [address] * Glucose, body fluid (07/06/2024 4:30 PM CDT) Specimen type, fld Pericardial Comment:Testing performed by : [facility], [address] [place]., [address] Glucose, fld 37 mg/dL JASON SAEED Comment: [...] and Management. Tevin Clin J Med 2005;72:854-72. [employer] Test directory, Body Fluid Reference Intervals and/or Interpretative Information. [email or web address] Anusha ALTMAN et al. Pancreatic cyst fluid glucose: rapid, inexpensive, and accurate diagnosis of mucinous pancreatic cysts. Surgery 2018;163:600-5. Marsha AGUILAR et al. Differential diagnosis of pancreatic cysts: A prospective study on the role of intra-cystic glucose concentration. Digestive Liver Dis 2020;52:1026-32. Current Interpretive Data was last revised 2021. Testing performed by: [facility], [address] [place]., [address] Fluid 07/06/2024 4:30 PM CDT 07/06/2024 7:55 PM CDT Narrative JASON SAEED - 07/06/2024 8:17 PM CDT Body Fluid Type->Pericardial Sharon Salinas MD LAB BODY FLUIDS AND STOOLS ORDER PADMINI Final Result JASON SAEED [address] Department [place] [address] * XR Chest 1 Vw Portable (07/06/2024 [...] BLOOD ORDERABLES Final Result Performing Organization Address [facility]/ZIP Co de Phone Number JASON SAEED [address] [address] Department of [employer] [place] [address] * (ABNORMAL) eGFR (07/06/2024 3:02 [...] LAB BLOOD ORDERABLES Final Result JASON SAEED [address] Department [place] [address] * (ABNORMAL) Differential, auto (07/06/2024 3:02 PM CDT) Neutrophil abs 11.91(H) 1.50 - 6.50 K/cumm Imm gran abs 0.25(H) 0.00 - 0.10 K/cumm [facility] Lymphocyte abs 1.62 0.80 - 3.30 K/cumm [facility] Monocyte abs 1.07(H) 0.20 - 0.80 K/cumm [facility] Eosinophil abs 0.01 0.00 - 0.50 K/cumm [facility] Basophil abs 0.04 0.00 - 0.10 K/cumm [facility] Neutrophil pct 79.8 % [facility] Comment: Interpretive Data Percent cell count reference ranges are not reported, since discordance with absolute values may lead to misinterpretation of CBC data. Current Interpretive Data was last revised on 2017. Imm gran pct 1.7 % [facility] Comment: Interpretive Data Percent cell count reference ranges are not reported, since discordance with absolute values may lead to misinterpretation of CBC data. Current Interpretive Data was last revised on 2017. Lymphocyte pct 10.9 % [facility] Comment: Interpretive Data Percent cell count reference ranges are not reported, since discordance with absolute values may lead to misinterpretation of CBC data. Current Interpretive Data was last revised on 2017. Monocyte pct 7.2 % [facility] Comment: Interpretive Data Percent cell count reference ranges are not reported, since discordance with absolute values may lead to misinterpretation of CBC data. Current Interpretive Data was last revised on 2017. Eosinophil pct 0.1 % [facility] Comment: Interpretive Data Percent cell count reference ranges are not reported, since discordance with absolute values may lead to misinterpretation of CBC data. Current Interpretive Data was last revised on 2017. Basophil pct 0.3 % [facility] Comment: Interpretive Data Percent cell count reference ranges are not reported, since discordance with absolute values may lead to misinterpretation of CBC data. Current Interpretive Data was last revised on 2017. Blood 07/06/2024 3:02 PM CDT 07/06/2024 3:08 PM CDT us Danny PARISI LAB BLOOD ORDERABLES Final Result JASON [address] Department of [employer] [place] [address] * Pro B-type natriuretic peptide (07/06/2024 3:02 [...] LAB BLOOD ORDERABLES Final Result JASON SAEED [address] Department [place] [address] * (ABNORMAL) CBC with auto differential (07/06/2024 3:02 PM CDT) WBC 14.90(H) 3.80 - 9.90 K/cumm Hgb 10.0(L) 13.0 - 17.5 g/dL [facility] Hct 31.4(L) 38.9 - 50.3 % [facility] Plt 395 150 - 400 K/cumm [facility] MPV 10.1 9.1 - 12.3 fL [facility] RBC 4.96 4.30 - 5.80 M/cumm [facility] MCV 63.3(L) 81.3 - 96.4 fL [facility] MCH 20.2(L) 27.1 - 33.3 pg [facility] MCHC 31.8(L) 32.3 - 35.7 g/dL [facility] RDW CV 17.4(H) 11.1 - 14.9 % [facility] RDW SD 37.9 35.7 - 48.1 fL [facility] NRBC abs 0.02(H) 0.00 - 0.01 K/cumm [facility] Morphologic Screen Results confirmed by manual morphology review. [facility] Blood 07/06/2024 3:02 PM CDT 07/06/2024 3:08 PM CDT us Danny PARISI LAB BLOOD ORDERABLES Final Result JASON SAEED [address] Department [place] [address] * (ABNORMAL) aPTT (07/06/2024 3:02 PM CDT) aPTT 45(H) 28 - 38 sec Comment: Interpretive Data Heparin therapeutic range: 66.0 - 100.0 seconds. Range based on correlation with therapeutic heparin activity range of 0.3 - 0.7 Units/mL. Current interpretive data was last revised on 2022. Blood 07/06/2024 3:02 PM CDT 07/06/2024 3:08 PM CDT us Rosa Welch MD LAB BLOOD ORDERABLES Final Resu lt JASON SAEED [address] Department [place] [address] * (ABNORMAL) Protime-INR (07/06/2024 3:02 PM CDT) PT 32.3(H) 9.7 - 13.0 sec INR 2.93(H) 0.90 - 1.20 JASON Comment: Interpretive data Oral anticoagulant therapeutic ranges: Venous thromboembolism prophylaxis or treatment: 2.0-3.0 CARDIOLOGY Standard range: 2.0-3.0 High-intensity range: 2.5-3.5 Refer to indication-specific guidelines for appropriate target ranges for prosthetic heart valve replacement. Current interpretive data was last revised on 2019. Blood 07/06/2024 3:02 PM CDT 07/06/2024 3:08 PM CDT us Rosa Welch MD LAB BLOOD ORDERABLES Final Resu lt JASON SAEED [address] Department [place] [address] * (ABNORMAL) Comprehensive metabolic panel (07/06/2024 3:02 PM CDT) Sodium 128(L) 135 - 145 mmol/L Potassium, pl 5.5(H) 3.3 - 4.9 mmol/L [facility] Chloride 94(L) 97 - 110 mmol/L [facility] CO2 23 22 - 32 mmol/L [facility] Anion gap 11 2 - 15 mmol/L [facility] BUN 29(H) 6 - 25 mg/dL [facility] Creatinine 1.35(H) 0.80 - 1.30 mg/dL [facility] Glucose 118 70 - 199 mg/dL [facility] Comment: Interpretive Data Fasting glucose >/= 126 [...] BLOOD ORDERABLES Final Result Performing Organization Address City/State/[facility] Co de Phone Number [facility] [address] Department [place] [address] * ME CRITICAL CARE ILL/INJURED PATIENT INIT 30-74 MIN [...] PM CDT) 07/06/2024 2:46 PM CDT Narrative [facility] - 07/06/2024 2:57 PM CDT Vent Rate: 75 bpm RR Interval: 795 msec ME Interval: 166 msec QRS Duration: 109 msec QT Interval: 414 msec QTC Interval: 443 msec P-R-T [place]: 58 - -31 - 83 degrees IMPRESSION: [...] Rosa Welch MD ECG ORDERABLES Final Result [facility] * Cytology (07/06/2024 12:00 AM CDT) Fluid (Pericardial) 07/06/2024 07/06/2024 9:14 AM CDT Narrative PATHOLOGY CH - 07/11/2024 6:24 PM CDT EPIC results best viewed via link to PDF [facility] Department of Pathology [address] [place] [address] Note to Patients: This report may [...] Final Report Patient Name: CAMILA DONOHUE Address: [address] [place] [address] Gender: M : 1955 (Age: 68) Service: Cardiology Location: [facility] # [id number] Patient Type: IP Taken: 07/06/2024 Received: 07/06/2024 Accessioned: 07/09/2024 Reported: 07/11/2024 Physician(s): Gisela Waters, Diagnosis: Pericardial fluid, cytology: - Negative for [...] determined by the Surgical Pathology Department at [facility] as part of an ongoing rn clinical quality program and in compliance with federally mandated [...] characteristics determined by the Surgical Pathology Department [facility]. It has not been cleared or approved by the U. S. Food and Drug Administration. Unless otherwise noted all cytology processing, staining and screening is performed at [facility] ([address] [place] [address]). REPORT IMAGES AND SCANNED DOCUMENTS, IF INCLUDED, ONLY VIEWABLE IN PDF VERSION OF REPORT Sharon Salinas MD LAB CYTOLOGY ORDERABLES [place] [address] * XR Chest 1 Vw Portable (06/27/2024 [...] signed by: Curry Vallejo M.D. Asher Melendez INDUSTRIAL HYGIENE TECHNICIAN IMG XR PROCEDURES Final Res ult * (ABNORMAL) Blood smear review (06/27/2024 7:24 AM CDT) RBC morphology Present(A) Anisocytosis Moderate(A) JASON SAEED Elliptocytes 3-7/HPF(A) JASON SAEED Platelet estimate Adequate JASON Blood 06/27/2024 7:24 AM CDT 06/27/2024 7:39 AM CDT Guadalupe Lewis INDUSTRIAL HYGIENE TECHNICIAN LAB BLOOD ORDERABLES Fin al Result Performing Organization Address [facility] Co de Phone Number JASON SAEED [address] [place] [address] * eGFR (06/27/2024 7:24 AM [...] CDT 06/27/2024 7:38 AM CDT Guadalupe Lewis NP LAB BLOOD ORDERABLES Fin al Result Performing Organization Address City/[facility]/ZIP Co de Phone Number OTISFAUSTO SAEED [address] [address] Department [place] [address] * (ABNORMAL) CBC without differential (06/27/2024 7:24 AM CDT) WBC 16.81(H) 3.80 - 9.90 K/cumm Hgb 11.1(L) 13.0 - 17.5 g/dL [facility] Hct 36.1(L) 38.9 - 50.3 % [facility] Plt 239 150 - 400 K/cumm [facility] MPV 10.7 9.1 - 12.3 fL [facility] RBC 5.66 4.30 - 5.80 M/cumm [facility] MCV 63.8(L) 81.3 - 96.4 fL [facility] MCH 19.6(L) 27.1 - 33.3 pg [facility] MCHC 30.7(L) 32.3 - 35.7 g/dL [facility] RDW CV 18.2(H) 11.1 - 14.9 % [facility] RDW SD 38.6 35.7 - 48.1 fL [facility] NRBC abs 0.00 0.00 - 0.01 K/cumm [facility] Blood 06/27/2024 7:24 AM CDT 06/27/2024 7:39 AM CDT Guadalupe Lewis INDUSTRIAL HYGIENE TECHNICIAN LAB BLOOD ORDERABLES Sotero elza Result - Final [facility] [address] Department [place] [address] * Basic metabolic panel (06/27/2024 7:24 AM CDT) Pathologist [facility] Sodium 136 135 - 145 mmol/L Potassium, pl 3.8 3.3 - 4.9 mmol/L [facility] Chloride 102 97 - 110 mmol/L [facility] CO2 23 22 - 32 mmol/L [facility] Anion gap 11 2 - 15 mmol/L [facility] BUN 24 6 - 25 mg/dL [facility] Creatinine 1.26 0.80 - 1.30 mg/dL [facility] Glucose 123 70 - 199 mg/dL [facility] Comment: Interpretive Data Fasting glucose >/= 126 [...] 2022. Calcium 8.8 8.5 - 10.3 mg/dL JASON Blood 06/27/2024 7:24 AM CDT 06/27/2024 7:38 AM CDT Guadalupe Lewis NP LAB BLOOD ORDERABLES Fin al Result Performing Organization Address [facility] Co de Phone Number JASON [address] Department [place] [address] * ECG 12 lead (06/27/2024 7:17 AM CDT) 06/27/2024 7:17 AM CDT Narrative [facility] - 06/27/2024 9:58 AM CDT Vent Rate: 116 bpm RR Interval: 514 msec ME Interval: 0 msec QRS Duration: 102 msec QT Interval: 337 msec QTC Interval: 406 msec P-R-T [place]: 0 - -15 - 58 degrees IMPRESSION: ATRIAL FIBRILLATION WITH RAPID VENTRICULAR RESPONSE ST ELEVATION CONSISTENT WITH INJURY, PERICARDITIS, OR EARLY REPOLARIZATION [ST ELEVATION W/O NORMALLY INFLECTED T-WAVE] NONSPECIFIC ST \T\ T-WAVE ABNORMALITY ABNORMAL ECG Electronically Signed By: Dr. Blanca Mcdonald [facility] us Jesus Goldman MD ECG ORDERABLES Final Result Performing Organization Address [facility] Co de Phone Number [facility] * ECG 12 lead (06/27/2024 6:05 AM CDT) 06/27/2024 6:05 AM CDT Narrative [facility] - 06/27/2024 9:58 AM CDT Vent Rate: 105 bpm RR Interval: 569 msec ME Interval: 0 msec QRS Duration: 99 msec QT Interval: 345 msec QTC Interval: 406 msec P-R-T [place]: 0 - -8 - 35 degrees IMPRESSION: ATRIAL FIBRILLATION WITH RAPID VENTRICULAR RESPONSE ST ELEVATION, CONSIDER lateral injury ACUTE [place] Electronically Signed By: Dr. Blanca Mcdonald [facility] us Gurvinder Burciaga MD ECG ORDERABLES Final Result [facility] * Type and screen (06/26/2024 3:47 PM CDT) Yuliya, indirect Negative ABO Rh O Negative [facility] Blood 06/26/2024 3:47 PM CDT 06/26/2024 4:08 PM CDT Narrative JASON - 06/26/2024 4:50 PM CDT Has the patient had Daratumumab or Isatuximab in the past 6 months?->Unknown us Diana Olmos NP LAB BLOOD BANK TEST ORDERA BLES Final Result Performing Organization Address City/[facility] Co de Phone Number [facility] [address] Department [place] [address] * XR Chest 1 Vw Portable (06/26/2024 [...] signed by: Ady Silva M.D. Rajani Morales INDUSTRIAL HYGIENE TECHNICIAN IMG XR PROCEDURES Final R esult * [...] plan with the patient's team and other medical/building performance consultant staff. This time was in addition to and separate from care provided by other practitioners on this day of service. Result [facility] Rajani Morales INDUSTRIAL HYGIENE TECHNICIAN IN CLINIC/BEDSIDE ORDERAB LES Final Result * ECG 12 lead (06/26/2024 12:46 AM CDT) 06/26/2024 12:4 6 AM CDT Narrative [facility] - 06/26/2024 7:40 AM CDT Vent Rate: 99 bpm RR Interval: 606 msec ME Interval: 179 msec QRS Duration: 106 msec QT Interval: 382 msec QTC Interval: 438 msec P-R-T [place]: 29 - -57 - 54 degrees IMPRESSION: SINUS RHYTHM POSSIBLE LEFT ATRIAL ENLARGEMENT [-0.1mV P-WAVE IN V1/V2] LEFT AXIS DEVIATION [QRS AXIS < -30] Compared to prior EKG heart rate increased Electronically Signed By: Wayne Huang MD [facility] Gurvinder Burciaga MD ECG ORDERABLES Final Result Performing Organization Address [facility]/ZIP Co de Phone Number [facility] * eGFR (06/25/2024 9:30 PM CDT) [...] LAB BLOOD ORDERABLES Final R esult JASON [address] Department [place] [address] * (ABNORMAL) CBC without differential (06/25/2024 9:30 PM CDT) WBC 16.52(H) 3.80 - 9.90 K/cumm Hgb 12.2(L) 13.0 - 17.5 g/dL JASON Hct 39.3 38.9 - 50.3 % [facility] Plt 251 150 - 400 K/cumm [facility] MPV 10.2 9.1 - 12.3 fL [facility] RBC 6.20(H) 4.30 - 5.80 M/cumm [facility] MCV 63.4(L) 81.3 - 96.4 fL [facility] MCH 19.7(L) 27.1 - 33.3 pg [facility] MCHC 31.0(L) 32.3 - 35.7 g/dL [facility] RDW CV 18.7(H) 11.1 - 14.9 % [facility] RDW SD 38.5 35.7 - 48.1 fL [facility] NRBC abs 0.00 0.00 - 0.01 K/cumm [facility] Morphologic Screen Results confirmed by manual morphology review. [facility] Blood 06/25/2024 9:30 PM CDT 06/25/2024 9:54 PM CDT Gurvinder Burciaga MD LAB BLOOD ORDERABLES Final R esult JASON SAEED [address] [place] [address] * Phosphorus (06/25/2024 9:30 PM CDT) Phosphorus, pl 2.7 2.3 - 4.5 mg/dL Blood 06/25/2024 9:30 PM CDT 06/26/2024 8:17 AM CDT Guadalupe Lewis NP LAB BLOOD ORDERABLES Fin al Result JASON [address] Department of [employer] [place], [place] [id number] * Magnesium (06/25/2024 9:30 PM CDT) Magnesium 2.0 1.4 - 2.5 mg/dL Blood 06/25/2024 9:30 PM CDT 06/26/2024 8:17 AM CDT us Guadalupe Lewis NP LAB BLOOD ORDERABLES Fin al Result JASON SAEED [address] Department [place] [address] * Basic metabolic panel (06/25/2024 9:30 PM CDT) Sodium 137 135 - 145 mmol/L Potassium, pl 4.1 3.3 - 4.9 mmol/L [facility] Chloride 103 97 - 110 mmol/L [facility] CO2 23 22 - 32 mmol/L [facility] Anion gap 11 2 - 15 mmol/L [facility] BUN 18 6 - 25 mg/dL [facility] Creatinine 1.14 0.80 - 1.30 mg/dL [facility] Glucose 101 70 - 199 mg/dL [facility] Comment: Interpretive Data Fasting glucose >/= 126 [...] 2022. Calcium 8.7 8.5 - 10.3 mg/dL [facility] Blood 06/25/2024 9:30 PM CDT 06/25/2024 9:54 PM CDT us Gurvinder Burciaga MD LAB BLOOD ORDERABLES Final R esult JASON SAEED [address] Department [place] [address] * Critical Care (06/25/2024 7:13 PM CDT) [...] plan with the ICU team and other medical/building performance consultant staff, making frequent assessments and decisions [...] spent time documenting in the medical record Jaz De La Torre NP IN CLINIC/BEDSIDE O RDERABLES Final Result * [...] inferior: normal 16- Apical septal: normal 17- [place]: normal [place]: Left atrium: Spontaneous echo contrast: [...] comments contained within the report. us Marion Shaverjohn Grayson DO ANESTHESIA ORDERABLES Final Result * XR [...] patient tolerated procedure well with no complications Result [facility] Marion Grayson DO ANESTHESIA ORDERABLES Final Result * ME AN ELECTIVE ENDOTRACHEAL AIRWAY (06/25/2024 2:22 PM [...] of attempts: 1 Planned trial extubation: yes Result [facility] Marion Grayson DO ANESTHESIA ORDERABLES Final Result * Arterial Line (06/25/2024 2:12 PM CDT) Narrative Mauro Martino AA - 06/25/2024 2:12 PM CDT Mauro Martino AA 06/25/2024 2:12 PM Arterial Line Patient [...] patient tolerated procedure well with no complications [facility] DO ANESTHESIA ORDERABLES Final Result * GIL Add-On For OR (06/25/2024 1:48 PM CDT) BSA 1.89 m2 CONS SCIMAGE Narrative CONS SCIMAGE - 06/25/2024 1:48 PM CDT Procedure Auto Finalized by Rule: BW CV GIL DURING CASE OR Please see the Anesthesiologist's Procedure Note for the results. [facility] DO CV ECHO PROCEDURES Final Re sult Performing Organization Address [facility] Co de Phone Number CONS SCIMAGE * Check Sample (06/25/2024 11:25 AM CDT) Pathologist [facility] ABO Rh O Negative CH HCLL OTHER 06/25/2024 11:2 5 AM CDT 06/25/2024 11:36 AM CDT Gurvinder Burciaga MD LAB BLOOD ORDERABLES Final R esult Performing Organization Address [facility] Co de Phone Number [facility] [address] Department [place] [address] * Prepare RBC: 1 Units (06/25/2024 10:47 AM CDT) Product code [id number] Unit Number [id number] 3-O [facility] Product Blood Type ONEG [facility] Dispense Status RETURNED [facility] Blood 06/25/2024 10:4 7 AM CDT Narrative [facility] - 06/26/2024 12:56 AM CDT Specify Procedure:->endoscopic surgical ablation Are special requirements needed? (All products are leukoreduced and CMV- safe)- >No Date required:-[id number] LRRBC # of [id number] Reasons:-Hold for procedure (specify procedure)} us Diana Olmos NP BLOOD BANK PRODUCT ORDERAB LES Final Result Performing Organization Address City/[facility]/ZIP Co de Phone Number JASON SAEED [address] [place] [address] * eGFR (06/22/2024 9:39 AM CDT) eGFR [...] BLOOD ORDERABLES Final R esult JASON SAEED [address] Department [place] [address] * aPTT (06/22/2024 9:39 AM [...] ORDERABLES Final R esult Performing Organization Address [facility] de Phone Number [facility] [address] [facility] [employer] [place] [address] * Protime-INR (06/22/2024 9:39 AM CDT) PT 10.8 9.7 - 13.0 sec INR 1.00 0.90 - 1.20 [facility] Comment: Interpretive data Oral anticoagulant therapeutic ranges: Venous thromboembolism prophylaxis or treatment: 2.0-3.0 CARDIOLOGY Standard range: 2.0-3.0 High-intensity range: 2.5-3.5 Refer to indication-specific guidelines for appropriate target ranges for prosthetic heart valve replacement. Current interpretive data was last revised on 2019. Blood 06/22/2024 9:39 AM CDT 06/22/2024 9:39 AM CDT Gurvinder Burciaga MD LAB BLOOD ORDERABLES Final R esult Performing Organization Address [facility] de Phone Number [facility] [address] [address] [facility] [employer] [place] [address] * (ABNORMAL) CBC without differential (06/22/2024 9:39 AM CDT) WBC 6.58 3.80 - 9.90 K/cumm Hgb 12.7(L) 13.0 - 17.5 g/dL [facility] Hct 41.8 38.9 - 50.3 % [facility] Plt 273 150 - 400 K/cumm [facility] MPV 10.1 9.1 - 12.3 fL [facility] RBC 6.44(H) 4.30 - 5.80 M/cumm [facility] MCV 64.9(L) 81.3 - 96.4 fL [facility] MCH 19.7(L) 27.1 - 33.3 pg [facility] MCHC 30.4(L) 32.3 - 35.7 g/dL [facility] RDW CV 18.7(H) 11.1 - 14.9 % [facility] RDW SD 39.3 35.7 - 48.1 fL [facility] NRBC abs 0.00 0.00 - 0.01 K/cumm [facility] Morphologic Screen Results confirmed by manual morphology review. [facility] Blood 06/22/2024 9:39 AM CDT 06/22/2024 9:39 AM CDT us Gurvinder Burciaga MD LAB BLOOD ORDERABLES Final R esult [facility] [address] Department [place] [address] * Basic metabolic panel (06/22/2024 9:39 AM CDT) Sodium 142 135 - 145 mmol/L Potassium, pl 4.0 3.3 - 4.9 mmol/L [facility] Chloride 105 97 - 110 mmol/L [facility] CO2 28 22 - 32 mmol/L [facility] Anion gap 9 2 - 15 mmol/L [facility] BUN 22 6 - 25 mg/dL [facility] Creatinine 1.22 0.80 - 1.30 mg/dL [facility] Glucose 106 70 - 199 mg/dL [facility] Comment: Interpretive Data Fasting glucose >/= 126 [...] 2022. Calcium 9.6 8.5 - 10.3 mg/dL [facility] Blood 06/22/2024 9:39 AM CDT 06/22/2024 9:39 AM CDT Gurvinder Burciaga MD LAB BLOOD ORDERABLES Final R esult Performing Organization Address [facility] Co de Phone Number [facility] [address] Department [place] [address] * ECG 12 lead (06/22/2024 9:15 AM CDT) 06/22/2024 9:15 AM CDT Narrative [facility] - 06/22/2024 11:45 AM CDT Vent Rate: 53 bpm RR Interval: 1120 msec ME Interval: 179 msec QRS Duration: 117 msec QT Interval: 450 msec QTC Interval: 433 msec P-R-T [place]: 49 - 33 - 74 degrees IMPRESSION: SINUS BRADYCARDIA MODERATE INTRAVENTRICULAR CONDUCTION DELAY BORDERLINE ECG Electronically Signed By: Polo Davenport MD Gurvinder Burciaga MD ECG ORDERABLES Final Result Performing Organization Address [facility] de Phone Number [facility] * XR Chest PA Lateral 2 [...] tendency for uric acid stone formation. Source: [facility] [employer] Current Interpretive Data was last revised on [...] MICROBIOLOGY - GENERAL O RDERABLES Final Result [facility] [address] [facility] Department [place] [address] * Type and screen (06/22/2024 8:41 AM CDT) Yuliya, indirect Negative ABO Rh O Negative [facility] Blood 06/22/2024 8:41 AM CDT 06/22/2024 9:51 AM CDT Narrative [facility] - 06/22/2024 10:40 AM CDT Has the patient had Daratumumab or Isatuximab in the past 6 months?->Unknown Gurvinder Burciaga MD LAB BLOOD BANK TEST ORDERABL ES Final Result [facility] [address] Department [place] [address] * CT Chest W Contrast (06/19/2024 7:30 [...] Electronically signed by: Delroy Mendosa MD, PHD us Yolanda Walker MD IMG CT PROCEDURES Final Res ult * TRANSESOPHAGEAL ECHO (GIL) W DOPPLER/CF WO CONTRAST (06/07/2024 10:21 AM CDT) BSA 1.88 m2 CONS SCIMAGE Anatomical Region Laterality Modality Ultrasound Narrative 06/07/2024 3:48 PM CDT TRANSESOPHAGEAL ECHO NOTE Surgical Team: Cardiac supervisor laboratory animal facility staff CV Documenter: Sharri Glass RN Almond Roaster: Yolanda Walker MD DATE OF SURGERY : [...] BLOOD ORDERABLES Final Result Performing Organization Address City/[facility]/ZIP Co de Phone Number [facility] [address] Department [place] [address] * Magnesium (06/06/2024 12:44 PM CDT) Pathologist [facility] Magnesium 2.4 1.4 - 2.5 mg/dL Blood 06/06/2024 12:4 4 PM CDT 06/06/2024 12:44 PM CDT Yolanda Walker MD LAB BLOOD ORDERABLES Final Result Performing Organization Address [facility] Co de Phone Number [facility] [address] Department of [employer] [place] [address] * Basic metabolic panel (06/06/2024 12:44 PM CDT) Sodium 142 135 - 145 mmol/L Potassium, pl 4.7 3.3 - 4.9 mmol/L [facility] Chloride 102 97 - 110 mmol/L [facility] CO2 30 22 - 32 mmol/L [facility] Anion gap 10 2 - 15 mmol/L [facility] BUN 20 6 - 25 mg/dL [facility] Creatinine 1.17 0.80 - 1.30 mg/dL [facility] Glucose 87 70 - 199 mg/dL [facility] Comment: Interpretive Data Fasting glucose >/= 126 [...] 2022. Calcium 10.0 8.5 - 10.3 mg/dL [facility] Blood 06/06/2024 12:4 4 PM CDT 06/06/2024 12:44 PM CDT us Yolanda Walker MD LAB BLOOD ORDERABLES Final Result [facility] [address] Department [place] [address] from Last 3 Months Insurance [facility] [employer]IC[employer] Member Subscriber Plan / Payer (Ef fective 2023-Present) Name:Camila Donohue Relation to Subscriber:Self Name:Camila Donohue Payer ID:[id number] Group ID:Not on file Type:COMMERCIAL Address: [facility] [address] [place], [place] Advance Directives For more information, please contact: [phone] * Full Code (Latest Code Status on [...] 9:04 PM 01/28/2022 1:54 PM Care Teams Pricing Manager Relationship Specialty Start Date End Date Milagros Mills DO PCP - General Family Medicine 06/17/22 Reilly Waters MD Consulting Physician Urology 01/28/22 Jorge Alberto Silva MD [facility] MEDICAL ONCOLOGY, [address] [address] Medical Oncologist/Side Door Worker Hematology and Oncology 08/31/23 Yolanda Walker MD [address] [place] [address] Consulting Physician Cardiology 06/27/24
--- OUTSIDE RECORDS SUMMARY | 2024-08-22 13:31 | XMS_ITS | Continuity of Care Document ---
Author Organization [facility] Address [address] [place] [address] Phone Care Team Providers Care Ice Seller Name Role Phone Denise CAT, Yolanda Unavailable Unavailabl e Medications Medication Instructions Dosage Effective Dates (start - stop) Status Comments colchicine 0.6 mg tablet take 1 tablet by oral route every day 0.6 MG - Active amiodarone 200 mg tablet take 1 tablet by oral route 2 times every day 200 MG - Active diltiazem 60 mg tablet take 1 tablet by oral route 2 times every day 60 MG - Active lisinopril 20 mg-hydrochlorothi azide 12.5 mg tablet take 1 tablet by oral route every day 1.00 tablet - Active magnesium 400 mg (as magnesium oxide) tablet take 1 tablet by oral route 2 times every day for 1 day 1 tablet - Active flecainide 100 mg tablet take 1 tablet by oral route every 12 hours 100 MG - Active colchicine 0.6 mg tablet take 1 tablet by oral route every day 0.6 MG - No Longer Active Procedures Procedure Date Complex e/m visit add on OFFICE/OUTPATIENT VISIT, EST ELECTROCARDIOGRAM, COMPLETE ILR DEVICE INTERROGAT REMOTE Advance Directives Directive Yes / No Effective Date File Name No Information Encounters Encounter Description Practice Location Reason(s) For Visit Diagnoses Date Provider Providers Copied on Encounter [facility], [address] [place] [address], [id number] , tel: [phone] [facility] Yarsanism No Information 5 Denise Guerrero. [address] [place] [address], [id number], . tel:[phone] OFFICE/OUTPA TIENT VISIT, [facility], [address] [place] [address], [id number] , tel: [phone] [facility] Yarsanism follow up (chief complaint) Paroxysmal atrial fibrillationHyperli pidemia, unspecifiedCardiomy opathyHTNCardiac tamponadeVentricula r tachycardia, unspecified 5 Denise Guerrero. [address] [place], [place] [address], [id number], . tel:[phone] Referring Provider: Yolanda Walker, [address] [place], [place] [address], [address] . tel:[phone] [facility], [address] [place] [address], [id number] , tel: [phone] [facility] Hubbard PalpitationsDizzine ss and giddinessChest pain, unspecifiedEssentia l (primary) hypertensionOther cardiomyopathiesVen tricular tachycardiaParoxysm al atrial fibrillationBradyca rdia, unspecifiedSyncope and collapse 5 Denise Guerrero. [address] [place], [place] [address], [place], [id number], . tel:[phone] Referring Provider: Yolanda Walker, [facility] [place], [address] . tel:[phone] Family History Family Member Type Diagnosis Age At Onset No Information Payers Payer name Insurance type Covered green party ID Authoriza tileonid(s) [employer] [id number] Social History Type Description Quantity Date Captured Comments Sex Male Smoking Status No Information Chief Complaint And Reason For Visit No Information Reason For Referral Reason For Referral No Information Plan Of Treatment Date Type Action Status Appointment Keagan Toure History Of Present Illness Encounter Date Complaint History Of Prese nt Illness follow up Functional Status Date Functional Assessmen t No Information Instructions Date Instruction Additional Infor mation No Information Assessments Type Assessment Date No Information Patient Care Teams Name Effective Dates (start - stop) Status Members No Information
--- OUTSIDE RECORDS SUMMARY | 2024-08-22 13:32 | XMS_ITS | Referral Summary ---
Author Organization [facility] [address] Address [address] [place] [address] Care Team Providers Care Geological Drafter Name Role Phone Reilly Waters MD Unavailable [phone] Milagros Mills DO Primary Care Provider [phone] Jorge Alberto Silva MD Unavailable Yolanda Walker MD Unavailable [phone] Encounters Date Type Department Care Team Description 07/19/2024 [facility] Post Discharge Follow up phone call [address] [address] Jeimy Winn 07/06/2024 3:11 PM CDT - 07/14/2024 2:00 PM CDT Hospital Encounter [address] [id number] Rosa Welch MD Boland, Matthew E., MD Ogunremi, Olumide Omolulu, MD Chang, Ping, MD Qayyum, Usman, MD Pericardial tamponade (Primary Dx); Syncope, unspecified syncope type; Acute blood loss anemia; Hemoperitoneum; Pericardial effusion; Pleural effusion; Atrial fibrillation with rapid ventricular response (HCC) Discharge Disposition: Discharge to home or self care 07/09/2024 Orders Only [facility] Cardiac Catheterization Lab [address] [place] [phone] Sharon Salinas MD Pericardial effusion (Primary Dx) 07/06/2024 4:00 PM CDT - 07/06/2024 5:30 PM CDT Surgery [facility] Cardiac Catheterization Lab [address] [place] [address] Wayne Huang MD LEFT HEART CATHETERIZATION WITH CORONARY ANGIOGRAPHY AND WITH OR WITHOUT LEFT VENTRICULOGRAM [id number] 07/04/2024 Orders Only [facility] Cardiac Catheterization Lab [address] [place] [address] Yolanda Walker MD Atrial fibrillation (HCC) (Primary Dx) 06/25/2024 9:45 AM CDT - 06/27/2024 5:28 PM CDT Hospital Encounter [address] [address] Gurvinder Burciaga MD Persistent atrial fibrillation (HCC) (Primary Dx) Discharge Disposition: Discharge to home or self care 06/25/2024 1:50 PM CDT Ancillary Procedure [facility] Operating Room [address] [place] [phone] 06/25/2024 2:30 PM CDT - 06/25/2024 7:00 PM CDT Surgery [facility] Operating Room [address] [place] [address] Gurvinder Burciaga MD ENDOSCOPY SURGICAL ABLATION 06/25/2024 2:03 PM CDT Anesthesia Event [facility] Operating Room [address] [place] [phone] Marion Grayson DO Marcinczyk, Mario Joseph, MD 06/22/2024 8:40 AM CDT - 06/22/2024 11:59 PM CDT Hospital Encounter [facility] Diagnostic Imaging [address] [place] [address] Discharge Disposition: Discharge to home or self care 06/22/2024 8:45 AM CDT Pre-Admission Testing [facility] Pre Anesthesia Testing [address] [place] [address] Persistent atrial fibrillation (HCC) 06/19/2024 10:00 AM CDT Office Visit [facility] Surgery [address] [place] [address] [place] [phone] Gurvinder Burciaga MD Longstanding persistent atrial fibrillation (HCC) (Primary Dx) 06/19/2024 7:15 AM CDT - 06/19/2024 11:59 PM CDT Hospital Encounter [facility] Imaging and Radiology [address] [place] [address] Ventricular tachycardia (HCC) Discharge Disposition: Discharge to home or self care 06/07/2024 Documentation Cardiology Yolanda Walker MD 06/07/2024 9:45 AM CDT - 06/07/2024 11:59 PM CDT Hospital Encounter [facility] Cardiac Catheterization Lab [address] [place] [address] Discharge Disposition: Discharge to home or self care 06/06/2024 Telephone [facility] Pre Anesthesia Testing [address] [place] [address] Mara Toussaint, AUSTYN 06/06/2024 Telephone [facility] Pre Anesthesia Testing [address] [place] [address] Mara Toussaint, AUSTYN 06/06/2024 12:25 PM CDT Lab [address] [phone] 06/06/2024 Orders Only [facility] Cardiac Catheterization Lab [address] [place] [address] Yolanda Walker MD A-fib (HCC) (Primary Dx) [...] (12/03/2021): Added automatically from request for surgery [id number] Ventricular tachycardia 04/06/2020 Raynauds disease 03/07/2020 Cardiomyopathy 04/06/2019 Hypertension 02/23/2019 Osteoarthritis 02/23/2019 Palpitations 11/17/2018 Hemochromatosis 08/01/2014 Mass of breast 04/17/2013 Social History Tobacco Use Types Packs/Day Years Used Date Smoking Tobacco: Never Smokeless Tobacco: Former Chew Tobacco Cessation:Counseling Given: Not Answered Comments:Quit chewing at age 36 [facility] Utilities Answer Date Recorded In the past 12 months has [employer], gas, oil, or water company threatened to shut off services in your [...] often do you attend chur ch or oriental orthodox services? 1 to 4 times per year 07/09/2024 Do you belong to any clubs o r organizations such as rastafarian groups, unions, fraternal or athletic groups, or [...] money to buy more. Never true 07/10/19 Within the past 12 months, t he [...] place to sleep or slept in a alf (including now)? No 01/27/2022 Housing Stability Vital Sign Answer Costa e Recorded In the last 12 months, was t here a time when you were not able to pay the mortgage or rent on time? No 07/09/2024 In the past 12 months, how m any times have you moved where you were living? 0 07/09/2024 At any time in the past 12 m [facility], were you homeless or living in a alf (including now)? No 07/09/2024 Personal Safety Answer Date Recorded Have you ever been in or are you currently in a harmful physical or emotional relationship or is someone making you feel afraid or unsafe? 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 Gender Identity Not on file Sexual [...] 12:30 PM CDT Hospital Encounter [facility] Electrophysiology Lab [address] [place] [address] Yolanda Walker MD [address] [place] [address] Atrial fibrillation (HCC) 10/09/2024 12:30 PM CDT - 10/09/2024 4:40 PM CDT Surgery [facility] Electrophysiology Lab [address] [place] [address] Yolanda Walker MD [address] [place] [address] ABLATION ATRIAL FIBRILLATION (A-FIB) VIA PULMONARY VEIN ISOLATION [id number] Medical Devices Implanted Type Area Truck Crane Operator Device Identifier Shelf Expiration Date Model / Serial / Lot Other - See Comments Other - see comments Left: Chest [employer] Description:[employer] Device 6fr Closure Celt Acd Vascular Sterile Latex Free Disposable Quynh Kclt-06 - [id number] Implanted:Qty: 1 on 02/17/2022 at [facility] [employer] 08/16/2024 KCLT-06 / / [id number] [employer] Denita Coil Emolization Coated Detachable Embold 9bdn0qw [place] [employer] [id number] 80 - [id number] Implanted:Qty: 1 on 02/17/2022 at [facility] [employer] [id number] 08/11/2024 [id number] / / [id number] [employer] Coil Emolization Coated Detachable Embold 9wol6aw [place] [employer] [id number] 80 - [id number] Implanted:Qty: 1 on 02/17/2022 at [facility] [employer] [id number] 08/11/2024 [id number] / / [id number] [employer] Coil Emolization Coated Detachable Embold 3cie9sy [place] [employer] [id number] 60 - [id number] Implanted:Qty: 1 on 02/17/2022 at [facility] [employer] [id number] 10/19/2024 [id number] / / [id number] [employer] Coil Emolization Coated Detachable [place] [employer]ung[employer] Embold 5cyh7ex [id number] 40 - [id number] Implanted:Qty: 1 on 02/17/2022 at [facility] [employer] [id number] 11/08/2024 [id number] / / [id number] [employer] Coil Emolization Coated Detachable [place] [employer] Embold 8qio2nt [id number] 40 - [id number] Implanted:Qty: 1 on 02/17/2022 at [facility] [employer] [id number] 11/08/2024 [id number] / / [id number] Explanted Type Area Truck Crane Operator Device Identifier Shelf Expiration Date Model / Serial / Lot [employer] Denita Coil Emolization Coated Detachable Embold 0bjp04oc [place] [employer] [id number] - [id number] Explanted:Qty: 1 on 02/17/2022 at [facility] [employer] [id number] 04/01/2024 [id number] / / [id number] Procedures Procedure Name Priority Date/Time Associated Diagnosis [...] 4HR, 6HR) STAT 07/06/2024 3:02 PM CDT IA CRITICAL CARE ILL/INJURED PATIENT INIT 30-74 MIN [...] PERIPHERAL LINE Routine 06/25/2024 2:23 PM CDT IA AN ELECTIVE ENDOTRACHEAL AIRWAY Routine 06/25/2024 2:22 [...] MD LAB BLOOD ORDERABLES Fin al Result [facility] [address] [address] Department [place] [address] * (ABNORMAL) CBC without differential (07/14/2024 4:34 AM CDT) Pathologist [facility] WBC 8.70 3.80 - 9.90 K/cumm Hgb 9.4(L) 13.0 - 17.5 g/dL C[facility] Hct 30.6(L) 38.9 - 50.3 % [facility] Plt 606(H) 150 - 400 K/cumm [facility] MPV 9.9 9.1 - 12.3 fL [facility] RBC 4.50 4.30 - 5.80 M/cumm [facility] MCV 68.0(L) 81.3 - 96.4 fL [facility] MCH 20.9(L) 27.1 - 33.3 pg [facility] MCHC 30.7(L) 32.3 - 35.7 g/dL [facility] CH RDW CV 21.7(H) 11.1 - 14.9 % [facility] RDW SD 49.8(H) 35.7 - 48.1 fL [facility] NRBC abs 0.00 0.00 - 0.01 K/cumm [facility] Blood 07/14/2024 4:34 AM CDT 07/14/2024 5:30 AM CDT Eduin Lincoln MD LAB BLOOD ORDERABLES Fin al Result Performing Organization Address [facility] Co de Phone Number [facility] [address] [address] Department of [facility] [place] [address] * Basic metabolic panel (07/14/2024 4:34 AM CDT) [facility] Sodium 141 135 - 145 mmol/L Potassium, pl 4.2 3.3 - 4.9 mmol/L [facility] Chloride 105 97 - 110 mmol/L [facility] CO2 22 22 - 32 mmol/L [facility] Anion gap 14 2 - 15 mmol/L [facility] BUN 17 6 - 25 mg/dL [facility] Creatinine 1.12 0.80 - 1.30 mg/dL [facility] Glucose 86 70 - 199 mg/dL [facility] Comment: Interpretive Data Fasting glucose >/= [...] 2022. Calcium 9.0 8.5 - 10.3 mg/dL [facility] Blood 07/14/2024 4:34 AM CDT 07/14/2024 5:28 AM CDT Eduin Lincoln MD LAB BLOOD ORDERABLES Fin al Result Performing Organization Address [facility] Co de Phone Number [facility] [address] [address] Department of [facility] [place] [address] * TRANSTHORACIC ECHO (TTE) LIMITED/FOLLOW UP WO DOPPLER/CF WO CONTRAST (07/13/2024 12:45 PM CDT) EF Mod BP 81 % CONS SCIMAGE Anatomical Region Laterality Modality Ultrasound 07/13/2024 12:1 8 PM CDT Narrative 07/13/2024 1:24 [place] [address] Limited Echocardiogram Report Patient Name: CAMILA DONOHUE W : 1955 Study Date: 07/13/2024 12:18:33 PM Gender: M Tech: Location: [id number] Ref Provider: ESSIE YOUNG Height(Cm): 172 BSA: [...] Procedure Note Elvin Palacios MD - 07/13/2024 [place] [address] Limited Echocardiogram Report Patient Name: CAMILA DONOHUE W : 1955 Study Date: 07/13/2024 12:18:33 PM Gender: M Tech: Location: [id number] Ref Provider: ESSIE YOUNG Height(Cm): 172 BSA: 1.85 Weight(Kg): 72 Heart Rate: 66 BP: 121 / 66 Quality: Good Order Provider: SESIE YOUNG PROCEDURES: Echocardiographic Report: Limited transthoracic echocardiogram [...] AM CDT) 07/13/2024 6:51 AM CDT Narrative [facility] - 07/14/2024 8:26 AM CDT Vent Rate: 84 bpm RR Interval: 708 msec IA Interval: 155 msec QRS Duration: 105 msec QT Interval: 396 msec QTC Interval: 437 msec P-R-T [place]: 47 - -20 - 81 degrees IMPRESSION: SINUS RHYTHM LEFT ATRIAL ENLARGEMENT NONSPECIFIC T-WAVE ABNORMALITY Electronically Signed By: Sam Pope MD, [facility] Ragini Ramirez 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 ECG ORDERABLES Sotero elza Result - Final [facility] * eGFR (07/13/2024 3:41 AM CDT) eGFR [...] BLOOD ORDERABLES Fin al Result [facility] [address] [address] Department [place] [address] * (ABNORMAL) CBC without differential (07/13/2024 3:41 [...] MD LAB BLOOD ORDERABLES Fin al Result [facility] [address] [address] Department [place] [address] * (ABNORMAL) Hepatic function panel (07/13/2024 3:41 AM CDT) Pathologist [facility] Bilirubin, total 0.4 0.1 - 1.2 mg/dL Bilirubin, direct 0.2 0.1 - 0.3 mg/dL C[facility] Protein, pl 6.1(L) 6.5 - 8.5 g/dL [facility] CH Albumin 3.0(L) 3.5 - 5.0 g/dL [facility] CH Alk phos 198(H) 40 - 130 Units/L [facility] CH ALT 52 7 - 55 Units/L [facility] CH AST 37 10 - 50 Units/L [facility] CH Blood 07/13/2024 3:41 AM CDT 07/13/2024 1:27 PM CDT us Geno Good MD LAB BLOOD ORDERABLES Final Resul t [facility] [address] [address] Department [place] [address] * (ABNORMAL) Basic metabolic panel (07/13/2024 3:41 AM CDT) Sodium 140 135 - 145 mmol/L Potassium, pl 4.2 3.3 - 4.9 mmol/L C[facility] Chloride 104 97 - 110 mmol/L [facility] CH CO2 21(L) 22 - 32 mmol/L [facility] CH Anion gap 15 2 - 15 mmol/L [facility] CH BUN 18 6 - 25 mg/dL [facility] Creatinine 1.12 0.80 - 1.30 mg/dL [facility] Glucose 85 70 - 199 mg/dL [facility] Comment: Interpretive Data Fasting glucose >/= [...] 2022. Calcium 9.2 8.5 - 10.3 mg/dL [facility] Blood 07/13/2024 3:41 AM CDT 07/13/2024 5:15 AM CDT us Eduin Lincoln MD LAB BLOOD ORDERABLES Fin al Result [facility] [address] [address] Department [place] [address] * Critical Care (07/12/2024 10:13 AM CDT) Narrative Eduin Lincoln MD - 07/12/2024 10:13 AM CDT Eduin Lincoln MD 07/12/2024 10:15 AM Critical Care Performed by: Eduin Lincoln MD Authorized by: Eduin Lincoln MD CRITICAL CARE: Team: [facility] Shift: AM Level of Billing: Critical Care [...] plan with the ICU team and other medical/oracle drm consultant staff, making frequent assessments and decisions [...] MD LAB BLOOD ORDERABLES Fin al Result [facility] [address] [address] Department [place] [address] * (ABNORMAL) CBC without differential (07/12/2024 5:21 AM CDT) WBC 11.20(H) 3.80 - 9.90 K/cumm Hgb 8.6(L) 13.0 - 17.5 g/dL [facility] Hct 26.7(L) 38.9 - 50.3 % [facility] Plt 498(H) 150 - 400 K/cumm [facility] MPV 10.2 9.1 - 12.3 fL [facility] RBC 4.07(L) 4.30 - 5.80 M/cumm [facility] MCV 65.6(L) 81.3 - 96.4 fL [facility] MCH 21.1(L) 27.1 - 33.3 pg [facility] MCHC 32.2(L) 32.3 - 35.7 g/dL [facility] RDW CV 21.6(H) 11.1 - 14.9 % [facility] RDW SD 48.9(H) 35.7 - 48.1 fL [facility] NRBC abs 0.00 0.00 - 0.01 K/cumm [facility] Blood 07/12/2024 5:21 AM CDT 07/12/2024 5:30 AM CDT Eduin Lincoln MD LAB BLOOD ORDERABLES Fin al Result [facility] [address] [address] [facility] [place] [address] * Magnesium (07/12/2024 5:21 AM CDT) Magnesium 2.1 1.4 - 2.5 mg/dL Blood 07/12/2024 5:21 AM CDT 07/12/2024 5:29 AM CDT Yolanda Walker MD LAB BLOOD ORDERABLES Final Result Performing Organization Address [facility] Co de Phone Number [facility] [address] [address] Department [facility] [place], [place] [id number] * (ABNORMAL) Hepatic function panel (07/12/2024 5:21 [...] BLOOD ORDERABLES Final Result Performing Organization Address City/[facility]/ZIP Co de Phone Number [facility] [address] [address] Department [facility] [place], [place] [id number] * Basic metabolic panel (07/12/2024 5:21 AM CDT) Sodium 138 135 - 145 mmol/L Potassium, pl 4.0 3.3 - 4.9 mmol/L [facility] CH Chloride 104 97 - 110 mmol/L [facility] CH CO2 23 22 - 32 mmol/L [facility] Anion gap 11 2 - 15 mmol/L [facility] BUN 15 6 - 25 mg/dL [facility] Creatinine 1.04 0.80 - 1.30 mg/dL [facility] Glucose 95 70 - 199 mg/dL [facility] Comment: Interpretive Data Fasting glucose >/= [...] 2022. Calcium 8.9 8.5 - 10.3 mg/dL [facility] Blood 07/12/2024 5:21 AM CDT 07/12/2024 5:29 AM CDT us Eduin Lincoln MD LAB BLOOD ORDERABLES Fin al Result [facility] [address] [address] Department [place] [address] * Critical Care (07/11/2024 8:17 PM CDT) [...] plan with the ICU team and other medical/oracle drm consultant staff, making frequent assessments and decisions [...] plan with the ICU team and other medical/oracle drm consultant staff, making frequent assessments and decisions [...] AM CDT) 07/11/2024 8:15 AM CDT Narrative [facility] - 07/12/2024 7:57 AM CDT Vent Rate: 119 bpm RR Interval: 501 msec IA Interval: 0 msec QRS Duration: 103 msec QT Interval: 326 msec QTC Interval: 397 msec P-R-T [place]: 0 - -24 - 129 degrees IMPRESSION: ATRIAL FIBRILLATION WITH RAPID VENTRICULAR RESPONSE BORDERLINE LEFT AXIS DEVIATION [QRS AXIS < -20] ST DEVIATION AND MODERATE T-WAVE ABNORMALITY, CONSIDER LATERAL ISCHEMIA [-0.1+ mV T-WAVE IN I/aVL/V5/V6] ABNORMAL ECG Electronically Signed By: Dr. Blanca Mcdonald [facility] Eduin Lincoln MD ECG ORDERABLES Final Re sult [facility] * eGFR (07/11/2024 5:47 AM CDT) eGFR [...] ORDERABLES Fin al Result Performing Organization Address City/[facility]/ZIP Co de Phone Number [facility] [address] [address] Department [place] [address] * (ABNORMAL) CBC without differential (07/11/2024 5:47 AM CDT) WBC 13.30(H) 3.80 - 9.90 K/cumm Hgb 8.0(L) 13.0 - 17.5 g/dL [facility] Hct 24.6(L) 38.9 - 50.3 % [facility] Plt 405(H) 150 - 400 K/cumm [facility] MPV 10.0 9.1 - 12.3 fL [facility] RBC 3.73(L) 4.30 - 5.80 M/cumm [facility] CH MCV 66.0(L) 81.3 - 96.4 fL [facility] MCH 21.4(L) 27.1 - 33.3 pg [facility] MCHC 32.5 32.3 - 35.7 g/dL [facility] CH RDW CV 21.2(H) 11.1 - 14.9 % [facility] CH RDW SD 47.8 35.7 - 48.1 fL [facility] NRBC abs 0.02(H) 0.00 - 0.01 K/cumm [facility] Blood 07/11/2024 5:47 AM CDT 07/11/2024 5:47 AM CDT Eduin Lincoln MD LAB BLOOD ORDERABLES Fin al Result [facility] [address] [address] Department [place] [address] * (ABNORMAL) Basic metabolic panel (07/11/2024 5:47 AM CDT) Sodium 135 135 - 145 mmol/L Potassium, pl 4.2 3.3 - 4.9 mmol/L [facility] Chloride 103 97 - 110 mmol/L [facility] CO2 20(L) 22 - 32 mmol/L [facility] Anion gap 12 2 - 15 mmol/L [facility] BUN 19 6 - 25 mg/dL [facility] Creatinine 1.10 0.80 - 1.30 mg/dL [facility] Glucose 95 70 - 199 mg/dL [facility] Comment: Interpretive Data Fasting glucose >/= [...] 2022. Calcium 8.4(L) 8.5 - 10.3 mg/dL [facility] Blood 07/11/2024 5:47 AM CDT 07/11/2024 5:47 AM CDT Eduin Lincoln MD LAB BLOOD ORDERABLES Fin al Result [facility] [address] [address] Department [place] [address] * Critical Care (07/10/2024 7:52 PM CDT) Narrative Oneil Hendrickson MD - 07/10/2024 7:52 PM CDT [...] plan with the ICU team and other medical/oracle drm consultant staff, making frequent assessments and decisions [...] from bedside monitors, laboratory results, and imaging Oniel Hendrickson MD IN CLINIC/BEDSIDE ORDERAB LES Final Result * (ABNORMAL) CBC without differential (07/10/2024 1:45 PM CDT) WBC 16.26(H) 3.80 - 9.90 K/cumm Hgb 7.5(L) 13.0 - 17.5 g/dL [facility] Hct 23.5(L) 38.9 - 50.3 % [facility] Plt 359 150 - 400 K/cumm [facility] MPV 10.1 9.1 - 12.3 fL [facility] RBC 3.50(L) 4.30 - 5.80 M/cumm [facility] MCV 67.1(L) 81.3 - 96.4 fL [facility] MCH 21.4(L) 27.1 - 33.3 pg [facility] MCHC 31.9(L) 32.3 - 35.7 g/dL [facility] RDW CV 21.5(H) 11.1 - 14.9 % [facility] RDW SD 50.2(H) 35.7 - 48.1 fL [facility] NRBC abs 0.02(H) 0.00 - 0.01 K/cumm [facility] Blood 07/10/2024 1:45 PM CDT 07/10/2024 1:47 PM CDT us Eduin Lincoln MD LAB BLOOD ORDERABLES [facility] al Result [facility] [address] [address] Department [place] [address] * Critical Care (07/10/2024 1:31 PM CDT) [...] plan with the ICU team and other medical/oracle drm consultant staff, making frequent assessments and decisions [...] spent time documenting in the medical record Result [facility] Eduin Lincoln MD IN CLINIC/BEDSIDE ORDERA BLES Final Result * Transfuse RBC (07/10/2024 12:07 PM CDT) Blood Result [facility] Eduin Lincoln MD BLOOD TRANSFUSION ORDERA BLES Final Result Performing Organization Address [facility] Co de Phone Number J[facility] [address] [address] Department of [facility] [place] [address] * aPTT (07/10/2024 10:01 AM CDT) aPTT 31 28 - 38 sec Comment: Interpretive Data Heparin therapeutic range: 66.0 - 100.0 seconds. Range based on correlation with therapeutic heparin activity range of 0.3 - 0.7 Units/mL. Current interpretive data was last revised on 2022. Blood 07/10/2024 10:0 1 AM CDT 07/10/2024 10:04 AM CDT Result [facility] Eduin Lincoln MD LAB BLOOD ORDERABLES Fin al Result Performing Organization Address [facility] Co de Phone Number [facility] [address] [address] Department [facility] [place] [address] * (ABNORMAL) Protime-INR (07/10/2024 10:01 AM CDT) [...] ORDERABLES Fin al Result Performing Organization Address City/[facility]/ZIP Co de Phone Number [facility] [address] [address] [facility] [place] [address] * Prepare RBC: 1 Units (07/10/2024 8:18 AM CDT) Product code [id number] Unit Number [id number] 8-S [facility] CH Product Blood Type ONEG [facility] CH Dispense Status RETURNED [facility] CH Blood 07/10/2024 8:18 AM CDT Narrative [facility] - 07/11/2024 12:14 AM CDT Are special requirements needed? (All products are leukoreduced and CMV- safe)- >No Date required:-20240710 LRRBC # of [id number] Reasons:-Cardiovascular disease, Hgb <8 g/dL} Eduin Lincoln MD BLOOD BANK PRODUCT ORDER PADMINI Final Result Performing Organization Address City/[facility] Co de Phone Number [facility] [address] [address] [facility] [place] [address] * eGFR (07/10/2024 5:59 AM CDT) eGFR [...] MD LAB BLOOD ORDERABLES Fin al Result [facility] [address] [address] Department [place] [address] * (ABNORMAL) Basic metabolic panel (07/10/2024 5:59 AM CDT) Sodium 134(L) 135 - 145 mmol/L Potassium, pl 4.2 3.3 - 4.9 mmol/L [facility] Chloride 101 97 - 110 mmol/L [facility] CO2 21(L) 22 - 32 mmol/L [facility] Anion gap 12 2 - 15 mmol/L [facility] BUN 19 6 - 25 mg/dL [facility] Creatinine 1.16 0.80 - 1.30 mg/dL [facility] Glucose 102 70 - 199 mg/dL [facility] Comment: Interpretive Data Fasting glucose >/= [...] Calcium 8.3(L) 8.5 - 10.3 mg/dL [facility] Blood 07/10/2024 5:59 AM CDT 07/10/2024 5:59 AM CDT Eduin Lincoln MD LAB BLOOD ORDERABLES Fin al Result [facility] [address] [address] Department [place] [address] * (ABNORMAL) CBC without differential (07/10/2024 5:58 AM CDT) WBC 21.22(H) 3.80 - 9.90 K/cumm Hgb 7.0(L) 13.0 - 17.5 g/dL [facility] Hct 22.4(L) 38.9 - 50.3 % [facility] CH Plt 397 150 - 400 K/cumm [facility] [facility] MPV 10.5 9.1 - 12.3 fL [facility] RBC 3.41(L) 4.30 - 5.80 M/cumm [facility] CH MCV 65.7(L) 81.3 - 96.4 fL [facility] CH MCH 20.5(L) 27.1 - 33.3 pg [facility] MCHC 31.3(L) 32.3 - 35.7 g/dL [facility] RDW CV 19.5(H) 11.1 - 14.9 % [facility] CH RDW SD 42.9 35.7 - 48.1 fL [facility] NRBC abs 0.00 0.00 - 0.01 K/cumm [facility] Blood 07/10/2024 5:58 AM CDT 07/10/2024 5:58 AM CDT us Eduin Lincoln MD LAB BLOOD ORDERABLES Fin al Result Performing Organization Address City/[facility]/ZIP Co de Phone Number JASON SAEED [address] [address] Department [place] [address] * ECG 12 lead (07/09/2024 11:07 PM CDT) 07/09/2024 11:0 7 PM CDT Narrative [facility] - 07/10/2024 9:43 AM CDT Vent Rate: 96 bpm RR Interval: 624 msec IA Interval: 149 msec QRS Duration: 101 msec QT Interval: 363 msec QTC Interval: 416 msec P-R-T [place]: 40 - -13 - 88 degrees IMPRESSION: SINUS RHYTHM POSSIBLE LEFT ATRIAL ENLARGEMENT [-0.1mV P-WAVE IN V1/V2] NONSPECIFIC ST \T\ T-WAVE ABNORMALITY BORDERLINE ECG NO CHANGE FROM PREVIOUS TRACING NOTED Electronically Signed By: Polo Davenport MD us Oniel Hendrickson MD ECG ORDERABLES Final Res ult [facility] * XR Chest 1 View (07/09/2024 9:34 [...] plan with the ICU team and other medical/oracle drm consultant staff, making frequent assessments and decisions [...] from bedside monitors, laboratory results, and imaging Oniel Hendrickson MD IN CLINIC/BEDSIDE ORDERAB LES Final Result * ECG 12 lead (07/09/2024 4:14 PM CDT) 07/09/2024 4:14 PM CDT Narrative [facility] - 07/09/2024 11:45 PM CDT Vent Rate: 90 bpm RR Interval: 666 msec IA Interval: 150 msec QRS Duration: 103 msec QT Interval: 391 msec QTC Interval: 438 msec P-R-T [place]: 44 - -11 - 91 degrees IMPRESSION: SINUS RHYTHM POSSIBLE LEFT ATRIAL ENLARGEMENT [-0.1mV P-WAVE IN V1/V2] ST ELEVATION, non specific NO CHANGE FROM PREVIOUS TRACING NOTED Electronically Signed By: Polo Davenport MD Eduin Lincoln MD ECG ORDERABLES Final Re sult [facility] * XR Chest 1 View (07/09/2024 4:06 [...] PM CDT Narrative 07/09/2024 2:[address]T [address], [place] [address] Limited Echocardiogram Report ADDENDUM Patient Name: CAMILA DONOHUE W : 1955 Study Date: 07/09/2024 1:53:48 PM Gender: M Tech: Location: [id number] Ref Provider: EDUIN LINCOLN Height(Cm): 172 BSA: [...] Procedure Note Tali Crane MD - 07/09/2024 [place] [address] Limited Echocardiogram Report ADDENDUM Patient Name: CAMILA DONOHUE W : 1955 Study Date: 07/09/2024 1:53:48 PM Gender: M Tech: Location: [id number] Ref Provider: EDUIN LINCOLN Height(Cm): 172 BSA: [...] by: Eduin Lincoln MD CRITICAL CARE: Team: [facility] Shift: AM Level of Billing: Critical Care [...] plan with the ICU team and other medical/oracle drm consultant staff, making frequent assessments and decisions [...] BLOOD ORDERABLES Fin al Result JASON SAEED [address] Department [place] [address] * (ABNORMAL) CBC without differential (07/09/2024 6:44 AM CDT) WBC 22.68(H) 3.80 - 9.90 K/cumm Hgb 7.5(L) 13.0 - 17.5 g/dL [facility] Hct 23.8(L) 38.9 - 50.3 % [facility] CH Plt 351 150 - 400 K/cumm [facility] MPV 9.9 9.1 - 12.3 fL [facility] RBC 3.63(L) 4.30 - 5.80 M/cumm [facility] CH MCV 65.6(L) 81.3 - 96.4 fL [facility] MCH 20.7(L) 27.1 - 33.3 pg [facility] MCHC 31.5(L) 32.3 - 35.7 g/dL [facility] CH RDW CV 19.6(H) 11.1 - 14.9 % [facility] CH RDW SD 43.8 35.7 - 48.1 fL [facility] NRBC abs 0.02(H) 0.00 - 0.01 K/cumm [facility] Blood 07/09/2024 6:44 AM CDT 07/09/2024 6:45 AM CDT us Eduin Lincoln MD LAB BLOOD ORDERABLES Fin al Result [facility] [address] [address] Department [place] [address] * (ABNORMAL) Basic metabolic panel (07/09/2024 6:44 AM CDT) Pathologist [facility] Sodium 138 135 - 145 mmol/L Potassium, pl 4.1 3.3 - 4.9 mmol/L [facility] Chloride 102 97 - 110 mmol/L [facility] CO2 22 22 - 32 mmol/L [facility] Anion gap 14 2 - 15 mmol/L [facility] BUN 16 6 - 25 mg/dL [facility] Creatinine 1.20 0.80 - 1.30 mg/dL [facility] Glucose 97 70 - 199 mg/dL [facility] Comment: Interpretive Data Fasting glucose >/= [...] BLOOD ORDERABLES Fin al Result JASON SAEED [address] Department [place] [address] * XR Chest 1 Vw Portable (07/09/2024 [...] BLOOD ORDERABLES Fin al Result JASON SAEED [address] [address] Department [place] [address] * (ABNORMAL) CBC without differential (07/08/2024 9:38 PM CDT) WBC 21.32(H) 3.80 - 9.90 K/cumm Hgb 7.6(L) 13.0 - 17.5 g/dL [facility] Hct 24.4(L) 38.9 - 50.3 % [facility] Plt 381 150 - 400 K/cumm [facility] MPV 10.2 9.1 - 12.3 fL [facility] RBC 3.70(L) 4.30 - 5.80 M/cumm [facility] MCV 65.9(L) 81.3 - 96.4 fL [facility] MCH 20.5(L) 27.1 - 33.3 pg [facility] MCHC 31.1(L) 32.3 - 35.7 g/dL [facility] RDW CV 19.6(H) 11.1 - 14.9 % [facility] RDW SD 43.6 35.7 - 48.1 fL [facility] NRBC abs 0.03(H) 0.00 - 0.01 K/cumm [facility] Blood 07/08/2024 9:38 PM CDT 07/08/2024 9:47 PM CDT us Eduin Lincoln MD LAB BLOOD ORDERABLES Fin al Result [facility] [address] [address] Department of Laboratories [place] [id number] * Critical Care (07/08/2024 10:43 AM CDT) Narrative Eduin Linconl MD - 07/08/2024 10:43 AM CDT Eduin [...] plan with the ICU team and other medical/oracle drm consultant staff, making frequent assessments and decisions [...] PARISI BLOOD TRANSFUSION ORDERA BLES Final Result [facility] [address] Department of Laboratories [place], [place] [id number] * XR Chest 1 Vw Portable (07/08/2024 [...] LAB BLOOD ORDERABLES Fin al Result JASON [address] [address] Department of [facility] [employer] [place] [address] * aPTT (07/08/2024 5:31 AM [...] ORDERABLES Fin al Result Performing Organization Address [facility] Co de Phone Number JASON [address] [place] [address] * (ABNORMAL) Protime-INR (07/08/2024 5:31 AM CDT) PT 13.5(H) 9.7 - 13.0 sec INR 1.24(H) 0.90 - 1.20 JASON Comment: Interpretive data [...] ORDERABLES Fin al Result Performing Organization Address [facility] Co de Phone Number JASON [address] [place] [address] * (ABNORMAL) CBC without differential (07/08/2024 5:31 AM CDT) WBC 18.93(H) 3.80 - 9.90 K/cumm Hgb 8.0(L) 13.0 - 17.5 g/dL [facility] CH Hct 25.4(L) 38.9 - 50.3 % CERNER [...] MD LAB BLOOD ORDERABLES Fin al Result [facility] [address] [address] Department [place] [address] * (ABNORMAL) CBC without differential [...] RDW SD 38.4 35.7 - 48.1 fL [facility] NRBC abs 0.00 0.00 - 0.01 K/cumm [facility] Morphologic Screen Results confirmed by manual morphology review. [facility] Blood 07/08/2024 5:31 AM CDT 07/08/2024 5:35 AM CDT Eduin Lincoln MD LAB BLOOD ORDERABLES Fin al Result Performing Organization Address City/[facility]/ZIP Co de Phone Number [facility] [address] [address] Department [place] [address] * (ABNORMAL) Basic metabolic panel (07/08/2024 5:31 AM CDT) Sodium 136 135 - 145 mmol/L Potassium, pl 4.1 3.3 - 4.9 mmol/L [facility] Chloride 105 97 - 110 mmol/L [facility] CO2 22 22 - 32 mmol/L [facility] Anion gap 9 2 - 15 mmol/L [facility] BUN 22 6 - 25 mg/dL [facility] Creatinine 1.30 0.80 - 1.30 mg/dL [facility] Glucose 94 70 - 199 mg/dL [facility] Comment: Interpretive Data Fasting glucose >/= [...] 2022. Calcium 8.2(L) 8.5 - 10.3 mg/dL [facility] Blood 07/08/2024 5:31 AM CDT 07/08/2024 5:35 AM CDT Eduin Lincoln MD LAB BLOOD ORDERABLES Fin al Result Performing Organization Address City/[facility]/ZIP Co de Phone Number [facility] [address] [address] Department [place] [address] * (ABNORMAL) CBC without differential (07/07/2024 11:57 PM CDT) WBC 19.71(H) 3.80 - 9.90 K/cumm Hgb 7.2(L) 13.0 - 17.5 g/dL [facility] Hct 22.8(L) 38.9 - 50.3 % [facility] Plt 338 150 - 400 K/cumm [facility] MPV 10.5 9.1 - 12.3 fL [facility] RBC 3.58(L) 4.30 - 5.80 M/cumm [facility] MCV 63.7(L) 81.3 - 96.4 fL [facility] MCH 20.1(L) 27.1 - 33.3 pg [facility] MCHC 31.6(L) 32.3 - 35.7 g/dL [facility] RDW CV 16.9(H) 11.1 - 14.9 % [facility] RDW SD 38.1 35.7 - 48.1 fL [facility] NRBC abs 0.00 0.00 - 0.01 K/cumm [facility] Morphologic Screen Results confirmed by manual morphology review. [facility] Blood 07/07/2024 11:5 7 PM CDT 07/08/2024 12:06 AM CDT Eduin Lincoln MD LAB BLOOD ORDERABLES Fin al Result Performing Organization Address City/[facility] Co de Phone Number JASON SAEED [address] [address] Department of [facility] [place] [address] * Lactate (07/07/2024 8:59 PM CDT) Pathologist [facility] Lactate 1.0 0.7 - 2.0 mmol/L Blood 07/07/2024 8:59 PM CDT 07/07/2024 9:01 PM CDT Anika PARISI LAB BLOOD ORDERABLES Fin al Result Performing Organization Address [facility]/ZIP Co de Phone Number JASON SAEED [address] [address] Department [place] [address] * (ABNORMAL) CBC without differential (07/07/2024 6:01 PM CDT) WBC 22.30(H) 3.80 - 9.90 K/cumm Hgb 7.7(L) 13.0 - 17.5 g/dL [facility] Hct 24.6(L) 38.9 - 50.3 % [facility] Plt 381 150 - 400 K/cumm [facility] CH MPV 10.2 9.1 - 12.3 fL [facility] RBC 3.87(L) 4.30 - 5.80 M/cumm [facility] CH MCV 63.6(L) 81.3 - 96.4 fL [facility] MCH 19.9(L) 27.1 - 33.3 pg [facility] MCHC 31.3(L) 32.3 - 35.7 g/dL [facility] CH RDW CV 17.2(H) 11.1 - 14.9 % [facility] RDW SD 38.3 35.7 - 48.1 fL [facility] NRBC abs 0.00 0.00 - 0.01 K/cumm [facility] Morphologic Screen Results confirmed by manual morphology review. [facility] Blood 07/07/2024 6:01 PM CDT 07/07/2024 6:09 PM CDT Eduin Lincoln MD LAB BLOOD ORDERABLES Fin al Result Performing Organization Address [facility] Co de Phone Number JASON SAEED [address] [address] Department of [facility] [place] [address] * Type and screen (07/07/2024 6:01 PM CDT) Yuliya, indirect Negative ABO Rh O Negative [facility] Blood 07/07/2024 6:01 PM CDT 07/07/2024 6:22 PM CDT Narrative [facility] - 07/07/2024 7:00 PM CDT Has the patient had Daratumumab or Isatuximab in the past 6 months?->Unknown Eduin Lincoln MD LAB BLOOD BANK TEST ORDSandra HAGEN Final Result Performing Organization Address [facility] de Phone Number JASON SAEED [address] [address] [facility] [place] [address] * Prepare RBC: 2 Units (07/07/2024 5:14 PM CDT) Product code [id number] Unit Number [id number] [facility] Product Blood Type ONEG [facility] Dispense Status PRESUMED TRANSFUSED [facility] Blood 07/07/2024 5:14 PM CDT Narrative [facility] - 07/09/2024 10:15 AM CDT Are special requirements needed? (All products are leukoreduced and CMV- safe)- >No Donor Source->[employer] Date required:-[id number] LRRBC # of Csoho-4-Gafag Reasons:-Hemorrhagic shock/Life-threatening bleeding} Eduin Lincoln MD BLOOD BANK PRODUCT ORDER PADMINI Final Result Performing Organization Address [facility] de Phone Number OTISFAUSTO SAEED [address] [address] [facility] [place] [address] * Prepare RBC: 1 Units (07/07/2024 4:54 PM CDT) Product code [id number] Unit Number [id number] CERNER Product Blood Type ONEG [facility] CH Dispense Status PRESUMED TRANSFUSED [facility] Blood 07/07/2024 4:54 PM CDT Narrative [facility] - 07/10/2024 10:15 PM CDT Are special requirements needed? (All products are leukoreduced and CMV- safe)- >No Donor Source->[employer] Date required:-[id number] LRRBC # of Kupdy-2-Shyvo Reasons:-Hemorrhagic shock/Life-threatening bleeding} Eduin Lincoln MD BLOOD BANK PRODUCT ORDER PADMINI Final Result Performing Organization Address [facility]/ZIP Co de Phone Number JASON SAEED [address] [address] Department [place] [address] * (ABNORMAL) CBC without differential (07/07/2024 4:45 [...] RDW SD 38.5 35.7 - 48.1 fL [facility] NRBC abs 0.00 0.00 - 0.01 K/cumm [facility] Morphologic Screen Results confirmed by manual morphology review. [facility] Blood 07/07/2024 4:45 PM CDT 07/07/2024 4:48 PM CDT Eduin Lincoln MD LAB BLOOD ORDERABLES Fin al Result JASON SAEED [address] [address] Department [place] [address] * (ABNORMAL) POC Blood Gas and Chemistries, [...] - DEVIC E Final Result JASON SAEED [address] [address] Department [place] [address] * CT Chest Abdomen Pelvis W Contrast [...] suspicious lytic or blastic osseous lesions. Multilevel pmek-gq-ooyhstqv degenerative disc disease throughout the thoracic and [...] suspicious lytic or blastic osseous lesions. Multilevel qetx-jx-pksoswbc degenerative disc disease throughout the thoracic and [...] teleradiologist. Electronically signed by: Ben Rubio M.D. Eduin Lincoln MD IMG CT PROCEDURES Final [...] plan with the ICU team and other medical/oracle drm consultant staff, making frequent assessments and decisions [...] AM CDT Narrative 07/07/2024 11:30 [place] [address] Limited Echocardiogram Report Patient Name: CAMILA DONOHUE W : 1955 Study Date: 07/07/2024 8:03:40 AM Gender: M Tech: [place] Location: [id number] Ref Provider: SHARON SALINAS Height(Cm): 173 BSA: [...] effusion. Electronically Signed By: Dr. Blanca Mcdonald [facility] 07/07/2024 11:30:08 AM CDT Procedure Note Blanca Mcdonald MD - 07/07/2024 [place] [address] Limited Echocardiogram Report Patient Name: CAMILA DONOHUE W : 1955 Study Date: 07/07/2024 8:03:40 AM Gender: M Tech: [place] Location: [id number] Ref Provider: SHARON SALINAS Height(Cm): 173 BSA: [...] effusion. Electronically Signed By: Dr. Blanca Mcdonald [facility] 07/07/2024 11:30:08 AM CDT Sharon [...] Lovett MD LAB BLOOD ORDERABLES Final Result [facility] [address] [address] Department [place] [address] * (ABNORMAL) CBC without differential (07/07/2024 4:40 AM CDT) Pathologist [facility] WBC 16.99(H) 3.80 - 9.90 K/cumm Hgb 8.8(L) 13.0 - 17.5 g/dL [facility] Hct 27.9(L) 38.9 - 50.3 % [facility] Plt 350 150 - 400 K/cumm [facility] MPV 10.1 9.1 - 12.3 fL [facility] RBC 4.44 4.30 - 5.80 M/cumm [facility] MCV 62.8(L) 81.3 - 96.4 fL [facility] MCH 19.8(L) 27.1 - 33.3 pg [facility] MCHC 31.5(L) 32.3 - 35.7 g/dL [facility] RDW CV 17.0(H) 11.1 - 14.9 % [facility] RDW SD 37.2 35.7 - 48.1 fL [facility] NRBC abs 0.00 0.00 - 0.01 K/cumm [facility] Morphologic Screen Results confirmed by manual morphology review. [facility] Blood 07/07/2024 4:40 AM CDT 07/07/2024 4:49 AM CDT Rudi Lovett MD LAB BLOOD ORDERABLES Final Result Performing Organization Address [facility]/ZIP Co de Phone Number JSAON SAEED [address] [address] [facility] [place], [place] [id number] * Lipase (07/07/2024 4:40 AM CDT) Lipase 22 10 - 99 Units/L Blood 07/07/2024 4:40 AM CDT 07/07/2024 12:28 PM CDT Eduin Lincoln MD LAB BLOOD ORDERABLES Fin al Result Performing Organization Address [facility] Co de Phone Number JASON SAEED [address] [address] [facility] [place] [address] * (ABNORMAL) Hepatic function panel (07/07/2024 4:40 [...] LAB BLOOD ORDERABLES Final R esult JASON [address] [address] Department [place] [address] * (ABNORMAL) Basic metabolic panel (07/07/2024 4:40 AM CDT) Sodium 136 135 - 145 mmol/L Potassium, pl 4.4 3.3 - 4.9 mmol/L [facility] Chloride 106 97 - 110 mmol/L [facility] CO2 20(L) 22 - 32 mmol/L [facility] Anion gap 10 2 - 15 mmol/L [facility] BUN 21 6 - 25 mg/dL [facility] Creatinine 1.21 0.80 - 1.30 mg/dL [facility] Glucose 94 70 - 199 mg/dL [facility] Comment: Interpretive Data Fasting glucose >/= [...] 2022. Calcium 7.8(L) 8.5 - 10.3 mg/dL [facility] Blood 07/07/2024 4:40 AM CDT 07/07/2024 4:49 AM CDT us Rudi Lovett MD LAB BLOOD ORDERABLES Final Result JASON SAEED [address] [address] Department [place] [address] * (ABNORMAL) Troponin T high-sensitivity 6-hour (07/06/2024 [...] CDT 07/06/2024 9:17 PM CDT us Danny PARIIS LAB BLOOD ORDERABLES Final Result Performing Organization Address City/[facility] Co de Phone Number JASON SAEED [address] [address] Department of [facility] [place] [address] * POCT glucose (07/06/2024 9:11 PM CDT) Glucose, POC 105 70 - 199 mg/dL POC Performer [phone] JASON Blood 07/06/2024 9:11 PM CDT 07/06/2024 9:11 PM CDT us Rudi Lovett MD LAB POCT ORDERABLES - DEVIC E Final Result JASON SAEED [address] [address] Department of [facility] [place] [address] * Critical Care (07/06/2024 8:46 PM CDT) [...] plan with the patient's team and other medical/oracle drm consultant staff. This time was in addition [...] Trop T hs delta -5 ng/L JASON SAEED Trop T hs interp Equivocal JASON SAEED Blood 07/06/2024 6:55 PM CDT 07/06/2024 6:59 PM CDT us Danny PARISI LAB BLOOD ORDERABLES Final Result JASON SAEED [address] [address] [place] [address] * XR Chest 1 View (07/06/2024 [...] plan with the patient's team and other medical/oracle drm consultant staff. This time was in addition to and separate from care provided by other practitioners on this day of service. Rudi Lovett MD IN CLINIC/BEDSIDE ORDERABLE S Final Result * Hematocrit, Body Fluid (07/06/2024 4:30 PM CDT) Specimen type, fld Pericardial Comment:Testing performed by : [facility], [address] [place] [address] Hct, fld 27 % [facility] Comment: Interpretive Data Unless otherwise specified, the reference range and other method performance specifications have not been established for CSF/Body Fluid tests. The test results should be integrated into the clinical context for interpretation. Current interpretive data was last revised on 2018. Testing performed by: [facility], [address] [place]., [address] Fluid 07/06/2024 4:30 PM CDT 07/06/2024 7:55 PM CDT Sharon Salinas MD LAB BODY FLUIDS AND STOOLS ORDER PADMINI Final Result Performing Organization Address [facility] de Phone Number JASON SAEED [address] [place] [address] * Cell Differential, Body Fluid (07/06/2024 4:30 [...] ORDER PADMINI Final Result Performing Organization Address [facility] de Phone Number OTISFAUSTO SAEED [address] [place] [address] * Cell count w/rflx diff, body fluid [...] FLUIDS AND STOOLS ORDER PADMINI Final Result OTISFAUSTO SAEED [address] [address] [place] [address] * Mycology (fungal) culture and stain Pericardial fluid Pericardium (07/06/2024 4:30 PM CDT) Direct Specimen Exam Stain: No Fungal elements seen. Comment:Testing performed by : [facility], [address] [place] [address]., [address] Report Final Report: No growth of fungus JASON Comment:Testing performed by : [facility], [address] [place] [address]., [address] Pericardial fluid (Pericardium) 07/06/2024 4:30 PM CDT 07/06/2024 8:21 PM CDT Narrative JASON - 08/03/2024 7:32 AM CDT Fluid specimen received. Testing performed by [facility] ([phone]). Sharon Salinas MD LAB MICROBIOLOGY - GENERAL ORDER PADMINI Final Result Performing Organization Address City/[facility] Co de Phone Number OTISFAUSTO SAEED [address] [address] Department [facility] [place] [address] * Aerobic and anaerobic culture and gram stain Pericardial fluid Pericardium (07/06/2024 4:30 PM CDT) Direct Specimen Exam Stain: Cytospin Gram stain shows: Abundant polymorphonuclear leukocytes seen. Red blood cells present. No organisms seen. Comment:Testing performed by : [facility], [address] [place]., [address] Report Final Report: No growth JASON SAEED Comment:Testing performed by : [facility], [address] [place] [address]., [address] Pericardial fluid (Pericardium) 07/06/2024 4:30 PM CDT 07/06/2024 8:21 PM CDT Narrative JASON SAEED - 07/10/2024 11:16 AM CDT Fluid specimen received. Testing performed by [facility] ([phone]) Specimens submitted from normally sterile body sites [...] - GENERAL ORDER PADMINI Final Result JASON [address] [address] Department [place] [address] * Protein, body fluid (07/06/2024 4:30 PM CDT) Specimen type, fld Pericardial Comment:Testing performed by : [facility], [address] [place]., [address] Protein, fld 5.6 g/dL JASON SAEED Comment: [...] Press. 2018. Chapter 43, Body Fluids, p. 928 Current Interpretive Data was last revised 2018. Testing performed by: [facility], [address] [place] [address]., [address] Fluid 07/06/2024 4:30 PM CDT 07/06/2024 7:55 PM CDT Sharon Salinas MD LAB BODY FLUIDS AND STOOLS ORDER PADMINI Final Result [facility] [address] [facility] Department [place] [address] * Glucose, body fluid (07/06/2024 4:30 PM CDT) Specimen type, fld Pericardial Comment:Testing performed by : [facility], [address] [place]., [address] Glucose, fld 37 mg/dL JASON Comment: The above specimen type is [...] and Management. Tevin Clin J Med 2005;72:854-72. [employer] Test directory, Body Fluid Reference Intervals and/or Interpretative Information. [email or web address] Anusha ALTMAN et al. Pancreatic cyst fluid glucose: rapid, inexpensive, and accurate diagnosis of mucinous pancreatic cysts. Surgery 2018;163:600-5. Marsha AGUILAR et al. Differential diagnosis of pancreatic cysts: A prospective study on the role of intra-cystic glucose concentration. Digestive Liver Dis 2020;52:1026-32. Current Interpretive Data was last revised 2021. Testing performed by: [facility], [address] [place]., [address] Fluid 07/06/2024 4:30 PM CDT 07/06/2024 7:55 PM CDT Narrative JASON SAEED - 07/06/2024 8:17 PM CDT Body Fluid Type->Pericardial Sharon Salinas MD LAB BODY FLUIDS AND STOOLS ORDER PADMINI Final Result JASON [address] [address] Department [place] [address] * XR Chest 1 Vw Portable (07/06/2024 [...] Cardiomegaly. Electronically signed by: Ady Silva M.D. us Danny PARISI IMG XR PROCEDURES Fin al [...] PARISI LAB BLOOD ORDERABLES Final Result JASON [address] [address] Department [place] [address] * (ABNORMAL) eGFR (07/06/2024 3:02 [...] Danny PARISI LAB BLOOD ORDERABLES Final Result [facility] [address] [address] Department [place] [address] * (ABNORMAL) Differential, auto (07/06/2024 3:02 PM CDT) Neutrophil abs 11.91(H) 1.50 - 6.50 K/cumm Imm gran abs 0.25(H) 0.00 - 0.10 K/cumm [facility] Lymphocyte abs 1.62 0.80 - 3.30 K/cumm [facility] Monocyte abs 1.07(H) 0.20 - 0.80 K/cumm [facility] Eosinophil abs 0.01 0.00 - 0.50 K/cumm [facility] Basophil abs 0.04 0.00 - 0.10 K/cumm [facility] Neutrophil pct 79.8 % [facility] Comment: Interpretive Data Percent cell count reference ranges are not reported, since discordance with absolute values may lead to misinterpretation of CBC data. Current Interpretive Data was last revised on 2017. Imm gran pct 1.7 % [facility] Comment: Interpretive Data Percent cell count reference ranges are not reported, since discordance with absolute values may lead to misinterpretation of CBC data. Current Interpretive Data was last revised on 2017. Lymphocyte pct 10.9 % [facility] Comment: Interpretive Data Percent cell count reference ranges are not reported, since discordance with absolute values may lead to misinterpretation of CBC data. Current Interpretive Data was last revised on 2017. Monocyte pct 7.2 % [facility] Comment: Interpretive Data Percent cell count reference ranges are not reported, since discordance with absolute values may lead to misinterpretation of CBC data. Current Interpretive Data was last revised on 2017. Eosinophil pct 0.1 % [facility] Comment: Interpretive Data Percent cell count reference ranges are not reported, since discordance with absolute values may lead to misinterpretation of CBC data. Current Interpretive Data was last revised on 2017. Basophil pct 0.3 % [facility] Comment: Interpretive Data Percent cell count reference ranges are not reported, since discordance with absolute values may lead to misinterpretation of CBC data. Current Interpretive Data was last revised on 2017. Blood 07/06/2024 3:02 PM CDT 07/06/2024 3:08 PM CDT Danny PARISI LAB BLOOD ORDERABLES Final Result Performing Organization Address City/State/ZIP Co wi Phone Number JASON [address] Department [place] [address] * Pro B-type natriuretic peptide (07/06/2024 3:02 [...] BLOOD ORDERABLES Final Result Performing Organization Address [facility] Co de Phone Number JASON [address] [place] [address] * (ABNORMAL) CBC with auto differential (07/06/2024 3:02 PM CDT) WBC 14.90(H) 3.80 - 9.90 K/cumm Hgb 10.0(L) 13.0 - 17.5 g/dL [facility] Hct 31.4(L) 38.9 - 50.3 % [facility] Plt 395 150 - 400 K/cumm [facility] MPV 10.1 9.1 - 12.3 fL [facility] RBC 4.96 4.30 - 5.80 M/cumm [facility] MCV 63.3(L) 81.3 - 96.4 fL [facility] MCH 20.2(L) 27.1 - 33.3 pg [facility] MCHC 31.8(L) 32.3 - 35.7 g/dL [facility] RDW CV 17.4(H) 11.1 - 14.9 % [facility] RDW SD 37.9 35.7 - 48.1 fL [facility] NRBC abs 0.02(H) 0.00 - 0.01 K/cumm [facility] Morphologic Screen Results confirmed by manual morphology review. [facility] Blood 07/06/2024 3:02 PM CDT 07/06/2024 3:08 PM CDT Danny PARISI LAB BLOOD ORDERABLES Final Result Performing Organization Address City/[facility]/ZIP Co de Phone Number JASON SAEED [address] [facility] [place] [address] * (ABNORMAL) aPTT (07/06/2024 3:02 PM CDT) [...] BLOOD ORDERABLES Final Resu lt JASON SAEED [address] Department [place] [address] * (ABNORMAL) Protime-INR (07/06/2024 3:02 [...] BLOOD ORDERABLES Final Resu lt JASON SAEED [address] Department [place] [address] * (ABNORMAL) Comprehensive metabolic panel (07/06/2024 3:02 PM CDT) Sodium 128(L) 135 - 145 mmol/L Potassium, pl 5.5(H) 3.3 - 4.9 mmol/L [facility] Chloride 94(L) 97 - 110 mmol/L [facility] CO2 23 22 - 32 mmol/L [facility] Anion gap 11 2 - 15 mmol/L [facility] BUN 29(H) 6 - 25 mg/dL [facility] [...] Danny PARISI LAB BLOOD ORDERABLES Final Result [facility] [address] Department [place] [address] * [place] CRITICAL CARE ILL/INJURED PATIENT INIT 30-74 MIN [...] PM CDT) 07/06/2024 2:46 PM CDT Narrative [facility] - 07/06/2024 2:57 PM CDT Vent Rate: 75 bpm RR Interval: 795 msec IA Interval: 166 msec QRS Duration: 109 msec QT Interval: 414 msec QTC Interval: 443 msec P-R-T [place]: 58 - -31 - 83 degrees [...] Rosa Welch MD ECG ORDERABLES Final Result [facility] * Cytology (07/06/2024 12:00 AM CDT) Fluid (Pericardial) 07/06/2024 07/06/2024 9:14 AM CDT Narrative PATHOLOGY [facility] - 07/11/2024 6:24 PM CDT EPIC results best viewed via link to PDF [facility] Department of Pathology [address] [place] [id number] Note to Patients: This report may [...] Final Report Patient Name: CAMILA DONOHUE Address: [address] [place] [address] Gender: M : 1955 (Age: 68) Service: Cardiology Location: [facility] # [id number] Patient Type: [facility] Taken: 07/06/2024 Received: 07/06/2024 Accessioned: 07/09/2024 Reported: [...] determined by the Surgical Pathology Department at [facility] as part of an ongoing senior quality assurance analyst program and in compliance with federally mandated [...] characteristics determined by the Surgical Pathology Department [facility]. It has not been cleared or approved by the U. S. Food and Drug Administration. Unless otherwise noted all cytology processing, staining and screening is performed at [facility] ([address] [place] [address]). REPORT IMAGES AND SCANNED DOCUMENTS, IF INCLUDED, ONLY VIEWABLE IN PDF VERSION OF REPORT Sharon Salinas MD LAB CYTOLOGY ORDERABLES Final [place] [address] * XR Chest 1 Vw Portable (06/27/2024 [...] signed by: Curry Vallejo M.D. Asher Melendez 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 IMG XR PROCEDURES Final Res ult * (ABNORMAL) Blood smear review (06/27/2024 7:24 AM CDT) RBC morphology Present(A) Anisocytosis Moderate(A) [facility] Elliptocytes 3-7/HPF(A) [facility] Platelet estimate Adequate [facility] Blood 06/27/2024 7:24 AM CDT 06/27/2024 7:39 AM CDT Guadalupe Lewis NP LAB BLOOD ORDERABLES Fin al Result [facility] [address] Department [place] [address] * eGFR (06/27/2024 7:24 AM [...] CDT 06/27/2024 7:38 AM CDT Guadalupe Lewis 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 LAB BLOOD ORDERABLES Fin al Result Performing Organization Address City/[facility]/ZIP Co de Phone Number JASON SAEED [address] [place] [address] * (ABNORMAL) CBC without differential [...] RDW SD 38.6 35.7 - 48.1 fL [facility] NRBC abs 0.00 0.00 - 0.01 K/cumm [facility] Blood 06/27/2024 7:24 AM CDT 06/27/2024 7:39 AM CDT Guadalupe Lewis 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 LAB BLOOD ORDERABLES Sotero elza Result - Final Performing Organization Address City/[facility]/ZIP Co de Phone Number JASON SAEED [address] [facility] [place] [address] * Basic metabolic panel (06/27/2024 7:24 AM CDT) [facility] Sodium 136 135 - 145 mmol/L Potassium, pl 3.8 3.3 - 4.9 mmol/L [facility] Chloride 102 97 - 110 mmol/L [facility] CO2 23 22 - 32 mmol/L [facility] Anion gap 11 2 - 15 mmol/L [facility] BUN 24 6 - 25 mg/dL [facility] Creatinine 1.26 0.80 - 1.30 mg/dL [facility] Glucose 123 70 - 199 mg/dL [facility] Comment: Interpretive Data Fasting glucose >/= [...] 2022. Calcium 8.8 8.5 - 10.3 mg/dL [facility] Blood 06/27/2024 7:24 AM CDT 06/27/2024 7:38 AM CDT Guadalupe Lewis NP LAB BLOOD ORDERABLES [facility] al Result [facility] [address] Department [place] [address] * ECG 12 lead (06/27/2024 7:17 AM CDT) 06/27/2024 7:17 AM CDT Narrative [facility] - 06/27/2024 9:58 AM CDT Vent Rate: 116 bpm RR Interval: 514 msec IA Interval: 0 msec QRS Duration: 102 msec QT Interval: 337 msec QTC Interval: 406 msec P-R-T [place]: 0 - -15 - 58 degrees IMPRESSION: ATRIAL FIBRILLATION WITH RAPID VENTRICULAR RESPONSE ST ELEVATION CONSISTENT WITH INJURY, PERICARDITIS, OR EARLY REPOLARIZATION [ST ELEVATION W/O NORMALLY INFLECTED T-WAVE] NONSPECIFIC ST \T\ T-WAVE ABNORMALITY ABNORMAL ECG Electronically Signed By: Dr. Blanca Mcdonald [facility] Jesus Goldman MD ECG ORDERABLES Final Result Performing Organization Address [facility] Phone Number [facility] * ECG 12 lead (06/27/2024 6:05 AM CDT) 06/27/2024 6:05 AM CDT Narrative [facility] - 06/27/2024 9:58 AM CDT Vent Rate: 105 bpm RR Interval: 569 msec IA Interval: 0 msec QRS Duration: 99 msec QT Interval: 345 msec QTC Interval: 406 msec P-R-T [place]: 0 - -8 - 35 degrees IMPRESSION: ATRIAL FIBRILLATION WITH RAPID VENTRICULAR RESPONSE ST ELEVATION, CONSIDER lateral injury ACUTE MA Electronically Signed By: Dr. Blanca Mcdonald [facility] Gurvinder Burciaga MD ECG ORDERABLES Final Result Performing Organization Address [facility] Phone Number [facility] [employer] [facility] * Type and screen (06/26/2024 3:47 PM CDT) Yuliya, indirect Negative ABO Rh O Negative JASON SAEED Blood 06/26/2024 3:47 PM CDT 06/26/2024 4:08 PM CDT Narrative JASON - 06/26/2024 4:50 PM CDT Has the patient had Daratumumab or Isatuximab in the past 6 months?->Unknown Diana Olmos 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 LAB BLOOD BANK TEST ORDERA BLES Final Result Performing Organization Address [facility] Co de Phone Number JASON [address] Department [place] [address] * XR Chest 1 Vw [...] by: Ady Silva M.D. us Rajani Morales 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 IMG XR PROCEDURES Final R esult * [...] plan with the patient's team and other medical/oracle drm consultant staff. This time was in addition to and separate from care provided by other practitioners on this day of service. us Rajani Morales 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 IN CLINIC/BEDSIDE ORDERAB LES Final Result * ECG 12 lead (06/26/2024 12:46 AM CDT) 06/26/2024 12:4 6 AM CDT Narrative [facility] - 06/26/2024 7:40 AM CDT Vent Rate: 99 bpm RR Interval: 606 msec IA Interval: 179 msec QRS Duration: 106 msec QT Interval: 382 msec QTC Interval: 438 msec P-R-T [place]: 29 - -57 - 54 degrees IMPRESSION: SINUS RHYTHM POSSIBLE LEFT ATRIAL ENLARGEMENT [-0.1mV P-WAVE IN V1/V2] LEFT AXIS DEVIATION [QRS AXIS < -30] Compared to prior EKG heart rate increased Electronically Signed By: Wayne Huang MD [facility] Gurvinder Burciaga MD ECG ORDERABLES Final Result [facility] * eGFR (06/25/2024 9:30 PM CDT) eGFR [...] ORDERABLES Final R esult Performing Organization Address [facility] Co de Phone Number JASON SAEED [address] Department of [facility] [place] [address] * (ABNORMAL) CBC without differential (06/25/2024 9:30 PM CDT) WBC 16.52(H) 3.80 - 9.90 K/cumm Hgb 12.2(L) 13.0 - 17.5 g/dL [facility] Hct 39.3 38.9 - 50.3 % [facility] Plt 251 150 - 400 K/cumm [facility] MPV 10.2 9.1 - 12.3 fL [facility] RBC 6.20(H) 4.30 - 5.80 M/cumm [facility] MCV 63.4(L) 81.3 - 96.4 fL [facility] MCH 19.7(L) 27.1 - 33.3 pg [facility] MCHC 31.0(L) 32.3 - 35.7 g/dL [facility] RDW CV 18.7(H) 11.1 - 14.9 % [facility] RDW SD 38.5 35.7 - 48.1 fL [facility] NRBC abs 0.00 0.00 - 0.01 K/cumm [facility] CH Morphologic Screen Results confirmed by manual morphology review. [facility] Blood 06/25/2024 9:30 PM CDT 06/25/2024 9:54 PM CDT Gurvinder Burciaga MD LAB BLOOD ORDERABLES Final R esult Performing Organization Address City/[facility]/ZIP Co de Phone Number JASON SAEED [address] Department of [facility] [place], [place] [id number] * Phosphorus (06/25/2024 9:30 PM CDT) Phosphorus, pl 2.7 2.3 - 4.5 mg/dL Blood 06/25/2024 9:30 PM CDT 06/26/2024 8:17 AM CDT Guadalupe Lewis 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 LAB BLOOD ORDERABLES Fin al Result Performing Organization Address City/[facility] Co de Phone Number JASON SAEED [address] [facility] [place] [address] * Magnesium (06/25/2024 9:30 PM CDT) Magnesium 2.0 1.4 - 2.5 mg/dL Blood 06/25/2024 9:30 PM CDT 06/26/2024 8:17 AM CDT Guadalupe Lewis 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 LAB BLOOD ORDERABLES Fin al Result Performing Organization Address [facility] de Phone Number JASON SAEED [address] [facility] [place] [address] * Basic metabolic panel (06/25/2024 9:30 PM CDT) Pathologist [facility] Sodium 137 135 - 145 mmol/L Potassium, pl 4.1 3.3 - 4.9 mmol/L [facility] Chloride 103 97 - 110 mmol/L [facility] CO2 23 22 - 32 mmol/L [facility] Anion gap 11 2 - 15 mmol/L [facility] BUN 18 6 - 25 mg/dL [facility] Creatinine 1.14 0.80 - 1.30 mg/dL [facility] Glucose 101 70 - 199 mg/dL [facility] Comment: Interpretive Data Fasting glucose >/= [...] 2022. Calcium 8.7 8.5 - 10.3 mg/dL [facility] Blood 06/25/2024 9:30 PM CDT 06/25/2024 9:54 PM CDT us Gurvinder Burciaga MD LAB BLOOD ORDERABLES Final R esult JASON SAEED [address] Department [place] [address] * Critical Care (06/25/2024 7:13 PM CDT) [...] plan with the ICU team and other medical/oracle drm consultant staff, making frequent assessments and decisions [...] medical record us Jaz De La Torre NP IN CLINIC/BEDSIDE [...] inferior: normal 16- Apical septal: normal 17- [place]: normal Atria: Left atrium: Spontaneous echo contrast: [...] the written comments contained within the report. Marion Fernándezo DO ANESTHESIA ORDERABLES Final Result * XR [...] Grayson DO ANESTHESIA ORDERABLES Final Result * IA AN ELECTIVE ENDOTRACHEAL AIRWAY (06/25/2024 2:22 PM [...] 2:12 PM CDT) Narrative de Mauro Spann, RENARD - 06/25/2024 2:12 PM CDT de EsterMauro lópezeva Arita, RENARD 06/25/2024 2:12 PM Arterial Line Patient location: [...] PROCEDURES Final Re sult Performing Organization Address City/[facility] Co de Phone Number CONS SCIMAGE * Check Sample (06/25/2024 11:25 AM CDT) ABO Rh O Negative [facility] HCLL OTHER 06/25/2024 11:2 5 AM CDT 06/25/2024 11:36 AM CDT us Gurvinder Burciaga MD LAB BLOOD ORDERABLES Final R esult JASON SAEED [address] Department [place] [address] CH * Prepare RBC: 1 Units (06/25/2024 10:47 AM CDT) Product code [id number] Unit Number [id number] 3-O JASON Product Blood Type ONEG JASON Dispense Status RETURNED JASON Blood 06/25/2024 10:4 7 AM CDT Narrative [facility] - 06/26/2024 12:56 AM CDT Specify Procedure:->endoscopic surgical ablation Are special requirements needed? (All products are leukoreduced and CMV- safe)- >No Date required:-[id number] LRRBC # of [id number] Reasons:-Hold for procedure (specify procedure)} us Diana Olmos NP BLOOD BANK PRODUCT ORDERAB LES Final Result JASON [address] Department [place] [address] * eGFR (06/22/2024 9:39 AM CDT) eGFR [...] ORDERABLES Final R esult Performing Organization Address [facility] Co de Phone Number JASON SAEED [address] [facility] [place], [place] [id number] * aPTT (06/22/2024 9:39 AM CDT) aPTT 35 28 - 38 sec Comment: Interpretive Data Heparin therapeutic range: 66.0 - 100.0 seconds. Range based on correlation with therapeutic heparin activity range of 0.3 - 0.7 Units/mL. Current interpretive data was last revised on 2022. Blood 06/22/2024 9:39 AM CDT 06/22/2024 9:39 AM CDT Gurvinder Burciaga MD LAB BLOOD ORDERABLES Final R wuult Performing Organization Address [facility] de Phone Number OTISFAUSTO SAEED [address] [address] [facility] [place] [phone] * Protime-INR (06/22/2024 9:39 AM CDT) PT [...] ORDERABLES Final R esult Performing Organization Address [facility] Co de Phone Number JASON SAEDE [address] [address] [facility] [place] [address] * (ABNORMAL) CBC without differential (06/22/2024 9:39 AM CDT) Pathologist [facility] WBC 6.58 3.80 - 9.90 K/cumm Hgb 12.7(L) 13.0 - 17.5 g/dL [facility] Hct 41.8 38.9 - 50.3 % [facility] Plt 273 150 - 400 K/cumm [facility] MPV 10.1 9.1 - 12.3 fL [facility] RBC 6.44(H) 4.30 - 5.80 M/cumm [facility] MCV 64.9(L) 81.3 - 96.4 fL [facility] MCH 19.7(L) 27.1 - 33.3 pg [facility] MCHC 30.4(L) 32.3 - 35.7 g/dL [facility] RDW CV 18.7(H) 11.1 - 14.9 % [facility] RDW SD 39.3 35.7 - 48.1 fL [facility] NRBC abs 0.00 0.00 - 0.01 K/cumm [facility] Morphologic Screen Results confirmed by manual morphology review. [facility] Blood 06/22/2024 9:39 AM CDT 06/22/2024 9:39 AM CDT us Gurvinder Burciaga MD LAB BLOOD ORDERABLES Final R esult [facility] [address] [address] Department [place] [address] * Basic metabolic panel (06/22/2024 9:39 AM CDT) Pathologist [facility] Sodium 142 135 - 145 mmol/L Potassium, pl 4.0 3.3 - 4.9 mmol/L [facility] Chloride 105 97 - 110 mmol/L [facility] CO2 28 22 - 32 mmol/L [facility] Anion gap 9 2 - 15 mmol/L [facility] BUN 22 6 - 25 mg/dL [facility] Creatinine 1.22 0.80 - 1.30 mg/dL [facility] Glucose 106 70 - 199 mg/dL [facility] Comment: Interpretive Data Fasting glucose >/= [...] ORDERABLES Final R esult Performing Organization Address [facility] Co de Phone Number JASON [address] [address] Department [place] [address] * ECG 12 lead (06/22/2024 9:15 AM CDT) 06/22/2024 9:15 AM CDT Narrative [facility] - 06/22/2024 11:45 AM CDT Vent Rate: 53 bpm RR Interval: 1120 msec IA Interval: 179 msec QRS Duration: 117 msec QT Interval: 450 msec QTC Interval: 433 msec P-R-T [place]: 49 - 33 - 74 degrees IMPRESSION: SINUS BRADYCARDIA MODERATE INTRAVENTRICULAR CONDUCTION DELAY BORDERLINE ECG Electronically Signed By: Polo Davenport MD Gurvinder Burciaga MD ECG ORDERABLES Final Result Performing Organization Address [facility] Co de Phone Number [employer] [facility] * XR Chest PA Lateral 2 View [...] tendency for uric acid stone formation. Source: [facility] Current Interpretive Data was last revised on [...] O RDERABLES Final Result Performing Organization Address [facility]/ZIP Co de Phone Number JASON [address] [address] Department of [facility] [place] [address] * Type and screen (06/22/2024 8:41 AM CDT) Yuliya, indirect Negative ABO Rh O Negative [facility] Blood 06/22/2024 8:41 AM CDT 06/22/2024 9:51 AM CDT Narrative [facility] - 06/22/2024 10:40 AM CDT Has the patient had Daratumumab or Isatuximab in the past 6 months?->Unknown Gurvinder Burciaga MD LAB BLOOD BANK TEST ORDERABL ES Final Result Performing Organization Address [facility] Co de Phone Number JASON [address] Department of [facility] [place] [address] * CT Chest W Contrast (06/19/2024 7:30 [...] CDT TRANSESOPHAGEAL ECHO NOTE Surgical Team: Cardiac solar lab technician staff CV Documenter: Sharri Glass RN Surgical Dental Assistant: Yolanda Walker MD DATE OF SURGERY : [...] BLOOD ORDERABLES Final Result Performing Organization Address [facility] Co de Phone Number JASON [address] Department [facility] [place], [place] [address] * Magnesium (06/06/2024 12:44 PM CDT) Magnesium 2.4 1.4 - 2.5 mg/dL Blood 06/06/2024 12:4 4 PM CDT 06/06/2024 12:44 PM CDT Yolanda Walker MD LAB BLOOD ORDERABLES Final Result Performing Organization Address [facility] Co de Phone Number JASON [address] [address] Department of [facility] [place] [address] * Basic metabolic panel (06/06/2024 12:44 PM CDT) Sodium 142 135 - 145 mmol/L Potassium, pl 4.7 3.3 - 4.9 mmol/L [facility] Chloride 102 97 - 110 mmol/L [facility] CO2 30 22 - 32 mmol/L [facility] Anion gap 10 2 - 15 mmol/L [facility] BUN 20 6 - 25 mg/dL [facility] Creatinine 1.17 0.80 - 1.30 mg/dL [facility] Glucose 87 70 - 199 mg/dL [facility] Comment: Interpretive Data Fasting glucose >/= [...] 2022. Calcium 10.0 8.5 - 10.3 mg/dL [facility] Blood 06/06/2024 12:4 4 PM CDT 06/06/2024 12:44 PM CDT Yolanda Walker MD LAB BLOOD ORDERABLES Final Result [facility] [address] Department [place] [address] from Last [address] [facility] [employer] Advance Directives For more information, please contact: [phone] * Full Code (Latest Code Status on [...] 9:04 PM 01/28/2022 1:54 PM Care Teams Geological Drafter Relationship Specialty Start Date End Date Milagros Mills DO PCP - General Family Medicine 06/17/22 Reilly Waters MD Consulting Physician Urology 01/28/22 Jorge Alberto Silva MD [facility] MEDICAL ONCOLOGY, [address] [address] Medical Oncologist/Whiskey Regauger Hematology and Oncology 08/31/23 Yolanda Walker MD [address] [place] [address] Consulting Physician Cardiology 06/27/24
--- OUTSIDE RECORDS SUMMARY | 2024-08-22 13:32 | XMS_ITS | Encounter Summary ---
Author Organization [facility] Healthcare Address [address] [place] [address] Care Team Providers Care Cushion Maker Hand Name Role Phone Reilly Waters MD Unavailable [phone] Milagros Mills DO Primary Care Provider [phone] Jorge Alberto Silva MD Unavailable [phone] Yolanda Walker MD Unavailable [phone] Encounter Details Date Type Department Care Team (Late st Contact Info) Description 07/19/2024 [facility] Post Discharge Follow up phone call [facility] [address] [place] [address] Jeimy Winn Social History Tobacco Use Types Packs/Day Years Used Date Smoking Tobacco: Never Smokeless Tobacco: Former Chew Comments:Quit chewing at age [address] [facility] Utilities Answer Date Recorded In the past 12 months has [employer], oil, or water [employer] threatened to shut off services in your [...] week 07/09/2024 How often do you attend [facility] or gnosticist services? 1 to 4 times per year 07/09/2024 Do you belong to any clubs o r organizations such as mandaeism groups, unions, fraternal or athletic groups, or [...] place to sleep or slept in a snf (including now)? No 01/27/2022 Housing Stability Vital Sign Answer [place] e Recorded In the last 12 months, was t here a time when you were not able to pay the mortgage or rent on time? No 07/09/2024 In the past 12 months, how m any times have you moved where you were living? 0 07/09/2024 At any time in the past 12 m [facility], were you homeless or living in a snf (including now)? No 07/09/2024 Personal Safety Answer Date Recorded Have you ever been in or are you currently in a harmful physical or emotional relationship or is someone making you feel afraid or unsafe? 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 Gender Identity Not on file Sexual Orientation Not on file documented as of this encounter Plan of Treatment Upcoming Encounters Date Type Department Care Team (Latest Contact Info) Description 10/09/2024 12:30 PM CDT Hospital Encounter [facility] Electrophysiology Lab [address] [place] [id number] Yolanda Wakler MD [address] [place] [address] Atrial fibrillation (HCC) 10/09/2024 12:30 PM CDT - 10/09/2024 4:40 PM CDT Surgery [facility] Electrophysiology Lab [address] [place] [id number] Yolanda Walker MD [address] [place] [address] ABLATION ATRIAL FIBRILLATION (A-FIB) VIA PULMONARY VEIN ISOLATION [id number] documented as of this encounter Visit Diagnoses Not on filedocumented in this encounter Care Teams Cushion Maker Hand Relationship Specialty Start Date End Date Milagros Mills DO PCP - General Family Medicine 06/17/22 Reilly Waters MD Consulting Physician Urology 01/28/22 Jorge Alberto Silva MD [address] [place] [address] MEDICAL ONCOLOGY, [place] [address] Medical Oncologist/Brattice Builder Hematology and Oncology 08/31/23 Yolanda Walker MD [address] [place] [address] Consulting Physician Cardiology 06/27/24 documented as of this encounter
--- OUTSIDE RECORDS SUMMARY | 2024-08-22 13:32 | XMS_ITS | Clinical Summary ---
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 No 07/21/2023 Sex and Gender [...] 1955 Pneumococcal Vaccine: 50+ Years (1 of 1 - PCV) 2006 RSV Immunization or 60+ Years (1 - Risk 60-74 years 1-dose series) 2016 Annual Medicare Wellness Visit 2021 COVID-19 Vaccine (1 - 2023-2 5 season) 2023 PHQ-2 (Physician Leslie) 02/08/2024 07/21/2023 DTaP, Tdap and Td Vaccines [...] REFLX GENOTYPE (07/25/2023 5:53 AM CDT) Pathologist [facility] HEPATITIS C RNA PCR QNT <15 IU/mL 07/28/2023 8:37 AM CDT [employer] NAIDA CALHOUN Comment: HCV RNA Not Detected HEP C RNA PCR QNT LOG <1.18 log IU/mL 07/28/2023 8:37 AM CDT [employer] NAIDA CALHOUN Comment: HCV RNA Not Detected Reference Range: Not Detected IU/mL Not Detected Log IU/mL For additional information please refer to http://education.[facility]/faq/SCS95u2 (This link is being provided for informational/ educational purposes only.) Test Performed by [facility] [employer] [facility], [address] [place] [address] Benedict Richardson M.D., Ph.D., Director of Laboratories , [place] [id number] 07/25/2023 5:53 AM CDT Julian Agarwal MD LABORATORY Final Result [facility] [address] [place] [address], [place] [phone] from Last 3 Months or Most Recently Relevant to Health Maintenance Insurance MEDICARE [employer] Advance Directives * Full Code (Latest Code Status on File) Date Activated Date Inactivated Comments 07/21/2023 5:19 PM 07/26/2023 2:51 PM Care Teams Security Guards Dispatcher Relationship Specialty Start Date End Date Milagros Mills DO [address] [place] [address] PCP - General FAMILY PRACTICE 07/21/23
--- OUTSIDE RECORDS SUMMARY | 2024-08-22 13:32 | XMS_ITS | Clinical Summary ---
Author Organization [facility] Address [address] [place] [address] Care Team Providers Care Engine Manager Name Role Phone Unknown, Provider Primary Care Provider Unavaila ble Source Comments [facility],non-owned Affiliates and Associated Physician Practices is amultiple site organization consisting of ambulatory clinics and hospital sitesin [place], [place], [place] and [place]. This disclosure is being madepursuant to the Care Everywhere program and may not contain all information available regarding this patient. 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
== END 2024-08-22 13:23 | disposition home or self-care (01) ==
PROVIDERS: PCP Family Medicine; Visit Provider Orthopaedic Surgery
DX: M19.011 Primary osteoarthritis, right shoulder (principal)
CPT/HCPCS: 73030